=== PATIENT | female | born 1940 | race Caucasian/White ===

== ENCOUNTER 2017-02-06 15:00 | Inpatient (IN) | payer MEDICARE ==
[2017-02-06] VITALS (7 sets, daily range): BP systolic 104–133; BP diastolic 53–71; PULSE 57–76; RESP 16–18; TEMP 97.6–98.4; O2SAT 91–98
[~2017-02-06] VITALS: Ht 167.6 cm; Wt 109.0 kg
[~2017-02-06 15:00] MED LIST: BUME1TAB PO; CARV6.25 PO; CHOL1TAB29 PO; COUM4TAB7 PO; CYMB30CA PO; DUONI NEB; FIORIC PO; MAGN400 PO; OCUVCAP PO; OSTETAB3 PO; PERC5TAB12 PO; POTA20PA PO; SILD20TA PO; SIMV20 PO; SYMB160A INH; [UNRECOGNIZED DRUG - CODE] IM
[2017-02-06 15:51] LABS: AUTOMATED NEUTROPHIL # 7.2 TH/MM3 (1.8-7.7); BASOPHIL # 0.1 TH/MM3 (0-0.2); EOSINOPHIL # 0.1 TH/MM3 (0-0.4); EOSINOPHIL % 1.5 % (0.0-4.0); HEMATOCRIT 33.4 % (35.0-46.0); HEMO FLAGS DIFF FINAL; LYMPH % 9.7 % (9.0-44.0); LYMPHOCYTE # 0.9 TH/MM3 (1.0-4.8); MEAN CELL VOLUME 90.4 FL (80.0-100.0); MEAN CORPUSCULAR HEMOGLOBIN 29.5 PG (27.0-34.0); MEAN CORPUSCULAR HGB CONC 32.6 % (32.0-36.0); MONO % 5.8 % (0.0-8.0); PLATELET COUNT 311 TH/MM3 (150-450); RED BLOOD COUNT 3.69 MIL/MM3 (4.00-5.30); RED CELL DISTRIBUTION WIDTH 15.4 % (11.6-17.2); WHITE BLOOD COUNT 8.8 TH/MM3 (4.0-11.0)
--- NOTE | 2017-02-06 15:52 | PD ---
HPI Chief Complaint: Respiratory Symptoms Time Seen by Provider: 15:13 Travel History International Travel<30 days: No Contact w/Intl Traveler<30days: No Traveled to known affect area: No History of Present Illness HPI This is a 76-year-old female with history of CHF, COPD, who presents today with complaints of worsening shortness of breath over the last 3 days. Patient also reports 10 pound weight gain over the last 3 days. She states that despite taking her 160 mg of Lasix daily, she is decreased respiratory effort. She denies any chest pressure but does report a little tightness in her upper chest. She denies any productive phlegm. She denies a fevers, chills patient does report swelling of her legs as well. He does have a history of atrial fibrillation and is taking Coumadin. He states her last INR was greater than 3 and almost 4. She was due for another INR on Thursday. PFSH Past Medical History Hx Anticoagulant Therapy: Yes Arthritis: Yes (OA) Asthma: No Anxiety: No Depression: Yes Heart Rhythm Problems: No Cancer: No Cardiovascular Problems: Yes High Cholesterol: Yes Chest Pain: Yes Congestive Heart Failure: No COPD: Yes Cerebrovascular Accident: No Diabetes: No Diminished Hearing: No Deep Vein Thrombosis: Yes Endocrine: No GERD: No Genitourinary: No Hepatitis: No Hiatal Hernia: No Hypertension: Yes Immune Disorder: No Kidney Stones: No Musculoskeletal: Yes (Degenerative disk disease) Psychiatric: Yes Respiratory: Yes Immunizations Current: Yes Migraines: No Renal Failure: No Seizures: No Sleep Apnea: No Thyroid Disease: No Ulcer: No ?: Not Menopausal: Yes Past Surgical History Abdominal Surgery: Yes AICD: No Appendectomy: Yes Body Medical Devices: INTERSTEM LEFT BUTTUCK AND RIGHT HEEL BOLT Cardiac Surgery: No Ear Surgery: No Endocrine Surgery: No Eye Surgery: Yes (cataracts) Genitourinary Surgery: Yes (Inner stem therapy[left buttocks) Gynecologic Surgery: Yes (Hysterectomy ) Hysterectomy: Yes Joint Replacement: Yes (HIP REPLACEMENT ) Neurologic Surgery: No Oral Surgery: No Pacemaker: No Thoracic Surgery: No Tonsillectomy: Yes Other Surgery: Yes ( mediastymectomy, lung biopsy) Social History Alcohol Use: No Tobacco Use: No (quit) Substance Use: No Allergies-Medications (Allergen,Severity, Reaction): Coded Allergies: No Known Allergies (Unverified , 03/06/16) Reported Meds & Prescriptions Reported Meds & Active Scripts Active Fioricet Tab (Acetaminophen/Butalbital/Caffeine) 1 Tab 1 Tab PO Q4H PRN Bumetanide 1 Mg Tab 1 Mg PO BID@09,18 Percocet 5-325 mg (Oxycodone/Acetaminophen) 5 Mg/325 Mg Tab 1 Tab PO Q6H PRN Reported Resp: Albuterol/Ipratropium 2.5 Mg/0.5 Mg (Albuterol/Ipratropium) 1 Amp Nebu 1 Ampule NEB BID NEB PRN Furosemide 80 Mg Tab 80 Mg PO BID Coumadin 4 mg (Warfarin Sodium) Warfarin Sodium 4 mg Tab 8 Mg PO MOWEFR@16 Coumadin 4 mg (Warfarin Sodium) Warfarin Sodium 4 mg Tab 4 Mg PO SUTUTHSA@16 Sildenafil Citrate 20 Mg Tab 20 Mg PO TID Ocuvite Lutein (Multiple Vitamins W/ Minerals) Cap 1 Cap PO DAILY D3 2000 (Cholecalciferol) 2,000 Unit Tab 2,000 Units PO DAILY Klor-Con (Potassium Chloride) 20 Meq Pow 40 Meq PO BID *DISSOLVE POWDER IN 4 OUNCES OF WATER* Delestrogen (Estradiol Valerate) 10 Mg/Ml Inj 20 Mg IM MONTHLY Cymbalta (Duloxetine HCl) 30 Mg Cap 30 Mg PO DAILY Symbicort (Budesonide/Formoterol Fumarate) 160 Mcg/4.5 Mcg Aer 2 Puff INH BID * SHAKE WELL BEFORE USE * Osteo Bi-Flex Regular Str (Glucosamine-Chondroitin) 1 Tab Tab 1 Tab PO BID Coreg 6.25 mg (Carvedilol) 6.25 Mg Tab 6.25 Mg PO BID Zocor (Simvastatin) 20 Mg Tab 20 Mg PO HS Mag-Ox 400 Mg Tab (Magnesium Oxide) 400 Mg Tab 400 Mg PO BID Review of Systems Except as stated in HPI: all other systems reviewed are Neg General / Constitutional: No: Fever, Chills HENT: No: Headaches, Neck Pain Cardiovascular: Positive: Chest Pain or Discomfort (tightness), Irregular Rhythm (history of A. fib), No: Palpitations Respiratory: Positive: Shortness of Breath, No: Cough Gastrointestinal: No: Nausea, Vomiting, Abdominal Pain Genitourinary: Positive: Decreased Urinary Output, No: Frequency (decreased frequency) Musculoskeletal: Positive: Weakness, No: Pain Neurologic: Positive: Weakness, No: Headache Psychiatric: Positive: Anxiety Physical Exam Narrative GENERAL: Well-developed well-nourished female in moderate respiratory discomfort. SKIN: Focused skin assessment warm/dry. HEAD: Atraumatic. Normocephalic. EYES: No scleral icterus. No injection or drainage. ENT: No nasal bleeding or discharge. Mucous membranes pink and moist. NECK: Trachea midline. Supple. CARDIOVASCULAR: Irregularly irregular with a rate in the 90s. No obvious murmur appreciated. RESPIRATORY: No accessory muscle use. Fine Rales appreciated at the bilateral bases. No wheezing appreciated. GASTROINTESTINAL: Abdomen soft, non-tender, nondistended. MUSCULOSKELETAL: No obvious deformities. No clubbing. No cyanosis. Bilateral pretibial edema. NEUROLOGICAL: Awake and alert. No obvious cranial nerve deficits. Motor grossly within normal limits. Normal speech. PSYCHIATRIC: Appropriate mood and affect; insight and judgment normal. Data Data Last Documented VS Vital Signs Date Time Temp Pulse Resp B/P (MAP) Pulse Ox O2 Delivery O2 Flow Rate FiO2 02/06/17 15:40 16 97 Nasal Cannula 3.00 02/06/17 15:02 97.6 76 107/53 (71) Orders Orders Complete Blood Count With Diff (02/06/17 15:30) Comprehensive Metabolic Panel (02/06/17 15:30) B-Type Natriuretic Peptide (02/06/17 15:30) Act Partial Throm Time (Ptt) (02/06/17 15:30) Prothrombin Time / Inr (Pt) (02/06/17 15:30) Ckmb (Isoenzyme) Profile (02/06/17 15:30) Troponin I (02/06/17 15:30) Urinalysis - C+S If Indicated (02/06/17 15:30) Iv Access Insert/Monitor (02/06/17 15:30) Electrocardiogram (02/06/17 15:30) Ecg Monitoring (02/06/17 15:30) Oximetry (02/06/17 15:30) Oxygen Administration (02/06/17 15:30) Chest, Single Ap (02/06/17 15:30) Sodium Chloride 0.9% Flush (Ns Flush) (02/06/17 15:30) Sodium Chloride 0.9% Flush (Ns Flush) (02/06/17 17:15) Methylprednisolone So Succ Inj (Solumedr (02/06/17 17:15) Albuterol-Ipratropium Neb (Duoneb Neb) (02/06/17 17:15) Albuterol Neb (Albuterol Neb) (02/06/17 17:15) Arterial Blood Gas (Abg) (02/06/17 ) Sodium Chlorid 0.9% 500 Ml Inj (Ns 500 M (02/06/17 17:15) Admit Order (Ed Use Only) (02/06/17 17:20) Labs Laboratory Tests Test 02/06/17 15:35 White Blood Count 8.8 TH/MM3 Red Blood Count 3.69 MIL/MM3 Hemoglobin 10.9 GM/DL Hematocrit 33.4 % Mean Corpuscular Volume 90.4 FL Mean Corpuscular Hemoglobin 29.5 PG Mean Corpuscular Hemoglobin Concent 32.6 % Red Cell Distribution Width 15.4 % Platelet Count 311 TH/MM3 Mean Platelet Volume 7.5 FL Neutrophils (%) (Auto) 82.0 % Lymphocytes (%) (Auto) 9.7 % Monocytes (%) (Auto) 5.8 % Eosinophils (%) (Auto) 1.5 % Basophils (%) (Auto) 1.0 % Neutrophils # (Auto) 7.2 TH/MM3 Lymphocytes # (Auto) 0.9 TH/MM3 Monocytes # (Auto) 0.5 TH/MM3 Eosinophils # (Auto) 0.1 TH/MM3 Basophils # (Auto) 0.1 TH/MM3 CBC Comment DIFF FINAL Differential Comment Prothrombin Time 27.4 SEC Prothromb Time International Ratio 2.4 RATIO Activated Partial Thromboplast Time 40.6 SEC Urine Color LIGHT-YELLOW Urine Turbidity CLEAR Urine pH 7.5 Urine Specific [place] 1.008 Urine Protein NEG mg/dL Urine Glucose (UA) NEG mg/dL Urine Ketones NEG mg/dL Urine Occult Blood MOD Urine Nitrite NEG Urine Bilirubin NEG Urine Urobilinogen LESS THAN 2.0 MG/DL Urine Leukocyte Esterase NEG Urine RBC LESS THAN 1 /hpf Urine WBC LESS THAN 1 /hpf Urine Squamous Epithelial Cells 1 /hpf Microscopic Urinalysis Comment CULT NOT INDICATED Blood Urea Nitrogen 27 MG/DL Creatinine 1.29 MG/DL Random Glucose 90 MG/DL Total Protein 7.2 GM/DL Albumin 3.1 GM/DL Calcium Level 9.3 MG/DL Alkaline Phosphatase 103 U/L Aspartate Amino Transf (AST/SGOT) 13 U/L Alanine Aminotransferase (ALT/SGPT) 13 U/L Total Bilirubin 0.3 MG/DL Sodium Level 136 MEQ/L Potassium Level 5.4 MEQ/L Chloride Level 101 MEQ/L Carbon Dioxide Level 30.2 MEQ/L Anion Gap 5 MEQ/L Estimat Glomerular Filtration Rate 40 ML/MIN Total Creatine Kinase 25 U/L Troponin I LESS THAN 0.02 NG/ML B-Type Natriuretic Peptide 269 PG/ML MDM Medical Decision Making Medical Screen Exam Complete: Yes Emergency Medical Condition: Yes Differential Diagnosis CHF exacerbation versus COPD exacerbation versus pneumonia versus acute kidney injury Narrative Course 76-year-old female presents today with complaints of shortness of breath. Patient denies any chest pain, chest pressure. Patient's cardiac enzymes are within normal limits. Patient's creatinine is come from 0.63-1.3. Given this, the patient is likely over diuresed. She'll be gently hydrated because she does have a history of CHF patient should be admitted as an observation. His been discussed with Dr. Dread Franklin, [facility] a Behavioral Hospitalist, who is agreeable to the admission. Diagnosis Primary Impression: COPD exacerbation Additional Impressions: Acute kidney injury History of CHF (congestive heart failure) Atrial fibrillation Admitting Information Admitting Physician Requests: Observation German Goldberg MD Feb 06, 2017 15:52
[2017-02-06 15:59] LABS: APTT (PATIENT) 40.6 SEC (24.3-30.1); INTERNATIONAL NORMALIZED RATIO 2.4 RATIO; PROTHROMBIN TIME - PATIENT 27.4 SEC (9.8-11.6)
[2017-02-06 16:19] LABS: BLOOD, URINE MOD (NEG); COMMENT (UR) CULT NOT INDICATED; CULTURE IF INDICATED CULT NOT INDICATED; GLUCOSE,URINE NEG (NEG); KETONE, URINE NEG (NEG); NITRITE,URINE NEG (NEG); PH, URINE 7.5 (5.0-8.5); SQUAMOUS EPITHELIAL CELL URINE 1 /hpf (0-5); URINE COLOR LIGHT-YELLOW (YELLW/STRAW)
[2017-02-06 16:21] LABS: ALT (GPT) 13 U/L (10-53); ANION GAP 5 MEQ/L (5-15); AST (GOT) 13 U/L (15-37); BICARBONATE 30.2 MEQ/L (21.0-32.0); BLOOD UREA NITROGEN 27 MG/DL (7-18); CHLORIDE 101 MEQ/L (98-107); GLOMERULAR FILTRATION RATE 40 ML/MIN (>89); POTASSIUM 5.4 MEQ/L (3.5-5.1); SODIUM (NA) 136 MEQ/L (136-145)
[2017-02-06 16:25] LABS: ALKALINE PHOSPHATASE 103 U/L (45-117); TOTAL BILIRUBIN ADULT 0.3 MG/DL (0.2-1.0)
[2017-02-06 16:54] LABS: CREATINE KINASE 25 U/L (26-192)
--- NOTE | 2017-02-06 16:56 | RADRPT ---
EXAM DATE/TIME: 02/06/2017 16:06 [facility] COMPARISON: CHEST SINGLE AP, March 28, 2015, 11:19. CHEST SINGLE AP, March 06, 2016, 17:53. CHEST PA & LAT, August 26, 2013, 12:54. CT PULMONARY ANGIOGRAM, March 28, 2015, 20:50. INDICATIONS : Shortness of breath. MEDICAL HISTORY : Chronic obstructive pulmonary disease. Emphysema. Congestive heart SURGICAL HISTORY : Mediastinotomy ENCOUNTER: Initial ACUITY: 1 day PAIN SCORE: 0/10 LOCATION: Bilateral chest FINDINGS: Slightly irregular parenchymal scar is present in right upper lobe not significantly changed since 2013. Left hilar shadow is also slightly prominent not significantly changed. There is no viri reciable pleural effusion for technique. Heart and mediastinum are unremarkable. CONCLUSION: No acute cardiopulmonary disease. Virginia Lizarraga MD on February 06, 2017 at 16:52 Board Certified Radiologist. This report was verified electronically.
[2017-02-06] MEDS ORDERED: SODIUM CHLORIDE 0.9% FLUSH 10 ML FLUSH IVF PRN (17:15)
[2017-02-06] MEDS ORDERED: RESP: ALBUTEROL 2.5 MG/IPRATROPIUM 0.5 MG NEB (SCH) INH ONE (17:15)
[2017-02-06] MEDS ORDERED: methylPREDNISolone SOD SUCC 125 MG/2 ML VIAL IVP ONE (17:15)
[2017-02-06 17:41] LABS: BLOOD GAS BASE EXCESS 4.5 mmol/L (-2-2); BLOOD GAS CARBOXYHEMOGLOBIN 1.2 % (0-4); BLOOD GAS HCO3 29 mmol/L (22-26); BLOOD GAS METHEMOGLOBIN 0.6 % (0-2); BLOOD GAS O2 HGB SATURATION 96 % (90-100); BLOOD GAS OXYGEN CONTENT 14.7 Vol % (12.0-20.0); BLOOD GAS PCO2 45 mmHg (38-42); BLOOD GAS PO2 103 mmHG (61-120); BLOOD GAS TOTAL HGB 10.7 G/DL (12.0-16.0); TEMP CORR TO 98.6
[2017-02-06 17:42] LABS: CRITICAL VALUE NO; DRAW SITE LT RADIAL; LITER FLOW 3 L/M; NUMBER OF ARTERIAL PUNCTURES 1; OXYGEN DEVICE NASAL CANNULA; STAT YES; ULNAR PULSE PRESENT
[2017-02-06] MEDS ORDERED: MAGNESIUM HYDROXIDE SUSP 30 ML CUP PO PRN (17:45)
[2017-02-06] MEDS ORDERED: ONDANSETRON HCL 4 MG/2 ML VIAL IVP PRN (17:45)
[2017-02-06] MEDS ORDERED: BISACODYL 10 MG SUPP RECTAL PRN (17:45)
[2017-02-06] MEDS ORDERED: NALOXONE HCL 0.4 MG/ML AMP IV PRN (17:45)
[2017-02-06] MEDS ORDERED: SENNOSIDES 8.6 MG TAB PO PRN (17:45)
[2017-02-06] MEDS ORDERED: LACTULOSE SYRUP 20 GM/30 ML CUP PO PRN (17:45)
[2017-02-06] MEDS: SODIUM CHLORID 0.9% 500 ML INJ 500 ML IV SCH (17:51)
[2017-02-06] MEDS: RESP: ALBUTEROL 2.5 MG/3 ML NEB (SCH) INH ×2 (18:11→18:12)
[2017-02-06] MEDS ORDERED: PERC5TAB12 PO (18:43)
[2017-02-06] MEDS ORDERED: METO5TAB3 PO (18:43)
[2017-02-06] MEDS ORDERED: COUM4TAB PO (18:43)
[2017-02-06] MEDS ORDERED: FURO1TAB61 PO (18:43)
[2017-02-06] MEDS ORDERED: DULO1CAP2 PO (18:43)
[2017-02-06] MEDS ORDERED: SIMV20TA PO (18:43)
[2017-02-06] MEDS ORDERED: ASPI-110 PO (18:43)
[2017-02-06] MEDS ORDERED: SILD20TA11 PO ×2 (18:43→19:48)
[2017-02-06] MEDS ORDERED: OCUVTAB PO (18:43)
[2017-02-06] MEDS ORDERED: GLUC100017 PO (18:43)
[2017-02-06] MEDS ORDERED: POTA10TA2 PO (18:43)
[2017-02-06] MEDS ORDERED: CARV6.252 PO (18:43)
[2017-02-06] MEDS ORDERED: COUM2TAB PO (18:43)
[2017-02-06] MEDS: HEPARIN SODIUM - SQ 10,000 UNITS/ML VIAL SQ SCH (18:50)
--- NOTE | 2017-02-06 18:50 | HHI.HP ---
[facility] Yonny Awad MD Admission Diagnosis acute kidney injury, copd exaceration, atrial fibrillation. Diagnoses: (1) Shortness of breath (2) History of CHF (congestive heart failure) (3) Acute kidney injury (4) COPD (chronic obstructive pulmonary disease) (5) Atrial fibrillation Chief Complaint: Shortness of breath Travel History International Travel<30 Days: No Contact w/Intl Traveler <30 Da: No Traveled to Known Affected Are: No History of Present Illness Written by Nieves Castro, acting as scribe for Dr. Franklin on 02/06/17 at 18: 49. Ms. Delvalle is a 76-year-old female patient with a known medical history of CHF, COPD on home O2, and atrial fibrillation who presented to the ED with complaints of worsening shortness of breath x 3 days. Patient states that she is normally on 3L [place] home oxygen and able to perform ADLs and ambulation but for three days noticed worsening shortness of breath with activity and bending over. Patient states she has been unable to walk across a small room without becoming severely short of breath. She sees Dr. Kelley, pulmonology, in the outpatient setting. Does admit to taking 160mg of Lasix daily as prescribed. Has noticed a 10-pound weight gain in the past three days. Denies any recent fever, chills, cough, headache, dizziness, lightheadedness, abdominal pain, vomiting, diarrhea, or dysuria. Review of Systems Constitutional: COMPLAINS OF: Fatigue, DENIES: Fever, Chills Respiratory: COMPLAINS OF: Shortness of breath, DENIES: Cough, Wheezing Cardiovascular: COMPLAINS OF: Dyspnea on Exertion, Orthopnea, DENIES: Chest pain Gastrointestinal: COMPLAINS OF: Nausea, DENIES: Abdominal pain, Constipation, Vomiting Except as stated in HPI: all other systems reviewed are Neg Past Family Social History Past Medical History CHF COPD Atrial fibrillation on Coumadin Degenerative disc disease Hypertension Depression Arthritis Past Surgical History Hysterectomy Appendectomy Tonsillectomy Hip replacement Mediastymectomy, lung biopsy Cataracts Inner stem therapy left buttocks Reported Medications Last Impressions Chest X-Ray 02/06/17 1530 Signed Impressions: Service Date/Time: Monday, February 06, 2017 16:06 - CONCLUSION: No acute cardiopulmonary disease. Virginia Lizarraga MD Allergies: Coded Allergies: No Known Allergies (Unverified , 03/06/16) Active Ordered Medications Current Medications Medications (Trade) Dose Ordered Sig/Bethanie Route Start Time Stop Time Status Last Admin (NS Flush) 2 ml UNSCH PRN IVF 02/06/17 15:30 (NS Flush) 2 ml UNSCH PRN IVF 02/06/17 17:15 Sodium Chloride 500 ml @ 50 mls/hr Q10H IV 02/06/17 17:15 02/07/17 03:14 02/06/17 17:51 (Tylenol) 650 mg Q4H PRN PO 02/06/17 17:45 (Zofran Inj) 4 mg Q6H PRN IVP 02/06/17 17:45 (Heparin Inj) 5,000 units Q12H SQ 02/06/17 18:00 (Narcan Inj) 0.4 mg UNSCH PRN IV 02/06/17 17:45 (Milk Of Magnesia Liq) 30 ml Q12H PRN PO 02/06/17 17:45 (Senokot) 17.2 mg Q12H PRN PO 02/06/17 17:45 (Dulcolax Supp) 10 mg DAILY PRN RECTAL 02/06/17 17:45 (Lactulose Liq) 30 ml DAILY PRN PO 02/06/17 17:45 Family History Denies any significant medical history. Social History Denies any current tobacco abuse, admits to a [id number] smoking history. Denies any alcohol use. Denies any illicit drug use. Physical Exam Vital Signs Vital Signs Date Time Temp Pulse Resp B/P (MAP) Pulse Ox O2 Delivery O2 Flow Rate FiO2 02/06/17 18:00 60 16 113/71 (85) 98 02/06/17 17:00 62 16 133/60 (84) 98 02/06/17 16:00 64 16 115/54 (74) 98 02/06/17 15:40 16 97 Nasal Cannula 3.00 02/06/17 15:40 97 Nasal Cannula 3.00 02/06/17 15:02 97.6 76 18 107/53 (60) 91 Physical Exam GENERAL: This is a well-nourished, well-developed female patient, lying in bed on 3 L NC. SKIN: No rash. Ecchymoses on upper extremities. Warm and dry. HEAD: Atraumatic. Normocephalic. Pupils equal round and reactive. Extraocular motions intact. No scleral icterus. No injection or drainage. Nose without bleeding. Airway patent. NECK: Trachea midline. No JVD or lymphadenopathy. Supple, nontender, no meningeal signs. CARDIOVASCULAR: Regular rate and rhythm without murmurs, gallops, or rubs. Reproducible right upper chest discomfort to palpation. RESPIRATORY: Clear to auscultation. Breath sounds equal bilaterally. No wheezes , rales, or rhonchi. GASTROINTESTINAL: Abdomen soft, non-tender, nondistended. No guarding. MUSCULOSKELETAL: Extremities without clubbing, cyanosis, or edema. No joint tenderness, effusion, or edema noted. NEUROLOGICAL: Awake and alert. Cranial nerves II through XII intact. Motor and sensory grossly within normal limits. Five out of 5 muscle strength in all muscle groups. Normal speech. Laboratory Laboratory Tests Test 02/06/17 15:35 02/06/17 17:35 White Blood Count 8.8 Red Blood Count 3.69 Hemoglobin 10.9 Hematocrit 33.4 Mean Corpuscular Volume 90.4 Mean Corpuscular Hemoglobin 29.5 Mean Corpuscular Hemoglobin Concent 32.6 Red Cell Distribution Width 15.4 Platelet Count 311 Mean Platelet Volume 7.5 Neutrophils (%) (Auto) 82.0 Lymphocytes (%) (Auto) 9.7 Monocytes (%) (Auto) 5.8 Eosinophils (%) (Auto) 1.5 Basophils (%) (Auto) 1.0 Neutrophils # (Auto) 7.2 Lymphocytes # (Auto) 0.9 Monocytes # (Auto) 0.5 Eosinophils # (Auto) 0.1 Basophils # (Auto) 0.1 CBC Comment DIFF FINAL Differential Comment Prothrombin Time 27.4 Prothromb Time International Ratio 2.4 Activated Partial Thromboplast Time 40.6 Urine Color LIGHT-YELLOW Urine Turbidity CLEAR Urine pH 7.5 Urine Specific [place] 1.008 Urine Protein NEG Urine Glucose (UA) NEG Urine Ketones NEG Urine Occult Blood MOD Urine Nitrite NEG Urine Bilirubin NEG Urine Urobilinogen LESS THAN 2.0 Urine Leukocyte Esterase NEG Urine RBC LESS THAN 1 Urine WBC LESS THAN 1 Urine Squamous Epithelial Cells 1 Microscopic Urinalysis Comment CULT NOT INDICATED Blood Urea Nitrogen 27 Creatinine 1.29 Random Glucose 90 Total Protein 7.2 Albumin 3.1 Calcium Level 9.3 Alkaline Phosphatase 103 Aspartate Amino Transf (AST/SGOT) 13 Alanine Aminotransferase (ALT/SGPT) 13 Total Bilirubin 0.3 Sodium Level 136 Potassium Level 5.4 Chloride Level 101 Carbon Dioxide Level 30.2 Anion Gap 5 Estimat Glomerular Filtration Rate 40 Total Creatine Kinase 25 Troponin I LESS THAN 0.02 B-Type Natriuretic Peptide 269 Blood Gas Puncture Site LT RADIAL Blood Gas Patient Temperature 98.6 Blood Gas HCO3 29 Blood Gas Base Excess 4.5 Blood Gas Oxygen Saturation 96 Arterial Blood pH 7.43 Arterial Blood Partial Pressure CO2 45 Arterial Blood Partial Pressure O2 103 Arterial Blood Oxygen Content 14.7 Arterial Blood Carboxyhemoglobin 1.2 Arterial Blood Methemoglobin 0.6 Blood Gas Hemoglobin 10.7 Oxygen Delivery Device NASAL CANNULA Blood Gas Liter Flow 3 Result Diagram: 02/06/17 1535 02/06/17 1535 Imaging Last Impressions Chest X-Ray 02/06/17 1530 Signed Impressions: Service Date/Time: Monday, February 06, 2017 16:06 - CONCLUSION: No acute cardiopulmonary disease. Virginia Lizarraga MD Caprinaubree VTE Risk Assessment Caprini VTE Risk Assessment: Mod/High Risk (score >= 2) Caprini Risk Assessment Model Point Value = 1 Point Value = 2 Point Value = 3 Point Value = 5 Age 41-60 Minor surgery BMI > 25 kg/m2 Swollen legs Varicose veins or History of unexplained or recurrent spontaneous Oral contraceptives or hormone replacement Sepsis (< 1 month) Serious lung disease, including pneumonia (< 1 month) Abnormal pulmonary function Acute myocardial infarction Congestive heart failure (< 1 month) History of inflammatory bowel disease Medical patient at bed rest Age 61-74 Arthroscopic surgery Major open surgery (> 45 min) Laparoscopic surgery (> 45 min) Malignancy Confined to bed (> 72 hours) Immobilizing plaster cast Central venous access Age >= 75 History of VTE Family history of VTE Factor V Leiden Prothrombin [id number] Lupus anticoagulant Anticardiolipin antibodies Elevated serum homocysteine Heparin-induced thrombocytopenia Other congenital or acquired thrombophilia Stroke (< 1 month) Elective arthroplasty Hip, pelvis, or leg fracture Acute spinal cord injury (< 1 month) Prophylaxis Regimen Total Risk Factor Score Risk Level Prophylaxis Regimen 0-1 Low Early ambulation 2 Moderate Order ONE of the following: *Sequential Compression Device (SCD) *Heparin 5000 units SQ BID 3-4 Higher Order ONE of the following medications: *Heparin 5000 units SQ TID *Enoxaparin/Lovenox 40 mg SQ daily (WT < 150 kg, CrCl > 30 mL/min) *Enoxaparin/Lovenox 30 mg SQ daily (WT < 150 kg, CrCl > 10-29 mL/min) *Enoxaparin/Lovenox 30 mg SQ BID (WT < 150 kg, CrCl > 30 mL/min) AND/OR *Sequential Compression Device (SCD) 5 or more Highest Order ONE of the following medications: *Heparin 5000 units SQ TID (Preferred with Epidurals) *Enoxaparin/Lovenox 40 mg SQ daily (WT < 150 kg, CrCl > 30 mL/min) *Enoxaparin/Lovenox 30 mg SQ daily (WT < 150 kg, CrCl > 10-29 mL/min) *Enoxaparin/Lovenox 30 mg SQ BID (WT < 150 kg, CrCl > 30 mL/min) AND *Sequential Compression Device (SCD) Assessment and Plan Assessment and Plan Ms. Delvalle is a 76-year-old female patient with a known medical history of CHF, COPD on home O2, and atrial fibrillation who presented to the ED with complaints of worsening shortness of breath x 3 days. Patient states that she is normally on 3L [place] home oxygen and able to perform ADLs and ambulation but for three days noticed worsening shortness of breath with activity and bending over. Patient states she has been unable to walk across a small room without becoming severely short of breath. Chronic obstructive pulmonary disease, acute on chronic - Chest x-ray reviewed showing no acute cardiopulmonary disease. - Methylprednisolone 125 mg IV given in ED. Duonebs given in ED. - Duonebs scheduled and PRN. - Will consult pulmonology, Dr. Kelley known to patient. Appreciate recommendations. - ABG performed in ED, reviewed and unremarkable. - Continue supplemental O2 to keep sats >88%. Acute kidney injury suspect secondary to dehydration vs overdiuresis - Creatinine 1.29 on presentation. No baseline. - Will start slow hydration, NS 50 ml/hr. - Will recheck BMP in am. Follow. Normocytic, normochromic anemia: Hematocrit 10.9/Hematocrit 33.4. No baseline H& H at this time. Possibly chronic. Will follow CBC in am. Atrial fibrillation, chronic: INR therapeutic 2.4. Follow daily INR. Congestive heart failure - BNP 269, possibly due to overdiuresis. No signs of overload. Will monitor at this time. Will hold diuretics at this time. Follow creatinine. Check 2-D echo. Follow. DVT Prophylaxis: SCDs/TEDs/Heparin sq This note was transcribed by johnnie Castro. I, Dr. Dread Franklin personally performed the history, physical exam, and medical decision making; and confirmed the accuracy of the information in the transcribed note. Authenticated by Dr. Dread Franklin on 02/06/17 at 19:04. Physician Certification 2 Midnight Certification Type: Admission for Inpatient Services Order for Inpatient Services The services are ordered in accordance with Medicare regulations or non- Medicare payer requirements, as applicable. In the case of services not specified as inpatient-only, they are appropriately provided as inpatient services in accordance with the 2-midnight benchmark. Estimated LOS (days): 2 2 days is the estimated time the patient will need to remain in the hospital, assuming treatment plan goals are met and no additional complications. Post-Hospital Plan: Home Nieves Castro Feb 06, 2017 18:49 Dread Franklin MD Feb 06, 2017 19:04
[2017-02-06] MEDS ORDERED: IPRASOL INH (19:02)
[2017-02-06] MEDS ORDERED: RESP: ALBUTEROL 2.5 MG/3 ML NEB (PRN) INH (19:15)
[2017-02-06] MEDS: TEMAZEPAM 15 MG CAP PO PRN (20:31)
[2017-02-06] MEDS: CARVEDILOL 6.25 MG TAB PO SCH (20:31)
[2017-02-06] MEDS: methylPREDNISolone SOD SUCC 125 MG/2 ML VIAL IVP SCH (20:31)
[2017-02-06] MEDS: RESP: ALBUTEROL 2.5 MG/IPRATROPIUM 0.5 MG NEB (SCH) INH (22:10)
[2017-02-07] VITALS (12 sets, daily range): BP systolic 98–149; BP diastolic 46–79; PULSE 65–85; RESP 18–19; TEMP 97.7–98.5; O2SAT 93–97
[2017-02-07] MEDS: methylPREDNISolone SOD SUCC 125 MG/2 ML VIAL IVP SCH ×4 (02:15→21:38)
[2017-02-07] MEDS: RESP: ALBUTEROL 2.5 MG/IPRATROPIUM 0.5 MG NEB (SCH) INH ×4 (04:00→21:10)
[2017-02-07 04:04] LABS: AUTOMATED NEUTROPHIL # 7.8 TH/MM3 (1.8-7.7); BASOPHIL % 0.1 % (0.0-2.0); HEMATOCRIT 33.1 % (35.0-46.0); HEMO FLAGS DIFF FINAL; LYMPH % 4.5 % (9.0-44.0); LYMPHOCYTE # 0.4 TH/MM3 (1.0-4.8); MEAN CELL VOLUME 89.2 FL (80.0-100.0); MEAN CORPUSCULAR HEMOGLOBIN 28.7 PG (27.0-34.0); MEAN CORPUSCULAR HGB CONC 32.2 % (32.0-36.0); MONO % 0.6 % (0.0-8.0); NEUT % 94.8 % (16.0-70.0); PLATELET COUNT 257 TH/MM3 (150-450); RED BLOOD COUNT 3.71 MIL/MM3 (4.00-5.30); RED CELL DISTRIBUTION WIDTH 15.2 % (11.6-17.2); WHITE BLOOD COUNT 8.2 TH/MM3 (4.0-11.0)
[2017-02-07 04:14] LABS: INTERNATIONAL NORMALIZED RATIO 2.7 RATIO; PROTHROMBIN TIME - PATIENT 31.1 SEC (9.8-11.6)
[2017-02-07 04:31] LABS: ANION GAP 8 MEQ/L (5-15); BICARBONATE 27.9 MEQ/L (21.0-32.0); BLOOD UREA NITROGEN 32 MG/DL (7-18); CHLORIDE 101 MEQ/L (98-107); GLOMERULAR FILTRATION RATE 42 ML/MIN (>89); POTASSIUM 4.9 MEQ/L (3.5-5.1); SODIUM (NA) 137 MEQ/L (136-145)
[2017-02-07 04:39] LABS: CREATINE KINASE 20 U/L (26-192)
[2017-02-07 05:00] LABS: CREATINE KINASE 25 U/L (26-192)
[2017-02-07] MEDS: oxyCODONE/ACETAMINOPHEN 5 MG/325 MG TAB PO PRN ×2 (05:47→15:28)
[2017-02-07] MEDS: SODIUM CHLORID 0.9% 500 ML INJ 500 ML IV SCH (05:48)
[2017-02-07] MEDS: HEPARIN SODIUM - SQ 10,000 UNITS/ML VIAL SQ SCH (06:00)
[2017-02-07] MEDS: PRAVASTATIN SOD 40 MG TAB PO SCH (08:22)
[2017-02-07] MEDS: ASPIRIN EC 81 MG TABEC PO SCH (08:22)
[2017-02-07] MEDS: CARVEDILOL 6.25 MG TAB PO SCH ×2 (08:23→21:38)
[2017-02-07] MEDS: MULTIVITAMIN-OPHTHALMIC 1 TAB PO SCH (08:23)
[2017-02-07] MEDS: SODIUM CHLORIDE 0.9% FLUSH 10 ML FLUSH IVF PRN ×2 (08:23→21:39)
[2017-02-07] MEDS: DULoxetine HCl DR 30 MG CAP PO SCH (08:23)
[2017-02-07] MEDS ORDERED: NON-FORMULARY DRUG (Glucosamine 1,000 MG) PO SCH (09:00)
[2017-02-07] MEDS: ACETAMINOPHEN 325 MG TAB PO PRN ×2 (09:47→22:37)
--- NOTE | 2017-02-07 10:55 | HHI.PR ---
Subjective Remarks Follow up dyspnea. Patient still feels short of breath. Denies chest pain. States that she does not feel good enough to go home yet. Objective Vitals Vital Signs Date Time Temp Pulse Resp B/P (MAP) Pulse Ox O2 Delivery O2 Flow Rate FiO2 02/07/17 08:22 97 Nasal Cannula 2.00 02/07/17 07:35 97.9 65 19 110/61 (77) 97 02/07/17 06:47 12 02/07/17 06:29 98.5 85 18 149/65 (93) 95 02/07/17 04:02 70 02/07/17 00:49 98.4 71 18 98/46 (63) 93 02/06/17 23:30 98 Nasal Cannula 2.00 02/06/17 21:16 98.4 70 18 104/57 (73) 97 02/06/17 20:49 57 02/06/17 18:00 60 16 113/71 (85) 98 02/06/17 17:00 62 16 133/60 (84) 98 02/06/17 16:00 64 16 115/54 (74) 98 02/06/17 15:40 16 97 Nasal Cannula 3.00 02/06/17 15:40 97 Nasal Cannula 3.00 02/06/17 15:02 97.6 76 18 107/53 (71) 91 Result Diagram: 02/07/17 0343 02/07/17 0343 Imaging Last Impressions Chest X-Ray 02/06/17 1530 Signed Impressions: Service Date/Time: Monday, February 06, 2017 16:06 - CONCLUSION: No acute cardiopulmonary disease. Virginia Lizarraga MD Objective Remarks General: Obese elderly female in no acute distress. Heart: Regular rate and rhythm. No murmur. Lungs: Clear to auscultation bilaterally. No wheezes, rales, or rhonchi. Breathing is nonlabored. Abdomen: Soft, nontender, nondistended. Tiny spot of oozing blood on the lower abdomen at site of heparin injection. Extremities: No lower extremity edema. Psych: Alert and oriented. Procedures None Urinary Catheter: No Vascular Central Line Catheter: No A/P Problem List: (1) Shortness of breath ICD Code: R06.02 - Shortness of breath Status: Acute (2) History of CHF (congestive heart failure) ICD Code: Z86.79 - Personal history of other diseases of the circulatory system Status: Acute (3) Acute kidney injury ICD Code: N17.9 - Acute kidney failure, unspecified Status: Acute (4) COPD (chronic obstructive pulmonary disease) ICD Code: J44.9 - Chronic obstructive pulmonary disease, unspecified Status: Chronic (5) Atrial fibrillation ICD Code: I48.91 - Unspecified atrial fibrillation Status: Acute Assessment and Plan 1. COPD with exacerbation: Continue steroids, bronchodilators, supplemental oxygen. Pulmonology consult is pending. 2. Acute kidney injury: Likely secondary to dehydration versus overdiuresis. Decrease IV fluids. 3. Normocytic normochromic anemia: Stable. Monitor labs. 4. Atrial fibrillation, chronic: Continue Coumadin. INR is therapeutic. Rate is controlled. 5. Chronic systolic congestive heart failure: BNP is slightly elevated. No signs of fluid overload at this time. Diuretics have been on hold. Will need to restart Lasix seen. 2-D echocardiogram ordered. 6. DVT prophylaxis: SCDs, ESTRELLA joynere, Coumadin. Dread Franklin MD Feb 07, 2017 10:55
[2017-02-07] MEDS: SILDENAFIL CITRATE 20 MG TAB PO SCH ×2 (12:45→21:00)
--- NOTE | 2017-02-07 13:41 | EKG ---
Date Performed: 02/06/2017 Time Performed: 16:07:39 PTAGE: 76 years EKG: ATRIAL FIBRILLATION POSSIBLE RIGHT VENTRICULAR CONDUCTION DELAY SEPTAL MYOCARDIAL INFARCTIO N Compared to prior tracing no significant change ABNORMAL ECG PREVIOUS TRACING : 03/06/2016 17.10 DOCTOR: Robert Eubanks Interpretating Date/Time 02/07/2017 13:41:09
--- NOTE | 2017-02-07 13:42 | EKG ---
Date Performed: 02/07/2017 Time Performed: 06:23:11 PTAGE: 76 years EKG: ATRIAL FIBRILLATION INCOMPLETE RIGHT BUNDLE BRANCH BLOCK SEPTAL MYOCARDIAL INFARCTION Brenden red to prior tracing no significant change ABNORMAL ECG PREVIOUS TRACING : 02/06/2017 21.49 DOCTOR: Robert Eubanks Interpretating Date/Time 02/07/2017 13:41:28
--- NOTE | 2017-02-07 13:42 | EKG ---
Date Performed: 02/06/2017 Time Performed: 21:49:34 PTAGE: 76 years EKG: ATRIAL FIBRILLATION POSSIBLE RIGHT VENTRICULAR CONDUCTION DELAY SEPTAL MYOCARDIAL INFARCTIO N Compared to prior tracing no significant change ABNORMAL ECG PREVIOUS TRACING : 02/06/2017 16.07 DOCTOR: Robert Eubanks Interpretating Date/Time 02/07/2017 13:41:18
[2017-02-07] MEDS ORDERED: BUMETANIDE INJ 1 MG/4 ML VIAL IV PUSH ONE (15:00)
[2017-02-07] MEDS: WARFARIN SOD 4 MG TAB PO SCH (15:27)
--- NOTE | 2017-02-07 15:46 | MB ---
cc: TERRENCE OCAMPO DATE OF CONSULTATION: 02/07/2017. REASON FOR CONSULTATION: COPD exacerbation. Respiratory failure. HISTORY OF PRESENT ILLNESS: Mrs. Delvalle is a very pleasant 76-year-old female who was admitted with increasing shortness of breath. She has a known history of COPD and chronic respiratory failure on oxygen. The patient as well has known congestive heart failure. She has been on diuretic therapy which is at present held for possible over-diuresis but the patient however tells me she had gained 10 pounds in the last three days or so and she has increasing edema. She denies history of fever or chills, cough or expectoration. No hemoptysis. No TB or industrial exposure. FAMILY HISTORY: Noncontributory. ALLERGIES: NONE KNOWN TO MEDICATIONS. PAST MEDICAL HISTORY: 1. COPD as mentioned above. 2. Chronic respiratory failure on home oxygen therapy. 3. Congestive heart failure. 4. Atrial fibrillation on long-term anticoagulant therapy. 5. Hypertension. 6. Mood disorder, namely depression. 7. Degenerative joint disease. 8. Degenerative disc disease. 9. Had a previous tonsillectomy and adenoidectomy. 10. Hysterectomy. 11. Appendectomy. 12. Hip replacement. 13. Previous lung biopsy via mediastinoscopy. 14. Cataract surgery. SOCIAL HISTORY: Smoked in the past however has not smoked for years; has a 20 pack/year history. Does not drink any alcohol. Does not use drugs. MEDICATIONS AT PRESENT: 1. Coumadin. 2. Levoxyl. 3. Ecotrin. 4. Cymbalta. 5. Ocuvite. 6. Pravachol. 7. DuoNeb. 8. Restoril. 9. IV Solu-Medrol. REVIEW OF SYSTEMS: A twelve-point review of systems is as per the history of present illness and past history, otherwise negative. PHYSICAL EXAMINATION: VITAL SIGNS: On exam, temperature 98, pulse 70, respirations 18, blood pressure 120/60, 02 saturation 96% on two liters oxygen. HEAD, EYES, EARS, NOSE, THROAT: Unremarkable. Eyes without icterus. NECK: Without adenopathy, thyroid enlargement. CHEST: Without dullness to percussion. Distant breath sounds. CARDIAC: Irregularity noted. ABDOMEN: Lax. Bowel sounds audible. EXTREMITIES: 3+ edema. IMAGING STUDIES: Chest x-ray shows no acute abnormality. LABORATORY STUDIES: White count 8.2, hemoglobin 10.6, platelet count 257,000. Sodium 137, potassium 4.2, BUN 32, creatinine 1.2. Arterial blood gas on 02/06/17 with pH 7.43, pC02 45, p02 103 on three liters oxygen via nasal cannula. IMPRESSION: 1. COPD exacerbation. 2. Chronic respiratory failure on oxygen therapy. 3. Congestive heart failure with evidence of fluid overload at present. 4. Atrial fibrillation. 5. Hypertension. 6. Mood disorder. PLAN: 1. The patient will be maintained on oxygen therapy. 2. Bronchodilator therapy will be continued as well as steroid therapy. 3. Diuresis would probably be of benefit given her increasing ankle edema, weight and shortness of breath. I gave her 1 milligrams of intravenous Bumex while seeing her today. 4. She has been seen by cardiology in the past and should follow up her care with her back tender cylinder as well. I do thank you for asking me to partake in Mrs. Delvalle's care. Terrence Ocampo MD WWW/PEDRO /2:37 PM /3:33 PM
[2017-02-07] MEDS: TEMAZEPAM 15 MG CAP PO PRN (21:37)
[2017-02-08] VITALS (10 sets, daily range): BP systolic 106–150; BP diastolic 52–82; PULSE 74–91; RESP 16–18; TEMP 97.7–98.2; O2SAT 93–98
[2017-02-08] MEDS: methylPREDNISolone SOD SUCC 125 MG/2 ML VIAL IVP SCH ×4 (03:04→20:34)
[2017-02-08] MEDS: RESP: ALBUTEROL 2.5 MG/IPRATROPIUM 0.5 MG NEB (SCH) INH ×4 (03:24→20:31)
[2017-02-08] MEDS: ACETAMINOPHEN 325 MG TAB PO PRN ×2 (06:56→20:35)
[2017-02-08 08:16] LABS: AUTOMATED NEUTROPHIL # 15.4 TH/MM3 (1.8-7.7); HEMATOCRIT 35.4 % (35.0-46.0); HEMO FLAGS DIFF FINAL; LYMPH % 3.1 % (9.0-44.0); LYMPHOCYTE # 0.5 TH/MM3 (1.0-4.8); MEAN CELL VOLUME 90.3 FL (80.0-100.0); MEAN CORPUSCULAR HEMOGLOBIN 29.5 PG (27.0-34.0); MEAN CORPUSCULAR HGB CONC 32.6 % (32.0-36.0); MONO % 2.6 % (0.0-8.0); NEUT % 94.3 % (16.0-70.0); PLATELET COUNT 289 TH/MM3 (150-450); RED BLOOD COUNT 3.92 MIL/MM3 (4.00-5.30); RED CELL DISTRIBUTION WIDTH 15.5 % (11.6-17.2); WHITE BLOOD COUNT 16.4 TH/MM3 (4.0-11.0)
[2017-02-08 08:23] LABS: INTERNATIONAL NORMALIZED RATIO 3.9 RATIO; PROTHROMBIN TIME - PATIENT 45.5 SEC (9.8-11.6)
--- NOTE | 2017-02-08 08:23 | ECHRPT ---
Indication: Heart Failure CONCLUSIONS Normal left ventricular size. Wall thickness is normal. The left ventricular systolic function is low normal with an estimated ejection fraction in the rang e of 50- 55%. The right ventricle is mildly dilated. The right atrial size is mildly dilated. Trace mitral valve regurgitation. There is severe tricuspid regurgitation. There is estimated severe pulmonary hypertension present ( > 70 mmHg). The inferior vena cava is dilated. BP: / HR: Rhythm: Sinus MEASUREMENTS (Male / Female) Normal Values Technical Quality:Good 2D ECHO LV Diastolic Diameter PLAX 4.2 cm 4.2 - 5.9 / 3.9 - 5.3 cm LV Systolic Diameter PLAX 2.9 cm IVS Diastolic Thickness 0.8 cm 0.6 - 1.0 / 0.6 - 0.9 cm LVPW Diastolic Thickness 0.8 cm 0.6 - 1.0 / 0.6 - 0.9 cm LV Relative Wall Thickness 0.4 RV Internal Dim ED PLAX 2.0 cm LA Systolic Diameter LX 3.3 cm 3.0 - 4.0 / 2.7 - 3.8 cm M-MODE Aortic Root Diameter MM 2.8 cm AV Cusp Separation MM 1.6 cm DOPPLER MR Peak Velocity 518.0 cm/s MR Peak Gradient 107.3 mmHg Mitral E Point Velocity 124.0 cm/s Mitral A Point Velocity 50.9 cm/s Mitral E to A Ratio 2.4 TR Peak Velocity 421.5 cm/s TR Peak Gradient 71.1 mmHg FINDINGS LEFT VENTRICLE Normal left ventricular size. Wall thickness is normal. The left ventricular systolic function is low normal with an estimated ejection fraction in the rang e of 50- 55%. RIGHT VENTRICLE The right ventricle is mildly dilated. LEFT ATRIUM The left atrial size is normal. RIGHT ATRIUM The right atrial size is mildly dilated. ATRIAL SEPTUM Normal atrial septal thickness without atrial level shunting by limited color doppler interrogation. AORTA The aortic root and proximal ascending aorta are normal in size on limited imaging. MITRAL VALVE Trace mitral valve regurgitation. AORTIC VALVE Trileaflet aortic valve. No aortic valve stenosis or regurgitation. TRICUSPID VALVE There is severe tricuspid regurgitation. There is estimated severe pulmonary hypertension present ( > 70 mmHg). PULMONARY VALVE The pulmonary valve is not well visualized. VESSELS The inferior vena cava is dilated. PERICARDIUM No pericardial effusion. Robert Eubanks MD (Electronically Signed) Final Date:08 February 2017 08:22
[2017-02-08] MEDS: ASPIRIN EC 81 MG TABEC PO SCH (08:40)
[2017-02-08] MEDS: CARVEDILOL 6.25 MG TAB PO SCH ×2 (08:40→20:35)
[2017-02-08] MEDS: PRAVASTATIN SOD 40 MG TAB PO SCH (08:40)
[2017-02-08] MEDS: DULoxetine HCl DR 30 MG CAP PO SCH (08:40)
[2017-02-08] MEDS: MULTIVITAMIN-OPHTHALMIC 1 TAB PO SCH (08:40)
[2017-02-08] MEDS: SILDENAFIL CITRATE 20 MG TAB PO SCH ×2 (08:41→20:35)
[2017-02-08 08:50] LABS: BICARBONATE 27.2 MEQ/L (21.0-32.0); MAGNESIUM 2.6 MG/DL (1.5-2.5)
[2017-02-08] MEDS ORDERED: BUMETANIDE INJ 1 MG/4 ML VIAL IV PUSH ONE (11:30)
--- NOTE | 2017-02-08 14:51 | HHI.PR ---
Subjective Remarks alert less sob Objective Vital Signs Date Time Temp Pulse Resp B/P (MAP) Pulse Ox O2 Delivery O2 Flow Rate FiO2 02/08/17 11:12 97.7 81 16 141/82 (101) 95 02/08/17 09:01 97 Nasal Cannula 3.00 02/08/17 07:20 98.2 85 18 150/75 (100) 94 02/08/17 04:08 74 02/08/17 03:06 97.9 85 18 123/58 (79) 93 02/08/17 00:15 74 02/07/17 23:48 18 02/07/17 23:07 98.2 80 18 120/59 (79) 94 02/07/17 21:13 96 Nasal Cannula 3.00 02/07/17 20:16 85 02/07/17 19:14 97.7 83 18 142/79 (100) 97 I/O 02/07/17 02/07/17 02/07/17 02/08/17 02/08/17 02/08/17 07:00 15:00 23:00 07:00 15:00 23:00 Intake Total 100 ml 500 ml 480 ml Output Total 300 ml Balance 100 ml 200 ml 480 ml Intake Oral 500 ml 480 ml IV Total 100 ml Output Urine Total 300 ml # Voids 4 3 Result Diagram: 02/08/17 0702/08/17 0700 Objective Remarks GENERAL: SKIN: Warm and dry. HEAD: Atraumatic. Normocephalic. EYES: Pupils equal and round. No scleral icterus. No injection or drainage. ENT: No nasal bleeding or discharge. Mucous membranes pink and moist. NECK: Trachea midline. No JVD. CARDIOVASCULAR: Regular rate and rhythm. RESPIRATORY: No accessory muscle use. Clear to auscultation. Breath sounds equal bilaterally. GASTROINTESTINAL: Abdomen soft, non-tender, nondistended. Hepatic and splenic margins not palpable. MUSCULOSKELETAL: Extremities without clubbing, cyanosis, or edema. No obvious deformities. NEUROLOGICAL: Awake and alert. No obvious cranial nerve deficits. Motor grossly within normal limits. Five out of 5 muscle strength in the arms and legs. Normal speech. PSYCHIATRIC: Appropriate mood and affect; insight and judgment normal. Medications and IVs Laboratory Tests Test 02/06/17 15:35 02/06/17 17:35 02/06/17 23:36 02/07/17 03:43 Red Blood Count 3.69 MIL/MM3 (4.00-5.30) 3.71 MIL/MM3 (4.00-5.30) Hemoglobin 10.9 GM/DL (11.6-15.3) 10.6 GM/DL (11.6-15.3) Hematocrit 33.4 % (35.0-46.0) 33.1 % (35.0-46.0) Neutrophils (%) (Auto) 82.0 % (16.0-70.0) 94.8 % (16.0-70.0) Lymphocytes # (Auto) 0.9 TH/MM3 (1.0-4.8) 0.4 TH/MM3 (1.0-4.8) Prothrombin Time 27.4 SEC (9.8-11.6) 31.1 SEC (9.8-11.6) Activated Partial Thromboplast Time 40.6 SEC (24.3-30.1) Urine Occult Blood MOD (NEG) Blood Urea Nitrogen 27 MG/DL (7-18) 32 MG/DL (7-18) Creatinine 1.29 MG/DL (0.50-1.00) 1.24 MG/DL (0.50-1.00) Albumin 3.1 GM/DL (3.4-5.0) Aspartate Amino Transf (AST/SGOT) 13 U/L (15-37) Potassium Level 5.4 MEQ/L (3.5-5.1) Estimat Glomerular Filtration Rate 40 ML/MIN (>89) 42 ML/MIN (>89) Total Creatine Kinase 25 U/L (26-192) 25 U/L (26-192) 20 U/L (26-192) Troponin I LESS THAN 0.02 NG/ML LESS THAN 0.02 NG/ML LESS THAN 0.02 NG/ML B-Type Natriuretic Peptide 269 PG/ML (0-100) Blood Gas HCO3 29 mmol/L (22-26) Blood Gas Base Excess 4.5 mmol/L (-2-2) Arterial Blood pH 7.43 (7.380-7.420) Arterial Blood Partial Pressure CO2 45 mmHg (38-42) Blood Gas Hemoglobin 10.7 G/DL (12.0-16.0) Lymphocytes (%) (Auto) 4.5 % (9.0-44.0) Neutrophils # (Auto) 7.8 TH/MM3 (1.8-7.7) Random Glucose 239 MG/DL (74-106) Test 02/08/17 07:00 White Blood Count 16.4 TH/MM3 (4.0-11.0) Red Blood Count 3.92 MIL/MM3 (4.00-5.30) Hemoglobin 11.5 GM/DL (11.6-15.3) Neutrophils (%) (Auto) 94.3 % (16.0-70.0) Lymphocytes (%) (Auto) 3.1 % (9.0-44.0) Neutrophils # (Auto) 15.4 TH/MM3 (1.8-7.7) Lymphocytes # (Auto) 0.5 TH/MM3 (1.0-4.8) Prothrombin Time 45.5 SEC (9.8-11.6) Blood Urea Nitrogen 27 MG/DL (7-18) Creatinine 1.05 MG/DL (0.50-1.00) Random Glucose 173 MG/DL (74-106) Magnesium Level 2.6 MG/DL (1.5-2.5) Estimat Glomerular Filtration Rate 51 ML/MIN (>89) Assessment and Plan Assessment and Plan respiratory failure copd chf plan o2 bronchodilators duiresis increase activity Terrence Ocampo MD Feb 08, 2017 14:51
--- NOTE | 2017-02-08 15:45 | HHI.PR ---
Subjective Remarks Follow-up for dyspnea. Patient seen and evaluated. Patient reported concerns of COPD exacerbation and swelling of her lower extremities. Patient stated that she is breathing better since observation admission. She did note experiencing shortness of breath when straining to have a bowel movement. Reported that she had increased urination with administration of Bumex yesterday. Reported having sore throat and requested throat lozenge. No other issues reported by patient. Per nursing ([place]) patient without acute issues overnight or since start of shift. Objective Vitals Vital Signs Date Time Temp Pulse Resp B/P (MAP) Pulse Ox O2 Delivery O2 Flow Rate FiO2 02/08/17 11:12 97.7 81 16 141/82 (101) 95 02/08/17 09:01 97 Nasal Cannula 3.00 02/08/17 07:20 98.2 85 18 150/75 (100) 94 02/08/17 04:08 74 02/08/17 03:06 97.9 85 18 123/58 (79) 93 02/08/17 00:15 74 02/07/17 23:48 18 02/07/17 23:07 98.2 80 18 120/59 (79) 94 02/07/17 21:13 96 Nasal Cannula 3.00 02/07/17 20:16 85 02/07/17 19:14 97.7 83 18 142/79 (100) 97 I/O 02/07/17 02/07/17 02/07/17 02/08/17 02/08/17 02/08/17 06:59 14:59 22:59 06:59 14:59 22:59 Intake Total 100 ml 500 ml 480 ml Output Total 300 ml Balance 100 ml 200 ml 480 ml Intake Oral 500 ml 480 ml IV Total 100 ml Output Urine Total 300 ml # Voids 4 3 Result Diagram: 02/08/17 0700 02/08/17 0700 Imaging Last Impressions Chest X-Ray 02/06/17 1530 Signed Impressions: Service Date/Time: Monday, February 06, 2017 16:06 - CONCLUSION: No acute cardiopulmonary disease. Virginia Lizarraga MD Objective Remarks GENERAL: Patient encountered sitting up in bed, with friend at bedside, NAD. SKIN: Warm and dry. Ecchymoses noted on both forearms. HEAD: Normocephalic. EYES: No scleral icterus. No injection or drainage. NECK: Supple, trachea midline. No lymphadenopathy. CARDIOVASCULAR: Regular rate and rhythm without murmurs, gallops, or rubs. RESPIRATORY: Breath sounds equal bilaterally, though diminished. No wheezes rhonchi or crackles. No accessory muscle use. Patient on nasal cannula 2 L oxygen. GASTROINTESTINAL: Abdomen soft, non-tender, nondistended. MUSCULOSKELETAL: No cyanosis. Bilateral +3 pedal edema noted/ PSYCHIATRIC: Appropriate mood and affect; insight and judgment normal. Alert and oriented 3. Patient was pleasant and cooperative. Procedures None Medications and IVs Current Medications Medications (Trade) Dose Ordered Sig/Bethanie Route Start Time Stop Time Status Last Admin (NS Flush) 2 ml UNSCH PRN IVF 02/06/17 15:30 02/07/17 21:39 (NS Flush) 2 ml UNSCH PRN IVF 02/06/17 17:15 (Tylenol) 650 mg Q4H PRN PO 02/06/17 17:45 02/08/17 06:56 (Zofran Inj) 4 mg Q6H PRN IVP 02/06/17 17:45 (Narcan Inj) 0.4 mg UNSCH PRN IV 02/06/17 17:45 (Milk Of Magnesia Liq) 30 ml Q12H PRN PO 02/06/17 17:45 (Senokot) 17.2 mg Q12H PRN PO 02/06/17 17:45 (Dulcolax Supp) 10 mg DAILY PRN RECTAL 02/06/17 17:45 (Lactulose Liq) 30 ml DAILY PRN PO 02/06/17 17:45 (Ecotrin Ec) 81 mg DAILY PO 02/07/17 09:00 02/08/17 08:40 (Coreg) 6.25 mg BID PO 02/06/17 21:00 02/08/17 08:40 (Cymbalta Dr) 30 mg DAILY PO 02/07/17 09:00 02/08/17 08:40 (Ocuvite) 1 tab DAILY PO 02/07/17 09:00 02/08/17 08:40 (Pravachol) 40 mg DAILY PO 02/07/17 09:00 02/08/17 08:40 (Duoneb Neb) 1 ampule Q6HR NEB INH 02/06/17 22:00 02/08/17 08:59 (Albuterol Neb) 2.5 mg Q2HR NEB PRN INH 02/06/17 19:15 (SoluMEDROL INJ) 60 mg Q6H IVP 02/06/17 20:00 02/08/17 06:57 (Restoril) 15 mg HS PRN PO 02/06/17 20:15 02/07/17 21:37 (Coumadin) 2 mg MoWeFr PO 02/09/17 16:00 (Coumadin) 4 mg SuTuThSa PO 02/07/17 16:00 Future hold 02/07/17 15:27 (Revatio) 60 mg BID PO 02/07/17 12:00 02/08/17 08:41 (Cepacol Extra Sara (Sugar Free)) 1 lozenge Q2HR PRN BUCCAL 02/08/17 11:15 Urinary Catheter: No A/P Problem List: (1) Shortness of breath ICD Code: R06.02 - Shortness of breath Status: Acute (2) History of CHF (congestive heart failure) ICD Code: Z86.79 - Personal history of other diseases of the circulatory system Status: Acute (3) Acute kidney injury ICD Code: N17.9 - Acute kidney failure, unspecified Status: Acute (4) COPD (chronic obstructive pulmonary disease) ICD Code: J44.9 - Chronic obstructive pulmonary disease, unspecified Status: Chronic (5) Atrial fibrillation ICD Code: I48.91 - Unspecified atrial fibrillation Status: Acute Assessment and Plan Ms. Delvalle is a 76-year-old female patient with a known medical history of CHF, COPD on home O2, and atrial fibrillation who presented to the ED with complaints of worsening shortness of breath x 3 days. Patient states that she is normally on 3L [place] home oxygen and able to perform ADLs and ambulation but for three days noticed worsening shortness of breath with activity and bending over. Patient states she has been unable to walk across a small room without becoming severely short of breath. COPD exacerbation: Pulmonology has seen patient and appreciate their input. Bumex 1 mg IV ordered. Acute kidney injury: Creatinine trending downward. Avoid nephrotoxins. Atrial fibrillation: INR 3.9 this morning will hold today' s Coumadin. Check labs in a.m. Chronic systolic congestive heart failure: 2-D echo indicated the presence of severe pulmonary hypertension (greater than 70 mmHg). Sildenafil 60 mg by mouth twice a day. Ejection fraction 50-55%. Resume Lasix when creatinine within normal limits. 1. COPD with exacerbation: Continue steroids, bronchodilators, supplemental oxygen. Pulmonology consult is pending. 2. Acute kidney injury: Likely secondary to dehydration versus overdiuresis. Decrease IV fluids. 3. Normocytic normochromic anemia: Stable. Monitor labs. 4. Atrial fibrillation, chronic: Continue Coumadin. INR is therapeutic. Rate is controlled. 5. Chronic systolic congestive heart failure: BNP is slightly elevated. No signs of fluid overload at this time. Diuretics have been on hold. Will need to restart Lasix seen. 2-D echocardiogram ordered. 6. DVT prophylaxis: SCDs, ESTRELLA hose, Coumadin. Case discussed with Pt, nursing staff, and Dr. Franklin. Problem Qualifiers (1) COPD (chronic obstructive pulmonary disease): Qualified Codes: J42 - Unspecified chronic bronchitis (2) Atrial fibrillation: Qualified Codes: I48.2 - Chronic atrial fibrillation Lamonte Herrmann Jr. Feb 08, 2017 15:45
[2017-02-08] MEDS: BENZOCAINE-MENTHOL (SUGAR FREE) 15 MG-3.6 MG LOZENGE BUCCAL PRN (16:09)
[2017-02-08] MEDS: TEMAZEPAM 15 MG CAP PO PRN (20:34)
[2017-02-09] VITALS (10 sets, daily range): BP systolic 102–142; BP diastolic 51–65; PULSE 64–91; RESP 16–18; TEMP 98–98.7; O2SAT 94–98
[2017-02-09] MEDS: methylPREDNISolone SOD SUCC 125 MG/2 ML VIAL IVP SCH ×4 (03:52→20:15)
[2017-02-09] MEDS: RESP: ALBUTEROL 2.5 MG/IPRATROPIUM 0.5 MG NEB (SCH) INH ×4 (03:54→21:02)
[2017-02-09] MEDS: MULTIVITAMIN-OPHTHALMIC 1 TAB PO SCH (09:00)
[2017-02-09] MEDS: ASPIRIN EC 81 MG TABEC PO SCH (09:00)
[2017-02-09] MEDS: PRAVASTATIN SOD 40 MG TAB PO SCH (09:00)
[2017-02-09] MEDS: DULoxetine HCl DR 30 MG CAP PO SCH (09:00)
[2017-02-09] MEDS: CARVEDILOL 6.25 MG TAB PO SCH ×2 (09:00→21:38)
[2017-02-09] MEDS ORDERED: BUMETANIDE INJ 1 MG/4 ML VIAL IV PUSH ONE (10:00)
[2017-02-09] MEDS ORDERED: PADIMATE (CHAPSTICK) 4.5 GM TUBE TOPICAL PRN (10:00)
[2017-02-09] MEDS ORDERED: LOPERAMIDE HCL 2 MG CAP PO PRN (10:00)
[2017-02-09] MEDS: SILDENAFIL CITRATE 20 MG TAB PO SCH ×2 (10:18→21:38)
[2017-02-09 10:42] LABS: INTERNATIONAL NORMALIZED RATIO 5.7 RATIO; PROTHROMBIN TIME - PATIENT 68.5 SEC (9.8-11.6)
[2017-02-09 10:47] LABS: AUTOMATED NEUTROPHIL # 11.3 TH/MM3 (1.8-7.7); HEMATOCRIT 34.4 % (35.0-46.0); HEMO FLAGS DIFF FINAL; LYMPH % 2.8 % (9.0-44.0); LYMPHOCYTE # 0.3 TH/MM3 (1.0-4.8); MEAN CELL VOLUME 89.4 FL (80.0-100.0); MEAN CORPUSCULAR HEMOGLOBIN 28.7 PG (27.0-34.0); MEAN CORPUSCULAR HGB CONC 32.2 % (32.0-36.0); MONO % 1.9 % (0.0-8.0); NEUT % 95.3 % (16.0-70.0); PLATELET COUNT 277 TH/MM3 (150-450); RED BLOOD COUNT 3.85 MIL/MM3 (4.00-5.30); RED CELL DISTRIBUTION WIDTH 15.6 % (11.6-17.2); WHITE BLOOD COUNT 11.9 TH/MM3 (4.0-11.0)
[2017-02-09 11:04] LABS: POTASSIUM 5.1 MEQ/L (3.5-5.1)
[2017-02-09] MEDS: oxyCODONE/ACETAMINOPHEN 5 MG/325 MG TAB PO PRN ×2 (14:59→20:16)
--- NOTE | 2017-02-09 15:44 | HHI.PR ---
Subjective Remarks Follow-up for dyspnea. Patient seen and evaluated. Patient reported concerns of "not getting a water pill" as well as wanting to be seen by PT for debility. Pt reported she continues to have difficulty with decreased oxygenation when she has a bowel movement; she recorded on her pulse oximeter 88% after recent event. Pt reported she has chronic back pain and is requesting her home dose of Percocet be reinitiated. pt noted having diarrhea Pt reported she continues to feel better. No other issues reported by patient. Pt denied fever, cough, nausea, vomiting, chest/abdominal pain. Per nursing (Raquel) patient without acute issues overnight or since start of shift. Objective Vitals Vital Signs Date Time Temp Pulse Resp B/P (MAP) Pulse Ox O2 Delivery O2 Flow Rate FiO2 02/09/17 14:55 98.1 84 17 123/60 (81) 94 02/09/17 11:11 98.3 64 17 104/52 (69) 95 02/09/17 07:50 98.0 78 16 142/65 (90) 96 02/09/17 07:33 97 Nasal Cannula 3.00 02/09/17 05:19 98.7 89 18 135/63 (87) 97 02/09/17 00:55 98.4 67 18 121/59 (79) 98 02/08/17 21:19 18 02/08/17 20:31 96 Nasal Cannula 3.00 02/08/17 19:18 98.0 91 18 116/58 (77) 98 02/08/17 16:33 96 Nasal Cannula 3.00 02/08/17 15:35 98.0 79 16 106/52 (70) 95 I/O 02/08/17 02/08/17 02/08/17 02/09/17 02/09/17 02/09/17 07:00 15:00 23:00 07:00 15:00 23:00 Intake Total 480 ml Output Total 100 ml Balance 480 ml -100 ml Intake Oral 480 ml Stool Total 100 ml # Voids 3 Result Diagram: 02/09/17 1015 02/09/17 1015 Objective Remarks GENERAL: Patient encountered laying down in bed, NAD. SKIN: Warm and dry. Ecchymoses noted on both forearms. HEAD: Normocephalic. EYES: No scleral icterus. No drainage. Left eye (lateral aspect) evidenced subconjunctival hemorrhage NECK: Supple, trachea midline. No lymphadenopathy. CARDIOVASCULAR: Regular rate and rhythm without murmurs, gallops, or rubs. RESPIRATORY: Breath sounds equal bilaterally, though diminished. No wheezes rhonchi or crackles. No accessory muscle use. Patient on nasal cannula 2 L oxygen. GASTROINTESTINAL: Abdomen soft, non-tender, nondistended. MUSCULOSKELETAL: No cyanosis. Bilateral +3 pedal edema noted. PSYCHIATRIC: Appropriate mood and affect; insight and judgment normal. Alert and oriented 3. Patient was pleasant and cooperative. Procedures None Medications and IVs Current Medications Medications (Trade) Dose Ordered Sig/Btehanie Route Start Time Stop Time Status Last Admin (NS Flush) 2 ml UNSCH PRN IVF 02/06/17 15:30 02/07/17 21:39 (NS Flush) 2 ml UNSCH PRN IVF 02/06/17 17:15 (Tylenol) 650 mg Q4H PRN PO 02/06/17 17:45 02/08/17 20:35 (Zofran Inj) 4 mg Q6H PRN IVP 02/06/17 17:45 (Narcan Inj) 0.4 mg UNSCH PRN IV 02/06/17 17:45 (Milk Of Magnesia Liq) 30 ml Q12H PRN PO 02/06/17 17:45 (Senokot) 17.2 mg Q12H PRN PO 02/06/17 17:45 02/08/17 20:35 (Dulcolax Supp) 10 mg DAILY PRN RECTAL 02/06/17 17:45 (Lactulose Liq) 30 ml DAILY PRN PO 02/06/17 17:45 (Ecotrin Ec) 81 mg DAILY PO 02/07/17 09:00 02/09/17 09:00 (Coreg) 6.25 mg BID PO 02/06/17 21:00 02/09/17 09:00 (Cymbalta Dr) 30 mg DAILY PO 02/07/17 09:00 02/09/17 09:00 (Ocuvite) 1 tab DAILY PO 02/07/17 09:00 02/09/17 09:00 (Pravachol) 40 mg DAILY PO 02/07/17 09:00 02/09/17 09:00 (Duoneb Neb) 1 ampule Q6HR NEB INH 02/06/17 22:00 02/09/17 15:18 (Albuterol Neb) 2.5 mg Q2HR NEB PRN INH 02/06/17 19:15 (SoluMEDROL INJ) 60 mg Q6H IVP 02/06/17 20:00 02/09/17 15:02 (Restoril) 15 mg HS PRN PO 02/06/17 20:15 02/08/17 20:34 (Coumadin) 2 mg MoWeFr PO 02/09/17 16:00 (Coumadin) 4 mg SuTuThSa PO 02/07/17 16:00 Future hold 02/07/17 15:27 (Revatio) 60 mg BID PO 02/07/17 12:00 02/09/17 10:18 (Cepacol Extra Sara (Sugar Free)) 1 lozenge Q2HR PRN BUCCAL 02/08/17 11:15 02/08/17 16:09 (Chapstick) 1 applic UNSCH PRN TOPICAL 02/09/17 10:00 (Imodium) 2 mg Q6H PRN PO 02/09/17 10:00 02/09/17 14:58 (Percocet 5-325 Mg) 1 tab Q4H PRN PO 02/09/17 10:00 02/09/17 14:59 Urinary Catheter: No A/P Problem List: (1) Shortness of breath ICD Code: R06.02 - Shortness of breath Status: Acute (2) History of CHF (congestive heart failure) ICD Code: Z86.79 - Personal history of other diseases of the circulatory system Status: Acute (3) Acute kidney injury ICD Code: N17.9 - Acute kidney failure, unspecified Status: Acute (4) COPD (chronic obstructive pulmonary disease) ICD Code: J44.9 - Chronic obstructive pulmonary disease, unspecified Status: Chronic (5) Atrial fibrillation ICD Code: I48.91 - Unspecified atrial fibrillation Status: Acute Assessment and Plan Ms. Delvalle is a 76-year-old female patient with a known medical history of CHF, COPD on home O2, and atrial fibrillation who presented to the ED with complaints of worsening shortness of breath x 3 days. Patient states that she is normally on 3L [place] home oxygen and able to perform ADLs and ambulation but for three days noticed worsening shortness of breath with activity and bending over. Patient states she has been unable to walk across a small room without becoming severely short of breath. COPD exacerbation: Physical therapy consulted Acute kidney injury: 0.89. Continue to avoid nephrotoxins. Atrial fibrillation: INR 5.7 this morning will hold today's Coumadin. Check labs in a.m. Diarrhea: Imodium ordered. 1. COPD with exacerbation: Continue steroids, bronchodilators, supplemental oxygen. Pulmonology consult is pending. 2. Acute kidney injury: Likely secondary to dehydration versus overdiuresis. Decrease IV fluids. 3. Normocytic normochromic anemia: Stable. Monitor labs. 4. Atrial fibrillation, chronic: Continue Coumadin. INR is therapeutic. Rate is controlled. 5. Chronic systolic congestive heart failure: BNP is slightly elevated. No signs of fluid overload at this time. Diuretics have been on hold. Will need to restart Lasix seen. 2-D echocardiogram ordered. 6. DVT prophylaxis: SCDs, ESTRELLA hose, Coumadin. Case discussed with Pt, nursing staff, and Dr. Franklin. Attending Statement Patient seen and examined. Agree with above. INR elevated. Breathing is improving, but patient becomes short of breath when she goes from the bed to the commode. Diminished breath sounds bilaterally, no wheeze noted. Continue diuresis. Hold coumadin. No apparent bleeding. Will give one dose of Vitamin K. PT eval. Problem Qualifiers (1) COPD (chronic obstructive pulmonary disease): Qualified Codes: J42 - Unspecified chronic bronchitis (2) Atrial fibrillation: Qualified Codes: I48.2 - Chronic atrial fibrillation Lamonte Herrmann Jr. Feb 09, 2017 15:44 Dread Franklin MD Feb 09, 2017 15:52
[2017-02-09] MEDS ORDERED: WARFARIN SOD 2 MG TAB PO SCH (16:00)
--- NOTE | 2017-02-09 19:00 | HHI.PR ---
Subjective Remarks alert less sob Objective Vital Signs Date Time Temp Pulse Resp B/P (MAP) Pulse Ox O2 Delivery O2 Flow Rate FiO2 02/09/17 14:55 98.1 84 17 123/60 (81) 94 02/09/17 11:11 98.3 64 17 104/52 (69) 95 02/09/17 07:50 98.0 78 16 142/65 (90) 96 02/09/17 07:33 97 Nasal Cannula 3.00 02/09/17 05:19 98.7 89 18 135/63 (87) 97 02/09/17 00:55 98.4 67 18 121/59 (79) 98 02/08/17 21:19 18 02/08/17 20:31 96 Nasal Cannula 3.00 02/08/17 19:18 98.0 91 18 116/58 (77) 98 I/O 02/08/17 02/08/17 02/08/17 02/09/17 02/09/17 02/09/17 07:00 15:00 23:00 07:00 15:00 23:00 Intake Total 480 ml Output Total 100 ml Balance 480 ml -100 ml Intake Oral 480 ml Stool Total 100 ml # Voids 3 Result Diagram: 02/09/17 1015 02/09/17 1015 Objective Remarks GENERAL: SKIN: Warm and dry. HEAD: Atraumatic. Normocephalic. EYES: Pupils equal and round. No scleral icterus. No injection or drainage. ENT: No nasal bleeding or discharge. Mucous membranes pink and moist. NECK: Trachea midline. No JVD. CARDIOVASCULAR: Regular rate and rhythm. RESPIRATORY: No accessory muscle use. Clear to auscultation. Breath sounds equal bilaterally. GASTROINTESTINAL: Abdomen soft, non-tender, nondistended. Hepatic and splenic margins not palpable. MUSCULOSKELETAL: Extremities without clubbing, cyanosis, or edema. No obvious deformities. NEUROLOGICAL: Awake and alert. No obvious cranial nerve deficits. Motor grossly within normal limits. Five out of 5 muscle strength in the arms and legs. Normal speech. PSYCHIATRIC: Appropriate mood and affect; insight and judgment normal. Assessment and Plan Assessment and Plan respiratory failure copd chf plan o2 bronchodilators duiresis increase activity Terrence Ocampo MD Feb 09, 2017 19:00
[2017-02-09] MEDS: BENZOCAINE-MENTHOL (SUGAR FREE) 15 MG-3.6 MG LOZENGE BUCCAL PRN (20:15)
[2017-02-10] VITALS (10 sets, daily range): BP systolic 117–140; BP diastolic 56–65; PULSE 60–91; RESP 16–20; TEMP 97.9–98.6; O2SAT 94–98
[2017-02-10] MEDS: methylPREDNISolone SOD SUCC 125 MG/2 ML VIAL IVP SCH ×2 (02:53→08:21)
[2017-02-10] MEDS: BENZOCAINE-MENTHOL (SUGAR FREE) 15 MG-3.6 MG LOZENGE BUCCAL PRN ×4 (02:54→21:30)
[2017-02-10] MEDS: RESP: ALBUTEROL 2.5 MG/IPRATROPIUM 0.5 MG NEB (SCH) INH ×3 (02:56→16:11)
[2017-02-10] MEDS: oxyCODONE/ACETAMINOPHEN 5 MG/325 MG TAB PO PRN ×3 (07:26→20:54)
[2017-02-10] MEDS: DULoxetine HCl DR 30 MG CAP PO SCH (08:22)
[2017-02-10] MEDS: SILDENAFIL CITRATE 20 MG TAB PO SCH ×2 (08:22→21:30)
[2017-02-10] MEDS: CARVEDILOL 6.25 MG TAB PO SCH ×2 (08:22→20:54)
[2017-02-10] MEDS: PRAVASTATIN SOD 40 MG TAB PO SCH (08:22)
[2017-02-10] MEDS: MULTIVITAMIN-OPHTHALMIC 1 TAB PO SCH (08:22)
[2017-02-10] MEDS: ASPIRIN EC 81 MG TABEC PO SCH (08:22)
[2017-02-10] MEDS ORDERED: DEXTROSE 50% IN WATER 50 ML VIAL(D50) IV PRN (08:30)
[2017-02-10] MEDS ORDERED: GLUCAGON 1 MG/ML VIAL OTHER PRN (08:30)
[2017-02-10] MEDS ORDERED: FUROSEMIDE 20 MG TAB PO ONE (09:30)
[2017-02-10 10:46] LABS: BASOPHIL % 0.1 % (0.0-2.0); HEMATOCRIT 34.9 % (35.0-46.0); HEMO FLAGS DIFF FINAL; LYMPH % 4.5 % (9.0-44.0); LYMPHOCYTE # 0.4 TH/MM3 (1.0-4.8); MEAN CELL VOLUME 89.6 FL (80.0-100.0); MEAN CORPUSCULAR HEMOGLOBIN 29.1 PG (27.0-34.0); MEAN CORPUSCULAR HGB CONC 32.5 % (32.0-36.0); MONO % 2.6 % (0.0-8.0); NEUT % 92.8 % (16.0-70.0); PLATELET COUNT 272 TH/MM3 (150-450); RED BLOOD COUNT 3.89 MIL/MM3 (4.00-5.30); RED CELL DISTRIBUTION WIDTH 15.2 % (11.6-17.2); WHITE BLOOD COUNT 8.6 TH/MM3 (4.0-11.0)
[2017-02-10 11:03] LABS: HEMOGLOBIN A1a 1.4 %; HEMOGLOBIN Ao 83.2 %; HEMOGLOBIN LA1C 2.5 %
[2017-02-10 11:09] LABS: ANION GAP 6 MEQ/L (5-15); BICARBONATE 31.1 MEQ/L (21.0-32.0); BLOOD UREA NITROGEN 35 MG/DL (7-18); CHLORIDE 100 MEQ/L (98-107); GLOMERULAR FILTRATION RATE 52 ML/MIN (>89); MAGNESIUM 2.3 MG/DL (1.5-2.5); POTASSIUM 3.6 MEQ/L (3.5-5.1); SODIUM (NA) 137 MEQ/L (136-145)
[2017-02-10] MEDS: INSULIN ASPART SUPPLEMENTAL SCALE SQ SCH ×3 (12:09→21:00)
--- NOTE | 2017-02-10 12:22 | HHI.PR ---
Subjective Remarks Follow up on patient with COPD exacerbation. Patient seen and examined today. Patient reports feeling some better today. States her breathing has improved. She uses oxygen at home 3L 22/12. Patient denies any complaints of fever or chills. She denies any chest pain. She denies any N/V or abdominal pain. She is very concerned about resuming her water pill. Diarrhea has resolved. Discussed with nursing staff - no acute issues overnight. Objective Vitals Vital Signs Date Time Temp Pulse Resp B/P (MAP) Pulse Ox O2 Delivery O2 Flow Rate FiO2 02/10/17 11:56 97.9 66 18 117/60 (79) 96 02/10/17 09:54 94 Nasal Cannula 3.00 02/10/17 08:40 98.2 72 18 125/59 (81) 96 02/10/17 08:20 67 02/10/17 04:30 98.6 60 16 125/56 (79) 96 02/10/17 04:00 63 02/10/17 00:44 98.3 78 16 130/60 (83) 95 02/10/17 00:00 77 02/09/17 22:09 98.1 91 17 102/51 (68) 96 02/09/17 21:39 12 02/09/17 21:00 96 3.00 02/09/17 20:00 88 02/09/17 14:55 98.1 84 17 123/60 (81) 94 Result Diagram: 02/10/17 0925 02/10/17 0925 Imaging Last Impressions Chest X-Ray 02/06/17 1530 Signed Impressions: Service Date/Time: Monday, February 06, 2017 16:06 - CONCLUSION: No acute cardiopulmonary disease. Virginia Lizarraga MD Objective Remarks GENERAL: Well-nourished, well-developed patient in NAD. Awake and alert. Sitting up in hospital bed. SKIN: Warm and dry. No rash. HEAD: Normocephalic. Atraumatic. EYES: Pupils equal and round. (+)outer left conjunctiva erythematous. EOMI. ENT: No nasal bleeding or discharge. Mucous membranes pink and moist. NECK: Supple. Trachea midline. CARDIOVASCULAR: Regular rate and rhythm. S1, S2 noted. No murmur appreciated. RESPIRATORY: No accessory muscle use. Diminished but clear breath sounds noted. No wheezing. On 3L NC. GASTROINTESTINAL: Abdomen soft, non-tender, nondistended. Normoactive bowel sounds x4. MUSCULOSKELETAL: No obvious deformities. Extremities without clubbing or cyanosis. Trace edema bilaterally. NEUROLOGICAL: Awake and alert. Able to move all extremities spontaneously. Normal speech. PSYCHIATRIC: Appropriate mood and affect; insight and judgment normal. Procedures None Medications and IVs Current Medications Medications (Trade) Dose Ordered Sig/Bethanie Route Start Time Stop Time Status Last Admin (NS Flush) 2 ml UNSCH PRN IVF 02/06/17 15:30 02/07/17 21:39 (NS Flush) 2 ml UNSCH PRN IVF 02/06/17 17:15 (Tylenol) 650 mg Q4H PRN PO 02/06/17 17:45 02/08/17 20:35 (Zofran Inj) 4 mg Q6H PRN IVP 02/06/17 17:45 (Narcan Inj) 0.4 mg UNSCH PRN IV 02/06/17 17:45 (Milk Of Magnesia Liq) 30 ml Q12H PRN PO 02/06/17 17:45 (Senokot) 17.2 mg Q12H PRN PO 02/06/17 17:45 02/08/17 20:35 (Dulcolax Supp) 10 mg DAILY PRN RECTAL 02/06/17 17:45 (Lactulose Liq) 30 ml DAILY PRN PO 02/06/17 17:45 (Ecotrin Ec) 81 mg DAILY PO 02/07/17 09:00 02/10/17 08:22 (Coreg) 6.25 mg BID PO 02/06/17 21:00 02/10/17 08:22 (Cymbalta Dr) 30 mg DAILY PO 02/07/17 09:00 02/10/17 08:22 (Ocuvite) 1 tab DAILY PO 02/07/17 09:00 02/10/17 08:22 (Pravachol) 40 mg DAILY PO 02/07/17 09:00 02/10/17 08:22 (Duoneb Neb) 1 ampule Q6HR NEB INH 02/06/17 22:00 02/10/17 09:54 (Albuterol Neb) 2.5 mg Q2HR NEB PRN INH 02/06/17 19:15 (Restoril) 15 mg HS PRN PO 02/06/17 20:15 02/08/17 20:34 (Coumadin) 2 mg MoWeFr PO 02/09/17 16:00 Future Hold (Coumadin) 4 mg SuTuThSa PO 02/07/17 16:00 Future hold 02/07/17 15:27 (Revatio) 60 mg BID PO 02/07/17 12:00 02/10/17 08:22 (Cepacol Extra Sara (Sugar Free)) 1 lozenge Q2HR PRN BUCCAL 02/08/17 11:15 02/10/17 09:58 (Chapstick) 1 applic UNSCH PRN TOPICAL 02/09/17 10:00 02/09/17 16:12 (Imodium) 2 mg Q6H PRN PO 02/09/17 10:00 02/09/17 14:58 (Percocet 5-325 Mg) 1 tab Q4H PRN PO 02/09/17 10:00 02/10/17 07:26 (D50w (Vial) Inj) 50 ml UNSCH PRN IV 02/10/17 08:30 (Glucagon Inj) 1 mg UNSCH PRN OTHER 02/10/17 08:30 (NovoLOG SUPPLEMENTAL SCALE) 1 ACHS SLIDING SCALE SQ 02/10/17 11:00 (SoluMEDROL INJ) 40 mg Q8HR IV 02/10/17 14:00 (Lasix) 20 mg BID@09,18 PO 02/10/17 18:00 A/P Problem List: (1) Shortness of breath ICD Code: R06.02 - Shortness of breath Status: Acute (2) History of CHF (congestive heart failure) ICD Code: Z86.79 - Personal history of other diseases of the circulatory system Status: Acute (3) Acute kidney injury ICD Code: N17.9 - Acute kidney failure, unspecified Status: Acute (4) COPD (chronic obstructive pulmonary disease) ICD Code: J44.9 - Chronic obstructive pulmonary disease, unspecified Status: Chronic (5) Atrial fibrillation ICD Code: I48.91 - Unspecified atrial fibrillation Status: Acute Assessment and Plan Ms. Delvalle is a 76-year-old female patient with a known medical history of CHF, COPD on home O2, and atrial fibrillation who presented to the ED with complaints of worsening shortness of breath x 3 days. Patient states that she is normally on 3L [place] home oxygen and able to perform ADLs and ambulation but for three days noticed worsening shortness of breath with activity and bending over. Patient states she has been unable to walk across a small room without becoming severely short of breath. Acute kidney injury: 0.89. Continue to avoid nephrotoxins. Atrial fibrillation: INR 5.7 this morning will hold today's Coumadin. Check labs in a.m. Diarrhea: Imodium ordered. 1. COPD with exacerbation: Improving. continue steroids - begin taper, bronchodilators, supplemental oxygen. Pulmonology following, appreciate assistance. Continue with PT. 2. Acute kidney injury: Likely secondary to dehydration versus overdiuresis. Creatinine improved overall. Resume Lasix and monitor creatinine. AM labs ordered. 3. Normocytic normochromic anemia: Stable. Monitor labs. 4. Atrial fibrillation, chronic: Rate controlled. Continue on Coreg. INR is supratherapeutic. Coumadin on hold. Vitamin K given. Repeat PT/INR for today pending. 5. Chronic systolic congestive heart failure: BNP is slightly elevated. No signs of fluid overload at this time. Resume Lasix but at lower than home dose 20mg BID. Monitor BMP. 2-D echocardiogram obtained revealing EF of 50-55%, mildly dilated right ventricle, mildly dilated right atrium, severe tricuspid regurgitation and estimated severe pulmonary hypertension greater than 70 mmHg. Continue on Sildenafil. 6. Low TSH: Obtain free T3 and T4 levels. 7. Prediabetes: HgbA1c 6.1. Elevated blood sugar levels while on steroids. Accucheks and ISS. Patient will need to follow up with PCP as outpatient for repeat HgbA1c in 3 mos. 8. DVT prophylaxis: SCDs, ESTRELLA du[place], Coumadin on hold. Case discussed with patient, nursing staff, and Dr. Franklin. Problem Qualifiers (1) COPD (chronic obstructive pulmonary disease): Qualified Codes: J42 - Unspecified chronic bronchitis (2) Atrial fibrillation: Qualified Codes: I48.2 - Chronic atrial fibrillation Kala Agarwal Feb 10, 2017 12:22
[2017-02-10 12:58] LABS: FREE T3 1.29 PG/ML (2.18-3.98); FREE T4 0.88 NG/DL (0.76-1.46)
[2017-02-10] MEDS: POTASSIUM CHLORIDE 10 MEQ CAP PO SCH ×2 (13:56→21:30)
[2017-02-10] MEDS ORDERED: methylPREDNISolone SOD SUCC 40 MG/1 ML VIAL IV SCH (14:00)
[2017-02-10] MEDS: WARFARIN SOD 4 MG TAB PO SCH (17:09)
[2017-02-10] MEDS ORDERED: FUROSEMIDE 20 MG TAB PO SCH (18:00)
[2017-02-10] MEDS ORDERED: FUROSEMIDE 40 MG TAB PO SCH (18:00)
[2017-02-10] MEDS ORDERED: diphenhydrAMINE HCL 25 MG CAP PO ONE (22:30)
[2017-02-10 22:47] LABS: INTERNATIONAL NORMALIZED RATIO 3.7 RATIO; PROTHROMBIN TIME - PATIENT 42.7 SEC (9.8-11.6)
[2017-02-11] VITALS (9 sets, daily range): BP systolic 103–131; BP diastolic 54–68; PULSE 60–86; RESP 18–20; TEMP 96–97.9; O2SAT 92–97
[2017-02-11] MEDS: RESP: ALBUTEROL 2.5 MG/IPRATROPIUM 0.5 MG NEB (SCH) INH ×4 (04:05→22:01)
[2017-02-11] MEDS: oxyCODONE/ACETAMINOPHEN 5 MG/325 MG TAB PO PRN ×3 (06:12→18:43)
[2017-02-11] MEDS: BENZOCAINE-MENTHOL (SUGAR FREE) 15 MG-3.6 MG LOZENGE BUCCAL PRN ×4 (06:12→21:36)
[2017-02-11] MEDS: INSULIN ASPART SUPPLEMENTAL SCALE SQ SCH ×4 (06:15→16:30)
[2017-02-11 07:10] LABS: INTERNATIONAL NORMALIZED RATIO 3.9 RATIO; PROTHROMBIN TIME - PATIENT 46.1 SEC (9.8-11.6)
[2017-02-11 07:21] LABS: BICARBONATE 32.2 MEQ/L (21.0-32.0); POTASSIUM 3.7 MEQ/L (3.5-5.1)
[2017-02-11] MEDS ORDERED: diphenhydrAMINE HCL 25 MG CAP PO PRN (08:30)
[2017-02-11] MEDS: predniSONE 20 MG TAB PO SCH (08:46)
[2017-02-11] MEDS: DOCUSATE SODIUM 50 MG/SENNA 8.6 MG TAB PO SCH ×2 (08:46→21:00)
[2017-02-11] MEDS: SILDENAFIL CITRATE 20 MG TAB PO SCH ×2 (08:47→21:27)
[2017-02-11] MEDS: DULoxetine HCl DR 30 MG CAP PO SCH (08:47)
[2017-02-11] MEDS: FUROSEMIDE 40 MG TAB PO SCH ×2 (08:47→12:25)
[2017-02-11] MEDS: CARVEDILOL 6.25 MG TAB PO SCH ×2 (08:47→21:28)
[2017-02-11] MEDS: PRAVASTATIN SOD 40 MG TAB PO SCH (08:47)
[2017-02-11] MEDS: MULTIVITAMIN-OPHTHALMIC 1 TAB PO SCH (08:48)
[2017-02-11] MEDS: POTASSIUM CHLORIDE 10 MEQ CAP PO SCH ×2 (08:48→21:27)
[2017-02-11] MEDS: ASPIRIN EC 81 MG TABEC PO SCH (08:48)
[2017-02-11] MEDS: BUDESONIDE-FORMOTEROL 160/4.5 MCG INHALER INH SCH ×2 (08:55→21:29)
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
--- NOTE | 2017-02-11 10:47 | HHI.PR ---
Subjective Remarks Follow up on patient with COPD exacerbation. Patient seen and examined. She states she feels well. Breathing has improved. Does endorse she did not sleep well last night despite taking Restoril. She denies any fever or chills. She denies any chest pain or SOB. Denies any N/V or abdominal pain. No further episodes of diarrhea x 2 days. Patient complaining of nocturia and requesting second dose of Lasix be given earlier in the day Objective Vitals Vital Signs Date Time Temp Pulse Resp B/P (MAP) Pulse Ox O2 Delivery O2 Flow Rate FiO2 02/11/17 08:00 97.3 60 18 127/59 (81) 96 02/11/17 04:00 96.0 80 20 104/57 (73) 94 02/11/17 00:00 97.2 66 20 103/54 (70) 93 02/10/17 20:00 98.5 91 20 140/65 (90) 95 02/10/17 15:46 98.1 80 18 125/60 (81) 98 02/10/17 11:56 97.9 66 18 117/60 (79) 96 I/O 02/10/17 02/10/17 02/10/17 02/11/17 02/11/17 02/11/17 07:00 15:00 23:00 07:00 15:00 23:00 Output Total 1300 ml Balance -1300 ml Output Urine Total 1300 ml # Voids 2 Result Diagram: 02/10/17 0925 02/11/17 0612 Imaging Last Impressions Chest X-Ray 02/06/17 1530 Signed Impressions: Service Date/Time: Monday, February 06, 2017 16:06 - CONCLUSION: No acute cardiopulmonary disease. Virginia Lizarraga MD Objective Remarks GENERAL: Well-nourished, well-developed patient in NAD. Awake and alert. Sitting up in hospital bed. Appears comfortable. SKIN: Warm and dry. No rash. HEAD: Normocephalic. Atraumatic. EYES: (+)outer left conjunctiva erythematous, improving. EOMI. ENT: No nasal bleeding or discharge. Mucous membranes pink and moist. NECK: Supple. Trachea midline. CARDIOVASCULAR: Regular rate and rhythm. S1, S2 noted. No murmur appreciated. RESPIRATORY: No accessory muscle use. Diminished but clear breath sounds noted. No wheezing. On 3L NC. GASTROINTESTINAL: Abdomen soft, non-tender, nondistended. Normoactive bowel sounds x4. MUSCULOSKELETAL: No obvious deformities. Extremities without clubbing or cyanosis. Trace edema bilaterally. NEUROLOGICAL: Awake and alert. Able to move all extremities spontaneously. Normal speech. PSYCHIATRIC: Appropriate mood and affect; insight and judgment normal. Procedures None Medications and IVs Current Medications Medications (Trade) Dose Ordered Sig/Bethanie Route Start Time Stop Time Status Last Admin (NS Flush) 2 ml UNSCH PRN IVF 02/06/17 15:30 02/07/17 21:39 (NS Flush) 2 ml UNSCH PRN IVF 02/06/17 17:15 (Tylenol) 650 mg Q4H PRN PO 02/06/17 17:45 02/08/17 20:35 (Zofran Inj) 4 mg Q6H PRN IVP 02/06/17 17:45 (Narcan Inj) 0.4 mg UNSCH PRN IV 02/06/17 17:45 (Milk Of Magnesia Liq) 30 ml Q12H PRN PO 02/06/17 17:45 (Senokot) 17.2 mg Q12H PRN PO 02/06/17 17:45 02/08/17 20:35 (Dulcolax Supp) 10 mg DAILY PRN RECTAL 02/06/17 17:45 (Lactulose Liq) 30 ml DAILY PRN PO 02/06/17 17:45 (Ecotrin Ec) 81 mg DAILY PO 02/07/17 09:00 02/11/17 08:48 (Coreg) 6.25 mg BID PO 02/06/17 21:00 02/11/17 08:47 (Cymbalta Dr) 30 mg DAILY PO 02/07/17 09:00 02/11/17 08:47 (Ocuvite) 1 tab DAILY PO 02/07/17 09:00 02/11/17 08:48 (Pravachol) 40 mg DAILY PO 02/07/17 09:00 02/11/17 08:47 (Albuterol Neb) 2.5 mg Q2HR NEB PRN INH 02/06/17 19:15 (Restoril) 15 mg HS PRN PO 02/06/17 20:15 02/08/17 20:34 (Coumadin) 2 mg MoWeFr PO 02/09/17 16:00 Future Hold (Coumadin) 4 mg SuTuThSa PO 02/07/17 16:00 Future Hold 02/10/17 17:09 (Revatio) 60 mg BID PO 02/07/17 12:00 02/11/17 08:47 (Cepacol Extra Sara (Sugar Free)) 1 lozenge Q2HR PRN BUCCAL 02/08/17 11:15 02/11/17 08:46 (Chapstick) 1 applic UNSCH PRN TOPICAL 02/09/17 10:00 02/09/17 16:12 (Percocet 5-325 Mg) 1 tab Q4H PRN PO 02/09/17 10:00 02/11/17 06:12 (D50w (Vial) Inj) 50 ml UNSCH PRN IV 02/10/17 08:30 (Glucagon Inj) 1 mg UNSCH PRN OTHER 02/10/17 08:30 (NovoLOG SUPPLEMENTAL SCALE) 1 ACHS SLIDING SCALE SQ 02/10/17 11:00 02/10/17 17:54 Pharmacy Profile Note 0 ml @ 0 mls/hr UNSCH OTHER 02/10/17 12:15 (Duoneb Neb) 1 ampule Q6HR NEB INH 02/10/17 16:00 02/11/17 09:39 (KCl) 20 meq BID PO 02/10/17 13:00 02/11/17 08:48 (Deltasone) 20 mg DAILY PO 02/11/17 09:00 02/11/17 08:46 (Lasix) 40 mg BID@0900,1300 PO 02/11/17 09:00 02/11/17 08:47 (Benadryl) 25 mg HS PRN PO 02/11/17 08:30 (Alka-Colace) 2 tab BID PO 02/11/17 09:00 02/11/17 08:46 (Symbicort 160-4.5 Inh) 2 puff Q12HR INH 02/11/17 09:00 02/11/17 08:55 A/P Problem List: (1) Shortness of breath ICD Code: R06.02 - Shortness of breath Status: Acute (2) History of CHF (congestive heart failure) ICD Code: Z86.79 - Personal history of other diseases of the circulatory system Status: Acute (3) Acute kidney injury ICD Code: N17.9 - Acute kidney failure, unspecified Status: Acute (4) COPD (chronic obstructive pulmonary disease) ICD Code: J44.9 - Chronic obstructive pulmonary disease, unspecified Status: Chronic (5) Atrial fibrillation ICD Code: I48.91 - Unspecified atrial fibrillation Status: Acute Assessment and Plan Ms. Delvalle is a 76-year-old female patient with a known medical history of CHF, COPD on home O2, and atrial fibrillation who presented to the ED with complaints of worsening shortness of breath x 3 days. Patient states that she is normally on 3L [place] home oxygen and able to perform ADLs and ambulation but for three days noticed worsening shortness of breath with activity and bending over. Patient states she has been unable to walk across a small room without becoming severely short of breath. Acute kidney injury: 0.89. Continue to avoid nephrotoxins. Atrial fibrillation: INR 5.7 this morning will hold today's Coumadin. Check labs in a.m. Diarrhea: Imodium ordered. 1. COPD with exacerbation: Improving. continue steroid taper per Pulmonary medicine - appreciate their assistance, bronchodilators, supplemental oxygen. Continue with PT who has recommended home with [facility] PT which patient had in place previous to admission. Consult Case Mgmt. 2. Acute kidney injury: Likely secondary to dehydration versus overdiuresis. Creatinine improved overall. Lasix resumed at 40mg BID by Dr. Kelley. Monitor BMP. AM labs ordered. 3. Normocytic normochromic anemia: Stable. Monitor as indicated. 4. Atrial fibrillation, chronic: Rate controlled. Continue on Coreg. INR is supratherapeutic. Coumadin on hold. Repeat PT/INR 3.9. Repeat lab in am. 5. Chronic systolic congestive heart failure: BNP is slightly elevated. No signs of fluid overload at this time. Lasix resumed at 40mg BID, patient complaining of nocturia and requesting second dose of Lasix be given earlier in the day. Monitor BMP. 2-D echocardiogram obtained revealing EF of 50-55%, mildly dilated right ventricle, mildly dilated right atrium, severe tricuspid regurgitation and estimated severe pulmonary hypertension greater than 70 mmHg. Continue on Sildenafil. 6. Low TSH, low T3 and normal T4, albumin mildly low. Discussed with patient - recommend follow up with PCP in 6-8 weeks to have rechecked. 7. Prediabetes: HgbA1c 6.1. Elevated blood sugar levels while on IV steroids. BS much improved off of IV steroids. D/C accucheck and ISS. Patient will need to follow up with PCP as outpatient for repeat HgbA1c in 3 mos. 8. Insomnia: Benadryl prn 9. DVT prophylaxis: SCDs, ESTRELLA hose, Coumadin on hold. Case discussed with patient, nursing staff, and Dr. Franklin. Discharge Planning Once cleared by Pulmonary medicine and INR therapeutic. Problem Qualifiers (1) COPD (chronic obstructive pulmonary disease): Qualified Codes: J42 - Unspecified chronic bronchitis (2) Atrial fibrillation: Qualified Codes: I48.2 - Chronic atrial fibrillation Kala Agarwal Feb 11, 2017 10:47
[2017-02-12] VITALS: BP 113/58; PULSE 78; RESP 20; TEMP 96.4; O2SAT 74; O2SAT 97
[2017-02-12 04:00] VITALS: BP 128/58; PULSE 68; RESP 18; TEMP 96.6; O2SAT 96
[2017-02-12] MEDS: RESP: ALBUTEROL 2.5 MG/IPRATROPIUM 0.5 MG NEB (SCH) INH ×3 (04:00→15:29)
[2017-02-12] MEDS: oxyCODONE/ACETAMINOPHEN 5 MG/325 MG TAB PO PRN ×2 (04:47→13:29)
[2017-02-12] MEDS: BENZOCAINE-MENTHOL (SUGAR FREE) 15 MG-3.6 MG LOZENGE BUCCAL PRN ×2 (04:47→08:41)
[2017-02-12 08:00] VITALS: BP 117/66; PULSE 71; RESP 18; TEMP 96.8; O2SAT 97
[2017-02-12 08:11] VITALS: O2SAT 98
[2017-02-12 08:34] LABS: INTERNATIONAL NORMALIZED RATIO 3.6 RATIO
[2017-02-12 08:38] LABS: BICARBONATE 37.5 MEQ/L (21.0-32.0); POTASSIUM 3.7 MEQ/L (3.5-5.1)
[2017-02-12] MEDS: CARVEDILOL 6.25 MG TAB PO SCH (08:41)
[2017-02-12] MEDS: DULoxetine HCl DR 30 MG CAP PO SCH (08:41)
[2017-02-12] MEDS: PRAVASTATIN SOD 40 MG TAB PO SCH (08:41)
[2017-02-12] MEDS: ASPIRIN EC 81 MG TABEC PO SCH (08:41)
[2017-02-12] MEDS: MULTIVITAMIN-OPHTHALMIC 1 TAB PO SCH (08:41)
[2017-02-12] MEDS: predniSONE 20 MG TAB PO SCH (08:41)
[2017-02-12] MEDS: SILDENAFIL CITRATE 20 MG TAB PO SCH (08:41)
[2017-02-12] MEDS: POTASSIUM CHLORIDE 10 MEQ CAP PO SCH (08:41)
[2017-02-12] MEDS: BUDESONIDE-FORMOTEROL 160/4.5 MCG INHALER INH SCH (08:42)
[2017-02-12] MEDS: FUROSEMIDE 40 MG TAB PO SCH ×2 (08:44→12:19)
[2017-02-12] MEDS: DOCUSATE SODIUM 50 MG/SENNA 8.6 MG TAB PO SCH (08:46)
[2017-02-12 12:00] VITALS: BP 115/62; PULSE 62; RESP 18; TEMP 97.2; O2SAT 95
[2017-02-12] MEDS ORDERED: BENA25CA4 PO (13:45)
[2017-02-12] MEDS ORDERED: FURO40TA PO (13:45)
[2017-02-12] MEDS ORDERED: PRED10PA PO (13:45)
[2017-02-12] MEDS ORDERED: SYMB160A INH (13:45)
--- NOTE | 2017-02-12 13:46 | HHI.DCPOC ---
Discharge Care Plan Diagnosis: (1) Shortness of breath (2) COPD (chronic obstructive pulmonary disease) (3) Acute kidney injury (4) History of CHF (congestive heart failure) (5) COPD exacerbation (6) Atrial fibrillation Goals to Promote Your Health * To prevent worsening of your condition and complications * To maintain your health at the optimal level Directions to Meet Your Goals Take your medications as prescribed Follow your dietary instruction Follow activity as directed Keep your appointments as scheduled Take your immunizations and boosters as scheduled If your symptoms worsen call your PCP, if no PCP go to Urgent Care Center or Emergency Room Smoking is Dangerous to Your Health. Avoid second hand smoke Call the 24-hour hour crisis hotline for domestic abuse at Dread Franklin MD Feb 12, 2017 13:46
--- NOTE | 2017-02-12 13:50 | HHI.FF ---
Face to Face Verification Diagnosis: (1) Low TSH level (2) Anemia (3) Prediabetes (4) Shortness of breath (5) COPD exacerbation (6) Chronic right-sided heart failure (7) Pulmonary hypertension (8) Acute and chronic respiratory failure with hypoxia (9) Acute kidney injury (10) Afib (11) Hypertension Physical Therapy Order: Evaluate and Treat, Improve ambulation, Strength and gait training Occupational Therapy Order: Evaluate and Treat, Improve ADL, Gross motor coordination, Fine motor coordination Home Health Nursing Order: Medical education Signs/symptoms of disease process Diabetic education CHF education Oxygen administration education Nursing assessment with vital signs I have seen patient Virgie Delvalle on 02/12/17. My clinical findings support the need for the requested home health care services because: chronic respiratory failure Ltd mobility - disease progression Patient has SOB Deconditioned w/ increased weakness High risk of falls I certify that my clinical findings support that this patient is homebound because: patient has chronic respiratory insufficiency Hx COPD- exertion dyspnea/weakness Unsteady gait/balance Unsafe to leave home unassisted Unable to use public transportation Kala Agarwal Feb 12, 2017 13:50
[2017-02-12 16:00] VITALS: BP 126/75; PULSE 98; RESP 20; TEMP 97.9; O2SAT 94
--- NOTE | 2017-02-12 16:44 | HHI.DS ---
Discharge Summary Admission Date Feb 08, 2017 at 11:55 Discharge Date: Feb 12, 2017 Admitting Diagnosis acute kidney injury, copd exaceration, atrial fibrillation. (1) Acute and chronic respiratory failure with hypoxia ICD Code: J96.21 - Acute and chronic respiratory failure with hypoxia Status: Acute (2) Shortness of breath ICD Code: R06.02 - Shortness of breath Status: Acute (3) Acute kidney injury ICD Code: N17.9 - Acute kidney failure, unspecified Status: Acute (4) COPD (chronic obstructive pulmonary disease) ICD Code: J44.9 - Chronic obstructive pulmonary disease, unspecified Status: Chronic (5) Atrial fibrillation ICD Code: I48.91 - Unspecified atrial fibrillation Status: Acute (6) Low TSH level ICD Code: R94.6 - Abnormal results of thyroid function studies (7) COPD exacerbation ICD Code: J44.1 - Chronic obstructive pulmonary disease with (acute) exacerbation Status: Acute (8) Prediabetes ICD Code: R73.03 - Prediabetes (9) Anemia ICD Code: D64.9 - Anemia, unspecified Status: Chronic (10) Pulmonary hypertension ICD Code: I27.2 - Other secondary pulmonary hypertension Status: Chronic (11) Supratherapeutic INR ICD Code: R79.1 - Abnormal coagulation profile (12) Chronic right-sided heart failure ICD Code: I50.9 - Heart failure, unspecified Status: Chronic (13) History of CHF (congestive heart failure) ICD Code: Z86.79 - Personal history of other diseases of the circulatory system Status: Acute Procedures None Brief History - From Admission Ms. Delvalle is a 76-year-old female patient with a known medical history of CHF, COPD on home O2, and atrial fibrillation who presented to the ED with complaints of worsening shortness of breath x 3 days. Patient states that she is normally on 3L [place] home oxygen and able to perform ADLs and ambulation but for three days noticed worsening shortness of breath with activity and bending over. Patient states she has been unable to walk across a small room without becoming severely short of breath. She sees Dr. Kelley, pulmonology, in the outpatient setting. Does admit to taking 160mg of Lasix daily as prescribed. Has noticed a 10-pound weight gain in the past three days. Denies any recent fever, chills, cough, headache, dizziness, lightheadedness, abdominal pain, vomiting, diarrhea, or dysuria. CBC/BMP: 02/10/17 0925 02/12/17 0659 Significant Findings Laboratory Tests Test 02/10/17 09:25 02/10/17 21:44 02/11/17 06:12 02/12/17 06:59 Red Blood Count 3.89 MIL/MM3 (4.00-5.30) Hemoglobin 11.3 GM/DL (11.6-15.3) Hematocrit 34.9 % (35.0-46.0) Neutrophils (%) (Auto) 92.8 % (16.0-70.0) Lymphocytes (%) (Auto) 4.5 % (9.0-44.0) Neutrophils # (Auto) 8.0 TH/MM3 (1.8-7.7) Lymphocytes # (Auto) 0.4 TH/MM3 (1.0-4.8) Blood Urea Nitrogen 35 MG/DL (7-18) 36 MG/DL (7-18) 31 MG/DL (7-18) Creatinine 1.03 MG/DL (0.50-1.00) Random Glucose 177 MG/DL (74-106) 118 MG/DL (74-106) Estimat Glomerular Filtration Rate 52 ML/MIN (>89) 59 ML/MIN (>89) 71 ML/MIN (>89) Hemoglobin A1c 6.1 % (4.3-6.0) Free Triiodothyronine (T3) pg/dL 1.29 PG/ML (2.18-3.98) Thyroid Stimulating Hormone 3rd Gen 0.125 uIU/ML (0.358-3.740) Prothrombin Time 42.7 SEC (9.8-11.6) 46.1 SEC (9.8-11.6) 42.0 SEC (9.8-11.6) Calcium Level 8.4 MG/DL (8.5-10.1) 8.1 MG/DL (8.5-10.1) Carbon Dioxide Level 32.2 MEQ/L (21.0-32.0) 37.5 MEQ/L (21.0-32.0) Anion Gap 4 MEQ/L (5-15) Imaging Last Impressions Chest X-Ray 02/06/17 1530 Signed Impressions: Service Date/Time: Monday, February 06, 2017 16:06 - CONCLUSION: No acute cardiopulmonary disease. Virginia Lizarraga MD PE at Discharge GENERAL: Well-nourished, well-developed patient in NAD. Awake and alert. Sitting up in hospital bed. Appears comfortable. SKIN: Warm and dry. No rash. HEAD: Normocephalic. Atraumatic. EYES: (+)outer left conjunctiva erythematous, improving. EOMI. ENT: No nasal bleeding or discharge. Mucous membranes pink and moist. NECK: Supple. Trachea midline. CARDIOVASCULAR: Regular rate and rhythm. S1, S2 noted. No murmur appreciated. RESPIRATORY: No accessory muscle use. Diminished but clear breath sounds noted. No wheezing. On 3L NC. GASTROINTESTINAL: Abdomen soft, non-tender, nondistended. Normoactive bowel sounds x4. MUSCULOSKELETAL: No obvious deformities. Extremities without clubbing or cyanosis. Trace edema bilaterally. NEUROLOGICAL: Awake and alert. Able to move all extremities spontaneously. Normal speech. PSYCHIATRIC: Appropriate mood and affect; insight and judgment normal. Pt update on day of discharge Patient seen and examined. Patient reports she is feeling well. She is looking forward to going home. States her strength is improving. Denies any shortness of breath. Denies any fever or chills. Denies any chest pain. Denies any nausea, vomiting or abdominal pain. Discussed with Dr. Kelley who has cleared patient for discharge with instructions to follow-up in one week in his office. Attending statement: I examined the patient today. She feels much better and wants to go home. No wheezing on exam. She was cleared for discharge by pulmonology. Discharge home in stable condition. Hospital Course Ms. Delvalle is a 76-year-old female patient with a known medical history of CHF, COPD on home O2, and atrial fibrillation who presented to the ED with complaints of worsening shortness of breath x 3 days. Patient states that she is normally on 3L [place] home oxygen and able to perform ADLs and ambulation but for three days noticed worsening shortness of breath with activity and bending over. Patient states she has been unable to walk across a small room without becoming severely short of breath. Acute kidney injury: 0.89. Continue to avoid nephrotoxins. Atrial fibrillation: INR 5.7 this morning will hold today's Coumadin. Check labs in a.m. Diarrhea: Imodium ordered. 1. COPD with exacerbation: Improving. Continue steroid taper per Pulmonary medicine - appreciate their assistance, bronchodilators, supplemental oxygen. Continue with PT who has recommended home with [facility] PT which patient had in place previous to admission. Elevated bicarbonate. Discussed with Dr. Kelley who has cleared patient for discharge to home with instructions to follow-up in his office in one week. Tapering dose of steroid following discharge per pulmonology. 2. Acute kidney injury: Likely secondary to dehydration versus overdiuresis. Lasix resumed at 40mg BID by Dr. Kelley. Creatinine within normal limits. 3. Normocytic normochromic anemia: Stable. Monitor as indicated. 4. Atrial fibrillation, chronic: Rate controlled. Continue on Coreg. INR is supratherapeutic. Coumadin on hold. INR trending down, today INR 3.6. Patient to continue to hold Coumadin at the time of discharge. She will follow- up in Dr. Awad's office tomorrow to have INR rechecked and instructions on when and at what dose to resume Coumadin. 5. Chronic systolic congestive heart failure: BNP is slightly elevated. No signs of fluid overload at this time. Lasix resumed at 40mg BID, patient complaining of nocturia and requesting second dose of Lasix be given earlier in the day. Monitor BMP. 2-D echocardiogram obtained revealing EF of 50-55%, mildly dilated right ventricle, mildly dilated right atrium, severe tricuspid regurgitation and estimated severe pulmonary hypertension greater than 70 mmHg. Continue on Sildenafil. 6. Low TSH, low T3 and normal T4, albumin mildly low. Discussed with patient - recommend follow up with PCP in 6-8 weeks to have rechecked. 7. Prediabetes: HgbA1c 6.1. Elevated blood sugar levels while on IV steroids. BS much improved off of IV steroids. D/C accucheck and ISS. Patient will need to follow up with PCP as outpatient for repeat HgbA1c in 3 mos. 8. Insomnia: Benadryl prn 9. DVT prophylaxis: SCDs, ESTRELLA hose, Coumadin on hold. Pt Condition on Discharge: Stable Discharge Disposition: Disch w/ Home Health Serv Discharge Time: > 30 minutes Discharge Instructions DIET: Follow Instructions for: Heart Healthy Diet Activities you can perform: Regular-No Restrictions Follow up Referrals: PCP Follow-up - 1 Week with Yonny Awad MD Pulmonology - 1 Week with Irena Kelley MD New Medications: Prednisone (21) 10 mg tab Dose Pack (Prednisone (21) 10 mg tab Dose Pack) 10 Mg Pack 10 MG PO DIRECTED for Inflammation, #1 DSPK 0 Refills Budesonide-Formoterol Inh (Symbicort Inh) 160-4.5 Mcg/Act Aero 2 PUFF INH Q12HR for COPD, #1 INHALER 0 Refills Diphenhydramine HCl (Benadryl Allergy) 25 Mg Cap 25 MG PO HS PRN for INSOMNIA, #30 CAP 0 Refills Furosemide (Furosemide) 40 Mg Tab 40 MG PO BID@0900,1300 for Edema, #60 TAB 0 Refills Continued Medications: Aspirin DR (Aspirin 81) 81 Mg Tabdr 81 MG PO DAILY, TAB 0 Refills Carvedilol (Carvedilol) 6.25 Mg Tab 6.25 MG PO BID, #60 TAB [address] (Duloxetine DR) 30 Mg Capdr 30 MG PO DAILY, #30 CAP 0 Refills Glucosamine (Glucosamine) 1,000 Mg Cap 1000 MG PO DAILY for Herbal Supplements, CAP 0 Refills Ipratropium-Albuterol Neb (Duoneb) 0.5-2.5 Mg/3 Ml Neb 1 NEBULE INH Q4HR NEB for SHORTNESS OF BREATH, #120 NEBULE 0 Refills Multiple Vitamins W/ Minerals (Ocuvite) 1 Tab 1 TAB PO DAILY for Nutritional Supplement, TAB 0 Refills Oxycodone-Acetaminophen (Percocet) 5-325 mg Tab 1 TAB PO Q4H PRN for PAIN, TAB 0 Refills Potassium Chloride ER (Potassium Chloride ER) 10 Meq Tab 10 MEQ PO BID for Electrolyte Replacement, #60 TAB 0 Refills Sildenafil (Sildenafil) 20 Mg Tab 60 MG PO BID for Pulm. arterial hypertension, #90 TAB 0 Refills Simvastatin (Simvastatin) 20 Mg Tab 20 MG PO DAILY for Cholesterol Management, #30 TAB 0 Refills Discontinued Medications: Furosemide (Lasix) 80 Mg Tab 80 MG PO BID, #60 TAB 0 Refills Metolazone (Metolazone) 5 Mg Tab 5 MG PO DAILY, #30 TAB 0 Refills Warfarin (Coumadin) 2 Mg Tab 2 MG PO MoWeFr for Prevent Blood Clot, #30 TAB 0 Refills Warfarin (Coumadin) 4 Mg Tab 4 MG PO SuTuThSa for Prevent Blood Clot, #30 TAB 0 Refills Kala Agarwal Feb 12, 2017 16:44 Dread Franklin MD Feb 12, 2017 17:36
== END 2017-02-12 18:14 | disposition home or self-care (01) | DRG 189 ==
LOC: NEPC 15:00 → NEDA 17:23 → NEPFCDU 19:30 → NEPGCP 02-07 16:41 → OBSVTOIN 02-08 11:55 → N07B 02-10 18:32
PROVIDERS: ADMIT Family Medicine; ATTEND Family Medicine
DX: J96.21 Acute and chronic respiratory failure with hypoxia (principal); N17.9 Acute kidney failure, unspecified; I27.2 Other secondary pulmonary hypertension; I11.0 Hypertensive heart disease with heart failure; I50.22 Chronic systolic (congestive) heart failure; J44.1 Chronic obstructive pulmonary disease with (acute) exacerbation; I48.2 Chronic atrial fibrillation; D64.9 Anemia, unspecified; R73.03 Prediabetes; R79.1 Abnormal coagulation profile; Z79.01 Long term (current) use of anticoagulants; Z99.81 Dependence on supplemental oxygen; F39 Unspecified mood [affective] disorder; F32.9 Major depressive disorder, single episode, unspecified; Z96.649 Presence of unspecified artificial hip joint; Z90.710 Acquired absence of both cervix and uterus; M19.90 Unspecified osteoarthritis, unspecified site; Z87.891 Personal history of nicotine dependence; E78.00 Pure hypercholesterolemia, unspecified; G47.00 Insomnia, unspecified; G47.33 Obstructive sleep apnea (adult) (pediatric); G89.29 Other chronic pain; M54.9 Dorsalgia, unspecified; I07.1 Rheumatic tricuspid insufficiency; Z86.79 Personal history of other diseases of the circulatory system; Z86.718 Personal history of other venous thrombosis and embolism
CPT/HCPCS: 36600; 71010; 80048; 80053; 81001; 82550; 82805; 82948; 83036; 83735; 83880; 84439; 84443; 84481; 84484; 85025; 85610; 85730; 93005; 93306; 94640; 94664; 96361; 96372; 96374; 96375; 96376; G0378; J1644; J1815; J2930; J7040; J7512; J7613

== ENCOUNTER 2017-03-08 15:26 | Inpatient (IN) | payer MEDICARE ==
[~2017-03-08] VITALS: Ht 167.6 cm; Wt 109.8 kg
[~2017-03-08 15:26] MED LIST changes: +ASPI-110 PO; +BENA25CA4 PO; -BUME1TAB PO; -CARV6.25 PO; +CARV6.252 PO; -CHOL1TAB29 PO; -COUM4TAB7 PO; -CYMB30CA PO; +DULO1CAP2 PO; -DUONI NEB; -FIORIC PO; +FURO40TA PO; +GLUC100017 PO; +IPRASOL INH; -MAGN400 PO; -OCUVCAP PO; +OCUVTAB PO; -OSTETAB3 PO; +POTA10TA2 PO; -POTA20PA PO; +PRED10PA PO; -SILD20TA PO; +SILD20TA11 PO; -SIMV20 PO; +SIMV20TA PO; -[UNRECOGNIZED DRUG - CODE] IM
[2017-03-08 15:31] VITALS: BP 138/88; PULSE 90; RESP 22; TEMP 98; O2SAT 86
[2017-03-08] MEDS ORDERED: FURO1TAB61 PO (15:56)
[2017-03-08] MEDS ORDERED: POTA-163 PO (15:56)
[2017-03-08] MEDS ORDERED: [UNRECOGNIZED DRUG - CODE] IM (15:56)
[2017-03-08] MEDS ORDERED: FUROSEMIDE 40 MG/4 ML VIAL IV PUSH ONE (16:00)
[2017-03-08] MEDS ORDERED: methylPREDNISolone SOD SUCC 125 MG/2 ML VIAL IV PUSH ONE (16:00)
--- NOTE | 2017-03-08 16:15 | PD ---
HPI Chief Complaint: Respiratory Symptoms Time Seen by Provider: 15:41 Travel History International Travel<30 days: No Contact w/Intl Traveler<30days: No Traveled to known affect area: No History of Present Illness HPI 76-year-old female that presents to the ED for evaluation of shortness of breath , lower leg edema and increasing weight. Patient states that for the past today she's been feeling more short of breath with exertion. 2 days ago she was back to baseline. Patient has a history of CHF, COPD, pulmonary hypertension and follows with Dr. Nj. Patient uses 3 L of oxygen at home. Patient denies any chest pain. Per patient and shortness of breath with exertion. No fevers chills or sweats. She does take Coumadin secondary to blood clots. No history of ACS. She does take her Lasix and has been taking Lasix as prescribed. She has no allergies to medication. Per patient she has leg pain especially on the left. Denies any headache. No blurred vision and double vision. She has not seen her doctor for this. Her friend made her come here because of the significant weight gain. Per patient she has gained about 15 pounds in less than a week. PFSH Past Medical History Hx Anticoagulant Therapy: Yes (COUMADIN) Arthritis: Yes (osteoarthritis) Asthma: No Anxiety: No Depression: Yes Heart Rhythm Problems: Yes (afib) Cancer: No Cardiovascular Problems: Yes High Cholesterol: Yes Chemotherapy: No Chest Pain: Yes Congestive Heart Failure: Yes COPD: Yes Cerebrovascular Accident: No Diabetes: No Diminished Hearing: No Deep Vein Thrombosis: Yes Endocrine: No Gastrointestinal Disorders: Yes (nausea) GERD: No Genitourinary: Yes Hepatitis: No Hiatal Hernia: No Hypertension: Yes Immune Disorder: No Implanted Vascular Access Dvce: Yes Kidney Stones: No Musculoskeletal: Yes Neurologic: No Psychiatric: Yes Reproductive: No Respiratory: Yes Immunizations Current: Yes Migraines: No Radiation Therapy: No Renal Failure: No Seizures: No Sleep Apnea: No Thyroid Disease: No Ulcer: No Menopausal: Yes Past Surgical History Abdominal Surgery: Yes (appendectomy) AICD: No Appendectomy: Yes Body Medical Devices: INTERSTEM LEFT BUTTUCK AND RIGHT HEEL BOLT Cardiac Surgery: No Ear Surgery: No Endocrine Surgery: Yes Eye Surgery: Yes (cataracts) Genitourinary Surgery: Yes (inner stem therapy lt buttock) Gynecologic Surgery: Yes (hysterectomy) Hysterectomy: Yes Joint Replacement: Yes (hip replacement) Neurologic Surgery: No Oral Surgery: Yes (tonsilectomy) Pacemaker: No Thoracic Surgery: Yes (lung biospy, mediastymectomy) Tonsillectomy: Yes Other Surgery: Yes (tonsilectomy, historectomy, apendectomy, mediastymectomy, lung biopsy) Social History Alcohol Use: No Tobacco Use: No (quit) Substance Use: No Allergies-Medications (Allergen,Severity, Reaction): Coded Allergies: No Known Allergies (Unverified , 03/08/17) Reported Meds & Prescriptions Reported Meds & Active Scripts Active Prednisone (21) 10 mg tab Dose Pack (Prednisone) 10 Mg Pack 10 Mg PO DIRECTED Symbicort Inh (Budesonide/Formoterol Fumarate) 160-4.5 Mcg/Act Aero 2 Puff INH Q12HR Benadryl Allergy (Diphenhydramine HCl) 25 Mg Cap 25 Mg PO HS PRN Duoneb (Ipratropium-Albuterol Neb) 0.5-2.5 Mg/3 Ml Neb 1 Nebule INH Q4HR NEB Reported Delestrogen Valerate Inj (Estradiol Valerate) 10 Mg/Ml Inj 1 Mg IM MONTHLY Potassium Chloride ER (Potassium Chloride) 20 Meq Tab 40 Meq PO BID Lasix (Furosemide) 80 Mg Tab 80 Mg PO BID Ocuvite (Multiple Vitamins W/ Minerals) 1 Tab 1 Tab PO DAILY Percocet (Oxycodone-Acetaminophen) 5-325 mg Tab 1 Tab PO Q4H PRN Duloxetine DR (Duloxetine HCl) 30 Mg Capdr 30 Mg PO DAILY Potassium Chloride ER (Potassium Chloride) 10 Meq Tab 10 Meq PO BID Sildenafil 20 Mg Tab 60 Mg PO BID Carvedilol 6.25 Mg Tab 6.25 Mg PO BID Aspirin 81 (Aspirin) 81 Mg Tabdr 81 Mg PO DAILY Simvastatin 20 Mg Tab 20 Mg PO DAILY Glucosamine (Glucosamine Sulfate) 1,000 Mg Cap 1,000 Mg PO DAILY Review of Systems Except as stated in HPI: all other systems reviewed are Neg Physical Exam Narrative GENERAL: SKIN: Warm and dry. HEAD: Atraumatic. Normocephalic. EYES: Pupils equal and round. No scleral icterus. No injection or drainage. ENT: No nasal bleeding or discharge. Mucous membranes pink and moist. Tongue is midline. No uvula deviation. NECK: Trachea midline. No JVD. CARDIOVASCULAR: Regular rate and rhythm. No murmurs, S3, S4. RESPIRATORY: No accessory muscle use. Clear to auscultation. Breath sounds equal bilaterally. GASTROINTESTINAL: Abdomen soft, non-tender, nondistended. Hepatic and splenic margins not palpable. MUSCULOSKELETAL: Extremities without clubbing, cyanosis, or edema. No obvious deformities. 2+ pitting edema on the lower extremities. Pupils pulses bilaterally. Patient does have some bruising noted on the lateral aspect of the left foot and ankle. Per patient this is chronic secondary to having had injections of steroids to her knees bilaterally. NEUROLOGICAL: Awake and alert. No obvious cranial nerve deficits. Motor grossly within normal limits. Five out of 5 muscle strength in the arms and legs. Normal speech. PSYCHIATRIC: Appropriate mood and affect; insight and judgment normal. Data Data Last Documented VS Vital Signs Date Time Temp Pulse Resp B/P (MAP) Pulse Ox O2 Delivery O2 Flow Rate FiO2 03/08/17 18:37 94 22 133/70 (91) 96 03/08/17 15:49 Nasal Cannula 4.00 03/08/17 15:31 98.0 Orders Orders Complete Blood Count With Diff (03/08/17 15:51) Basic Metabolic Panel (Bmp) (03/08/17 15:51) B-Type Natriuretic Peptide (03/08/17 15:51) Prothrombin Time / Inr (Pt) (03/08/17 15:51) Act Partial Throm Time (Ptt) (03/08/17 15:51) Magnesium (Mg) (03/08/17 15:51) Thyroid Stimulating Hormone (03/08/17 15:51) Chest, Single Ap (03/08/17 15:51) Iv Access Insert/Monitor (03/08/17 15:51) Ecg Monitoring (03/08/17 15:51) Oximetry (03/08/17 15:51) Furosemide Inj (Lasix Inj) (03/08/17 16:00) Troponin I (03/08/17 15:53) Ckmb (Isoenzyme) Profile (03/08/17 15:53) Methylprednisolone So Succ Inj (Solumedr (03/08/17 16:00) Us Leg Venous Doppler Bilat (03/08/17 ) Admit Order (Ed Use Only) (03/08/17 19:15) Labs Laboratory Tests Test 03/08/17 15:58 White Blood Count 11.3 TH/MM3 Red Blood Count 4.24 MIL/MM3 Hemoglobin 12.4 GM/DL Hematocrit 38.5 % Mean Corpuscular Volume 90.8 FL Mean Corpuscular Hemoglobin 29.1 PG Mean Corpuscular Hemoglobin Concent 32.1 % Red Cell Distribution Width 17.4 % Platelet Count 341 TH/MM3 Mean Platelet Volume 7.3 FL Neutrophils (%) (Auto) 82.8 % Lymphocytes (%) (Auto) 7.3 % Monocytes (%) (Auto) 9.9 % Eosinophils (%) (Auto) 0.0 % Basophils (%) (Auto) 0.0 % Neutrophils # (Auto) 9.3 TH/MM3 Lymphocytes # (Auto) 0.8 TH/MM3 Monocytes # (Auto) 1.1 TH/MM3 Eosinophils # (Auto) 0.0 TH/MM3 Basophils # (Auto) 0.0 TH/MM3 CBC Comment DIFF FINAL Differential Comment Prothrombin Time 23.3 SEC Prothromb Time International Ratio 2.0 RATIO Activated Partial Thromboplast Time 30.4 SEC Blood Urea Nitrogen 50 MG/DL Creatinine 1.51 MG/DL Random Glucose 191 MG/DL Calcium Level 9.1 MG/DL Magnesium Level 2.4 MG/DL Sodium Level 136 MEQ/L Potassium Level 3.2 MEQ/L Chloride Level 94 MEQ/L Carbon Dioxide Level 32.4 MEQ/L Anion Gap 10 MEQ/L Estimat Glomerular Filtration Rate 34 ML/MIN Total Creatine Kinase 33 U/L Troponin I LESS THAN 0.02 NG/ML B-Type Natriuretic Peptide 193 PG/ML Thyroid Stimulating Hormone 3rd Gen 0.332 uIU/ML MDM Medical Decision Making Medical Screen Exam Complete: Yes Emergency Medical Condition: Yes Medical Record Reviewed: Yes Interpretation(s) CBC & BMP Diagram 03/08/17 15:58 Calcium Level 9.1, Magnesium Level 2.4 BNP in the 200s Last Impressions Chest X-Ray 03/08/17 1551 Signed Impressions: Service Date/Time: Wednesday, March 08, 2017 16:48 - CONCLUSION: Stable chest no acute disease Chilo Hurtado MD troponin negative Differential Diagnosis CHF exacerbation versus CHF versus A. fib versus COPD versus pleural edema versus pulmonary hypertension versus hypoxia versus ACS Narrative Course 76-year-old female that presents to the ED for evaluation of possible CHF. Patient was properly examined and was found to have signs and symptoms which appeared to be very consistent with CHF exacerbation. Patient compliant with her medications. Labs and imaging ordered. Labs and imaging were essentially unremarkable other than for what appears to be CHF exacerbation. Patient was slightly hypoxic initially but with oxygen her oxygenation got better. Case discussed in my attending who recommends admission. Patient was discussed with Dr. Manning who agrees to admission. Patient was admitted for CHF exacerbation and hypoxia. Patient agrees with this plan. Diagnosis Primary Impression: CHF (congestive heart failure) Qualified Codes: I50.9 - Heart failure, unspecified Additional Impression: Hypoxia Admitting Information Admitting Physician Requests: Admit Jac Roth Mar 08, 2017 16:15
[2017-03-08 16:43] LABS: AUTOMATED NEUTROPHIL # 9.3 TH/MM3 (1.8-7.7); HEMATOCRIT 38.5 % (35.0-46.0); HEMO FLAGS DIFF FINAL; LYMPH % 7.3 % (9.0-44.0); LYMPHOCYTE # 0.8 TH/MM3 (1.0-4.8); MEAN CELL VOLUME 90.8 FL (80.0-100.0); MEAN CORPUSCULAR HEMOGLOBIN 29.1 PG (27.0-34.0); MEAN CORPUSCULAR HGB CONC 32.1 % (32.0-36.0); MONO % 9.9 % (0.0-8.0); NEUT % 82.8 % (16.0-70.0); PLATELET COUNT 341 TH/MM3 (150-450); RED BLOOD COUNT 4.24 MIL/MM3 (4.00-5.30); RED CELL DISTRIBUTION WIDTH 17.4 % (11.6-17.2); WHITE BLOOD COUNT 11.3 TH/MM3 (4.0-11.0)
[2017-03-08 16:51] LABS: APTT (PATIENT) 30.4 SEC (24.3-30.1); PROTHROMBIN TIME - PATIENT 23.3 SEC (9.8-11.6)
[2017-03-08 17:02] LABS: BICARBONATE 32.4 MEQ/L (21.0-32.0); MAGNESIUM 2.4 MG/DL (1.5-2.5); POTASSIUM 3.2 MEQ/L (3.5-5.1)
--- NOTE | 2017-03-08 17:10 | RADRPT ---
EXAM DATE/TIME: 03/08/2017 16:48 [facility] COMPARISON: CHEST SINGLE AP, February 06, 2017, 16:06. INDICATIONS : Short of Breath MEDICAL HISTORY : Chronic obstructive pulmonary disease. Emphysema. Congestive heart SURGICAL HISTORY : Mediastinotomy ENCOUNTER: Initial ACUITY: 1 day PAIN SCORE: 0/10 LOCATION: Bilateral chest FINDINGS: Minimal reticular scarring in the right upper lobe is unchanged. There is no evidence of alveolar con solidation or pleural effusion. Cardiac contours are stable and satisfactory. CONCLUSION: Stable chest no acute disease Chilo Hurtado MD on March 08, 2017 at 17:08 Board Certified Radiologist. This report was verified electronically.
[2017-03-08 17:18] LABS: CREATINE KINASE 33 U/L (26-192)
[2017-03-08 18:37] VITALS: BP 133/70; PULSE 94; RESP 22; O2SAT 96
[2017-03-08] MEDS ORDERED: MAGNESIUM HYDROXIDE SUSP 30 ML CUP PO PRN (19:30)
[2017-03-08] MEDS ORDERED: BISACODYL 10 MG SUPP RECTAL PRN (19:30)
[2017-03-08] MEDS ORDERED: SODIUM CHLORIDE 0.9% FLUSH 10 ML FLUSH IV FLUSH PRN (19:30)
[2017-03-08] MEDS ORDERED: SENNOSIDES 8.6 MG TAB PO PRN (19:30)
[2017-03-08] MEDS ORDERED: RESP: ALBUTEROL 2.5 MG/IPRATROPIUM 0.5 MG NEB (PRN) NEB (19:30)
[2017-03-08] MEDS ORDERED: MORPHINE SULFATE 4 MG/ML INJ IV PUSH PRN (19:30)
[2017-03-08] MEDS ORDERED: ACETAMINOPHEN 325 MG TAB PO PRN (19:30)
[2017-03-08] MEDS ORDERED: ONDANSETRON HCL 4 MG/2 ML VIAL IVP PRN (19:30)
[2017-03-08] MEDS ORDERED: LACTULOSE SYRUP 20 GM/30 ML CUP PO PRN (19:30)
--- NOTE | 2017-03-08 19:30 | HHI.HP ---
HPI Service [facility] Primary Care Physician Yonny Awad MD Admission Diagnosis acute CHF exacerbation, hypoxia Diagnoses: (1) CHF (congestive heart failure) Diagnosis: Principal (2) COPD (chronic obstructive pulmonary disease) Diagnosis: Principal (3) Hypoxia Diagnosis: Principal (4) Pulmonary HTN Diagnosis: Principal (5) Hyperglycemia Diagnosis: Principal (6) RADHA (acute kidney injury) Diagnosis: Principal (7) Afib Diagnosis: Principal Travel History International Travel<30 Days: No Contact w/Intl Traveler <30 Da: No Traveled to Known Affected Are: No History of Present Illness This is a 76-year-old female with a PMH of A. fib on Coumadin, HTN, Hyperlipidemia, CHF (Echo 02/07/17 w/ EF 50-55%, Severe Pulm HTN >70mmHg) and COPD , O2 Dependent who presented to the ER w/ complaints of severe SOB and progressive lower extremity edema x2 days. Recent admit -02/12/17 for similar complaints, found to have COPD w/ hypoxia, CHF and Supratherapeutic INR , Coumadin on hold at time of d/c. States doing well since then until 2 days ago, now w/ progressive SOB and LE edema, on Lasix 80mg po bid at home, compliant w/ medications. Denies chest pain, cough or sick contacts. On arrival, BP 138/88, HR 90, O2 sat 86% on RA, Afebrile. O2 sat currently 96% on 3L NC. WBC 11.3. K+ 3.2. Creatinine 1.51, previously 0.79 on 02/12/17. Trop negative. BNP 193. BS 191. INR 2.0. CXR stable, no acute findings. LE Doppler negative for PE. S/p Lasix 40mg IV, Solu-Medrol in ER, remains SOB. Follows w/ Dr. Kelley as outpatient. Following w/ Dr. Landeros, states she was referred to Dr. Mosqueda in [place] for Cardiology. Review of Systems Except as stated in HPI: all other systems reviewed are Neg ROS: 14 point review of systems otherwise negative. Past Family Social History Past Medical History PMH: A. fib on Coumadin, HTN, Hyperlipidemia, CHF (Echo 02/07/17 w/ EF 50-55%, Severe Pulm HTN >70mmHg) and COPD, O2 Dependent Past Surgical History PAST SURGICAL HISTORY: Appendectomy, Cataract Surgery, Hysterectomy, Hip Replacement, Tonsillectomy, Lung Biopsy Allergies: Coded Allergies: No Known Allergies (Unverified , 03/08/17) Family History PAST FAMILY HISTORY: Reviewed. No h/o DM or CAD Social History PAST SOCIAL HISTORY: Negative for alcohol, tobacco or drugs. Physical Exam Vital Signs Vital Signs Date Time Temp Pulse Resp B/P (MAP) Pulse Ox O2 Delivery O2 Flow Rate FiO2 03/08/17 18:37 94 22 133/70 (91) 96 03/08/17 15:49 22 97 Nasal Cannula 4.00 03/08/17 15:31 98.0 90 22 138/88 (105) 86 Physical Exam PE: GENERAL: Very pleasant elderly white female in no acute distress. Mild dyspnea with speech. NC in place. HEENT: PERRLA, EOMI. No scleral icterus or conjunctival pallor. No lid lag or facial droop. CARDIOVASCULAR: Regular rate and rhythm. No obvious murmurs to auscultation. No chest tenderness to palpation. RESPIRATORY: No obvious rhonchi, occasional wheezing. Clear to auscultation. Breath sounds equal bilaterally. GASTROINTESTINAL: Abdomen soft, non-tender, nondistended. BS normal. MUSCULOSKELETAL: Extremities without clubbing, cyanosis. LE edema w/ bruising. No obvious deformities. NEUROLOGICAL: Awake, alert and oriented x4. No focal neurologic deficits. Moving both upper and lower extremities spontaneously. Laboratory Laboratory Tests Test 03/08/17 15:58 White Blood Count 11.3 Red Blood Count 4.24 Hemoglobin 12.4 Hematocrit 38.5 Mean Corpuscular Volume 90.8 Mean Corpuscular Hemoglobin 29.1 Mean Corpuscular Hemoglobin Concent 32.1 Red Cell Distribution Width 17.4 Platelet Count 341 Mean Platelet Volume 7.3 Neutrophils (%) (Auto) 82.8 Lymphocytes (%) (Auto) 7.3 Monocytes (%) (Auto) 9.9 Eosinophils (%) (Auto) 0.0 Basophils (%) (Auto) 0.0 Neutrophils # (Auto) 9.3 Lymphocytes # (Auto) 0.8 Monocytes # (Auto) 1.1 Eosinophils # (Auto) 0.0 Basophils # (Auto) 0.0 CBC Comment DIFF FINAL Differential Comment Prothrombin Time 23.3 Prothromb Time International Ratio 2.0 Activated Partial Thromboplast Time 30.4 Blood Urea Nitrogen 50 Creatinine 1.51 Random Glucose 191 Calcium Level 9.1 Magnesium Level 2.4 Sodium Level 136 Potassium Level 3.2 Chloride Level 94 Carbon Dioxide Level 32.4 Anion Gap 10 Estimat Glomerular Filtration Rate 34 Total Creatine Kinase 33 Troponin I LESS THAN 0.02 B-Type Natriuretic Peptide 193 Thyroid Stimulating Hormone 3rd Gen 0.332 Result Diagram: 03/08/17 1558 03/08/17 155 Caprini VTE Risk Assessment Caprini VTE Risk Assessment: Mod/High Risk (score >= 2) Caprini Risk Assessment Model Point Value = 1 Point Value = 2 Point Value = 3 Point Value = 5 Age 41-60 Minor surgery BMI > 25 kg/m2 Swollen legs Varicose veins or History of unexplained or recurrent spontaneous Oral contraceptives or hormone replacement Sepsis (< 1 month) Serious lung disease, including pneumonia (< 1 month) Abnormal pulmonary function Acute myocardial infarction Congestive heart failure (< 1 month) History of inflammatory bowel disease Medical patient at bed rest Age 61-74 Arthroscopic surgery Major open surgery (> 45 min) Laparoscopic surgery (> 45 min) Malignancy Confined to bed (> 72 hours) Immobilizing plaster cast Central venous access Age >= 75 History of VTE Family history of VTE Factor V Leiden Prothrombin [id number] Lupus anticoagulant Anticardiolipin antibodies Elevated serum homocysteine Heparin-induced thrombocytopenia Other congenital or acquired thrombophilia Stroke (< 1 month) Elective arthroplasty Hip, pelvis, or leg fracture Acute spinal cord injury (< 1 month) Prophylaxis Regimen Total Risk Factor Score Risk Level Prophylaxis Regimen 0-1 Low Early ambulation 2 Moderate Order ONE of the following: *Sequential Compression Device (SCD) *Heparin 5000 units SQ BID 3-4 Higher Order ONE of the following medications: *Heparin 5000 units SQ TID *Enoxaparin/Lovenox 40 mg SQ daily (WT < 150 kg, CrCl > 30 mL/min) *Enoxaparin/Lovenox 30 mg SQ daily (WT < 150 kg, CrCl > 10-29 mL/min) *Enoxaparin/Lovenox 30 mg SQ BID (WT < 150 kg, CrCl > 30 mL/min) AND/OR *Sequential Compression Device (SCD) 5 or more Highest Order ONE of the following medications: *Heparin 5000 units SQ TID (Preferred with Epidurals) *Enoxaparin/Lovenox 40 mg SQ daily (WT < 150 kg, CrCl > 30 mL/min) *Enoxaparin/Lovenox 30 mg SQ daily (WT < 150 kg, CrCl > 10-29 mL/min) *Enoxaparin/Lovenox 30 mg SQ BID (WT < 150 kg, CrCl > 30 mL/min) AND *Sequential Compression Device (SCD) Assessment and Plan Problem List: (1) CHF (congestive heart failure) ICD Code: I50.9 - Heart failure, unspecified Status: Acute (2) Hypoxia ICD Code: R09.02 - Hypoxemia Status: Acute (3) COPD (chronic obstructive pulmonary disease) ICD Code: J44.9 - Chronic obstructive pulmonary disease, unspecified Status: Chronic (4) Pulmonary HTN ICD Code: I27.20 - Pulmonary hypertension, unspecified (5) RADHA (acute kidney injury) ICD Code: N17.9 - Acute kidney failure, unspecified (6) Hyperglycemia ICD Code: R73.9 - Hyperglycemia, unspecified (7) Afib ICD Code: I48.91 - Unspecified atrial fibrillation Status: Chronic Assessment and Plan A/P: 1. COPD: Chronic Respiratory Failure w/ Acute Exacerbation. Severe. O2 Dependent on 3L NC. Significant respiratory distress on arrival, s/p Solu- Medrol w/ some improvement, however remains dyspneic. CXR w/ no significant change, images reviewed by me. Solu-Medrol, Symbicort, DuoNeb, Mucinex. Follows w/ Dr. Kelley as outpatient, will consult for further recommendations. 2. CHF: Acute on Chronic. Diastolic. Echo 02/07/17 w/ EF 50-55%, Severe Pulm HTN >70mmHg. BNP 193. CXR w/ no significant effusion, however +lower extremity edema on exam. Doppler LE negative for DVT, images reviewed by me. S /p Lasix 40mg IV in ER, on Lasix 80mg po bid at home, compliant w/ medications. Continue w/ diuretics, caution w/ renal insufficiency. Monitor I/O. Following w/ Dr. Landeros as outpatient, will consult for further recommendations. 3. Hypoxia: Likely Multifactorial-COPD w/ Acute Exacerbation, CHF w/ Acute Exacerbation and Pulm HTN. O2 sat 86% on RA upon arrival, currently 96% on 3L NC. O2 Dependent at home. Continue O2, monitor oximetry. 4. Pulm HTN: Chronic. Echo 02/07/17 w/ Severe Pulm HTN >70mmHg, on Sildenafil 60mg po bid, will resume home medications. 5. RADHA: Creatinine 1.51, previously 0.79 on 02/12/17, likely secondary to dehydration from respiratory losses in combination w/ high-dose diuresis. Monitor closely. Repeat labs in am. 6. Hyperglycemia: BS 191. Hgb A1c 6.1 on 02/10/17. Will start on Sliding Scale w/ Accu-Cheks in light of steroid therapy for COPD. 7. A-fib: Chronic. On Coumadin. INR therapeutic at 2.0. Resume home Coumadin 2mg //, Coumadin 4mg ///Thu. Check INR in am. 8. DVT Prophylaxis: On Coumadin as above. 9. Social work for d/c planning as needed. 10. Case discussed w/ ER physician at length. Physician Certification 2 Midnight Certification Type: Admission for Inpatient Services Order for Inpatient Services The services are ordered in accordance with Medicare regulations or non- Medicare payer requirements, as applicable. In the case of services not specified as inpatient-only, they are appropriately provided as inpatient services in accordance with the 2-midnight benchmark. Estimated LOS (days): 2 days is the estimated time the patient will need to remain in the hospital, assuming treatment plan goals are met and no additional complications. Post-Hospital Plan: Not yet determined Problem Qualifiers (1) CHF (congestive heart failure): Qualified Codes: I50.9 - Heart failure, unspecified Era Manning MD Mar 08, 2017 19:30
--- NOTE | 2017-03-08 19:35 | RADRPT ---
EXAM DATE/TIME: 03/08/2017 18:25 [facility] COMPARISON: No previous studies available for comparison. INDICATIONS : Bilateral swelling. MEDICAL HISTORY : Hypertension. Hypercholesterolemia. Deep venous thrombosis. Atrial fibrillation. COPD. Emphysema. Ost eoarthritis. SURGICAL HISTORY : Tonsillectomy.Hysterectomy. Appendectomy.Cataracts. Mediastymectomy. Lung biopsy. ENCOUNTER: Initial ACUITY: 1 day PAIN SCORE: 5/10 LOCATION: Bilateral legs. TECHNIQUE: Venous ultrasound of the left and right leg was performed from the inguinal ligament to the proximal calf. Real-time, color Doppler and spectral tracing, compression and augmentation techniques were us ed. FINDINGS: RIGHT LEG: There is normal compressibility of the deep venous system from the inguinal region to the proximal ca lf. No echogenic clot is seen in the lumen of the common femoral, femoral, popliteal, and posterior tibial veins. There is a normal response of the venous system to proximal and distal augmentation an d respiration. LEFT LEG: There is normal compressibility of the deep venous system from the inguinal region to the proximal ca lf. No echogenic clot is seen in the lumen of the common femoral, femoral, popliteal, and posterior tibial veins. There is a normal response of the venous system to proximal and distal augmentation an d respiration. CONCLUSION: Normal examination. Vincenzo Fiore MD on March 08, 2017 at 19:33 Board Certified Radiologist. This report was verified electronically.
[2017-03-08] MEDS ORDERED: GLUCAGON 1 MG/ML VIAL OTHER PRN (20:00)
[2017-03-08] MEDS ORDERED: DEXTROSE 50% IN WATER 50 ML VIAL(D50) IV PUSH PRN (20:00)
[2017-03-08] MEDS ORDERED: POTASSIUM CHLORIDE 20 MEQ CONTROLLED RELEASE TAB PO ONE (20:00)
[2017-03-08] MEDS ORDERED: diphenhydrAMINE HCL 50 MG/ML VIAL IV PUSH ONE (20:00)
[2017-03-08 20:04] VITALS: BP 126/60; PULSE 86; RESP 20; O2SAT 96; O2SAT 97
[2017-03-08] MEDS: RESP: ALBUTEROL 2.5 MG/IPRATROPIUM 0.5 MG NEB (SCH) NEB (20:26)
[2017-03-08 20:35] VITALS: O2SAT 96
[2017-03-08 20:55] VITALS: BP 138/75; PULSE 94; RESP 18; TEMP 97.2; O2SAT 97
[2017-03-08] MEDS: BUDESONIDE-FORMOTEROL 160/4.5 MCG INHALER INH SCH (21:13)
[2017-03-08] MEDS: guaiFENesin E.R. 600 MG TAB PO SCH (21:21)
[2017-03-08] MEDS: CARVEDILOL 6.25 MG TAB PO SCH (21:21)
[2017-03-08] MEDS: DOCUSATE SODIUM 50 MG/SENNA 8.6 MG TAB PO SCH (21:21)
[2017-03-08] MEDS: SODIUM CHLORIDE 0.9% FLUSH 10 ML FLUSH IV FLUSH SCH (21:21)
[2017-03-08] MEDS: oxyCODONE/ACETAMINOPHEN 5 MG/325 MG TAB PO PRN (21:22)
[2017-03-08 21:30] VITALS: PULSE 83
[2017-03-08] MEDS: INSULIN ASPART SUPPLEMENTAL SCALE SQ SCH (21:39)
[2017-03-08] MEDS: SILDENAFIL CITRATE 20 MG TAB PO SCH (23:43)
[2017-03-08] MEDS: methylPREDNISolone SOD SUCC 40 MG/1 ML VIAL IV PUSH SCH (23:44)
[2017-03-09] VITALS (8 sets, daily range): BP systolic 116–150; BP diastolic 57–76; PULSE 75–99; RESP 18–21; TEMP 96.1–98.6; O2SAT 93–98
[2017-03-09] MEDS: oxyCODONE/ACETAMINOPHEN 5 MG/325 MG TAB PO PRN ×3 (03:54→22:02)
[2017-03-09] MEDS: methylPREDNISolone SOD SUCC 40 MG/1 ML VIAL IV PUSH SCH ×4 (06:54→23:06)
[2017-03-09] MEDS: INSULIN ASPART SUPPLEMENTAL SCALE SQ SCH ×4 (08:00→21:00)
[2017-03-09] MEDS: SODIUM CHLORIDE 0.9% FLUSH 10 ML FLUSH IV FLUSH SCH ×2 (09:00→22:30)
[2017-03-09] MEDS: RESP: ALBUTEROL 2.5 MG/IPRATROPIUM 0.5 MG NEB (SCH) NEB ×4 (09:50→20:00)
[2017-03-09] MEDS: DOCUSATE SODIUM 50 MG/SENNA 8.6 MG TAB PO SCH ×2 (10:30→22:01)
[2017-03-09] MEDS: guaiFENesin E.R. 600 MG TAB PO SCH ×2 (10:31→22:01)
[2017-03-09] MEDS: ASPIRIN EC 81 MG TABEC PO SCH (10:31)
[2017-03-09] MEDS: SILDENAFIL CITRATE 20 MG TAB PO SCH ×2 (10:32→22:29)
[2017-03-09] MEDS: PRAVASTATIN SOD 40 MG TAB PO SCH (10:32)
[2017-03-09] MEDS: CARVEDILOL 6.25 MG TAB PO SCH ×2 (10:33→22:01)
[2017-03-09] MEDS: DULoxetine HCl DR 30 MG CAP PO SCH (10:33)
[2017-03-09] MEDS: MULTIVITAMIN-OPHTHALMIC 1 TAB PO SCH (10:33)
[2017-03-09] MEDS: FUROSEMIDE 40 MG/4 ML VIAL IV PUSH SCH ×2 (10:34→17:38)
[2017-03-09] MEDS: BUDESONIDE-FORMOTEROL 160/4.5 MCG INHALER INH SCH ×2 (10:35→21:00)
[2017-03-09 11:31] LABS: AUTOMATED NEUTROPHIL # 8.9 TH/MM3 (1.8-7.7); HEMATOCRIT 36.5 % (35.0-46.0); HEMO FLAGS DIFF FINAL; LYMPH % 6.4 % (9.0-44.0); LYMPHOCYTE # 0.6 TH/MM3 (1.0-4.8); MEAN CELL VOLUME 90.9 FL (80.0-100.0); MEAN CORPUSCULAR HEMOGLOBIN 29.9 PG (27.0-34.0); MEAN CORPUSCULAR HGB CONC 32.9 % (32.0-36.0); MONO % 4.8 % (0.0-8.0); NEUT % 88.8 % (16.0-70.0); PLATELET COUNT 327 TH/MM3 (150-450); RED BLOOD COUNT 4.02 MIL/MM3 (4.00-5.30); RED CELL DISTRIBUTION WIDTH 17.3 % (11.6-17.2)
[2017-03-09 11:58] LABS: ALKALINE PHOSPHATASE 70 U/L (45-117); ALT (GPT) 25 U/L (10-53); ANION GAP 7 MEQ/L (5-15); AST (GOT) 12 U/L (15-37); BICARBONATE 37.1 MEQ/L (21.0-32.0); BLOOD UREA NITROGEN 37 MG/DL (7-18); CHLORIDE 92 MEQ/L (98-107); GLOMERULAR FILTRATION RATE 53 ML/MIN (>89); POTASSIUM 3.5 MEQ/L (3.5-5.1); SODIUM (NA) 136 MEQ/L (136-145); TOTAL BILIRUBIN ADULT 0.5 MG/DL (0.2-1.0)
--- NOTE | 2017-03-09 15:09 | PD.CONS ---
HPI Service Cardiology Physicians Consult Requested By Dr Manning Reason for Consult CHF Primary Care Physician Yonny Awad MD History of Present Illness The patient is a 76 year old female known to our practice last evaluated 2015 with a cardiac history of pulmonary hypertension, CHF likely due to right heart failure, EF 50-55%, atrial fibrillation, HTN and HLD. other notable history COPD. She has not followed at our office since 01/2016 because she elected to follow primarily with Dr Mosqueda, the pulmonary hypertension specialist at [facility] and Dr Kelley. The patient was recently hospitalized and treated for CHF and COPD exacerbations. She states that after she left the hospital, she felt "the best she has felt in two years." She was eating out frequently and on her feet more than usual. She returned to the hospital for a one week history of progressively worsening SOB and BLE edema despite Lasix 80 mg BID and metolazone 5 mg PRN. Since admission, he feels less SOB and her feel are less swollen. She denies CP or palpitations. BNP is 193, INR 2.0. Most recent echo 01/2017 EF 50-55%, RVSP > 70 with IVC dilation. (Radha Becerra) Review of Systems Consitutional: COMPLAINS OF: Weight gain, DENIES: Fatigue, Fever, Chills, Weight loss Eyes: DENIES: Amaurosis Fugax, Change in vision HEENT: DENIES: Lightheadedness, Change in hearing Respiratory: COMPLAINS OF: Shortness of breath, DENIES: See HPI, Cough, Snoring , Wheezing, Sputum production Cardiovascular: DENIES: See HPI, Chest pain, Palpitations, Syncope, Tachycardia Gastrointestinal: DENIES: Nausea, Vomiting, Change in bowel habits, Reflux, Bloody stools, Melena Genitourinary: DENIES: Urinary incontinence, Difficulty voiding Integumentary: DENIES: Rash Neurologic: DENIES: Tingling or numbness, Memory problems, Poor Balance, Stroke symptoms Musculoskeletal: DENIES: Joint pain, Muscle pain, Limited range of motion, Back pain Psychiatric: DENIES: Anxiety, Depression, Sleep disturbances Hematologic: DENIES: Bruising tendencies, Bleeding tendencies Endocrine: COMPLAINS OF: Weight gain, DENIES: Weight loss, Thyroid disease ( Radha Becerra) Past Family Social History Allergies: Coded Allergies: No Known Allergies (Unverified , 03/08/17) Past Medical History See HPI Past Surgical History Isidro Augustine 11/2015 Left hip replacement 2013 Reported Medications Reported Meds & Active Scripts Active Prednisone (21) 10 mg tab Dose Pack (Prednisone) 10 Mg Pack 10 Mg PO DIRECTED Symbicort Inh (Budesonide/Formoterol Fumarate) 160-4.5 Mcg/Act Aero 2 Puff INH Q12HR Benadryl Allergy (Diphenhydramine HCl) 25 Mg Cap 25 Mg PO HS PRN Duoneb (Ipratropium-Albuterol Neb) 0.5-2.5 Mg/3 Ml Neb 1 Nebule INH Q4HR NEB Reported Delestrogen Valerate Inj (Estradiol Valerate) 10 Mg/Ml Inj 1 Mg IM MONTHLY Potassium Chloride ER (Potassium Chloride) 20 Meq Tab 40 Meq PO BID Lasix (Furosemide) 80 Mg Tab 80 Mg PO BID Ocuvite (Multiple Vitamins W/ Minerals) 1 Tab 1 Tab PO DAILY Percocet (Oxycodone-Acetaminophen) 5-325 mg Tab 1 Tab PO Q4H PRN Duloxetine DR (Duloxetine HCl) 30 Mg Capdr 30 Mg PO DAILY Potassium Chloride ER (Potassium Chloride) 10 Meq Tab 10 Meq PO BID Sildenafil 20 Mg Tab 60 Mg PO BID Carvedilol 6.25 Mg Tab 6.25 Mg PO BID Aspirin 81 (Aspirin) 81 Mg Tabdr 81 Mg PO DAILY Simvastatin 20 Mg Tab 20 Mg PO DAILY Glucosamine (Glucosamine Sulfate) 1,000 Mg Cap 1,000 Mg PO DAILY Active Ordered Medications Current Medications Medications (Trade) Dose Ordered Sig/Bethanie Route Start Time Stop Time Status Last Admin (Lasix Inj) 40 mg BID@,18 IV PUSH 03/09/17 09:00 03/09/17 10:34 (SoluMEDROL INJ) 40 mg Q6HR IV PUSH 03/09/17 00:00 03/09/17 13:38 (Duoneb Neb) 1 ampule Q2HR NEB PRN NEB 03/08/17 19:30 (Duoneb Neb) 1 ampule Q4HR WHILE AWAKE NEB NEB 03/08/17 20:00 03/09/17 09:50 (Mucinex Er) 600 mg BID PO 03/08/17 21:00 03/09/17 10:31 (NS Flush) 2 ml UNSCH PRN IV FLUSH 03/08/17 19:30 (NS Flush) 2 ml BID IV FLUSH 03/08/17 21:00 03/09/17 09:00 (Zofran Inj) 4 mg Q6H PRN IVP 03/08/17 19:30 (Tylenol) 650 mg Q6H PRN PO 03/08/17 19:30 03/09/17 13:38 (Percocet 5-325 Mg) 1 tab Q6H PRN PO 03/08/17 19:30 03/09/17 10:33 (Morphine Inj) 2 mg Q3H PRN IV PUSH 03/08/17 19:30 (Alka-Colace) 1 tab BID PO 03/08/17 21:00 03/09/17 10:30 (Milk Of Magnesia Liq) 30 ml Q12H PRN PO 03/08/17 19:30 (Senokot) 17.2 mg Q12H PRN PO 03/08/17 19:30 (Dulcolax Supp) 10 mg DAILY PRN RECTAL 03/08/17 19:30 (Lactulose Liq) 30 ml DAILY PRN PO 03/08/17 19:30 (Ecotrin Ec) 81 mg DAILY PO 03/09/17 09:00 03/09/17 10:31 (Symbicort 160-4.5 Inh) 2 puff Q12HR INH 03/08/17 21:00 03/09/17 10:35 (Coreg) 6.25 mg BID PO 03/08/17 21:00 03/09/17 10:33 (Cymbalta Dr) 30 mg DAILY PO 03/09/17 09:00 03/09/17 10:33 (Ocuvite) 1 tab DAILY PO 03/09/17 09:00 03/09/17 10:33 (Revatio) 60 mg BID PO 03/08/17 21:00 03/09/17 10:32 (Pravachol) 40 mg DAILY PO 03/09/17 09:00 03/09/17 10:32 (D50w (Vial) Inj) 50 ml UNSCH PRN IV PUSH 03/08/17 20:00 (Glucagon Inj) 1 mg UNSCH PRN OTHER 03/08/17 20:00 (NovoLOG SUPPLEMENTAL SCALE) 1 ACHS SLIDING SCALE SQ 03/08/17 21:00 03/09/17 12:00 (Coumadin) 2.5 mg MoWeFr@16 PO 03/09/17 16:00 (Coumadin) 4 mg SuTuThSa@1600 PO 03/10/17 16:00 (Coumadin Booklet) 1 ONCE ONCE .XX 03/09/17 16:00 03/09/17 16:01 Family History non contributory Social History Lives at [facility], history of Phen-Phen diet pills, former smoker (Radha Becerra) Physical Exam Vital Signs Vital Signs Date Time Temp Pulse Resp B/P (MAP) Pulse Ox O2 Delivery O2 Flow Rate FiO2 03/09/17 11:39 96.1 99 21 150/76 (100) 96 03/09/17 07:54 96.1 87 21 144/76 (98) 95 03/09/17 04:06 97.5 90 18 125/63 (83) 98 03/09/17 00:50 97.0 92 18 116/57 (76) 96 03/08/17 21:30 83 03/08/17 20:55 97.2 94 18 138/75 (96) 97 03/08/17 20:35 96 Nasal Cannula 3.00 03/08/17 20:09 03/08/17 20:04 86 20 126/60 (82) 96 Nasal Cannula 4.00 03/08/17 20:04 97 Nasal Cannula 4.00 03/08/17 18:37 94 22 133/70 (91) 96 03/08/17 15:49 22 97 Nasal Cannula 4.00 03/08/17 15:31 98.0 90 22 138/88 (105) 86 Physical Exam GENERAL: Elderly, overweight female SKIN: Warm and dry. HEAD: Atraumatic. Normocephalic. EYES: Pupils equal and round. No scleral icterus. No injection or drainage. ENT: No nasal bleeding or discharge. Mucous membranes pink and moist. NECK: Trachea midline.4 cm JVD CARDIOVASCULAR: Irreg irreg, reg rate, systolic murmur, promenate S2 RESPIRATORY: No accessory muscle use. Clear to auscultation. Breath sounds equal bilaterally. GASTROINTESTINAL: Abdomen soft, non-tender, nondistended. MUSCULOSKELETAL: BLE edema,ecchymosis NEUROLOGICAL: Awake and alert. No obvious cranial nerve deficits. Normal speech. PSYCHIATRIC: Appropriate mood and affect; insight and judgment normal. Laboratory Laboratory Tests Test 03/08/17 15:58 03/08/17 20:00 03/09/17 00:50 03/09/17 10:29 White Blood Count 11.3 10.0 Red Blood Count 4.24 4.02 Hemoglobin 12.4 12.0 Hematocrit 38.5 36.5 Mean Corpuscular Volume 90.8 90.9 Mean Corpuscular Hemoglobin 29.1 29.9 Mean Corpuscular Hemoglobin Concent 32.1 32.9 Red Cell Distribution Width 17.4 17.3 Platelet Count 341 327 Mean Platelet Volume 7.3 7.3 Neutrophils (%) (Auto) 82.8 88.8 Lymphocytes (%) (Auto) 7.3 6.4 Monocytes (%) (Auto) 9.9 4.8 Eosinophils (%) (Auto) 0.0 0.0 Basophils (%) (Auto) 0.0 0.0 Neutrophils # (Auto) 9.3 8.9 Lymphocytes # (Auto) 0.8 0.6 Monocytes # (Auto) 1.1 0.5 Eosinophils # (Auto) 0.0 0.0 Basophils # (Auto) 0.0 0.0 CBC Comment DIFF FINAL DIFF FINAL Differential Comment Prothrombin Time 23.3 Prothromb Time International Ratio 2.0 Activated Partial Thromboplast Time 30.4 Blood Urea Nitrogen 50 37 Creatinine 1.51 1.02 Random Glucose 191 197 Calcium Level 9.1 9.4 Magnesium Level 2.4 Sodium Level 136 136 Potassium Level 3.2 3.5 Chloride Level 94 92 Carbon Dioxide Level 32.4 37.1 Anion Gap 10 7 Estimat Glomerular Filtration Rate 34 53 Total Creatine Kinase 33 Troponin I LESS THAN 0.02 0.02 0.02 B-Type Natriuretic Peptide 193 Thyroid Stimulating Hormone 3rd Gen 0.332 Total Protein 6.6 Albumin 3.0 Alkaline Phosphatase 70 Aspartate Amino Transf (AST/SGOT) 12 Alanine Aminotransferase (ALT/SGPT) 25 Total Bilirubin 0.5 (Radha Becerra) Result Diagram: 03/09/17 1029 03/09/17 1029 Imaging Last 72 hours Impressions Chest X-Ray 03/08/17 1551 Signed Impressions: Service Date/Time: Wednesday, March 08, 2017 16:48 - CONCLUSION: Stable chest no acute disease Chilo Hurtado MD Lower Extremity Ultrasound 03/08/17 0000 Signed Impressions: Service Date/Time: Wednesday, March 08, 2017 18:25 - CONCLUSION: Normal examination. Vincenzo Fiore MD (Radha Becerra) Assessment and Plan Assessment and Plan Acute on chronic COPD exacerbation Acute on chronic right heart failure from pulmonary hypertension BLE edema Chronic atrial fibrillation on coumadin INR 2.0 Hypertension Moderate to Severe COPD PLAN: Continue IV diuresis Treat COPD exacerbation Continue Sildenfil She will need to follow up with Dr Mosqueda at [facility]. She may need advancement of therapy for pulmonary hypertension The patient was seen and evaluated by Dr Landeros who completed face to face encounter and physical exam and participated in evaluation and management. (Radha Becerra) Assessment and Plan The exam, history, and the medical decision-making described in the above note were completed with the assistance of the mid-level provider. I reviewed and agree with the findings presented. I attest that I had a [id number] encounter with the patient on the same day, and personally performed and documented my assessment and findings in the medical record. Right heart failure secondary to pulmonary hypertension (Siobhan Landeros MD) Radha Becerra Mar 09, 2017 15:09 Siobhan Landeros MD Mar 09, 2017 19:31
[2017-03-09] MEDS ORDERED: WARFARIN SOD 2.5 MG TAB PO SCH (16:00)
[2017-03-09] MEDS ORDERED: oxyCODONE/ACETAMINOPHEN 5 MG/325 MG TAB PO PRN (16:00)
--- NOTE | 2017-03-09 16:12 | HHI.PR ---
Subjective Remarks This is a 76-year-old female with a PMH of A. fib on Coumadin, HTN, Hyperlipidemia, CHF (Echo 02/07/17 w/ EF 50-55%, Severe Pulm HTN >70mmHg) and COPD , O2 Dependent who presented to the ER w/ complaints of severe SOB and progressive lower extremity edema x2 days. Recent admit 02/08/-02/12/17 for similar complaints, found to have COPD w/ hypoxia, CHF and Supratherapeutic INR , Coumadin on hold at time of d/c. States doing well since then until 2 days ago, now w/ progressive SOB and LE edema, on Lasix 80mg po bid at home, compliant w/ medications. Denies chest pain, cough or sick contacts. On arrival, BP 138/88, HR 90, O2 sat 86% on RA, Afebrile. O2 sat currently 96% on 3L NC. WBC 11.3. K+ 3.2. Creatinine 1.51, previously 0.79 on 02/12/17. Trop negative. BNP 193. BS 191. INR 2.0. CXR stable, no acute findings. LE Doppler negative for PE. S/p Lasix 40mg IV, Solu-Medrol in ER, remains SOB. Follows w/ Dr. Kelley as outpatient. Following w/ Dr. Landeros, states she was referred to Dr. Mosqueda in [place] for Cardiology. 10-9 multiple complaints discussed with patient Wanted headache medications. Set. Wanted a right ankle x-ray. Discussed a sore throat. Wanted her pain medications increased to every 4 hours. Wanted her potassium at 40 mEq twice a day wanted her magnesium oxide 400 mg twice a day All orders have been placed Discussed with patient and RN Feels she is breathing a little better Complains of pain all over Complains of pain in her right ankle Will ask physical therapy and occupational therapy to eval and treat We'll get a.m. labs Objective Vitals Vital Signs Date Time Temp Pulse Resp B/P (MAP) Pulse Ox O2 Delivery O2 Flow Rate FiO2 03/09/17 11:39 96.1 99 21 150/76 (100) 96 03/09/17 09:50 95 Nasal Cannula 3.00 03/09/17 07:54 96.1 87 21 144/76 (98) 95 03/09/17 04:06 97.5 90 18 125/63 (83) 98 03/09/17 00:50 97.0 92 18 116/57 (76) 96 03/08/17 21:30 83 03/08/17 20:55 97.2 94 18 138/75 (96) 97 03/08/17 20:35 96 Nasal Cannula 3.00 03/08/17 20:09 03/08/17 20:04 86 20 126/60 (82) 96 Nasal Cannula 4.00 03/08/17 20:04 97 Nasal Cannula 4.00 03/08/17 18:37 94 22 133/70 (91) 96 I/O 03/08/17 03/08/17 03/08/17 03/09/17 03/09/17 03/09/17 07:00 15:00 23:00 07:00 15:00 23:00 Intake Total 240 ml 480 ml 700 ml Balance 240 ml 480 ml 700 ml Intake Oral 240 ml 480 ml 700 ml # Voids 2 5 4 # Bowel Movements 0 1 Result Diagram: 03/09/17 1029 03/09/17 1029 Other Results Laboratory Tests Test 03/08/17 15:58 03/08/17 20:00 03/09/17 00:50 03/09/17 10:29 White Blood Count 11.3 TH/MM3 10.0 TH/MM3 Red Blood Count 4.24 MIL/MM3 4.02 MIL/MM3 Hemoglobin 12.4 GM/DL 12.0 GM/DL Hematocrit 38.5 % 36.5 % Mean Corpuscular Volume 90.8 FL 90.9 FL Mean Corpuscular Hemoglobin 29.1 PG 29.9 PG Mean Corpuscular Hemoglobin Concent 32.1 % 32.9 % Red Cell Distribution Width 17.4 % 17.3 % Platelet Count 341 TH/MM3 327 TH/MM3 Mean Platelet Volume 7.3 FL 7.3 FL Neutrophils (%) (Auto) 82.8 % 88.8 % Lymphocytes (%) (Auto) 7.3 % 6.4 % Monocytes (%) (Auto) 9.9 % 4.8 % Eosinophils (%) (Auto) 0.0 % 0.0 % Basophils (%) (Auto) 0.0 % 0.0 % Neutrophils # (Auto) 9.3 TH/MM3 8.9 TH/MM3 Lymphocytes # (Auto) 0.8 TH/MM3 0.6 TH/MM3 Monocytes # (Auto) 1.1 TH/MM3 0.5 TH/MM3 Eosinophils # (Auto) 0.0 TH/MM3 0.0 TH/MM3 Basophils # (Auto) 0.0 TH/MM3 0.0 TH/MM3 CBC Comment DIFF FINAL DIFF FINAL Differential Comment Prothrombin Time 23.3 SEC Prothromb Time International Ratio 2.0 RATIO Activated Partial Thromboplast Time 30.4 SEC Blood Urea Nitrogen 50 MG/DL 37 MG/DL Creatinine 1.51 MG/DL 1.02 MG/DL Random Glucose 191 MG/DL 197 MG/DL Calcium Level 9.1 MG/DL 9.4 MG/DL Magnesium Level 2.4 MG/DL Sodium Level 136 MEQ/L 136 MEQ/L Potassium Level 3.2 MEQ/L 3.5 MEQ/L Chloride Level 94 MEQ/L 92 MEQ/L Carbon Dioxide Level 32.4 MEQ/L 37.1 MEQ/L Anion Gap 10 MEQ/L 7 MEQ/L Estimat Glomerular Filtration Rate 34 ML/MIN 53 ML/MIN Total Creatine Kinase 33 U/L Troponin I LESS THAN 0.02 NG/ML 0.02 NG/ML 0.02 NG/ML B-Type Natriuretic Peptide 193 PG/ML Thyroid Stimulating Hormone 3rd Gen 0.332 uIU/ML Total Protein 6.6 GM/DL Albumin 3.0 GM/DL Alkaline Phosphatase 70 U/L Aspartate Amino Transf (AST/SGOT) 12 U/L Alanine Aminotransferase (ALT/SGPT) 25 U/L Total Bilirubin 0.5 MG/DL Imaging Last Impressions Chest X-Ray 03/08/17 1551 Signed Impressions: Service Date/Time: Wednesday, March 08, 2017 16:48 - CONCLUSION: Stable chest no acute disease Chilo Hurtado MD Lower Extremity Ultrasound 03/08/17 0000 Signed Impressions: Service Date/Time: Wednesday, March 08, 2017 18:25 - CONCLUSION: Normal examination. Vincenzo Fiore MD Objective Remarks GENERAL: Awake alert and oriented talkative and cooperative SKIN: Warm and dry. Has bruising on right ankle and tenderness HEAD: Atraumatic. Normocephalic. EYES: Pupils equal and round. No scleral icterus. No injection or drainage. ENT: No nasal bleeding or discharge. Mucous membranes pink and moist. Tongue is midline NECK: Trachea midline. No JVD. Neck is supple CARDIOVASCULAR: IRRegular rate and rhythm. S1 and S2 no S3 or S4 no heave or thrill or rub or gallop RESPIRATORY: No accessory muscle use. Clear to auscultation. Breath sounds equal bilaterally. Decreased breath sounds bilaterally GASTROINTESTINAL: Abdomen soft, non-tender, nondistended. Hepatic and splenic margins not palpable. Obese MUSCULOSKELETAL: Extremities without clubbing, cyanosis +2-3 lower extremity edema pitting no obvious deformities. Bruising on right ankle area and ecchymosis NEUROLOGICAL: Awake and alert. No obvious cranial nerve deficits. Motor grossly within normal limits. 4 out of 5 muscle strength in the arms and legs. Normal speech. PSYCHIATRIC: Appropriate mood and affect; insight and judgment normal. Anxious Medications and IVs Current Medications Furosemide (Lasix Inj) 40 mg ONCE ONCE IV PUSH Last administered on 03/08/17 16:00; Start 03/08/17 at 16:00; Stop 03/08/17 at 16:01; Status DC Methylprednisolone Sodium Succinate (SoluMEDROL INJ) 125 mg ONCE ONCE IV PUSH Last administered on 03/08/17 16:00; Start 03/08/17 at 16:00; Stop 03/08/17 at 16:01; Status DC Furosemide (Lasix Inj) 40 mg BID@,18 IV PUSH Last administered on 03/09/17 10:34; Start 03/09/17 at 09:00 Methylprednisolone Sodium Succinate (SoluMEDROL INJ) 40 mg Q6HR IV PUSH Last administered on 03/09/17 13:38; Start 03/09/17 at 00:00 Albuterol/ Ipratropium (Duoneb Neb) 1 ampule Q2HR NEB PRN NEB SOB/WHEEZING; Start 03/08/17 at 19:30 Albuterol/ Ipratropium (Duoneb Neb) 1 ampule Q4HR WHILE AWAKE NEB NEB Last administered on 03/09/17 09:50; Start 03/08/17 at 20:00 Guaifenesin (Mucinex Er) 600 mg BID PO Last administered on 03/09/17 10:31; Start 03/08/17 at 21:00 Sodium Chloride (NS Flush) 2 ml UNSCH PRN IV FLUSH FLUSH AFTER USING IV ACCESS ; Start 03/08/17 at 19:30 Sodium Chloride (NS Flush) 2 ml BID IV FLUSH Last administered on 03/09/17 09: 00; Start 03/08/17 at 21:00 Ondansetron HCl (Zofran Inj) 4 mg Q6H PRN IVP NAUSEA OR VOMITING; Start at 19:30 Acetaminophen (Tylenol) 650 mg Q6H PRN PO FEVER/PAIN SCALE 1 TO 2 Last administered on 03/09/17 13:38; Start 03/08/17 at 19:30 Oxycodone/ Acetaminophen (Percocet 5-325 Mg) 1 tab Q6H PRN PO PAIN SCALE 3 TO 5 Last administered on 03/09/17 10:33; Start 03/08/17 at 19:30 Morphine Sulfate (Morphine Inj) 2 mg Q3H PRN IV PUSH Pain 6-10; Start 03/08/17 at 19:30 Senna/Docusate Sodium (Alka-Colace) 1 tab BID PO Last administered on 10:30; Start 03/08/17 at 21:00 Magnesium Hydroxide (Milk Of Magnesia Liq) 30 ml Q12H PRN PO MILD - MODERATE CONSTIPATION; Start 03/08/17 at 19:30 Sennosides (Senokot) 17.2 mg Q12H PRN PO MODERATE - SEVERE CONSTIPATION; Start 03/08/17 at 19:30 Bisacodyl (Dulcolax Supp) 10 mg DAILY PRN RECTAL SEVERE CONSITIPATION; Start 03/08/17 at 19:30 Lactulose (Lactulose Liq) 30 ml DAILY PRN PO SEVERE CONSITIPATION; Start at 19:30 Aspirin (Ecotrin Ec) 81 mg DAILY PO Last administered on 03/09/17 10:31; Start 03/09/17 at 09:00 Budesonide/ Formoterol Fumarate (Symbicort 160-4.5 Inh) 2 puff Q12HR INH Last administered on 03/09/17 10:35; Start 03/08/17 at 21:00 Carvedilol (Coreg) 6.25 mg BID PO Last administered on 03/09/17 10:33; Start 03/08/17 at 21:00 Duloxetine HCl (Cymbalta Dr) 30 mg DAILY PO Last administered on 03/09/17 10: 33; Start 03/09/17 at 09:00 Vit C/Vit E/Zinc/ Copper/Lutein (Ocuvite) 1 tab DAILY PO Last administered on 03/09/17 10:33; Start 03/09/17 at 09:00 Sildenafil Citrate (Revatio) 60 mg BID PO Last administered on 03/09/17 10:32 ; Start 03/08/17 at 21:00 Pravastatin Sodium (Pravachol) 40 mg DAILY PO Last administered on 03/09/17 10 :32; Start 03/09/17 at 09:00 Potassium Chloride (KCl) 40 meq ONCE ONCE PO Last administered on 03/08/17 21 :21; Start 03/08/17 at 20:00; Stop 03/08/17 at 20:01; Status DC Diphenhydramine HCl (Benadryl Inj) 25 mg ONCE ONCE IV PUSH Last administered on 03/08/17 21:20; Start 03/08/17 at 20:00; Stop 03/08/17 at 20:01; Status DC Dextrose (D50w (Vial) Inj) 50 ml UNSCH PRN IV PUSH HYPOGLYCEMIA-SEE COMMENTS; Start 03/08/17 at 20:00 Glucagon (Glucagon Inj) 1 mg UNSCH PRN OTHER HYPOGLYCEMIA-SEE COMMENTS; Start 03/08/17 at 20:00 Insulin Aspart (NovoLOG SUPPLEMENTAL SCALE) 1 ACHS SLIDING SCALE SQ Last administered on 03/09/17 12:00; Start 03/08/17 at 21:00 Warfarin Sodium (Coumadin) 2.5 mg MoWeFr@16 PO ; Start 03/09/17 at 16:00 Warfarin Sodium (Coumadin) 4 mg SuTuThSa@1600 PO ; Start 03/10/17 at 16:00 Patient Medication Teaching (Coumadin Booklet) 1 ONCE ONCE .XX ; Start at 16:00; Stop 03/09/17 at 16:01 Diphenhydramine HCl (Benadryl) 25 mg HS PRN PO INSOMNIA; Start 03/09/17 at 16: 00; Status UNV Oxycodone/ Acetaminophen (Percocet 5-325 Mg) 1 tab Q4H PRN PO PAIN; Start 03/09/17 at 16:00; Status UNV Potassium Chloride (KCl) 40 meq BID PO ; Start 03/09/17 at 21:00; Status UNV Non-Formulary Medication 1,000 mg DAILY PO ; Start 03/10/17 at 09:00; Status UNV Urinary Catheter: No Vascular Central Line Catheter: No A/P Problem List: (1) CHF (congestive heart failure) ICD Code: I50.9 - Heart failure, unspecified Status: Acute (2) Hypoxia ICD Code: R09.02 - Hypoxemia Status: Acute (3) COPD (chronic obstructive pulmonary disease) ICD Code: J44.9 - Chronic obstructive pulmonary disease, unspecified Status: Chronic (4) Pulmonary HTN ICD Code: I27.20 - Pulmonary hypertension, unspecified (5) RADHA (acute kidney injury) ICD Code: N17.9 - Acute kidney failure, unspecified (6) Hyperglycemia ICD Code: R73.9 - Hyperglycemia, unspecified (7) Afib ICD Code: I48.91 - Unspecified atrial fibrillation Status: Chronic Assessment and Plan 1. COPD: Chronic Respiratory Failure w/ Acute Exacerbation. Severe. O2 Dependent on 3L NC. Significant respiratory distress on arrival, s/p Solu- Medrol w/ some improvement, however remains dyspneic. CXR w/ no significant change, images reviewed by me. Solu-Medrol, Symbicort, DuoNeb, Mucinex. Follows w/ Dr. Kelley as outpatient, will consult for further recommendations. 2. CHF: Acute on Chronic. Diastolic. Echo 02/07/17 w/ EF 50-55%, Severe Pulm HTN >70mmHg. BNP 193. CXR w/ no significant effusion, however +lower extremity edema on exam. Doppler LE negative for DVT, images reviewed by me. S /p Lasix 40mg IV in ER, on Lasix 80mg po bid at home, compliant w/ medications. Continue w/ diuretics, caution w/ renal insufficiency. Monitor I/O. Following w/ Dr. Landeros as outpatient, will consult for further recommendations. 3. Hypoxia: Likely Multifactorial-COPD w/ Acute Exacerbation, CHF w/ Acute Exacerbation and Pulm HTN. O2 sat 86% on RA upon arrival, currently 96% on 3L NC. O2 Dependent at home. Continue O2, monitor oximetry. 4. Pulm HTN: Chronic. Echo 02/07/17 w/ Severe Pulm HTN >70mmHg, on Sildenafil 60mg po bid, will resume home medications. 5. RADHA: Creatinine 1.51, previously 0.79 on 02/12/17, likely secondary to dehydration from respiratory losses in combination w/ high-dose diuresis. Monitor closely. Repeat labs in am. 6. Hyperglycemia: BS 191. Hgb A1c 6.1 on 02/10/17. Will start on Sliding Scale w/ Accu-Cheks in light of steroid therapy for COPD. 7. A-fib: Chronic. On Coumadin. INR therapeutic at 2.0. Resume home Coumadin 2mg //, Coumadin 4mg ///Thu. Check INR in am. 8. DVT Prophylaxis: On Coumadin as above. 9. Social work for d/c planning as needed. Physical therapy and occupational therapy to eval and treat multiple complaints discussed with patient Wanted headache medications. Wanted a right ankle x-ray. Discussed a sore throat. Wanted her pain medications increased to every 4 hours. Wanted her potassium at 40 mEq twice a day wanted her magnesium oxide 400 mg twice a day Will ask physical therapy and occupational therapy to eval and treat We'll get a.m. labs Discharge Planning Physical therapy and occupational therapy to eval and treat May need SNF versus home health care Continue to diurese. Appreciate pulmonary and cardiology input A.m. labs Problem Qualifiers (1) CHF (congestive heart failure): Qualified Codes: I50.9 - Heart failure, unspecified Bj Carter DO Mar 09, 2017 16:12
[2017-03-09] MEDS ORDERED: ACETAMIN 325 MG/BUTALBITAL 50 MG/CAFFEINE 40 MG TAB PO PRN (16:15)
--- NOTE | 2017-03-09 16:56 | RADRPT ---
EXAM DATE/TIME: 03/09/2017 16:04 [facility] COMPARISON: No previous studies available for comparison. INDICATIONS : Right heel pain from standing/walking. Previous injury and repair. MEDICAL HISTORY : Hypertension. Chronic obstructive pulmonary disease. Emphysema. SURGICAL HISTORY : Calcaneous fracture repair, right. Lung biopsy; Mediastymectomy. ENCOUNTER: Initial ACUITY: 1 week PAIN SCORE: 8/10 LOCATION: Right calcaneous FINDINGS: Previous calcaneal fracture and screw is noted. Degenerative changes are seen about the talus with m inimal talar collapse. Minimal soft tissue swelling is evident. CONCLUSION: Venous calcaneal fracture, well-healed Degenerative changes tibiotalar joint. Bj Fuentes MD FACR on March 09, 2017 at 16:54 Board Certified Radiologist. This report was verified electronically.
[2017-03-09] MEDS: POTASSIUM CHLORIDE 20 MEQ CONTROLLED RELEASE TAB PO SCH (17:38)
--- NOTE | 2017-03-09 20:33 | MB ---
cc: Irena KHALIL M.D. DATE OF CONSULTATION 03/09/2017 HISTORY Ms. Delvalle is a 76-year-old white female with history of chronic atrial fibrillation fully anticoagulated on Coumadin, as well as chronic congestive heart failure with severe pulmonary hypertension and underlying oxygen-dependent COPD. She presented with increasing edema. She was recently hospitalized February 08 at which time I saw her and the problems were very similar. She has had a problem with chronic edema, has required high doses of diuretics to control this. She has also had intermittent rapid atrial fibrillation with heart failure both left and right. She had an echocardiogram on February 07 which revealed severe pulmonary hypertension. She has been on 120 mg of sildenafil since being seen at the [facility] last year and this has helped. She really is quite disabled however. After diuresis and potassium supplementation and treatment of underlying COPD she went home stable after the last admission and I saw her back in the office at which time she was still stable but did have chronic edema. On this presentation the primary complaint was that she was having increasing edema despite the 80 mg of Lasix and she became concerned. She was not particularly short of breath. She is also having some discomfort in the right ankle that is bruised which she attributed to the edema, but as I suggested to her she must have done something else to cause the bruising. She has had no hemoptysis. No chest pain. No fever. MEDICATIONS Her medications at home include: 1. Aspirin. 2. Budesonide. 3. Fomoterol. 4. Carvedilol. 5. Duloxetine. 6. Lasix 80 b.i.d. 7. Atrovent and Albuterol by nebulization several times a day. 8. Oxycodone p.r.n. for pain. 9. She had been on 10 mg of prednisone. 10. And sildenafil 60 milligrams twice a day. On presentation here she had a chest x-ray which was clear. A white count which was normal at 11,300. INR was 2.0. BUN and creatinine were stable at about 35 and 1. Potassium was 3.5. BNP was not particularly elevated at 193. For review of prior history, social history, etc. please refer to my prior notes, none of that has changed. ALLERGIES None. CURRENT MEDICATIONS Are reviewed in the EMR. PHYSICAL EXAMINATION VITAL SIGNS: 97 degrees, 120/70, pulse 70, respirations 18 nonlabored. Sat on 3 liters 95%. HEENT: Sclerae anicteric. NECK: Veins are flat. CHEST: Actually clear although diminished. No wheezes or rales. CARDIOVASCULAR: Irregular heart rhythm. No audible S3. No harsh murmur. Edema is significantly improved when compared to previous and no cyanosis. DISCUSSION Ms. Delvalle presents back with what she referred to as increasing edema in her legs, although they look pretty much at baseline here today. She is severely disabled from her underlying pulmonary disease, chronic oxygen-dependent COPD and pulmonary hypertension as well as intermittent left ventricular dysfunction related to atrial fibrillation and probably diastolic dysfunction. She looks quite stable at the present time. I would continue her diuretics, her routine medicines, oxygen which she is always on, and if she is able to ambulate without pain in that right ankle after it is evaluated I think her pulmonary status is stable for discharge. I will see her again tomorrow. I have discussed the bruising and the problem with the right ankle with her nurse. She, as I said, may need some x-rays for that and I will defer that to the hospitalist. R. MD NIYAH Raphael/MELANI /6:25 PM /8:18 PM
[2017-03-09] MEDS: MAGNESIUM OXIDE 400 MG TAB PO SCH (22:01)
[2017-03-09] MEDS: diphenhydrAMINE HCL 25 MG CAP PO PRN (22:38)
[2017-03-10] VITALS (9 sets, daily range): BP systolic 126–149; BP diastolic 64–76; PULSE 75–94; RESP 16–18; TEMP 96.1–99; O2SAT 94–97
[2017-03-10] MEDS: oxyCODONE/ACETAMINOPHEN 5 MG/325 MG TAB PO PRN ×4 (03:26→19:51)
[2017-03-10] MEDS: methylPREDNISolone SOD SUCC 40 MG/1 ML VIAL IV PUSH SCH ×2 (06:00→11:06)
[2017-03-10 06:56] LABS: INTERNATIONAL NORMALIZED RATIO 1.9 RATIO; PROTHROMBIN TIME - PATIENT 21.8 SEC (9.8-11.6)
[2017-03-10 07:15] LABS: ANION GAP 4 MEQ/L (5-15); AST (GOT) 17 U/L (15-37); BICARBONATE 37.8 MEQ/L (21.0-32.0); BLOOD UREA NITROGEN 44 MG/DL (7-18); CHLORIDE 93 MEQ/L (98-107); GLOMERULAR FILTRATION RATE 46 ML/MIN (>89); MAGNESIUM 2.4 MG/DL (1.5-2.5); POTASSIUM 3.2 MEQ/L (3.5-5.1); SODIUM (NA) 135 MEQ/L (136-145)
[2017-03-10 07:22] LABS: AUTOMATED NEUTROPHIL # 10.2 TH/MM3 (1.8-7.7); HEMATOCRIT 35.7 % (35.0-46.0); HEMO FLAGS DIFF FINAL; LYMPH % 6.2 % (9.0-44.0); LYMPHOCYTE # 0.7 TH/MM3 (1.0-4.8); MEAN CELL VOLUME 90.5 FL (80.0-100.0); MEAN CORPUSCULAR HEMOGLOBIN 29.7 PG (27.0-34.0); MEAN CORPUSCULAR HGB CONC 32.8 % (32.0-36.0); MONO % 5.9 % (0.0-8.0); NEUT % 87.9 % (16.0-70.0); PLATELET COUNT 311 TH/MM3 (150-450); RED BLOOD COUNT 3.94 MIL/MM3 (4.00-5.30); RED CELL DISTRIBUTION WIDTH 17.4 % (11.6-17.2); WHITE BLOOD COUNT 11.6 TH/MM3 (4.0-11.0)
[2017-03-10 07:23] LABS: ALKALINE PHOSPHATASE 67 U/L (45-117); ALT (GPT) 26 U/L (10-53); TOTAL BILIRUBIN ADULT 0.4 MG/DL (0.2-1.0)
[2017-03-10] MEDS: RESP: ALBUTEROL 2.5 MG/IPRATROPIUM 0.5 MG NEB (SCH) NEB ×3 (07:55→19:59)
[2017-03-10] MEDS: INSULIN ASPART SUPPLEMENTAL SCALE SQ SCH ×3 (08:00→19:54)
[2017-03-10] MEDS: PRAVASTATIN SOD 40 MG TAB PO SCH (08:26)
[2017-03-10] MEDS: DOCUSATE SODIUM 50 MG/SENNA 8.6 MG TAB PO SCH ×2 (08:26→19:52)
[2017-03-10] MEDS: CARVEDILOL 6.25 MG TAB PO SCH ×2 (08:26→19:52)
[2017-03-10] MEDS: DULoxetine HCl DR 30 MG CAP PO SCH (08:26)
[2017-03-10] MEDS: POTASSIUM CHLORIDE 20 MEQ CONTROLLED RELEASE TAB PO SCH ×2 (08:27→16:51)
[2017-03-10] MEDS: SILDENAFIL CITRATE 20 MG TAB PO SCH ×2 (08:27→19:51)
[2017-03-10] MEDS: ASPIRIN EC 81 MG TABEC PO SCH (08:27)
[2017-03-10] MEDS: MULTIVITAMIN-OPHTHALMIC 1 TAB PO SCH (08:27)
[2017-03-10] MEDS: MAGNESIUM OXIDE 400 MG TAB PO SCH ×2 (08:28→19:52)
[2017-03-10] MEDS: guaiFENesin E.R. 600 MG TAB PO SCH ×2 (08:28→19:53)
[2017-03-10] MEDS: FUROSEMIDE 40 MG/4 ML VIAL IV PUSH SCH ×2 (08:29→16:46)
[2017-03-10] MEDS: SODIUM CHLORIDE 0.9% FLUSH 10 ML FLUSH IV FLUSH SCH ×2 (09:00→19:54)
[2017-03-10] MEDS: BUDESONIDE-FORMOTEROL 160/4.5 MCG INHALER INH SCH ×2 (09:00→19:55)
[2017-03-10] MEDS ORDERED: NON-FORMULARY DRUG (Glucosamine 1,000 MG) PO SCH (09:00)
[2017-03-10] MEDS ORDERED: PNEUMOCOCCAL POLYVALENT INJ 25 MCG/0.5 ML SYR IM ONE (10:00)
[2017-03-10] MEDS ORDERED: PHENOL 1.4% SOLN 180 ML BTL OROPHARYNG PRN (13:00)
--- NOTE | 2017-03-10 15:08 | PD.CARD.PN ---
Subjective Subjective Remarks The patient's primary complaint is bilateral foot pain. Edema is improved. SOB at baseline. HR controlled. (Radha Becerra) Objective Medications Current Medications Medications (Trade) Dose Ordered Sig/Bethanie Route Start Time Stop Time Status Last Admin (Lasix Inj) 40 mg BID@09,18 IV PUSH 03/09/17 09:00 03/10/17 08:29 (SoluMEDROL INJ) 40 mg Q6HR IV PUSH 03/09/17 00:00 03/10/17 11:06 (Duoneb Neb) 1 ampule Q2HR NEB PRN NEB 03/08/17 19:30 (Duoneb Neb) 1 ampule Q4HR WHILE AWAKE NEB NEB 03/08/17 20:00 03/09/17 16:44 (Mucinex Er) 600 mg BID PO 03/08/17 21:00 03/10/17 08:28 (NS Flush) 2 ml UNSCH PRN IV FLUSH 03/08/17 19:30 03/09/17 23:06 (NS Flush) 2 ml BID IV FLUSH 03/08/17 21:00 03/10/17 09:00 (Zofran Inj) 4 mg Q6H PRN IVP 03/08/17 19:30 (Tylenol) 650 mg Q6H PRN PO 03/08/17 19:30 03/09/17 13:38 (Morphine Inj) 2 mg Q3H PRN IV PUSH 03/08/17 19:30 (Alka-Colace) 1 tab BID PO 03/08/17 21:00 03/10/17 08:26 (Milk Of Magnesia Liq) 30 ml Q12H PRN PO 03/08/17 19:30 (Senokot) 17.2 mg Q12H PRN PO 03/08/17 19:30 (Dulcolax Supp) 10 mg DAILY PRN RECTAL 03/08/17 19:30 (Lactulose Liq) 30 ml DAILY PRN PO 03/08/17 19:30 (Ecotrin Ec) 81 mg DAILY PO 03/09/17 09:00 03/10/17 08:27 (Symbicort 160-4.5 Inh) 2 puff Q12HR INH 03/08/17 21:00 03/10/17 09:00 (Coreg) 6.25 mg BID PO 03/08/17 21:00 03/10/17 08:26 (Cymbalta [address]) 30 mg DAILY PO 03/09/17 09:00 03/10/17 08:26 (Ocuvite) 1 tab DAILY PO 03/09/17 09:00 03/10/17 08:27 (Revatio) 60 mg BID PO 03/08/17 21:00 03/10/17 08:27 (Pravachol) 40 mg DAILY PO 03/09/17 09:00 03/10/17 08:26 (D50w (Vial) Inj) 50 ml UNSCH PRN IV PUSH 03/08/17 20:00 (Glucagon Inj) 1 mg UNSCH PRN OTHER 03/08/17 20:00 (NovoLOG SUPPLEMENTAL SCALE) 1 ACHS SLIDING SCALE SQ 03/08/17 21:00 03/10/17 12:24 (Coumadin) 2.5 mg MoWeFr@16 PO 03/09/17 16:00 03/09/17 17:38 (Coumadin) 4 mg SuTuThSa@1600 PO 03/10/17 16:00 (Benadryl) 25 mg HS PRN PO 03/09/17 16:00 03/09/17 22:38 (KCl) 40 meq BIDPC PO 03/09/17 18:00 03/10/17 08:27 (Percocet 5-325 Mg) 1 tab Q4H PRN PO 03/09/17 16:15 03/10/17 12:29 (Fioricet 325-50-40) 1 tab Q6H PRN PO 03/09/17 16:15 (Mag-Ox) 400 mg Q12HR PO 03/09/17 21:00 03/10/17 08:28 (Chloraseptic [place]) 2 spray Q2H PRN OROPHARYNG 03/10/17 13:00 Vital Signs / I&O Vital Signs Date Time Temp Pulse Resp B/P (MAP) Pulse Ox O2 Delivery O2 Flow Rate FiO2 03/10/17 11:39 96.3 81 18 142/70 (94) 96 03/10/17 08:00 96.1 75 18 133/76 (95) 96 03/10/17 07:55 94 Nasal Cannula 3.00 03/10/17 04:37 97.4 93 18 137/72 (93) 95 03/10/17 00:34 96.3 90 18 149/74 (99) 95 03/09/17 20:57 93 Nasal Cannula 3.00 03/09/17 20:36 98.6 91 18 118/59 (78) 95 03/09/17 16:00 97.1 75 20 120/68 (85) 95 I/O 03/09/17 03/09/17 03/09/17 03/10/17 03/10/17 03/10/17 07:00 15:00 23:00 07:00 15:00 23:00 Intake Total 480 ml 700 ml 240 ml 480 ml Balance 480 ml 700 ml 240 ml 480 ml Intake Oral 480 ml 700 ml 240 ml 480 ml # Voids 5 4 3 5 # Bowel Movements 1 0 0 Physical Exam GENERAL: Elderly female, NAD SKIN: Warm and dry. HEAD: Normocephalic. EYES: No scleral icterus. No injection or drainage. NECK: Supple, trachea midline. CARDIOVASCULAR: Irreg irreg RESPIRATORY: Breath sounds equal bilaterally. No accessory muscle use. Diminished bases GASTROINTESTINAL: Abdomen soft, non-tender, nondistended. MUSCULOSKELETAL: No cyanosis, or edema. pedal pulses BACK: Nontender without obvious deformity. Laboratory Laboratory Tests Test 03/10/17 05:10 White Blood Count 11.6 TH/MM3 Red Blood Count 3.94 MIL/MM3 Hemoglobin 11.7 GM/DL Hematocrit 35.7 % Mean Corpuscular Volume 90.5 FL Mean Corpuscular Hemoglobin 29.7 PG Mean Corpuscular Hemoglobin Concent 32.8 % Red Cell Distribution Width 17.4 % Platelet Count 311 TH/MM3 Mean Platelet Volume 7.3 FL Neutrophils (%) (Auto) 87.9 % Lymphocytes (%) (Auto) 6.2 % Monocytes (%) (Auto) 5.9 % Eosinophils (%) (Auto) 0.0 % Basophils (%) (Auto) 0.0 % Neutrophils # (Auto) 10.2 TH/MM3 Lymphocytes # (Auto) 0.7 TH/MM3 Monocytes # (Auto) 0.7 TH/MM3 Eosinophils # (Auto) 0.0 TH/MM3 Basophils # (Auto) 0.0 TH/MM3 CBC Comment DIFF FINAL Differential Comment Prothrombin Time 21.8 SEC Prothromb Time International Ratio 1.9 RATIO Blood Urea Nitrogen 44 MG/DL Creatinine 1.14 MG/DL Random Glucose 144 MG/DL Total Protein 6.1 GM/DL Albumin 2.8 GM/DL Calcium Level 9.0 MG/DL Phosphorus Level 2.4 MG/DL Magnesium Level 2.4 MG/DL Alkaline Phosphatase 67 U/L Aspartate Amino Transf (AST/SGOT) 17 U/L Alanine Aminotransferase (ALT/SGPT) 26 U/L Total Bilirubin 0.4 MG/DL Sodium Level 135 MEQ/L Potassium Level 3.2 MEQ/L Chloride Level 93 MEQ/L Carbon Dioxide Level 37.8 MEQ/L Anion Gap 4 MEQ/L Estimat Glomerular Filtration Rate 46 ML/MIN Free Thyroxine 0.90 NG/DL Thyroid Stimulating Hormone 3rd Gen 0.160 uIU/ML Imaging Last 72 hours Impressions Ankle X-Ray 03/09/17 0000 Signed Impressions: Service Date/Time: Thursday, March 09, 2017 16:04 - CONCLUSION: Venous calcaneal fracture, well-healed Degenerative changes tibiotalar joint. Bj Fuentes MD FACR Chest X-Ray 03/08/17 1551 Signed Impressions: Service Date/Time: Wednesday, March 08, 2017 16:48 - CONCLUSION: Stable chest no acute disease Chilo Hurtado MD Lower Extremity Ultrasound 03/08/17 0000 Signed Impressions: Service Date/Time: Wednesday, March 08, 2017 18:25 - CONCLUSION: Normal examination. Vincenzo Fiore MD (Radha Becerra) Assessment and Plan Assessment and Plan Resolving COPD exacerbation Resolving acute on chronic right heart failure from pulmonary hypertension Chronic atrial fibrillation on coumadin INR 2.0 Hypertension Moderate to Severe COPD Bilateral foot pain PLAN: Continue IV diuresis. Transition to PO soon Treat COPD exacerbation Continue Sildenfil Check lower extremity arterial doppler. The patient is clear for discharge from a cardiac standpoint once arterial doppler completed. She will need to follow up with Dr Mosqueda at [facility]. She may need advancement of therapy for pulmonary hypertension The patient was seen and evaluated by Dr Landeros who completed face to face encounter and physical exam and participated in evaluation and management. (Radha Becerra) Assessment and Plan The exam, history, and the medical decision-making described in the above note were completed with the assistance of the mid-level provider. I reviewed and agree with the findings presented. I attest that I had a [id number] encounter with the patient on the same day, and personally performed and documented my assessment and findings in the medical record. Overall cor pulmonale secondary to pul htn (Siobhan Landeros MD) Radha Becerra Mar 10, 2017 15:08 Siobhan Landeros MD Mar 11, 2017 13:20
--- NOTE | 2017-03-10 15:45 | HHI.PR ---
Subjective Remarks This is a 76-year-old female with a PMH of A. fib on Coumadin, HTN, Hyperlipidemia, CHF (Echo 02/07/17 w/ EF 50-55%, Severe Pulm HTN >70mmHg) and COPD , O2 Dependent who presented to the ER w/ complaints of severe SOB and progressive lower extremity edema x2 days. Recent admit 02/08/-02/12/17 for similar complaints, found to have COPD w/ hypoxia, CHF and Supratherapeutic INR , Coumadin on hold at time of d/c. States doing well since then until 2 days ago, now w/ progressive SOB and LE edema, on Lasix 80mg po bid at home, compliant w/ medications. Denies chest pain, cough or sick contacts. On arrival, BP 138/88, HR 90, O2 sat 86% on RA, Afebrile. O2 sat currently 96% on 3L NC. WBC 11.3. K+ 3.2. Creatinine 1.51, previously 0.79 on 02/12/17. Trop negative. BNP 193. BS 191. INR 2.0. CXR stable, no acute findings. LE Doppler negative for PE. S/p Lasix 40mg IV, Solu-Medrol in ER, remains SOB. Follows w/ Dr. Kelley as outpatient. Following w/ Dr. Landeros, states she was referred to Dr. Mosqueda in [place] for Cardiology. 10-9 multiple complaints discussed with patient Wanted headache medications. Set. Wanted a right ankle x-ray. Discussed a sore throat. Wanted her pain medications increased to every 4 hours. Wanted her potassium at 40 mEq twice a day wanted her magnesium oxide 400 mg twice a day All orders have been placed Discussed with patient and RN Feels she is breathing a little better Complains of pain all over Complains of pain in her right ankle Will ask physical therapy and occupational therapy to eval and treat We'll get a.m. labs 10-10 breathing a little better wants to go home tomorrow am labs to have RIGHT LE DOPPLER DW RN AND PT Objective Vitals Vital Signs Date Time Temp Pulse Resp B/P (MAP) Pulse Ox O2 Delivery O2 Flow Rate FiO2 03/10/17 11:39 96.3 81 18 142/70 (94) 96 03/10/17 08:00 96.1 75 18 133/76 (95) 96 03/10/17 07:55 94 Nasal Cannula 3.00 03/10/17 04:37 97.4 93 18 137/72 (93) 95 03/10/17 00:34 96.3 90 18 149/74 (99) 95 03/09/17 20:57 93 Nasal Cannula 3.00 03/09/17 20:36 98.6 91 18 118/59 (78) 95 03/09/17 16:00 97.1 75 20 120/68 (85) 95 I/O 03/09/17 03/09/17 03/09/17 03/10/17 03/10/17 03/10/17 07:00 15:00 23:00 07:00 15:00 23:00 Intake Total 480 ml 700 ml 240 ml 480 ml Balance 480 ml 700 ml 240 ml 480 ml Intake Oral 480 ml 700 ml 240 ml 480 ml # Voids 5 4 3 5 # Bowel Movements 1 0 0 Result Diagram: 03/10/17 0510 03/10/17 0510 Other Results Laboratory Tests Test 03/08/17 15:58 03/08/17 20:00 03/09/17 00:50 03/09/17 10:29 White Blood Count 11.3 TH/MM3 10.0 TH/MM3 Red Blood Count 4.24 MIL/MM3 4.02 MIL/MM3 Hemoglobin 12.4 GM/DL 12.0 GM/DL Hematocrit 38.5 % 36.5 % Mean Corpuscular Volume 90.8 FL 90.9 FL Mean Corpuscular Hemoglobin 29.1 PG 29.9 PG Mean Corpuscular Hemoglobin Concent 32.1 % 32.9 % Red Cell Distribution Width 17.4 % 17.3 % Platelet Count 341 TH/MM3 327 TH/MM3 Mean Platelet Volume 7.3 FL 7.3 FL Neutrophils (%) (Auto) 82.8 % 88.8 % Lymphocytes (%) (Auto) 7.3 % 6.4 % Monocytes (%) (Auto) 9.9 % 4.8 % Eosinophils (%) (Auto) 0.0 % 0.0 % Basophils (%) (Auto) 0.0 % 0.0 % Neutrophils # (Auto) 9.3 TH/MM3 8.9 TH/MM3 Lymphocytes # (Auto) 0.8 TH/MM3 0.6 TH/MM3 Monocytes # (Auto) 1.1 TH/MM3 0.5 TH/MM3 Eosinophils # (Auto) 0.0 TH/MM3 0.0 TH/MM3 Basophils # (Auto) 0.0 TH/MM3 0.0 TH/MM3 CBC Comment DIFF FINAL DIFF FINAL Differential Comment Prothrombin Time 23.3 SEC Prothromb Time International Ratio 2.0 RATIO Activated Partial Thromboplast Time 30.4 SEC Blood Urea Nitrogen 50 MG/DL 37 MG/DL Creatinine 1.51 MG/DL 1.02 MG/DL Random Glucose 191 MG/DL 197 MG/DL Calcium Level 9.1 MG/DL 9.4 MG/DL Magnesium Level 2.4 MG/DL Sodium Level 136 MEQ/L 136 MEQ/L Potassium Level 3.2 MEQ/L 3.5 MEQ/L Chloride Level 94 MEQ/L 92 MEQ/L Carbon Dioxide Level 32.4 MEQ/L 37.1 MEQ/L Anion Gap 10 MEQ/L 7 MEQ/L Estimat Glomerular Filtration Rate 34 ML/MIN 53 ML/MIN Total Creatine Kinase 33 U/L Troponin I LESS THAN 0.02 NG/ML 0.02 NG/ML 0.02 NG/ML B-Type Natriuretic Peptide 193 PG/ML Thyroid Stimulating Hormone 3rd Gen 0.332 uIU/ML Total Protein 6.6 GM/DL Albumin 3.0 GM/DL Alkaline Phosphatase 70 U/L Aspartate Amino Transf (AST/SGOT) 12 U/L Alanine Aminotransferase (ALT/SGPT) 25 U/L Total Bilirubin 0.5 MG/DL Test 03/10/17 05:10 White Blood Count 11.6 TH/MM3 Red Blood Count 3.94 MIL/MM3 Hemoglobin 11.7 GM/DL Hematocrit 35.7 % Mean Corpuscular Volume 90.5 FL Mean Corpuscular Hemoglobin 29.7 PG Mean Corpuscular Hemoglobin Concent 32.8 % Red Cell Distribution Width 17.4 % Platelet Count 311 TH/MM3 Mean Platelet Volume 7.3 FL Neutrophils (%) (Auto) 87.9 % Lymphocytes (%) (Auto) 6.2 % Monocytes (%) (Auto) 5.9 % Eosinophils (%) (Auto) 0.0 % Basophils (%) (Auto) 0.0 % Neutrophils # (Auto) 10.2 TH/MM3 Lymphocytes # (Auto) 0.7 TH/MM3 Monocytes # (Auto) 0.7 TH/MM3 Eosinophils # (Auto) 0.0 TH/MM3 Basophils # (Auto) 0.0 TH/MM3 CBC Comment DIFF FINAL Differential Comment Prothrombin Time 21.8 SEC Prothromb Time International Ratio 1.9 RATIO Blood Urea Nitrogen 44 MG/DL Creatinine 1.14 MG/DL Random Glucose 144 MG/DL Total Protein 6.1 GM/DL Albumin 2.8 GM/DL Calcium Level 9.0 MG/DL Phosphorus Level 2.4 MG/DL Magnesium Level 2.4 MG/DL Alkaline Phosphatase 67 U/L Aspartate Amino Transf (AST/SGOT) 17 U/L Alanine Aminotransferase (ALT/SGPT) 26 U/L Total Bilirubin 0.4 MG/DL Sodium Level 135 MEQ/L Potassium Level 3.2 MEQ/L Chloride Level 93 MEQ/L Carbon Dioxide Level 37.8 MEQ/L Anion Gap 4 MEQ/L Estimat Glomerular Filtration Rate 46 ML/MIN Free Thyroxine 0.90 NG/DL Thyroid Stimulating Hormone 3rd Gen 0.160 uIU/ML Imaging Last Impressions Ankle X-Ray 03/09/17 0000 Signed Impressions: Service Date/Time: Thursday, March 09, 2017 16:04 - CONCLUSION: Venous calcaneal fracture, well-healed Degenerative changes tibiotalar joint. Bj Fuentes MD FACR Chest X-Ray 03/08/17 1551 Signed Impressions: Service Date/Time: Wednesday, March 08, 2017 16:48 - CONCLUSION: Stable chest no acute disease Chilo Hurtado MD Lower Extremity Ultrasound 03/08/17 0000 Signed Impressions: Service Date/Time: Wednesday, March 08, 2017 18:25 - CONCLUSION: Normal examination. Vincenzo Fiore MD Objective Remarks GENERAL: Awake alert and oriented talkative and cooperative SKIN: Warm and dry. Has bruising on right ankle and tenderness HEAD: Atraumatic. Normocephalic. EYES: Pupils equal and round. No scleral icterus. No injection or drainage. ENT: No nasal bleeding or discharge. Mucous membranes pink and moist. Tongue is midline NECK: Trachea midline. No JVD. Neck is supple CARDIOVASCULAR: IRRegular rate and rhythm. S1 and S2 no S3 or S4 no heave or thrill or rub or gallop RESPIRATORY: No accessory muscle use. Clear to auscultation. Breath sounds equal bilaterally. Decreased breath sounds bilaterally GASTROINTESTINAL: Abdomen soft, non-tender, nondistended. Hepatic and splenic margins not palpable. Obese MUSCULOSKELETAL: Extremities without clubbing, cyanosis +2-3 lower extremity edema pitting no obvious deformities. Bruising on right ankle area and ecchymosis NEUROLOGICAL: Awake and alert. No obvious cranial nerve deficits. Motor grossly within normal limits. 4 out of 5 muscle strength in the arms and legs. Normal speech. PSYCHIATRIC: Appropriate mood and affect; insight and judgment normal. Anxious Medications and IVs Current Medications Furosemide (Lasix Inj) 40 mg ONCE ONCE IV PUSH Last administered on 03/08/17 16:00; Start 03/08/17 at 16:00; Stop 03/08/17 at 16:01; Status DC Methylprednisolone Sodium Succinate (SoluMEDROL INJ) 125 mg ONCE ONCE IV PUSH Last administered on 03/08/17 16:00; Start 03/08/17 at 16:00; Stop 03/08/17 at 16:01; Status DC Furosemide (Lasix Inj) 40 mg BID@,18 IV PUSH Last administered on 03/10/17 08:29; Start 03/09/17 at 09:00 Methylprednisolone Sodium Succinate (SoluMEDROL INJ) 40 mg Q6HR IV PUSH Last administered on 03/10/17 11:06; Start 03/09/17 at 00:00; Stop 03/10/17 at 15: 01; Status DC Albuterol/ Ipratropium (Duoneb Neb) 1 ampule Q2HR NEB PRN NEB SOB/WHEEZING; Start 03/08/17 at 19:30 Albuterol/ Ipratropium (Duoneb Neb) 1 ampule Q4HR WHILE AWAKE NEB NEB Last administered on 03/09/17 16:44; Start 03/08/17 at 20:00; Stop 03/10/17 at 15: 01; Status DC Guaifenesin (Mucinex Er) 600 mg BID PO Last administered on 03/10/17 08:28; Start 03/08/17 at 21:00 Sodium Chloride (NS Flush) 2 ml UNSCH PRN IV FLUSH FLUSH AFTER USING IV ACCESS Last administered on 03/09/17 23:06; Start 03/08/17 at 19:30 Sodium Chloride (NS Flush) 2 ml BID IV FLUSH Last administered on 03/10/17 09 :00; Start 03/08/17 at 21:00 Ondansetron HCl (Zofran Inj) 4 mg Q6H PRN IVP NAUSEA OR VOMITING; Start at 19:30 Acetaminophen (Tylenol) 650 mg Q6H PRN PO FEVER/PAIN SCALE 1 TO 2 Last administered on 03/09/17 13:38; Start 03/08/17 at 19:30 Oxycodone/ Acetaminophen (Percocet 5-325 Mg) 1 tab Q6H PRN PO PAIN SCALE 3 TO 5 Last administered on 03/09/17 10:33; Start 03/08/17 at 19:30; Stop 03/09/17 at 16:03; Status DC Morphine Sulfate (Morphine Inj) 2 mg Q3H PRN IV PUSH Pain 6-10; Start 03/08/17 at 19:30 Senna/Docusate Sodium (Alka-Colace) 1 tab BID PO Last administered on 08:26; Start 03/08/17 at 21:00 Magnesium Hydroxide (Milk Of Magnesia Liq) 30 ml Q12H PRN PO MILD - MODERATE CONSTIPATION; Start 03/08/17 at 19:30 Sennosides (Senokot) 17.2 mg Q12H PRN PO MODERATE - SEVERE CONSTIPATION; Start 03/08/17 at 19:30 Bisacodyl (Dulcolax Supp) 10 mg DAILY PRN RECTAL SEVERE CONSITIPATION; Start 03/08/17 at 19:30 Lactulose (Lactulose Liq) 30 ml DAILY PRN PO SEVERE CONSITIPATION; Start at 19:30 Aspirin (Ecotrin Ec) 81 mg DAILY PO Last administered on 03/10/17 08:27; Start 03/09/17 at 09:00 Budesonide/ Formoterol Fumarate (Symbicort 160-4.5 Inh) 2 puff Q12HR INH Last administered on 03/10/17 09:00; Start 03/08/17 at 21:00 Carvedilol (Coreg) 6.25 mg BID PO Last administered on 03/10/17 08:26; Start 03/08/17 at 21:00 Duloxetine HCl (Cymbalta Dr) 30 mg DAILY PO Last administered on 03/10/17 08: 26; Start 03/09/17 at 09:00 Vit C/Vit E/Zinc/ Copper/Lutein (Ocuvite) 1 tab DAILY PO Last administered on 03/10/17 08:27; Start 03/09/17 at 09:00 Sildenafil Citrate (Revatio) 60 mg BID PO Last administered on 03/10/17 08:27 ; Start 03/08/17 at 21:00 Pravastatin Sodium (Pravachol) 40 mg DAILY PO Last administered on 03/10/17 08:26; Start 03/09/17 at 09:00 Potassium Chloride (KCl) 40 meq ONCE ONCE PO Last administered on 03/08/17 21 :21; Start 03/08/17 at 20:00; Stop 03/08/17 at 20:01; Status DC Diphenhydramine HCl (Benadryl Inj) 25 mg ONCE ONCE IV PUSH Last administered on 03/08/17 21:20; Start 03/08/17 at 20:00; Stop 03/08/17 at 20:01; Status DC Dextrose (D50w (Vial) Inj) 50 ml UNSCH PRN IV PUSH HYPOGLYCEMIA-SEE COMMENTS; Start 03/08/17 at 20:00 Glucagon (Glucagon Inj) 1 mg UNSCH PRN OTHER HYPOGLYCEMIA-SEE COMMENTS; Start 03/08/17 at 20:00 Insulin Aspart (NovoLOG SUPPLEMENTAL SCALE) 1 ACHS SLIDING SCALE SQ Last administered on 03/10/17 12:24; Start 03/08/17 at 21:00 Warfarin Sodium (Coumadin) 2.5 mg MoWeFr@16 PO Last administered on 03/09/17 17:38; Start 03/09/17 at 16:00 Warfarin Sodium (Coumadin) 4 mg SuTuThSa@1600 PO ; Start 03/10/17 at 16:00 Patient Medication Teaching (Coumadin Booklet) 1 ONCE ONCE .XX Last administered on 03/09/17 17:39; Start 03/09/17 at 16:00; Stop 03/09/17 at 16:01 ; Status DC Diphenhydramine HCl (Benadryl) 25 mg HS PRN PO INSOMNIA Last administered on 22:38; Start 03/09/17 at 16:00 Oxycodone/ Acetaminophen (Percocet 5-325 Mg) 1 tab Q4H PRN PO PAIN; Start 03/09/17 at 16:00; Stop 03/09/17 at 16:03; Status DC Potassium Chloride (KCl) 40 meq BIDPC PO Last administered on 03/10/17 08:27 ; Start 03/09/17 at 18:00 Non-Formulary Medication 1,000 mg DAILY PO ; Start 03/10/17 at 09:00; Status UNV Oxycodone/ Acetaminophen (Percocet 5-325 Mg) 1 tab Q4H PRN PO PAIN SCALE 3 TO 5 Last administered on 03/10/17 12:29; Start 03/09/17 at 16:15 Acetaminophen/ Butalbital/ Caffeine (Fioricet 325-50-40) 1 tab Q6H PRN PO HEADACHE; Start 03/09/17 at 16:15 Magnesium Oxide (Mag-Ox) 400 mg Q12HR PO Last administered on 03/10/17 08:28 ; Start 03/09/17 at 21:00 Pneumococcal Polyvalent Vaccine (Pneumovax-23 Inj) 25 mcg ONCE ONCE IM Last administered on 03/10/17 11:08; Start 03/10/17 at 10:00; Stop 03/10/17 at 10 :01; Status DC Phenol (Chloraseptic Kimball) 2 spray Q2H PRN OROPHARYNG SORE THROAT; Start 03/17 at 13:00 Albuterol/ Ipratropium (Duoneb Neb) 1 ampule TID NEB NEB ; Start 03/10/17 at 20:00 Prednisone (Deltasone) 10 mg DAILY PO ; Start 03/11/17 at 09:00 Urinary Catheter: No Vascular Central Line Catheter: No A/P Problem List: (1) CHF (congestive heart failure) ICD Code: I50.9 - Heart failure, unspecified Status: Acute (2) Hypoxia ICD Code: R09.02 - Hypoxemia Status: Acute (3) COPD (chronic obstructive pulmonary disease) ICD Code: J44.9 - Chronic obstructive pulmonary disease, unspecified Status: Chronic (4) Pulmonary HTN ICD Code: I27.20 - Pulmonary hypertension, unspecified (5) RADHA (acute kidney injury) ICD Code: N17.9 - Acute kidney failure, unspecified (6) Hyperglycemia ICD Code: R73.9 - Hyperglycemia, unspecified (7) Afib ICD Code: I48.91 - Unspecified atrial fibrillation Status: Chronic Assessment and Plan 1. COPD: Chronic Respiratory Failure w/ Acute Exacerbation. Severe. O2 Dependent on 3L NC. Significant respiratory distress on arrival, s/p Solu- Medrol w/ some improvement, however remains dyspneic. CXR w/ no significant change, images reviewed by me. Solu-Medrol, Symbicort, DuoNeb, Mucinex. Follows w/ Dr. Kelley as outpatient, will consult for further recommendations. 2. CHF: Acute on Chronic. Diastolic. Echo 02/07/17 w/ EF 50-55%, Severe Pulm HTN >70mmHg. BNP 193. CXR w/ no significant effusion, however +lower extremity edema on exam. Doppler LE negative for DVT, images reviewed by me. S /p Lasix 40mg IV in ER, on Lasix 80mg po bid at home, compliant w/ medications. Continue w/ diuretics, caution w/ renal insufficiency. Monitor I/O. Following w/ Dr. Landeros as outpatient, will consult for further recommendations. 3. Hypoxia: Likely Multifactorial-COPD w/ Acute Exacerbation, CHF w/ Acute Exacerbation and Pulm HTN. O2 sat 86% on RA upon arrival, currently 96% on 3L NC. O2 Dependent at home. Continue O2, monitor oximetry. 4. Pulm HTN: Chronic. Echo 02/07/17 w/ Severe Pulm HTN >70mmHg, on Sildenafil 60mg po bid, will resume home medications. 5. RADHA: Creatinine 1.51, previously 0.79 on 02/12/17, likely secondary to dehydration from respiratory losses in combination w/ high-dose diuresis. Monitor closely. Repeat labs in am. 6. Hyperglycemia: BS 191. Hgb A1c 6.1 on 02/10/17. Will start on Sliding Scale w/ Accu-Cheks in light of steroid therapy for COPD. 7. A-fib: Chronic. On Coumadin. INR therapeutic at 2.0. Resume home Coumadin 2mg //, Coumadin 4mg ///Thu. Check INR in am. 8. DVT Prophylaxis: On Coumadin as above. 9. Social work for d/c planning as needed. Physical therapy and occupational therapy to eval and treat multiple complaints discussed with patient Wanted headache medications. Wanted a right ankle x-ray. Discussed a sore throat WANTED CHLORASEPTIC SPRAY. Wanted her pain medications increased to every 4 hours. Wanted her potassium at 40 mEq twice a day wanted her magnesium oxide 400 mg twice a day HYPOKALEMIA WILL REPLACE- AM LABS Will ask physical therapy and occupational therapy to eval and treat We'll get a.m. labs AWAIT RIGHT LE US Discharge Planning Physical therapy and occupational therapy to eval and treat home health care Continue to diurese. Appreciate pulmonary and cardiology input A.m. labs Problem Qualifiers (1) CHF (congestive heart failure): Qualified Codes: I50.9 - Heart failure, unspecified Bj Carter DO Mar 10, 2017 15:45
[2017-03-10] MEDS ORDERED: POTASSIUM CHLORIDE 10 MEQ CONTROLLED RELEASE TAB PO ONE (16:00)
[2017-03-10] MEDS ORDERED: WARFARIN SOD 4 MG TAB PO SCH (16:00)
[2017-03-10 17:15] LABS: HEMOGLOBIN A1a 1.2 %; HEMOGLOBIN LA1C 2.4 %; HEMOGLOBIN P3 6.2 %
[2017-03-10] MEDS: diphenhydrAMINE HCL 25 MG CAP PO PRN (20:02)
[2017-03-11 00:35] VITALS: BP 128/70; PULSE 82; RESP 18; TEMP 96.7; O2SAT 92
[2017-03-11 03:17] VITALS: BP 112/68; PULSE 77; RESP 18; TEMP 96.7; O2SAT 92
[2017-03-11] MEDS: oxyCODONE/ACETAMINOPHEN 5 MG/325 MG TAB PO PRN ×3 (03:22→12:16)
[2017-03-11 04:23] VITALS: O2SAT 96
[2017-03-11 07:13] LABS: AUTOMATED NEUTROPHIL # 11.2 TH/MM3 (1.8-7.7); BASOPHIL % 0.3 % (0.0-2.0); HEMATOCRIT 40.4 % (35.0-46.0); LYMPH % 11.8 % (9.0-44.0); LYMPHOCYTE # 1.7 TH/MM3 (1.0-4.8); MEAN CELL VOLUME 91.4 FL (80.0-100.0); MEAN CORPUSCULAR HEMOGLOBIN 29.3 PG (27.0-34.0); MONO % 9.2 % (0.0-8.0); NEUT % 78.7 % (16.0-70.0); PLATELET COUNT 306 TH/MM3 (150-450); RED BLOOD COUNT 4.42 MIL/MM3 (4.00-5.30); RED CELL DISTRIBUTION WIDTH 17.4 % (11.6-17.2); WHITE BLOOD COUNT 14.2 TH/MM3 (4.0-11.0)
[2017-03-11 07:20] LABS: INTERNATIONAL NORMALIZED RATIO 2.2 RATIO; PROTHROMBIN TIME - PATIENT 24.9 SEC (9.8-11.6)
[2017-03-11 07:23] LABS: HEMO FLAGS AUTO DIFF
[2017-03-11 07:31] LABS: ALT (GPT) 26 U/L (10-53); ANION GAP 7 MEQ/L (5-15); AST (GOT) 19 U/L (15-37); BICARBONATE 33.8 MEQ/L (21.0-32.0); BLOOD UREA NITROGEN 45 MG/DL (7-18); CHLORIDE 93 MEQ/L (98-107); GLOMERULAR FILTRATION RATE 57 ML/MIN (>89); MAGNESIUM 2.2 MG/DL (1.5-2.5); POTASSIUM 3.7 MEQ/L (3.5-5.1); SODIUM (NA) 134 MEQ/L (136-145)
[2017-03-11 07:34] LABS: ALKALINE PHOSPHATASE 64 U/L (45-117); TOTAL BILIRUBIN ADULT 0.4 MG/DL (0.2-1.0)
[2017-03-11 08:00] VITALS: BP 90/73; PULSE 78; RESP 18; TEMP 98.1; O2SAT 93
[2017-03-11 08:24] LABS: MYELOCYTES 1 % (0-0); NEUTROPHIL # MANUAL DIFF 11.8 TH/MM3 (1.8-7.7); POLYS (SEG NEUTROPHILS) 82 % (16-70); WBC DIFF SAMPLE 100
[2017-03-11 08:25] LABS: PLATELET ESTIMATE SMEAR NORMAL (NORMAL); PLATELET MORPHOLOGY NORMAL (NORMAL); SCAN/DIFF FINAL DIFF MANUAL
[2017-03-11] MEDS: FUROSEMIDE 40 MG/4 ML VIAL IV PUSH SCH (08:25)
[2017-03-11] MEDS: DULoxetine HCl DR 30 MG CAP PO SCH (08:26)
[2017-03-11] MEDS: SILDENAFIL CITRATE 20 MG TAB PO SCH (08:26)
[2017-03-11] MEDS: PRAVASTATIN SOD 40 MG TAB PO SCH (08:26)
[2017-03-11] MEDS: CARVEDILOL 6.25 MG TAB PO SCH (08:26)
[2017-03-11] MEDS: MULTIVITAMIN-OPHTHALMIC 1 TAB PO SCH (08:27)
[2017-03-11] MEDS: POTASSIUM CHLORIDE 20 MEQ CONTROLLED RELEASE TAB PO SCH (08:27)
[2017-03-11] MEDS: DOCUSATE SODIUM 50 MG/SENNA 8.6 MG TAB PO SCH (08:28)
[2017-03-11] MEDS: ASPIRIN EC 81 MG TABEC PO SCH (08:28)
[2017-03-11] MEDS: SODIUM CHLORIDE 0.9% FLUSH 10 ML FLUSH IV FLUSH SCH (08:28)
[2017-03-11] MEDS: MAGNESIUM OXIDE 400 MG TAB PO SCH (08:28)
[2017-03-11] MEDS: guaiFENesin E.R. 600 MG TAB PO SCH (08:28)
[2017-03-11] MEDS ORDERED: predniSONE 10 MG TAB PO SCH (09:00)
[2017-03-11] MEDS: RESP: ALBUTEROL 2.5 MG/IPRATROPIUM 0.5 MG NEB (SCH) NEB (09:37)
--- NOTE | 2017-03-11 10:48 | HHI.PR ---
Subjective Remarks This is a 76-year-old female with a PMH of A. fib on Coumadin, HTN, Hyperlipidemia, CHF (Echo 02/07/17 w/ EF 50-55%, Severe Pulm HTN >70mmHg) and COPD , O2 Dependent who presented to the ER w/ complaints of severe SOB and progressive lower extremity edema x2 days. Recent admit 02/08/-02/12/17 for similar complaints, found to have COPD w/ hypoxia, CHF and Supratherapeutic INR , Coumadin on hold at time of d/c. States doing well since then until 2 days ago, now w/ progressive SOB and LE edema, on Lasix 80mg po bid at home, compliant w/ medications. Denies chest pain, cough or sick contacts. On arrival, BP 138/88, HR 90, O2 sat 86% on RA, Afebrile. O2 sat currently 96% on 3L NC. WBC 11.3. K+ 3.2. Creatinine 1.51, previously 0.79 on 02/12/17. Trop negative. BNP 193. BS 191. INR 2.0. CXR stable, no acute findings. LE Doppler negative for PE. S/p Lasix 40mg IV, Solu-Medrol in ER, remains SOB. Follows w/ Dr. Kelley as outpatient. Following w/ Dr. Landeros, states she was referred to Dr. Dumont in [place] for Cardiology. 10-9 multiple complaints discussed with patient Wanted headache medications. Set. Wanted a right ankle x-ray. Discussed a sore throat. Wanted her pain medications increased to every 4 hours. Wanted her potassium at 40 mEq twice a day wanted her magnesium oxide 400 mg twice a day All orders have been placed Discussed with patient and RN Feels she is breathing a little better Complains of pain all over Complains of pain in her right ankle Will ask physical therapy and occupational therapy to eval and treat We'll get a.m. labs 10-10 breathing a little better wants to go home tomorrow am labs to have RIGHT LE DOPPLER DW RN AND PT 10-11 WANTS TO GO HOME TODAY HAS BEEN CLEARED BY CARDIOLOGY FOLLOW UP WITH DR DUMONT IN [place] FOR CARDIOLOGY Objective Vitals Vital Signs Date Time Temp Pulse Resp B/P (MAP) Pulse Ox O2 Delivery O2 Flow Rate FiO2 03/11/17 08:00 98.1 78 18 90/73 (79) 93 03/11/17 04:23 96 Nasal Cannula 3.00 03/11/17 03:17 96.7 77 18 112/68 (83) 92 03/11/17 00:35 96.7 82 18 128/70 (89) 92 03/10/17 19:59 97 Nasal Cannula 3.00 03/10/17 19:37 97.3 94 16 140/64 (89) 97 03/10/17 16:13 99.0 87 18 126/66 (86) 96 03/10/17 11:39 96.3 81 18 142/70 (94) 96 I/O 03/10/17 03/10/17 03/10/17 03/11/17 03/11/17 03/11/17 07:00 15:00 23:00 07:00 15:00 23:00 Intake Total 480 ml 720 ml 480 ml 720 ml Balance 480 ml 720 ml 480 ml 720 ml Intake Oral 480 ml 720 ml 480 ml 720 ml # Voids 5 3 3 2 # Bowel Movements 0 1 0 0 Result Diagram: 03/11/1730 03/11/17 0630 Other Results Laboratory Tests Test 03/08/17 15:58 03/08/17 20:00 03/09/17 00:50 03/09/17 10:29 White Blood Count 11.3 TH/MM3 10.0 TH/MM3 Red Blood Count 4.24 MIL/MM3 4.02 MIL/MM3 Hemoglobin 12.4 GM/DL 12.0 GM/DL Hematocrit 38.5 % 36.5 % Mean Corpuscular Volume 90.8 FL 90.9 FL Mean Corpuscular Hemoglobin 29.1 PG 29.9 PG Mean Corpuscular Hemoglobin Concent 32.1 % 32.9 % Red Cell Distribution Width 17.4 % 17.3 % Platelet Count 341 TH/MM3 327 TH/MM3 Mean Platelet Volume 7.3 FL 7.3 FL Neutrophils (%) (Auto) 82.8 % 88.8 % Lymphocytes (%) (Auto) 7.3 % 6.4 % Monocytes (%) (Auto) 9.9 % 4.8 % Eosinophils (%) (Auto) 0.0 % 0.0 % Basophils (%) (Auto) 0.0 % 0.0 % Neutrophils # (Auto) 9.3 TH/MM3 8.9 TH/MM3 Lymphocytes # (Auto) 0.8 TH/MM3 0.6 TH/MM3 Monocytes # (Auto) 1.1 TH/MM3 0.5 TH/MM3 Eosinophils # (Auto) 0.0 TH/MM3 0.0 TH/MM3 Basophils # (Auto) 0.0 TH/MM3 0.0 TH/MM3 CBC Comment DIFF FINAL DIFF FINAL Differential Comment Prothrombin Time 23.3 SEC Prothromb Time International Ratio 2.0 RATIO Activated Partial Thromboplast Time 30.4 SEC Blood Urea Nitrogen 50 MG/DL 37 MG/DL Creatinine 1.51 MG/DL 1.02 MG/DL Random Glucose 191 MG/DL 197 MG/DL Calcium Level 9.1 MG/DL 9.4 MG/DL Magnesium Level 2.4 MG/DL Sodium Level 136 MEQ/L 136 MEQ/L Potassium Level 3.2 MEQ/L 3.5 MEQ/L Chloride Level 94 MEQ/L 92 MEQ/L Carbon Dioxide Level 32.4 MEQ/L 37.1 MEQ/L Anion Gap 10 MEQ/L 7 MEQ/L Estimat Glomerular Filtration Rate 34 ML/MIN 53 ML/MIN Total Creatine Kinase 33 U/L Troponin I LESS THAN 0.02 NG/ML 0.02 NG/ML 0.02 NG/ML B-Type Natriuretic Peptide 193 PG/ML Thyroid Stimulating Hormone 3rd Gen 0.332 uIU/ML Total Protein 6.6 GM/DL Albumin 3.0 GM/DL Alkaline Phosphatase 70 U/L Aspartate Amino Transf (AST/SGOT) 12 U/L Alanine Aminotransferase (ALT/SGPT) 25 U/L Total Bilirubin 0.5 MG/DL Test 03/10/17 05:10 03/11/17 06:30 White Blood Count 11.6 TH/MM3 14.2 TH/MM3 Red Blood Count 3.94 MIL/MM3 4.42 MIL/MM3 Hemoglobin 11.7 GM/DL 12.9 GM/DL Hematocrit 35.7 % 40.4 % Mean Corpuscular Volume 90.5 FL 91.4 FL Mean Corpuscular Hemoglobin 29.7 PG 29.3 PG Mean Corpuscular Hemoglobin Concent 32.8 % 32.0 % Red Cell Distribution Width 17.4 % 17.4 % Platelet Count 311 TH/MM3 306 TH/MM3 Mean Platelet Volume 7.3 FL 7.2 FL Neutrophils (%) (Auto) 87.9 % 78.7 % Lymphocytes (%) (Auto) 6.2 % 11.8 % Monocytes (%) (Auto) 5.9 % 9.2 % Eosinophils (%) (Auto) 0.0 % 0.0 % Basophils (%) (Auto) 0.0 % 0.3 % Neutrophils # (Auto) 10.2 TH/MM3 11.2 TH/MM3 Lymphocytes # (Auto) 0.7 TH/MM3 1.7 TH/MM3 Monocytes # (Auto) 0.7 TH/MM3 1.3 TH/MM3 Eosinophils # (Auto) 0.0 TH/MM3 0.0 TH/MM3 Basophils # (Auto) 0.0 TH/MM3 0.0 TH/MM3 CBC Comment DIFF FINAL AUTO DIFF Differential Comment FINAL DIFF MANUAL Prothrombin Time 21.8 SEC 24.9 SEC Prothromb Time International Ratio 1.9 RATIO 2.2 RATIO Blood Urea Nitrogen 44 MG/DL 45 MG/DL Creatinine 1.14 MG/DL 0.95 MG/DL Random Glucose 144 MG/DL 108 MG/DL Total Protein 6.1 GM/DL 6.2 GM/DL Albumin 2.8 GM/DL 2.8 GM/DL Calcium Level 9.0 MG/DL 9.3 MG/DL Phosphorus Level 2.4 MG/DL 1.7 MG/DL Magnesium Level 2.4 MG/DL 2.2 MG/DL Alkaline Phosphatase 67 U/L 64 U/L Aspartate Amino Transf (AST/SGOT) 17 U/L 19 U/L Alanine Aminotransferase (ALT/SGPT) 26 U/L 26 U/L Total Bilirubin 0.4 MG/DL 0.4 MG/DL Sodium Level 135 MEQ/L 134 MEQ/L Potassium Level 3.2 MEQ/L 3.7 MEQ/L Chloride Level 93 MEQ/L 93 MEQ/L Carbon Dioxide Level 37.8 MEQ/L 33.8 MEQ/L Anion Gap 4 MEQ/L 7 MEQ/L Estimat Glomerular Filtration Rate 46 ML/MIN 57 ML/MIN Hemoglobin A1c 6.2 % Free Thyroxine 0.90 NG/DL Thyroid Stimulating Hormone 3rd Gen 0.160 uIU/ML Differential Total Cells Counted 100 Neutrophils % (Manual) 82 % Lymphocytes % 10 % Monocytes % 7 % Neutrophils # (Manual) 11.8 TH/MM3 Myelocytes 1 % Platelet Estimate NORMAL Platelet Morphology Comment NORMAL Red Cell Morphology Comment NORMAL Imaging Last Impressions Ankle X-Ray 03/09/17 0000 Signed Impressions: Service Date/Time: Thursday, March 09, 2017 16:04 - CONCLUSION: Venous calcaneal fracture, well-healed Degenerative changes tibiotalar joint. Bj Fuentes MD FACR Chest X-Ray 03/08/17 1551 Signed Impressions: Service Date/Time: Wednesday, March 08, 2017 16:48 - CONCLUSION: Stable chest no acute disease Chilo Hurtado MD Lower Extremity Ultrasound 03/08/17 0000 Signed Impressions: Service Date/Time: Wednesday, March 08, 2017 18:25 - CONCLUSION: Normal examination. Vincenzo Fiore MD Objective Remarks GENERAL: Awake alert and oriented talkative and cooperative SKIN: Warm and dry. Has bruising on right ankle and tenderness HEAD: Atraumatic. Normocephalic. EYES: Pupils equal and round. No scleral icterus. No injection or drainage. ENT: No nasal bleeding or discharge. Mucous membranes pink and moist. Tongue is midline NECK: Trachea midline. No JVD. Neck is supple CARDIOVASCULAR: IRRegular rate and rhythm. S1 and S2 no S3 or S4 no heave or thrill or rub or gallop RESPIRATORY: No accessory muscle use. Clear to auscultation. Breath sounds equal bilaterally. Decreased breath sounds bilaterally GASTROINTESTINAL: Abdomen soft, non-tender, nondistended. Hepatic and splenic margins not palpable. Obese MUSCULOSKELETAL: Extremities without clubbing, cyanosis +2-3 lower extremity edema pitting no obvious deformities. Bruising on right ankle area and ecchymosis NEUROLOGICAL: Awake and alert. No obvious cranial nerve deficits. Motor grossly within normal limits. 4 out of 5 muscle strength in the arms and legs. Normal speech. PSYCHIATRIC: Appropriate mood and affect; insight and judgment normal. Anxious Medications and IVs Current Medications Furosemide (Lasix Inj) 40 mg ONCE ONCE IV PUSH Last administered on 03/08/17 16:00; Start 03/08/17 at 16:00; Stop 03/08/17 at 16:01; Status DC Methylprednisolone Sodium Succinate (SoluMEDROL INJ) 125 mg ONCE ONCE IV PUSH Last administered on 03/08/17 16:00; Start 03/08/17 at 16:00; Stop 03/08/17 at 16:01; Status DC Furosemide (Lasix Inj) 40 mg BID@18 IV PUSH Last administered on 03/11/17 08:25; Start 03/09/17 at 09:00 Methylprednisolone Sodium Succinate (SoluMEDROL INJ) 40 mg Q6HR IV PUSH Last administered on 03/10/17 11:06; Start 03/09/17 at 00:00; Stop 03/10/17 at 15: 01; Status DC Albuterol/ Ipratropium (Duoneb Neb) 1 ampule Q2HR NEB PRN NEB SOB/WHEEZING Last administered on 03/11/17 04:23; Start 03/08/17 at 19:30 Albuterol/ Ipratropium (Duoneb Neb) 1 ampule Q4HR WHILE AWAKE NEB NEB Last administered on 03/09/17 16:44; Start 03/08/17 at 20:00; Stop 03/10/17 at 15: 01; Status DC Guaifenesin (Mucinex Er) 600 mg BID PO Last administered on 03/11/17 08:28; Start 03/08/17 at 21:00 Sodium Chloride (NS Flush) 2 ml UNSCH PRN IV FLUSH FLUSH AFTER USING IV ACCESS Last administered on 03/09/17 23:06; Start 03/08/17 at 19:30 Sodium Chloride (NS Flush) 2 ml BID IV FLUSH Last administered on 03/11/17 08 :28; Start 03/08/17 at 21:00 Ondansetron HCl (Zofran Inj) 4 mg Q6H PRN IVP NAUSEA OR VOMITING; Start at 19:30 Acetaminophen (Tylenol) 650 mg Q6H PRN PO FEVER/PAIN SCALE 1 TO 2 Last administered on 03/09/17 13:38; Start 03/08/17 at 19:30 Oxycodone/ Acetaminophen (Percocet 5-325 Mg) 1 tab Q6H PRN PO PAIN SCALE 3 TO 5 Last administered on 03/09/17 10:33; Start 03/08/17 at 19:30; Stop 03/09/17 at 16:03; Status DC Morphine Sulfate (Morphine Inj) 2 mg Q3H PRN IV PUSH Pain 6-10; Start 03/08/17 at 19:30 Senna/Docusate Sodium (Alka-Colace) 1 tab BID PO Last administered on 08:28; Start 03/08/17 at 21:00 Magnesium Hydroxide (Milk Of Magnesia Liq) 30 ml Q12H PRN PO MILD - MODERATE CONSTIPATION; Start 03/08/17 at 19:30 Sennosides (Senokot) 17.2 mg Q12H PRN PO MODERATE - SEVERE CONSTIPATION; Start 03/08/17 at 19:30 Bisacodyl (Dulcolax Supp) 10 mg DAILY PRN RECTAL SEVERE CONSITIPATION; Start 03/08/17 at 19:30 Lactulose (Lactulose Liq) 30 ml DAILY PRN PO SEVERE CONSITIPATION; Start at 19:30 Aspirin (Ecotrin Ec) 81 mg DAILY PO Last administered on 03/11/17 08:28; Start 03/09/17 at 09:00 Budesonide/ Formoterol Fumarate (Symbicort 160-4.5 Inh) 2 puff Q12HR INH Last administered on 03/10/17 19:55; Start 03/08/17 at 21:00 Carvedilol (Coreg) 6.25 mg BID PO Last administered on 03/11/17 08:26; Start 03/08/17 at 21:00 Duloxetine HCl (Cymbalta Dr) 30 mg DAILY PO Last administered on 03/11/17 08: 26; Start 03/09/17 at 09:00 Vit C/Vit E/Zinc/ Copper/Lutein (Ocuvite) 1 tab DAILY PO Last administered on 03/11/17 08:27; Start 03/09/17 at 09:00 Sildenafil Citrate (Revatio) 60 mg BID PO Last administered on 03/11/17 08:26 ; Start 03/08/17 at 21:00 Pravastatin Sodium (Pravachol) 40 mg DAILY PO Last administered on 03/11/17 08:26; Start 03/09/17 at 09:00 Potassium Chloride (KCl) 40 meq ONCE ONCE PO Last administered on 03/08/17 21 :21; Start 03/08/17 at 20:00; Stop 03/08/17 at 20:01; Status DC Diphenhydramine HCl (Benadryl Inj) 25 mg ONCE ONCE IV PUSH Last administered on 03/08/17 21:20; Start 03/08/17 at 20:00; Stop 03/08/17 at 20:01; Status DC Dextrose (D50w (Vial) Inj) 50 ml UNSCH PRN IV PUSH HYPOGLYCEMIA-SEE COMMENTS; Start 03/08/17 at 20:00 Glucagon (Glucagon Inj) 1 mg UNSCH PRN OTHER HYPOGLYCEMIA-SEE COMMENTS; Start 03/08/17 at 20:00 Insulin Aspart (NovoLOG SUPPLEMENTAL SCALE) 1 ACHS SLIDING SCALE SQ Last administered on 03/10/17 19:54; Start 03/08/17 at 21:00 Warfarin Sodium (Coumadin) 2.5 mg MoWeFr@16 PO Last administered on 03/09/17 17:38; Start 03/09/17 at 16:00 Warfarin Sodium (Coumadin) 4 mg SuTuThSa@1600 PO Last administered on 16:46; Start 03/10/17 at 16:00 Patient Medication Teaching (Coumadin Booklet) 1 ONCE ONCE .XX Last administered on 03/09/17 17:39; Start 03/09/17 at 16:00; Stop 03/09/17 at 16:01 ; Status DC Diphenhydramine HCl (Benadryl) 25 mg HS PRN PO INSOMNIA Last administered on 20:02; Start 03/09/17 at 16:00 Oxycodone/ Acetaminophen (Percocet 5-325 Mg) 1 tab Q4H PRN PO PAIN; Start 03/09/17 at 16:00; Stop 03/09/17 at 16:03; Status DC Potassium Chloride (KCl) 40 meq BIDPC PO Last administered on 03/11/17 08:27 ; Start 03/09/17 at 18:00 Non-Formulary Medication 1,000 mg DAILY PO ; Start 03/10/17 at 09:00; Status UNV Oxycodone/ Acetaminophen (Percocet 5-325 Mg) 1 tab Q4H PRN PO PAIN SCALE 3 TO 5 Last administered on 03/11/17 08:24; Start 03/09/17 at 16:15 Acetaminophen/ Butalbital/ Caffeine (Fioricet 325-50-40) 1 tab Q6H PRN PO HEADACHE; Start 03/09/17 at 16:15 Magnesium Oxide (Mag-Ox) 400 mg Q12HR PO Last administered on 03/11/17 08:28 ; Start 03/09/17 at 21:00 Pneumococcal Polyvalent Vaccine (Pneumovax-23 Inj) 25 mcg ONCE ONCE IM Last administered on 03/10/17 11:08; Start 03/10/17 at 10:00; Stop 03/10/17 at 10 :01; Status DC Phenol (Chloraseptic [place]) 2 spray Q2H PRN OROPHARYNG SORE THROAT; Start 03/17 at 13:00 Albuterol/ Ipratropium (Duoneb Neb) 1 ampule TID NEB NEB ; Start 03/10/17 at 20:00 Prednisone (Deltasone) 10 mg DAILY PO Last administered on 03/11/17 08:26; Start 03/11/17 at 09:00 Potassium Chloride (KCl) 40 meq ONCE ONCE PO Last administered on 03/10/17 20:00; Start 03/10/17 at 16:00; Stop 03/10/17 at 16:01; Status DC Urinary Catheter: No Vascular Central Line Catheter: No A/P Problem List: (1) CHF (congestive heart failure) ICD Code: I50.9 - Heart failure, unspecified Status: Acute (2) Hypoxia ICD Code: R09.02 - Hypoxemia Status: Acute (3) COPD (chronic obstructive pulmonary disease) ICD Code: J44.9 - Chronic obstructive pulmonary disease, unspecified Status: Chronic (4) Pulmonary HTN ICD Code: I27.20 - Pulmonary hypertension, unspecified (5) RADHA (acute kidney injury) ICD Code: N17.9 - Acute kidney failure, unspecified (6) Hyperglycemia ICD Code: R73.9 - Hyperglycemia, unspecified (7) Afib ICD Code: I48.91 - Unspecified atrial fibrillation Status: Chronic Assessment and Plan 1. COPD: Chronic Respiratory Failure w/ Acute Exacerbation. Severe. O2 Dependent on 3L NC. Significant respiratory distress on arrival, s/p Solu- Medrol w/ some improvement, however remains dyspneic. CXR w/ no significant change, images reviewed by me. Solu-Medrol, Symbicort, DuoNeb, Mucinex. Follows w/ Dr. Kelley as outpatient, will consult for further recommendations. 2. CHF: Acute on Chronic. Diastolic. Echo 02/07/17 w/ EF 50-55%, Severe Pulm HTN >70mmHg. BNP 193. CXR w/ no significant effusion, however +lower extremity edema on exam. Doppler LE negative for DVT, images reviewed by me. S /p Lasix 40mg IV in ER, SWITCH TO PO LASIX on Lasix 80mg po bid at home, compliant w/ medications. Continue w/ diuretics, caution w/ renal insufficiency. Monitor I/O. Following w/ Dr. Landeros as outpatient, will consult for further recommendations. 3. Hypoxia: Likely Multifactorial-COPD w/ Acute Exacerbation, CHF w/ Acute Exacerbation and Pulm HTN. O2 sat 86% on RA upon arrival, currently 96% on 3L NC. O2 Dependent at home. Continue O2, monitor oximetry. 4. Pulm HTN: Chronic. Echo 02/07/17 w/ Severe Pulm HTN >70mmHg, on Sildenafil 60mg po bid, will resume home medications. 5. RADHA: Creatinine 1.51, previously 0.79 on 02/12/17, likely secondary to dehydration from respiratory losses in combination w/ high-dose diuresis. Monitor closely. Repeat labs in am. 6. Hyperglycemia: BS 191. Hgb A1c 6.1 on 02/10/17. Will start on Sliding Scale w/ Accu-Cheks in light of steroid therapy for COPD. 7. A-fib: Chronic. On Coumadin. INR therapeutic at 2.0. Resume home Coumadin 2mg //, Coumadin 4mg ///Thu. Check INR in am. 8. DVT Prophylaxis: On Coumadin as above. 9. Social work for d/c planning as needed. Physical therapy and occupational therapy to eval and treat multiple complaints discussed with patient Wanted headache medications. Wanted a right ankle x-ray. Discussed a sore throat WANTED CHLORASEPTIC SPRAY. Wanted her pain medications increased to every 4 hours. Wanted her potassium at 40 mEq twice a day wanted her magnesium oxide 400 mg twice a day HYPOKALEMIA WILL REPLACE- AM LABS Will ask physical therapy and occupational therapy to eval and treat We'll get a.m. labs AWAIT RIGHT LE US Discharge Planning Physical therapy and occupational therapy to eval and treat home health care Continue to diurese. Appreciate pulmonary and cardiology input DC TO HOME WITH [facility] Problem Qualifiers (1) CHF (congestive heart failure): Qualified Codes: I50.9 - Heart failure, unspecified Bj Carter DO Mar 11, 2017 10:48
[2017-03-11] MEDS ORDERED: OCUVTAB PO (10:59)
[2017-03-11] MEDS ORDERED: GLUC100017 PO (10:59)
[2017-03-11] MEDS ORDERED: BUTATAB6 PO (10:59)
[2017-03-11] MEDS ORDERED: PERC5TAB12 PO (10:59)
[2017-03-11] MEDS ORDERED: IPRASOL INH (10:59)
[2017-03-11] MEDS ORDERED: FURO1TAB61 PO (10:59)
[2017-03-11] MEDS ORDERED: DULO1CAP2 PO (10:59)
[2017-03-11] MEDS ORDERED: ASPI-110 PO (10:59)
[2017-03-11] MEDS ORDERED: POTA10TA2 PO (10:59)
[2017-03-11] MEDS ORDERED: MAGN400T3 PO (10:59)
[2017-03-11] MEDS ORDERED: guaiFENesin ER PO (10:59)
[2017-03-11] MEDS ORDERED: POTA-163 PO (10:59)
[2017-03-11] MEDS ORDERED: SILD20TA11 PO (10:59)
[2017-03-11] MEDS ORDERED: COUM2.5T PO (10:59)
[2017-03-11] MEDS ORDERED: CARV6.252 PO (10:59)
[2017-03-11] MEDS ORDERED: BENA25CA4 PO (10:59)
[2017-03-11] MEDS ORDERED: SIMV20TA PO (10:59)
[2017-03-11] MEDS ORDERED: PRED10 PO (10:59)
[2017-03-11] MEDS ORDERED: COUM4TAB PO (10:59)
[2017-03-11] MEDS ORDERED: SYMB160A INH (10:59)
--- NOTE | 2017-03-11 11:00 | HHI.FF ---
Face to Face Verification Diagnosis: (1) RADHA (acute kidney injury) (2) Afib (3) Pulmonary HTN (4) Hyperglycemia (5) COPD (chronic obstructive pulmonary disease) (6) Hypoxia (7) CHF (congestive heart failure) (8) Acute and chronic respiratory failure with hypoxia (9) Low TSH level (10) Supratherapeutic INR (11) Anemia (12) Prediabetes (13) Shortness of breath (14) Pulmonary hypertension (15) Chronic right-sided heart failure (16) Hypertension (17) Acute on chronic diastolic (congestive) heart failure Physical Therapy Order: Evaluate and Treat, Improve ambulation, Strength and gait training Occupational Therapy Order: Evaluate and Treat, Gross motor coordination, Fine motor coordination Home Health Nursing Order: Nursing assessment with vital signs Home Health Aide Order: To Assist In: Bathing and personal care, 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 My clinical findings support the need for the requested home health care services because: Patient has SOB Deconditioned w/ increased weakness I certify that my clinical findings support that this patient is homebound because: Hx COPD- exertion dyspnea/weakness Bj Carter DO Mar 11, 2017 11:00
--- NOTE | 2017-03-11 11:06 | HHI.DS ---
Discharge Summary Admission Date Mar 08, 2017 at 19:17 Discharge Date: Mar 11, 2017 Admitting Diagnosis acute CHF exacerbation, hypoxia (1) CHF (congestive heart failure) ICD Code: I50.9 - Heart failure, unspecified Diagnosis: Principal Status: Acute (2) Hypoxia ICD Code: R09.02 - Hypoxemia Diagnosis: Principal Status: Acute (3) COPD (chronic obstructive pulmonary disease) ICD Code: J44.9 - Chronic obstructive pulmonary disease, unspecified Diagnosis: Principal Status: Chronic (4) Pulmonary HTN ICD Code: I27.20 - Pulmonary hypertension, unspecified Diagnosis: Principal (5) RADHA (acute kidney injury) ICD Code: N17.9 - Acute kidney failure, unspecified Diagnosis: Secondary (6) Hyperglycemia ICD Code: R73.9 - Hyperglycemia, unspecified Diagnosis: Principal (7) Afib ICD Code: I48.91 - Unspecified atrial fibrillation Diagnosis: Principal Status: Chronic Procedures NONE Brief History - From Admission This is a 76-year-old female with a PMH of A. fib on Coumadin, HTN, Hyperlipidemia, CHF (Echo 02/07/17 w/ EF 50-55%, Severe Pulm HTN >70mmHg) and COPD , O2 Dependent who presented to the ER w/ complaints of severe SOB and progressive lower extremity edema x2 days. Recent admit -02/12/17 for similar complaints, found to have COPD w/ hypoxia, CHF and Supratherapeutic INR , Coumadin on hold at time of d/c. States doing well since then until 2 days ago, now w/ progressive SOB and LE edema, on Lasix 80mg po bid at home, compliant w/ medications. Denies chest pain, cough or sick contacts. On arrival, BP 138/88, HR 90, O2 sat 86% on RA, Afebrile. O2 sat currently 96% on 3L NC. WBC 11.3. K+ 3.2. Creatinine 1.51, previously 0.79 on 02/12/17. Trop negative. BNP 193. BS 191. INR 2.0. CXR stable, no acute findings. LE Doppler negative for PE. S/p Lasix 40mg IV, Solu-Medrol in ER, remains SOB. Follows ankit/ Dr. Kelley as outpatient. Following w/ Dr. Landeros, states she was referred to Dr. Dumont in [place] for Cardiology. CBC/BMP: 03/11/17 0630 03/11/17 0630 Significant Findings Laboratory Tests Test 03/08/17 15:58 03/08/17 20:00 03/09/17 00:50 03/09/17 10:29 White Blood Count 11.3 TH/MM3 (4.0-11.0) Red Cell Distribution Width 17.4 % (11.6-17.2) 17.3 % (11.6-17.2) Neutrophils (%) (Auto) 82.8 % (16.0-70.0) 88.8 % (16.0-70.0) Lymphocytes (%) (Auto) 7.3 % (9.0-44.0) 6.4 % (9.0-44.0) Monocytes (%) (Auto) 9.9 % (0.0-8.0) Neutrophils # (Auto) 9.3 TH/MM3 (1.8-7.7) 8.9 TH/MM3 (1.8-7.7) Lymphocytes # (Auto) 0.8 TH/MM3 (1.0-4.8) 0.6 TH/MM3 (1.0-4.8) Monocytes # (Auto) 1.1 TH/MM3 (0-0.9) Prothrombin Time 23.3 SEC (9.8-11.6) Activated Partial Thromboplast Time 30.4 SEC (24.3-30.1) Blood Urea Nitrogen 50 MG/DL (7-18) 37 MG/DL (7-18) Creatinine 1.51 MG/DL (0.50-1.00) 1.02 MG/DL (0.50-1.00) Random Glucose 191 MG/DL (74-106) 197 MG/DL (74-106) Potassium Level 3.2 MEQ/L (3.5-5.1) Chloride Level 94 MEQ/L (98-107) 92 MEQ/L (98-107) Carbon Dioxide Level 32.4 MEQ/L (21.0-32.0) 37.1 MEQ/L (21.0-32.0) Estimat Glomerular Filtration Rate 34 ML/MIN (>89) 53 ML/MIN (>89) Troponin I LESS THAN 0.02 NG/ML B-Type Natriuretic Peptide 193 PG/ML (0-100) Thyroid Stimulating Hormone 3rd Gen 0.332 uIU/ML (0.358-3.740) Albumin 3.0 GM/DL (3.4-5.0) Aspartate Amino Transf (AST/SGOT) 12 U/L (15-37) Test 03/10/17 05:10 03/11/17 06:30 White Blood Count 11.6 TH/MM3 (4.0-11.0) 14.2 TH/MM3 (4.0-11.0) Red Blood Count 3.94 MIL/MM3 (4.00-5.30) Red Cell Distribution Width 17.4 % (11.6-17.2) 17.4 % (11.6-17.2) Neutrophils (%) (Auto) 87.9 % (16.0-70.0) 78.7 % (16.0-70.0) Lymphocytes (%) (Auto) 6.2 % (9.0-44.0) Neutrophils # (Auto) 10.2 TH/MM3 (1.8-7.7) 11.2 TH/MM3 (1.8-7.7) Lymphocytes # (Auto) 0.7 TH/MM3 (1.0-4.8) Prothrombin Time 21.8 SEC (9.8-11.6) 24.9 SEC (9.8-11.6) Blood Urea Nitrogen 44 MG/DL (7-18) 45 MG/DL (7-18) Creatinine 1.14 MG/DL (0.50-1.00) Random Glucose 144 MG/DL (74-106) 108 MG/DL (74-106) Total Protein 6.1 GM/DL (6.4-8.2) 6.2 GM/DL (6.4-8.2) Albumin 2.8 GM/DL (3.4-5.0) 2.8 GM/DL (3.4-5.0) Phosphorus Level 2.4 MG/DL (2.5-4.9) 1.7 MG/DL (2.5-4.9) Sodium Level 135 MEQ/L (136-145) 134 MEQ/L (136-145) Potassium Level 3.2 MEQ/L (3.5-5.1) Chloride Level 93 MEQ/L (98-107) 93 MEQ/L (98-107) Carbon Dioxide Level 37.8 MEQ/L (21.0-32.0) 33.8 MEQ/L (21.0-32.0) Anion Gap 4 MEQ/L (5-15) Estimat Glomerular Filtration Rate 46 ML/MIN (>89) 57 ML/MIN (>89) Hemoglobin A1c 6.2 % (4.3-6.0) Thyroid Stimulating Hormone 3rd Gen 0.160 uIU/ML (0.358-3.740) Monocytes (%) (Auto) 9.2 % (0.0-8.0) Monocytes # (Auto) 1.3 TH/MM3 (0-0.9) Neutrophils % (Manual) 82 % (16-70) Neutrophils # (Manual) 11.8 TH/MM3 (1.8-7.7) Myelocytes 1 % (0-0) Imaging Last Impressions Ankle X-Ray 03/09/17 0000 Signed Impressions: Service Date/Time: Thursday, March 09, 2017 16:04 - CONCLUSION: Venous calcaneal fracture, well-healed Degenerative changes tibiotalar joint. Bj Fuentes MD FACR Chest X-Ray 03/08/17 1551 Signed Impressions: Service Date/Time: Wednesday, March 08, 2017 16:48 - CONCLUSION: Stable chest no acute disease Chilo Hurtado MD Lower Extremity Ultrasound 03/08/17 0000 Signed Impressions: Service Date/Time: Wednesday, March 08, 2017 18:25 - CONCLUSION: Normal examination. Vincenzo Fiore MD PE at Discharge GENERAL: Awake alert and oriented talkative and cooperative SKIN: Warm and dry. Has bruising on right ankle and tenderness HEAD: Atraumatic. Normocephalic. EYES: Pupils equal and round. No scleral icterus. No injection or drainage. ENT: No nasal bleeding or discharge. Mucous membranes pink and moist. Tongue is midline NECK: Trachea midline. No JVD. Neck is supple CARDIOVASCULAR: IRRegular rate and rhythm. S1 and S2 no S3 or S4 no heave or thrill or rub or gallop RESPIRATORY: No accessory muscle use. Clear to auscultation. Breath sounds equal bilaterally. Decreased breath sounds bilaterally GASTROINTESTINAL: Abdomen soft, non-tender, nondistended. Hepatic and splenic margins not palpable. Obese MUSCULOSKELETAL: Extremities without clubbing, cyanosis +2-3 lower extremity edema pitting no obvious deformities. Bruising on right ankle area and ecchymosis NEUROLOGICAL: Awake and alert. No obvious cranial nerve deficits. Motor grossly within normal limits. 4 out of 5 muscle strength in the arms and legs. Normal speech. PSYCHIATRIC: Appropriate mood and affect; insight and judgment normal. Anxious Hospital Course This is a 76-year-old female with a PMH of A. fib on Coumadin, HTN, Hyperlipidemia, CHF (Echo 02/07/17 w/ EF 50-55%, Severe Pulm HTN >70mmHg) and COPD , O2 Dependent who presented to the ER w/ complaints of severe SOB and progressive lower extremity edema x2 days. Recent admit -02/12/17 for similar complaints, found to have COPD w/ hypoxia, CHF and Supratherapeutic INR , Coumadin on hold at time of d/c. States doing well since then until 2 days ago, now w/ progressive SOB and LE edema, on Lasix 80mg po bid at home, compliant w/ medications. Denies chest pain, cough or sick contacts. On arrival, BP 138/88, HR 90, O2 sat 86% on RA, Afebrile. O2 sat currently 96% on 3L NC. WBC 11.3. K+ 3.2. Creatinine 1.51, previously 0.79 on 02/12/17. Trop negative. BNP 193. BS 191. INR 2.0. CXR stable, no acute findings. LE Doppler negative for PE. S/p Lasix 40mg IV, Solu-Medrol in ER, remains SOB. Follows w/ Dr. Kelley as outpatient. Following w/ Dr. Landeros, states she was referred to Dr. Dumont in [place] for Cardiology. 10-9 multiple complaints discussed with patient Wanted headache medications. Set. Wanted a right ankle x-ray. Discussed a sore throat. Wanted her pain medications increased to every 4 hours. Wanted her potassium at 40 mEq twice a day wanted her magnesium oxide 400 mg twice a day All orders have been placed Discussed with patient and RN Feels she is breathing a little better Complains of pain all over Complains of pain in her right ankle Will ask physical therapy and occupational therapy to eval and treat We'll get a.m. labs 10-10 breathing a little better wants to go home tomorrow am labs to have RIGHT LE DOPPLER DW RN AND PT 10-11 WANTS TO GO HOME TODAY HAS BEEN CLEARED BY CARDIOLOGY FOLLOW UP WITH DR DUMONT IN [place] FOR CARDIOLOGY RIGHT US WAS NEGATIVE FOR DVT FOLLOW UP WITH PCP, CARDIO, PULMONARY [facility] AT [place] Pt Condition on Discharge: Good Discharge Disposition: Disch w/ Home Health Serv Discharge Time: > 30 minutes Discharge Instructions DIET: Follow Instructions for: Heart Healthy Diet, Diabetic Diet Speech Therapy-Diet Recommends: Regular Fluid Restrictions: 1.5 LITER DAILY Activities you can perform: Weight Bearing as Jacklyn Follow up Referrals: Cardiology - 1 Week with TIM Internal Medicine - 1 Week with Yonny Awad MD Pulmonology - 1 Week with Irena Kelley MD New Medications: Qyhmrhsiwg-Qdddsxptouxwc-Dtafoiio (Xmcwqbvgts-Rusbrxuyuzprd-Ckudjfwz) 50-325-40 Mg Tab 1 TAB PO Q6H PRN for HEADACHE, #60 TAB Do not exceed 6 tablets/day. Magnesium Oxide (Magnesium Oxide) 400 Mg Tab 400 MG PO Q12HR for Electrolyte Replacement, #60 TAB Prednisone (Prednisone) 10 Mg Tab 10 MG PO DAILY for Inflammation, #30 TAB Warfarin (Coumadin) 4 Mg Tab 4 MG PO SuTuThSa@1600 for Blood Clot Prevention, #60 TAB Warfarin (Coumadin) 2.5 Mg Tab 2.5 MG PO MoWeFr@16 for Blood Clot Prevention, #60 TAB [guaiFENesin ER] () 600 MG TABCR 600 MG PO BID, #60 TAB Continued Medications: Aspirin DR (Aspirin 81) 81 Mg Tabdr 81 MG PO DAILY for Blood Clot Prevention, #30 TAB 0 Refills (This prescription has been renewed) Budesonide-Formoterol Inh (Symbicort Inh) 160-4.5 Mcg/Act Aero 2 PUFF INH Q12HR for COPD, #1 INHALER 0 Refills (This prescription has been renewed) Carvedilol (Carvedilol) 6.25 Mg Tab 6.25 MG PO BID, #60 TAB 0 Refills (This prescription has been renewed) Diphenhydramine HCl (Benadryl Allergy) 25 Mg Cap 25 MG PO HS PRN for INSOMNIA, #30 CAP 0 Refills (This prescription has been renewed) Duloxetine DR (Duloxetine DR) 30 Mg Capdr 30 MG PO DAILY for Depression Control, #30 CAP 0 Refills (This prescription has been renewed) Estradiol Valerate Inj (Delestrogen Valerate Inj) 10 Mg/Ml Inj 1 MG IM MONTHLY Furosemide (Lasix) 80 Mg Tab 80 MG PO BID for Shortness of Breath, #60 TAB 0 Refills (This prescription has been renewed) Glucosamine (Glucosamine) 1,000 Mg Cap 1000 MG PO DAILY for Herbal Supplements, #30 CAP 0 Refills (This prescription has been renewed) Ipratropium-Albuterol Neb (Duoneb) 0.5-2.5 Mg/3 Ml Neb 1 NEBULE INH Q4HR NEB for SHORTNESS OF BREATH, #180 NEBULE 0 Refills (This prescription has been renewed) Multiple Vitamins W/ Minerals (Ocuvite) 1 Tab 1 TAB PO DAILY for Nutritional Supplement, #30 TAB 0 Refills (This prescription has been renewed) Oxycodone-Acetaminophen (Percocet) 5-325 mg Tab 1 TAB PO Q4H PRN for PAIN, #60 TAB 0 Refills (This prescription has been renewed ) Potassium Chloride ER (Potassium Chloride ER) 10 Meq Tab 10 MEQ PO BID for Electrolyte Replacement, #60 TAB 0 Refills (This prescription has been renewed) Potassium Chloride ER (Potassium Chloride ER) 20 Meq Tab 40 MEQ PO BID for Electrolyte Replacement, #120 TAB 0 Refills (This prescription has been renewed) Sildenafil (Sildenafil) 20 Mg Tab 60 MG PO BID for Pulm. arterial hypertension, #180 TAB 0 Refills (This prescription has been renewed) Simvastatin (Simvastatin) 20 Mg Tab 20 MG PO DAILY for Cholesterol Management, #30 TAB 0 Refills (This prescription has been renewed) Discontinued Medications: Prednisone (21) 10 mg tab Dose Pack (Prednisone (21) 10 mg tab Dose Pack) 10 Mg Pack 10 MG PO DIRECTED for Inflammation, #1 DSPK 0 Refills Additional Information [facility] OXY[employer] Bj Carter DO Mar 11, 2017 11:06
--- NOTE | 2017-03-11 11:07 | RADRPT ---
EXAM DATE/TIME: 03/10/2017 00:00 [facility] COMPARISON: No previous studies available for comparison. INDICATIONS : Bilateral foot pain, congestive heart failure, hypoxia TECHNIQUE: Four-cuff ankle and brachial pressures were obtained. Pulse cuff waveform tracings of the ankles were recorded, and ankle-brachial indices were calculated. PRESSURES (mmHg): Brachial (arm): Right IV site Left 123 Ankle: Right 102 Left 129 LAYLA: Right 0.83 Left 1.05 TBI: Right 0.54 Left 0.96 PULSED CUFF WAVEFORMS: Depressed LAYLA and TBI on the right suggesting trifurcation disease. 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 CT angiography would be of benefit. Bj Fuentes MD FACR on March 11, 2017 at 11:05 Board Certified Radiologist. This report was verified electronically.
--- NOTE | 2017-03-12 08:41 | MD ---
cc: Irena KHALIL M.D. ADMISSION DATE: 03/08/2017 DISCHARGE DATE: 03/11/2017 HISTORY: Ms. Delvalle is a 76-year-old white female with a history of chronic atrial fibrillation, chronic congestive heart failure and severe pulmonary hypertension with underlying oxygen-dependent COPD. Last year she was seen at the [facility] and they suggested sildenafil and pushing diuretics which has been done over the course of the last 12 months with a fair success. She has lost a lot of weight, her edema is controlled and although or pulmonary hypertension is obviously still present and severe she is much more functional. She herself says she has not felt this good in several years. However, recently she has been concerned because she has had increasing edema. She came back to the hospital simply for that reason. Her chest x-ray was unremarkable. There was no evidence of DVT, although she did have edema, a BUN and creatinine were stable in the 30-40 range with a creatinine of 1.14. There was no evidence of infection. She was treated in a standard fashion for exacerbation of COPD and CHF and is being diuresed. Today she is feeling much better really think she is probably ready for discharge, she is stable on 3 liters nasal cannula with a sat of 96% she is afebrile. Her blood pressure is 140/70 and the edema in her legs is nearly resolved. She does need some potassium adjustments as she is drifting down currently at 3.2. Reviewing her medication list today. I am going to discontinue the Solu-Medrol put her on 10 mg of prednisone. She will need her nebulized treatments, oxygen and diuretics at home. I will see her back in the office in 2 weeks. She knows to call if the weight goes up by 5 pounds or down by 5 pounds or if her breathing gets worse. MD NIYAH Mclaughlin/diann /2:57 PM /8:34 AM
--- NOTE | 2017-03-13 08:57 | PQ ---
Physician Query Response Document PATIENT: ANIVAL VENTURA : 1940 ADMIT DATE: 03/08/2017 7:17 PM DISCH DATE: 03/11/2017 12:58 PM RESPONDING PROVIDER #: SUNDAY QUERY TEXT: Conflicting Documentation Clarification A single mention or documentation of multiple diagnoses for the same clinical presentation appears in the record. Please clarify the diagnosis/diagnoses. CHF vs right heart failure. Please also document if the condition is: -- Confirmed and current -- Confirmed, treated and resolved -- Ruled out -- Other, please specify If you have any additional questions/comments and/or concerns, please do not hesitate to reach out to the CDI/Coding Hotline, Ext. [phone]. The patient's Clinical Indicators include: H Dr. Landeros's consult dated 03/09/17 under Assessment: Acute on chronic right heart failure from pulm onary hypertension. Cardiology Progress Note (Dr. Landeros) 03/10/17 - Assessment: Resolving acute on chronic right heart failure from pulmonary hypertension. Discharge Summary documents: CHF (Echo 02/07/17 w/ EF 50-55%, Severe Pulm HTN >70mmHg) Query created by: Michelle Tariq on 03/12/2017 2:53 PM RESPONSE TEXT: Patient has both fluid over.oad andchf and Electronically signed by: Bj Carter 03/13/2017 8:53 AM
== END 2017-03-11 12:58 | disposition home health service (06) | DRG 291 ==
LOC: NEPE 15:26 → NEDA 19:17 → N06B 20:27 → N06A 03-09 21:37
PROVIDERS: ADMIT Hospitalist; ATTEND Hospitalist
DX: I11.0 Hypertensive heart disease with heart failure (principal); J96.21 Acute and chronic respiratory failure with hypoxia; N17.9 Acute kidney failure, unspecified; J44.1 Chronic obstructive pulmonary disease with (acute) exacerbation; I50.33 Acute on chronic diastolic (congestive) heart failure; I27.29 Other secondary pulmonary hypertension; Z99.81 Dependence on supplemental oxygen; I48.2 Chronic atrial fibrillation; Z79.01 Long term (current) use of anticoagulants; I27.81 Cor pulmonale (chronic); R73.9 Hyperglycemia, unspecified; E78.5 Hyperlipidemia, unspecified; E87.6 Hypokalemia; M25.571 Pain in right ankle and joints of right foot; Z96.642 Presence of left artificial hip joint; Z87.891 Personal history of nicotine dependence; Z79.82 Long term (current) use of aspirin; Z79.52 Long term (current) use of systemic steroids; Z23 Encounter for immunization
CPT/HCPCS: 71010; 73610; 80048; 80053; 82550; 82948; 83036; 83735; 83880; 84100; 84439; 84443; 84484; 85007; 85025; 85027; 85610; 85730; 90471; 90732; 93922; 93970; 94640; 94664; 96374; 96375; G0009; J1200; J1815; J1940; J2920; J2930; J7512

== ENCOUNTER 2017-06-10 18:18 | Inpatient (IN) | payer MEDICARE ==
[~2017-06-10] VITALS: Ht 170.2 cm; Wt 110.7 kg
[~2017-06-10 18:18] MED LIST changes: -ASPI-110 PO; +ASPI1TAB57 PO; +BUTATAB6 PO; +COUM2.5T PO; +COUM4TAB PO; +FURO1TAB61 PO; -FURO40TA PO; +GLUC100013 PO; -GLUC100017 PO; +MAGN400T3 PO; +POTA-163 PO; +PRED10 PO; -PRED10PA PO; +[UNRECOGNIZED DRUG - CODE] IM; +guaiFENesin ER PO
[2017-06-10 18:19] VITALS: BP 110/55; PULSE 94; RESP 22; TEMP 100.3; O2SAT 97
--- NOTE | 2017-06-10 19:14 | RADRPT ---
EXAM DATE/TIME: 06/10/2017 18:43 [facility] COMPARISON: CHEST PA & LAT, July 30, 2014, 10:11. INDICATIONS : Shortness of breath. MEDICAL HISTORY : Chronic obstructive pulmonary disease. Emphysema. Congestive heart failure. SURGICAL HISTORY : None. ENCOUNTER: Initial ACUITY: 1 day PAIN SCORE: 0/10 LOCATION: chest FINDINGS: PA and lateral views of the chest demonstrate diffuse interstitial prominence. There may be some christianne y airspace disease in the right upper lobe. The cardiomediastinal contours are unremarkable. Osseous structures are intact. CONCLUSION: Airspace disease right upper lobe. Diffuse interstitial prominence is stable. Doe Cruz MD on June 10, 2017 at 19:11 Board Certified Radiologist. This report was verified electronically.
[2017-06-10] MEDS ORDERED: methylPREDNISolone SOD SUCC 125 MG/2 ML VIAL IV PUSH ONE (19:45)
[2017-06-10] MEDS ORDERED: RESP: ALBUTEROL 2.5 MG/IPRATROPIUM 0.5 MG NEB (SCH) INH ONE (19:45)
--- NOTE | 2017-06-10 19:53 | PD ---
HPI Chief Complaint: Respiratory Symptoms Time Seen by Provider: 19:36 Travel History International Travel<30 days: No Contact w/Intl Traveler<30days: No Traveled to known affect area: No History of Present Illness HPI 76-year-old female complains of coughing and shortness of breath and chest pain. Patient states that the symptoms started yesterday. Patient states that chest pain is substernal pressure without radiation. Patient denies palpitation nausea diaphoresis. Patient has a chronic cough. Patient states the cough is intermittent and dry cough. Patient has increased shortness of breath since yesterday. Patient has history of COPD and CHF and pulmonary hypertension. Patient's on home O2 3 L nasal cannula. Patient states that O2 saturations in the 80s at home. Patient denies any headache. Patient denies earache or sore throat. Patient denies abdominal pain. Patient denies any nausea vomiting diarrhea. Patient has been seen by end lathe operator Dr. Doe Kelley and [facility] for lung problem. PFSH Past Medical History Hx Anticoagulant Therapy: Yes (COUMADIN) Arthritis: Yes (osteoarthritis) Asthma: No Anxiety: No Depression: Yes Heart Rhythm Problems: Yes (A-FIB) Cancer: No Cardiovascular Problems: Yes High Cholesterol: Yes Chemotherapy: No Chest Pain: Yes Congestive Heart Failure: Yes COPD: Yes Cerebrovascular Accident: No Diabetes: No Diminished Hearing: No Deep Vein Thrombosis: Yes Endocrine: No Gastrointestinal Disorders: Yes (nausea) GERD: No Genitourinary: Yes Hepatitis: No Hiatal Hernia: No Hypertension: Yes Immune Disorder: No Implanted Vascular Access Dvce: Yes Kidney Stones: No Musculoskeletal: Yes Neurologic: No Psychiatric: Yes Reproductive: No Respiratory: Yes Immunizations Current: Yes Migraines: No Radiation Therapy: No Renal Failure: No Seizures: No Sleep Apnea: No Thyroid Disease: No Ulcer: No Menopausal: Yes Past Surgical History Abdominal Surgery: Yes (appendectomy) AICD: No Appendectomy: Yes Body Medical Devices: INTERSTEM LEFT BUTTUCK AND RIGHT HEEL BOLT Cardiac Surgery: No Ear Surgery: No Endocrine Surgery: Yes Eye Surgery: Yes (cataracts) Genitourinary Surgery: Yes (inner stem therapy lt buttock) Gynecologic Surgery: Yes (hysterectomy) Hysterectomy: Yes Joint Replacement: Yes (hip replacement) Neurologic Surgery: No Oral Surgery: Yes (tonsilectomy) Pacemaker: No Thoracic Surgery: Yes (lung biospy, mediastymectomy) Tonsillectomy: Yes Other Surgery: Yes (tonsilectomy, historectomy, apendectomy, mediastymectomy, lung biopsy) Social History Alcohol Use: No Tobacco Use: No (quit) Substance Use: No Allergies-Medications (Allergen,Severity, Reaction): Coded Allergies: No Known Allergies (Unverified , 03/08/17) Reported Meds & Prescriptions Reported Meds & Active Scripts Active Prednisone 10 Mg Tab 10 Mg PO DAILY Magnesium Oxide 400 Mg Tab 400 Mg PO Q12HR [guaiFENesin ER] 600 MG Tabcr 600 Mg PO BID Twvylzapwl-Puzsqpymchoxd-Afhnqxdx 50-325-40 Mg Tab 1 Tab PO Q6H PRN Do not exceed 6 tablets/day. Coumadin (Warfarin) 2.5 Mg Tab 2.5 Mg PO MOWEFR@16 Coumadin (Warfarin) 4 Mg Tab 4 Mg PO SUTUTHSA@1600 Potassium Chloride ER (Potassium Chloride) 20 Meq Tab 40 Meq PO BID Lasix (Furosemide) 80 Mg Tab 80 Mg PO BID Symbicort Inh (Budesonide/Formoterol Fumarate) 160-4.5 Mcg/Act Aero 2 Puff INH Q12HR Benadryl Allergy (Diphenhydramine HCl) 25 Mg Cap 25 Mg PO HS PRN Duoneb (Ipratropium-Albuterol Neb) 0.5-2.5 Mg/3 Ml Neb 1 Nebule INH Q4HR NEB Ocuvite (Multiple Vitamins W/ Minerals) 1 Tab 1 Tab PO DAILY Percocet (Oxycodone-Acetaminophen) 5-325 mg Tab 1 Tab PO Q4H PRN Duloxetine DR (Duloxetine HCl) 30 Mg Capdr 30 Mg PO DAILY Potassium Chloride ER (Potassium Chloride) 10 Meq Tab 10 Meq PO BID Sildenafil 20 Mg Tab 60 Mg PO BID Carvedilol 6.25 Mg Tab 6.25 Mg PO BID Aspirin 81 (Aspirin) 81 Mg Tabdr 81 Mg PO DAILY Simvastatin 20 Mg Tab 20 Mg PO DAILY Glucosamine (Glucosamine Sulfate) 1,000 Mg Cap 1,000 Mg PO DAILY Reported Delestrogen Valerate Inj (Estradiol Valerate) 10 Mg/Ml Inj 1 Mg IM MONTHLY Review of Systems General / Constitutional: No: Fever Eyes: No: Visual changes HENT: No: Headaches Cardiovascular: Positive: Chest Pain or Discomfort Respiratory: Positive: Cough, Shortness of Breath Gastrointestinal: No: Abdominal Pain Genitourinary: No: Dysuria Musculoskeletal: No: Pain Skin: No Rash Neurologic: No: Weakness Psychiatric: No: Depression Endocrine: No: Polydipsia Hematologic/Lymphatic: No: Easy Bruising Physical Exam Narrative GENERAL: Well-nourished, well-developed patient. SKIN: Focused skin assessment warm/dry. HEAD: Normocephalic. EYES: No scleral icterus. No injection or drainage. NECK: Supple, trachea midline. No JVD or lymphadenopathy. CARDIOVASCULAR: Regular rate and rhythm without murmurs, gallops, or rubs. RESPIRATORY: Breath sounds equal bilaterally. No accessory muscle use. Patient has moderate rhonchi bibasilar. No wheezes. GASTROINTESTINAL: Abdomen soft, non-tender, nondistended. MUSCULOSKELETAL: No cyanosis, or edema. BACK: Nontender without obvious deformity. No CVA tenderness. Neurologic exam normal. Data Data Last Documented VS Vital Signs Date Time Temp Pulse Resp B/P (MAP) Pulse Ox O2 Delivery O2 Flow Rate FiO2 06/10/17 18:19 100.3 94 22 110/55 (73) 97 Nasal Cannula 3.00 Orders Orders Complete Blood Count With Diff (06/10/17 18:27) Comprehensive Metabolic Panel (06/10/17 18:27) B-Type Natriuretic Peptide (06/10/17 18:27) Act Partial Throm Time (Ptt) (06/10/17 18:27) Prothrombin Time / Inr (Pt) (06/10/17 18:27) Magnesium (Mg) (06/10/17 18:27) Ckmb (Isoenzyme) Profile (06/10/17 18:27) Troponin I (06/10/17 18:27) Electrocardiogram (06/10/17 18:27) Chest, Pa & Lat (06/10/17 18:27) Lactic Acid (06/10/17 18:29) Methylprednisolone So Succ Inj (Solumedr (06/10/17 19:45) Albuterol-Ipratropium Neb (Duoneb Neb) (06/10/17 19:45) Influenzae A/B Antigen (06/10/17 20:30) Ceftriaxone Inj (Rocephin Inj) (06/10/17 20:45) Azithromycin Inj (Zithromax Inj) (06/10/17 20:45) Labs Laboratory Tests Test 06/10/17 20:30 White Blood Count 16.5 TH/MM3 Red Blood Count 4.11 MIL/MM3 Hemoglobin 11.8 GM/DL Hematocrit 36.3 % Mean Corpuscular Volume 88.5 FL Mean Corpuscular Hemoglobin 28.8 PG Mean Corpuscular Hemoglobin Concent 32.6 % Red Cell Distribution Width 16.5 % Platelet Count 286 TH/MM3 Mean Platelet Volume 7.7 FL Neutrophils (%) (Auto) 93.0 % Lymphocytes (%) (Auto) 2.3 % Monocytes (%) (Auto) 4.3 % Eosinophils (%) (Auto) 0.2 % Basophils (%) (Auto) 0.2 % Neutrophils # (Auto) 15.3 TH/MM3 Lymphocytes # (Auto) 0.4 TH/MM3 Monocytes # (Auto) 0.7 TH/MM3 Eosinophils # (Auto) 0.0 TH/MM3 Basophils # (Auto) 0.0 TH/MM3 CBC Comment DIFF FINAL Differential Comment Prothrombin Time 43.5 SEC Prothromb Time International Ratio 4.3 RATIO Activated Partial Thromboplast Time 51.1 SEC Blood Urea Nitrogen 15 MG/DL Creatinine 0.92 MG/DL Random Glucose 116 MG/DL Total Protein 7.6 GM/DL Albumin 3.2 GM/DL Calcium Level 9.4 MG/DL Magnesium Level 1.9 MG/DL Alkaline Phosphatase 103 U/L Aspartate Amino Transf (AST/SGOT) 13 U/L Alanine Aminotransferase (ALT/SGPT) 12 U/L Total Bilirubin 0.6 MG/DL Sodium Level 133 MEQ/L Potassium Level 3.7 MEQ/L Chloride Level 93 MEQ/L Carbon Dioxide Level 31.7 MEQ/L Anion Gap 8 MEQ/L Estimat Glomerular Filtration Rate 60 ML/MIN Lactic Acid Level 1.2 mmol/L Total Creatine Kinase 21 U/L Troponin I LESS THAN 0.02 NG/ML B-Type Natriuretic Peptide 349 PG/ML MDM Medical Decision Making Medical Screen Exam Complete: Yes Emergency Medical Condition: Yes Interpretation(s) Last Impressions Chest X-Ray 06/10/17 1471 Signed Impressions: Service Date/Time: Saturday, June 10, 2017 18:43 - CONCLUSION: Airspace disease right upper lobe. Diffuse interstitial prominence is stable. Doe Cruz MD 21:53 PM. CBC WBC 16.5. 92 neutrophil. Sodium 133. GFR 60. Triassic 1.2. AST 13. Cardiac enzymes are normal. BNP 349. INR 4.3. Differential Diagnosis Differential diagnosis including acute exacerbation of COPD, CHF, pulmonary hypertension, bronchitis, pneumonia, PE, pneumothorax. Narrative Course 76-year-old female chest pain and shortness of breath. History of COPD, CHF and pulmonary hypertension. Patient's on home O2. O2 saturation in the 80s. Albuterol with Atrovent unit dose treatment 1. Solu-Medrol 125 mg IV. Rocephin 1 g IV. Zithromax 500 mg IV. Diagnosis Primary Impression: Pneumonia Qualified Codes: J18.1 - Lobar pneumonia, unspecified organism Admitting Information Admitting Physician Requests: Admit Jace Lopez MD Jun 10, 2017 19:53
[2017-06-10] MEDS ORDERED: cefTRIAXone INJ 1,000 MG in SODIUM CHLORIDE 0.9% INJ 100 ML IV ONE (20:45)
[2017-06-10] MEDS ORDERED: AZITHROMYCIN INJ 500 MG in SODIUM CHLOR 0.9% 250 ML INJ 250 ML IV ONE (20:45)
[2017-06-10 20:52] LABS: AUTOMATED NEUTROPHIL # 15.3 TH/MM3 (1.8-7.7); BASOPHIL % 0.2 % (0.0-2.0); EOSINOPHIL % 0.2 % (0.0-4.0); HEMATOCRIT 36.3 % (35.0-46.0); HEMOGLOBIN 11.8 GM/DL (11.6-15.3); LYMPH % 2.3 % (9.0-44.0); LYMPHOCYTE # 0.4 TH/MM3 (1.0-4.8); MEAN CELL VOLUME 88.5 FL (80.0-100.0); MEAN CORPUSCULAR HEMOGLOBIN 28.8 PG (27.0-34.0); MEAN CORPUSCULAR HGB CONC 32.6 % (32.0-36.0); MEAN PLATELET VOLUME 7.7 FL (7.0-11.0); MONO % 4.3 % (0.0-8.0); MONOCYTE # 0.7 TH/MM3 (0-0.9); PLATELET COUNT 286 TH/MM3 (150-450); RED BLOOD COUNT 4.11 MIL/MM3 (4.00-5.30); RED CELL DISTRIBUTION WIDTH 16.5 % (11.6-17.2); WHITE BLOOD COUNT 16.5 TH/MM3 (4.0-11.0)
[2017-06-10 21:08] LABS: ALBUMIN 3.2 GM/DL (3.4-5.0); ALT (GPT) 12 U/L (10-53); AST (GOT) 13 U/L (15-37); BICARBONATE 31.7 MEQ/L (21.0-32.0); BLOOD UREA NITROGEN 15 MG/DL (7-18); CALCIUM 9.4 MG/DL (8.5-10.1); CHLORIDE 93 MEQ/L (98-107); CREATININE 0.92 MG/DL (0.50-1.00); GLOMERULAR FILTRATION RATE 60 ML/MIN (>89); GLUCOSE,RANDOM 116 MG/DL (74-106); MAGNESIUM 1.9 MG/DL (1.5-2.5); SODIUM (NA) 133 MEQ/L (136-145)
[2017-06-10 21:11] LABS: INTERNATIONAL NORMALIZED RATIO 4.3 RATIO; PROTHROMBIN TIME - PATIENT 43.5 SEC (9.8-11.6)
[2017-06-10 21:15] LABS: ALKALINE PHOSPHATASE 103 U/L (45-117); TOTAL BILIRUBIN ADULT 0.6 MG/DL (0.2-1.0); TOTAL PROTEIN 7.6 GM/DL (6.4-8.2); TROPONIN I LESS THAN 0.02 NG/ML (0.02-0.05)
[2017-06-10] MEDS ORDERED: NALOXONE HCL 0.4 MG/ML AMP IV PUSH PRN (22:45)
[2017-06-10 22:57] VITALS: BP 137/78; PULSE 77; RESP 18; TEMP 98.7; O2SAT 95
[2017-06-10] MEDS: LEVOFLOXACIN 750 MG PREMIX INJ 150 ML IV SCH (23:08)
[2017-06-11] VITALS (12 sets, daily range): BP systolic 100–151; BP diastolic 54–90; PULSE 68–79; RESP 17–28; TEMP 97.2–97.9; O2SAT 92–98
[2017-06-11] MEDS: methylPREDNISolone SOD SUCC 40 MG/1 ML VIAL IV PUSH SCH ×5 (00:44→23:24)
[2017-06-11] MEDS ORDERED: diphenhydrAMINE HCL 25 MG CAP PO ONE (02:00)
[2017-06-11] MEDS: RESP: ALBUTEROL 2.5 MG/IPRATROPIUM 0.5 MG NEB (SCH) NEB ×4 (04:42→22:01)
--- NOTE | 2017-06-11 05:43 | HHI.HP ---
HPI Service [facility] Primary Care Physician Yonny Awad MD Admission Diagnosis pneumonia. History COPD. History of CHF. Diagnoses: Travel History International Travel<30 Days: No Contact w/Intl Traveler <30 Da: No Traveled to Known Affected Are: No History of Present Illness History from patient, ER physician communication, and review of medical records. Patient reported that she came to the hospital because she has been short of breath for the past 1 week. Denies cough. Denies fever. However reports that she did have episodes of cold and hot symptoms. She denies any sputum production. Patient reports of associated chest tightness. No radiation. States the chest pain only sits in the middle of his chest. No radiation. Denies any association with this. Patient has prior history of COPD, CHF, pulmonary hypertension. Review of Systems Except as stated in HPI: all other systems reviewed are Neg Past Family Social History Past Medical History copd chf 3L NC home oxygen afib hx of DVT about 30yrs ago chronic anticoagulation on coumadin Past Surgical History Tonsillectomy Appendectomy Hysterectomy mediastinum polyps removal left hip replacement Allergies: Coded Allergies: No Known Allergies (Unverified , 03/08/17) Family History none that she knows of mom- massive hemorrhagic CVA from uncontrolled htn Social History used to smoke quit 30yrs no etoh abuse or drug abuse lives with son, still drives though minimal amount Physical Exam Vital Signs Vital Signs Date Time Temp Pulse Resp B/P (MAP) Pulse Ox O2 Delivery O2 Flow Rate FiO2 06/11/17 00:19 97.8 71 19 131/90 (104) 96 06/10/17 23:38 06/10/17 22:57 98.7 77 18 137/78 (97) 95 Nasal Cannula 3.00 06/10/17 18:19 100.3 94 22 110/55 (73) 97 Nasal Cannula 3.00 Physical Exam GENERAL: This is a well-nourished, well-developed patient, in no apparent distress. SKIN: No rashes, ecchymoses or lesions. Cool and dry. HEAD: Atraumatic. Normocephalic. No temporal or scalp tenderness. EYES: No scleral icterus. No injection or drainage. ENT: Nose without bleeding, purulent drainage or septal hematoma. Airway patent. NECK: Trachea midline. No JVD CARDIOVASCULAR: Heart rate is regular, no murmur appreciated. RESPIRATORY: Bilaterally decreased air entry. Expiratory wheezing bilaterally. GASTROINTESTINAL: Abdomen soft, non-tender, nondistended. No hepato-splenomegaly , or palpable masses. No guarding. MUSCULOSKELETAL: Extremities without clubbing, cyanosis, or edema. No joint tenderness, effusion, or edema noted. No calf tenderness. NEUROLOGICAL: Awake and alert. Motor and sensory grossly within normal limits.Normal speech. Laboratory Laboratory Tests Test 06/10/17 20:30 White Blood Count 16.5 Red Blood Count 4.11 Hemoglobin 11.8 Hematocrit 36.3 Mean Corpuscular Volume 88.5 Mean Corpuscular Hemoglobin 28.8 Mean Corpuscular Hemoglobin Concent 32.6 Red Cell Distribution Width 16.5 Platelet Count 286 Mean Platelet Volume 7.7 Neutrophils (%) (Auto) 93.0 Lymphocytes (%) (Auto) 2.3 Monocytes (%) (Auto) 4.3 Eosinophils (%) (Auto) 0.2 Basophils (%) (Auto) 0.2 Neutrophils # (Auto) 15.3 Lymphocytes # (Auto) 0.4 Monocytes # (Auto) 0.7 Eosinophils # (Auto) 0.0 Basophils # (Auto) 0.0 CBC Comment DIFF FINAL Differential Comment Prothrombin Time 43.5 Prothromb Time International Ratio 4.3 Activated Partial Thromboplast Time 51.1 Blood Urea Nitrogen 15 Creatinine 0.92 Random Glucose 116 Total Protein 7.6 Albumin 3.2 Calcium Level 9.4 Magnesium Level 1.9 Alkaline Phosphatase 103 Aspartate Amino Transf (AST/SGOT) 13 Alanine Aminotransferase (ALT/SGPT) 12 Total Bilirubin 0.6 Sodium Level 133 Potassium Level 3.7 Chloride Level 93 Carbon Dioxide Level 31.7 Anion Gap 8 Estimat Glomerular Filtration Rate 60 Lactic Acid Level 1.2 Total Creatine Kinase 21 Troponin I LESS THAN 0.02 B-Type Natriuretic Peptide 349 Date/Time Source Procedure Growth Status 06/10/17 22:15 Nasal Washing Influenza Types A,B Antigen (PURVI) - Final NEGATIVE FOR FLU A AND B ANTIGEN.... Complete Result Diagram: 06/10/17202906/10/172029 Imaging Last 48 hours Impressions Chest X-Ray 06/10/17 [id number] Signed Impressions: Service Date/Time: Saturday, June 10, 2017 18:43 - CONCLUSION: Airspace disease right upper lobe. Diffuse interstitial prominence is stable. MD Anjelica Alston VTE Risk Assessment Captiarra VTE Risk Assessment: Mod/High Risk (score >= 2) Caprini Risk Assessment Model Point Value = 1 Point Value = 2 Point Value = 3 Point Value = 5 Age 41-60 Minor surgery BMI > 25 kg/m2 Swollen legs Varicose veins or History of unexplained or recurrent spontaneous Oral contraceptives or hormone replacement Sepsis (< 1 month) Serious lung disease, including pneumonia (< 1 month) Abnormal pulmonary function Acute myocardial infarction Congestive heart failure (< 1 month) History of inflammatory bowel disease Medical patient at bed rest Age 61-74 Arthroscopic surgery Major open surgery (> 45 min) Laparoscopic surgery (> 45 min) Malignancy Confined to bed (> 72 hours) Immobilizing plaster cast Central venous access Age >= 75 History of VTE Family history of VTE Factor V Leiden Prothrombin [id number] Lupus anticoagulant Anticardiolipin antibodies Elevated serum homocysteine Heparin-induced thrombocytopenia Other congenital or acquired thrombophilia Stroke (< 1 month) Elective arthroplasty Hip, pelvis, or leg fracture Acute spinal cord injury (< 1 month) Prophylaxis Regimen Total Risk Factor Score Risk Level Prophylaxis Regimen 0-1 Low Early ambulation 2 Moderate Order ONE of the following: *Sequential Compression Device (SCD) *Heparin 5000 units SQ BID 3-4 Higher Order ONE of the following medications: *Heparin 5000 units SQ TID *Enoxaparin/Lovenox 40 mg SQ daily (WT < 150 kg, CrCl > 30 mL/min) *Enoxaparin/Lovenox 30 mg SQ daily (WT < 150 kg, CrCl > 10-29 mL/min) *Enoxaparin/Lovenox 30 mg SQ BID (WT < 150 kg, CrCl > 30 mL/min) AND/OR *Sequential Compression Device (SCD) 5 or more Highest Order ONE of the following medications: *Heparin 5000 units SQ TID (Preferred with Epidurals) *Enoxaparin/Lovenox 40 mg SQ daily (WT < 150 kg, CrCl > 30 mL/min) *Enoxaparin/Lovenox 30 mg SQ daily (WT < 150 kg, CrCl > 10-29 mL/min) *Enoxaparin/Lovenox 30 mg SQ BID (WT < 150 kg, CrCl > 30 mL/min) AND *Sequential Compression Device (SCD) Assessment and Plan Assessment and Plan Impression: Right upper lobe pneumonia. No evidence of aspiration per history. Hypoxic respiratory failure COPD exacerbation Mild CHF exacerbation. Elevated BNP Leukocytosis with left shift read patient is on steroids at home. Supratherapeutic INR afib hx of DVT about 30yrs ago chronic anticoagulation on coumadin Plan: Patient received Rocephin and azithromycin in ER. We'll switch to levofloxacin 750 g IV every 24 hours. Nebulizers. Steroids tapering dose. For now, 40 mg IV Solu-Medrol every 6 hours. Lasix 80 mg by mouth twice a day to resume. Occasionally, if she is severely short of breath, may need IV Lasix. However at present, patient is quite comfortable. She is saturating 96% on 3 L nasal cannula which is her home oxygen setting. DVT prophylaxis. Resume Coumadin once INR is less than 3. Discussed Condition With Patient, ER physician, nursing staff Physician Certification 2 Midnight Certification Type: Admission for Inpatient Services Order for Inpatient Services The services are ordered in accordance with Medicare regulations or non- Medicare payer requirements, as applicable. In the case of services not specified as inpatient-only, they are appropriately provided as inpatient services in accordance with the 2-midnight benchmark. Estimated LOS (days): 2 days is the estimated time the patient will need to remain in the hospital, assuming treatment plan goals are met and no additional complications. Post-Hospital Plan: Home Meaghan Seaman MD Jun 11, 2017 05:43
[2017-06-11] MEDS: oxyCODONE/ACETAMINOPHEN 5 MG/325 MG TAB PO PRN ×3 (06:04→17:37)
[2017-06-11] MEDS: CARVEDILOL 6.25 MG TAB PO SCH ×2 (08:40→21:00)
[2017-06-11] MEDS: MAGNESIUM OXIDE 400 MG TAB PO SCH ×2 (08:40→21:17)
[2017-06-11] MEDS: FAMOTIDINE 20 MG TAB PO SCH ×2 (08:40→21:20)
[2017-06-11] MEDS: ASPIRIN EC 81 MG TABEC PO SCH (08:40)
[2017-06-11] MEDS: PRAVASTATIN SOD 40 MG TAB PO SCH (08:40)
[2017-06-11] MEDS: DULoxetine HCl DR 30 MG CAP PO SCH (08:40)
--- NOTE | 2017-06-11 08:41 | HHI.PR ---
Subjective Remarks Follow up pneumonia. Patient states that her breathing is starting to improve. Still with dyspnea, cough. No other complaints at this time. Objective Vitals Vital Signs Date Time Temp Pulse Resp B/P (MAP) Pulse Ox O2 Delivery O2 Flow Rate FiO2 06/11/17 04:00 97.9 69 17 127/59 (81) 97 06/11/17 00:19 97.8 71 19 131/90 (104) 96 06/10/17 23:38 06/10/17 22:57 98.7 77 18 137/78 (97) 95 Nasal Cannula 3.00 06/10/17 18:19 100.3 94 22 110/55 (73) 97 Nasal Cannula 3.00 I/O 06/10/17 06/10/17 06/10/17 06/11/17 06/11/17 06/11/17 07:00 15:00 23:00 07:00 15:00 23:00 Intake Total 220 ml 750 ml Balance 220 ml 750 ml Intake Oral 120 ml 350 ml IV Total 100 ml 400 ml # Voids 3 Result Diagram: 06/10/17202906/10/172029 Imaging Last Impressions Chest X-Ray 06/10/171826 Signed Impressions: Service Date/Time: Saturday, June 10, 2017 18:43 - CONCLUSION: Airspace disease right upper lobe. Diffuse interstitial prominence is stable. Doe Cruz MD Objective Remarks General: No acute distress. Heart: Regular rate and rhythm. No murmur. Lungs: Diffuse wheeze, decreased air entry bilaterally. Breathing is nonlabored. Abdomen: Soft, nontender, nondistended. Extremities: No lower extremity edema. Psych: Alert and oriented. Procedures None Urinary Catheter: No Vascular Central Line Catheter: No A/P Assessment and Plan 1. Right upper lobe pneumonia: Continue Levaquin. Continue supplemental oxygen. 2. COPD exacerbation: Continue steroids, nebulizers, antibiotics. On 3 L per nasal cannula, which is the patient's baseline oxygen requirement at home. Symptoms are starting to improve. 3. Mild acute exacerbation of chronic systolic congestive heart failure: Continue Lasix. 4. Atrial fibrillation rate controlled. Coumadin on hold secondary to elevated INR. 5. Over anticoagulation with Coumadin: INR is elevated. Hold Coumadin. 6. History of DVT: Coumadin on hold as INR is supratherapeutic. Discharge Planning Pending further clinical improvement. Dread Franklin MD Jun 11, 2017 08:41
[2017-06-11] MEDS: SODIUM CHLORIDE 0.9% FLUSH 10 ML FLUSH IV FLUSH SCH ×2 (08:44→21:40)
[2017-06-11] MEDS ORDERED: RANITIDINE HCL SYRUP 150 MG/10 ML UDC PO SCH (09:00)
[2017-06-11] MEDS ORDERED: FUROSEMIDE 80 MG TAB PO SCH (09:00)
[2017-06-11] MEDS: BUDESONIDE-FORMOTEROL 160/4.5 MCG INHALER INH SCH ×2 (10:09→21:35)
[2017-06-11] MEDS: SILDENAFIL CITRATE 20 MG TAB PO SCH ×2 (10:49→22:00)
[2017-06-11 17:20] LABS: AUTOMATED NEUTROPHIL # 11.4 TH/MM3 (1.8-7.7); BASOPHIL % 0.4 % (0.0-2.0); HEMATOCRIT 32.6 % (35.0-46.0); HEMOGLOBIN 10.9 GM/DL (11.6-15.3); LYMPH % 2.9 % (9.0-44.0); LYMPHOCYTE # 0.4 TH/MM3 (1.0-4.8); MEAN CELL VOLUME 88.4 FL (80.0-100.0); MEAN CORPUSCULAR HEMOGLOBIN 29.6 PG (27.0-34.0); MEAN CORPUSCULAR HGB CONC 33.4 % (32.0-36.0); MEAN PLATELET VOLUME 8.5 FL (7.0-11.0); MONO % 2.3 % (0.0-8.0); MONOCYTE # 0.3 TH/MM3 (0-0.9); NEUT % 94.4 % (16.0-70.0); PLATELET COUNT 266 TH/MM3 (150-450); RED BLOOD COUNT 3.69 MIL/MM3 (4.00-5.30); RED CELL DISTRIBUTION WIDTH 16.4 % (11.6-17.2); WHITE BLOOD COUNT 12.1 TH/MM3 (4.0-11.0)
[2017-06-11 17:25] LABS: PROTHROMBIN TIME - PATIENT 63.5 SEC (9.8-11.6)
[2017-06-11 17:39] LABS: BICARBONATE 29.7 MEQ/L (21.0-32.0); CALCIUM 9.3 MG/DL (8.5-10.1); CREATININE 1.17 MG/DL (0.50-1.00); INTERNATIONAL NORMALIZED RATIO 6.3 RATIO
[2017-06-11] MEDS ORDERED: PHYTONADIONE 10 MG/ML VIAL SQ ONE (20:00)
--- NOTE | 2017-06-11 20:53 | EKG ---
Date Performed: 06/10/2017 Time Performed: 20:26:48 PTAGE: 76 years EKG: ATRIAL FIBRILLATION INCOMPLETE RIGHT BUNDLE BRANCH BLOCK SEPTAL MYOCARDIAL INFARCTION ABNOR MAL ECG PREVIOUS TRACING 02/07/17 @ 06.23 SINCE PRIOR TRACING NO SIGNIFICANT CHANGE NOTED DOCTOR: Alexandra Hernandez Interpretating Date/Time 06/11/2017 20:51:52
[2017-06-11] MEDS: diphenhydrAMINE HCL 50 MG CAP PO PRN (21:17)
[2017-06-11] MEDS: LEVOFLOXACIN 750 MG PREMIX INJ 150 ML IV SCH (22:01)
[2017-06-11] MEDS: SODIUM CHLORIDE 0.9% FLUSH 10 ML FLUSH IV FLUSH PRN (23:24)
[2017-06-12] VITALS (14 sets, daily range): BP systolic 114–138; BP diastolic 58–78; PULSE 66–96; RESP 17–20; TEMP 97.3–98; O2SAT 92–96
[2017-06-12] MEDS: RESP: ALBUTEROL 2.5 MG/IPRATROPIUM 0.5 MG NEB (SCH) NEB ×4 (03:11→21:06)
[2017-06-12] MEDS: methylPREDNISolone SOD SUCC 40 MG/1 ML VIAL IV PUSH SCH ×4 (05:54→23:37)
[2017-06-12] MEDS: oxyCODONE/ACETAMINOPHEN 5 MG/325 MG TAB PO PRN ×4 (05:54→20:28)
[2017-06-12] MEDS: SODIUM CHLORIDE 0.9% FLUSH 10 ML FLUSH IV FLUSH PRN (05:54)
[2017-06-12] MEDS: FUROSEMIDE 80 MG TAB PO SCH ×2 (05:54→12:10)
[2017-06-12] MEDS: CARVEDILOL 6.25 MG TAB PO SCH ×2 (08:11→20:31)
[2017-06-12] MEDS: BUDESONIDE-FORMOTEROL 160/4.5 MCG INHALER INH SCH ×2 (08:11→20:42)
[2017-06-12] MEDS: MAGNESIUM OXIDE 400 MG TAB PO SCH ×2 (08:11→20:29)
[2017-06-12] MEDS: SODIUM CHLORIDE 0.9% FLUSH 10 ML FLUSH IV FLUSH SCH ×2 (08:11→23:37)
[2017-06-12] MEDS: PRAVASTATIN SOD 40 MG TAB PO SCH (08:12)
[2017-06-12] MEDS: DULoxetine HCl DR 30 MG CAP PO SCH (08:13)
[2017-06-12] MEDS: SILDENAFIL CITRATE 20 MG TAB PO SCH ×2 (08:14→20:40)
[2017-06-12] MEDS: ASPIRIN EC 81 MG TABEC PO SCH (08:15)
[2017-06-12] MEDS: FAMOTIDINE 20 MG TAB PO SCH ×2 (08:16→20:30)
[2017-06-12 09:17] LABS: INTERNATIONAL NORMALIZED RATIO 5.8 RATIO; PROTHROMBIN TIME - PATIENT 58.5 SEC (9.8-11.6)
[2017-06-12 12:28] LABS: AUTOMATED NEUTROPHIL # 13.7 TH/MM3 (1.8-7.7); BASOPHIL % 0.1 % (0.0-2.0); HEMATOCRIT 33.2 % (35.0-46.0); LYMPH % 2.3 % (9.0-44.0); LYMPHOCYTE # 0.3 TH/MM3 (1.0-4.8); MEAN CELL VOLUME 89.6 FL (80.0-100.0); MEAN CORPUSCULAR HEMOGLOBIN 29.6 PG (27.0-34.0); MEAN CORPUSCULAR HGB CONC 33.1 % (32.0-36.0); MONO % 5.1 % (0.0-8.0); MONOCYTE # 0.8 TH/MM3 (0-0.9); NEUT % 92.5 % (16.0-70.0); PLATELET COUNT 260 TH/MM3 (150-450); RED BLOOD COUNT 3.71 MIL/MM3 (4.00-5.30); RED CELL DISTRIBUTION WIDTH 16.8 % (11.6-17.2); WHITE BLOOD COUNT 14.8 TH/MM3 (4.0-11.0)
[2017-06-12 12:51] LABS: CALCIUM 9.2 MG/DL (8.5-10.1); CREATININE 1.05 MG/DL (0.50-1.00)
[2017-06-12] MEDS ORDERED: MAGNESIUM HYDROXIDE SUSP 30 ML CUP PO PRN (13:00)
[2017-06-12] MEDS ORDERED: LACTULOSE SYRUP 20 GM/30 ML CUP PO PRN (13:00)
[2017-06-12] MEDS ORDERED: SENNOSIDES 8.6 MG TAB PO PRN (13:00)
[2017-06-12] MEDS ORDERED: BISACODYL 10 MG SUPP RECTAL PRN (13:00)
[2017-06-12] MEDS ORDERED: PHYTONADIONE 10 MG/ML VIAL SQ ONE (13:30)
--- NOTE | 2017-06-12 13:57 | HHI.PR ---
Subjective Remarks Follow-up COPD, pneumonia. Patient states that her breathing is slightly better today. Still with cough, wheezing. Objective Vitals Vital Signs Date Time Temp Pulse Resp B/P (MAP) Pulse Ox O2 Delivery O2 Flow Rate FiO2 06/12/17 12:41 97.3 68 17 114/59 (77) 94 06/12/17 09:30 71 06/12/17 09:17 92 Nasal Cannula 3.00 06/12/17 07:53 97.8 74 20 138/63 (88) 93 06/12/17 06:22 97.7 66 18 124/78 (93) 96 06/12/17 04:00 73 06/12/17 00:23 97.4 72 18 116/59 (78) 95 06/12/17 00:00 68 06/11/17 20:49 97.2 75 18 108/55 (72) 96 06/11/17 16:00 68 06/11/17 15:56 95 Nasal Cannula 3.00 06/11/17 15:52 97.8 76 20 151/60 (90) 94 I/O 06/11/17 06/11/17 06/11/17 06/12/17 06/12/17 06/12/17 07:00 15:00 23:00 07:00 15:00 23:00 Intake Total 750 ml 240 ml Balance 750 ml 240 ml Intake Oral 350 ml 240 ml IV Total 400 ml # Voids 3 1 3 3 # Bowel Movements 1 Result Diagram: 06/12/17 1200 06/12/17 1200 Imaging Last Impressions Chest X-Ray 06/10/17 1827 Signed Impressions: Service Date/Time: Saturday, June 10, 2017 18:43 - CONCLUSION: Airspace disease right upper lobe. Diffuse interstitial prominence is stable. Doe Cruz MD Objective Remarks General: No acute distress. Heart: Regular rate and rhythm. No murmur. Lungs: Diffuse wheeze. Breathing is nonlabored. Abdomen: Soft, nontender, nondistended. Extremities: No lower extremity edema. Psych: Alert and oriented. Procedures None Urinary Catheter: No Vascular Central Line Catheter: No A/P Assessment and Plan 1. Right upper lobe pneumonia: Continue Levaquin. Continue supplemental oxygen. 2. COPD exacerbation: Continue steroids, nebulizers, antibiotics. On 3 L per nasal cannula, which is the patient's baseline oxygen requirement at home. Symptoms are improving. 3. Mild acute exacerbation of chronic systolic congestive heart failure: Continue Lasix. Supplement potassium. 4. Atrial fibrillation rate controlled. Coumadin on hold secondary to elevated INR. 5. Over anticoagulation with Coumadin: INR is elevated. Hold Coumadin. We'll give vitamin K again. 6. History of DVT: Coumadin on hold as INR is supratherapeutic. Discharge Planning Pending further clinical improvement. Dread Franklin MD Jun 12, 2017 13:57
[2017-06-12] MEDS ORDERED: POTASSIUM CHLORIDE 20 MEQ CONTROLLED RELEASE TAB PO SCH (14:00)
[2017-06-12] MEDS: DOCUSATE SODIUM 50 MG/SENNA 8.6 MG TAB PO SCH ×2 (14:03→20:29)
[2017-06-12] MEDS ORDERED: PILL SPLITTER OTHER PRN (15:45)
[2017-06-12] MEDS: diphenhydrAMINE HCL 50 MG CAP PO PRN (21:22)
[2017-06-12] MEDS: POTASSIUM CHLORIDE 20 MEQ CONTROLLED RELEASE TAB PO SCH (21:38)
[2017-06-12] MEDS: LEVOFLOXACIN 750 MG PREMIX INJ 150 ML IV SCH (22:42)
[2017-06-12] MEDS ORDERED: ALUMINUM/MAGNESIUM/SIMETH 30 ML CUP PO ONE (23:00)
[2017-06-12 23:58] LABS: TROPONIN I LESS THAN 0.02 NG/ML (0.02-0.05)
[2017-06-13] VITALS (8 sets, daily range): BP systolic 105–163; BP diastolic 59–79; PULSE 77–100; RESP 18–20; TEMP 97.3–98.3; O2SAT 92–98
[2017-06-13] MEDS: oxyCODONE/ACETAMINOPHEN 5 MG/325 MG TAB PO PRN ×5 (00:46→18:14)
[2017-06-13] MEDS: RESP: ALBUTEROL 2.5 MG/IPRATROPIUM 0.5 MG NEB (SCH) NEB ×4 (02:22→19:57)
[2017-06-13] MEDS: FUROSEMIDE 80 MG TAB PO SCH ×2 (06:05→12:07)
[2017-06-13] MEDS: SODIUM CHLORIDE 0.9% FLUSH 10 ML FLUSH IV FLUSH PRN (06:06)
[2017-06-13] MEDS: methylPREDNISolone SOD SUCC 40 MG/1 ML VIAL IV PUSH SCH ×4 (06:06→20:56)
[2017-06-13 07:09] LABS: AUTOMATED NEUTROPHIL # 12.1 TH/MM3 (1.8-7.7); HEMOGLOBIN 11.2 GM/DL (11.6-15.3); LYMPHOCYTE # 0.4 TH/MM3 (1.0-4.8); MEAN CELL VOLUME 88.1 FL (80.0-100.0); MEAN CORPUSCULAR HGB CONC 32.9 % (32.0-36.0); MEAN PLATELET VOLUME 7.5 FL (7.0-11.0); MONO % 4.2 % (0.0-8.0); MONOCYTE # 0.6 TH/MM3 (0-0.9); NEUT % 92.8 % (16.0-70.0); PLATELET COUNT 267 TH/MM3 (150-450); RED BLOOD COUNT 3.86 MIL/MM3 (4.00-5.30); RED CELL DISTRIBUTION WIDTH 16.6 % (11.6-17.2); WHITE BLOOD COUNT 13.1 TH/MM3 (4.0-11.0)
[2017-06-13 07:15] LABS: PROTHROMBIN TIME - PATIENT 20.1 SEC (9.8-11.6)
[2017-06-13 07:36] LABS: TROPONIN I LESS THAN 0.02 NG/ML (0.02-0.05)
[2017-06-13 07:43] LABS: BICARBONATE 31.8 MEQ/L (21.0-32.0); CALCIUM 9.5 MG/DL (8.5-10.1); CREATININE 1.08 MG/DL (0.50-1.00); MAGNESIUM 2.5 MG/DL (1.5-2.5)
[2017-06-13] MEDS: DOCUSATE SODIUM 50 MG/SENNA 8.6 MG TAB PO SCH ×2 (08:06→20:56)
[2017-06-13] MEDS: PRAVASTATIN SOD 40 MG TAB PO SCH (08:08)
[2017-06-13] MEDS: ASPIRIN EC 81 MG TABEC PO SCH (08:08)
[2017-06-13] MEDS: DULoxetine HCl DR 30 MG CAP PO SCH (08:09)
[2017-06-13] MEDS: SILDENAFIL CITRATE 20 MG TAB PO SCH ×2 (08:09→20:55)
[2017-06-13] MEDS: CARVEDILOL 6.25 MG TAB PO SCH ×2 (08:09→20:55)
[2017-06-13] MEDS: MAGNESIUM OXIDE 400 MG TAB PO SCH ×2 (08:10→20:56)
[2017-06-13] MEDS: POTASSIUM CHLORIDE 20 MEQ CONTROLLED RELEASE TAB PO SCH ×2 (08:10→20:56)
[2017-06-13] MEDS: SODIUM CHLORIDE 0.9% FLUSH 10 ML FLUSH IV FLUSH SCH ×2 (08:11→20:55)
[2017-06-13] MEDS: BUDESONIDE-FORMOTEROL 160/4.5 MCG INHALER INH SCH ×2 (08:11→20:55)
[2017-06-13] MEDS: FAMOTIDINE 20 MG TAB PO SCH ×2 (08:11→20:56)
--- NOTE | 2017-06-13 11:31 | HHI.PR ---
Subjective Remarks Patient seen and examined this morning. Her vitals are stable she's afebrile. Patient with a list of things to discuss. Wants to know what all her labs showed. She wants cough drops. States she needs her lasix at 80 mg BID because she is continuing to retain fluid. She reports significant pulmonary hypertension and sees a doctor at [place] for this. SHe does not want to be rushed out of [facility]. She wants to know when she will get her coumadin. She has a stuff nose. Was upset she was not able to get all her medications on time last night, led to some nausea, she complained of chest discomfort, but it was really epigastric pain. She wants a n ECHO. Objective Vital Signs Date Time Temp Pulse Resp B/P (MAP) Pulse Ox O2 Delivery O2 Flow Rate FiO2 06/13/17 08:18 97.5 77 20 122/62 (82) 97 06/13/17 07:43 98 Nasal Cannula 3.00 06/13/17 04:34 97.7 80 18 115/59 (77) 94 06/13/17 01:37 97.3 86 18 136/79 (98) 94 06/12/17 22:45 98.0 84 20 130/64 (86) 94 06/12/17 21:09 95 Nasal Cannula 3.00 06/12/17 20:42 97.7 79 18 116/58 (77) 95 06/12/17 17:24 96 06/12/17 16:38 97.7 85 18 120/59 (79) 95 06/12/17 12:41 97.3 68 17 114/59 (77) 94 06/12/17 12:30 75 I/O 06/12/17 06/12/17 06/12/17 06/13/17 06/13/17 06/13/17 07:00 15:00 23:00 07:00 15:00 23:00 Intake Total 240 ml Balance 240 ml Intake Oral 240 ml # Voids 3 4 2 # Bowel Movements 1 Result Diagram: 06/13/17 0630 06/13/17 0630 Imaging Last Impressions Chest X-Ray 06/10/17 7488 Signed Impressions: Service Date/Time: Saturday, June 10, 2017 18:43 - CONCLUSION: Airspace disease right upper lobe. Diffuse interstitial prominence is stable. Doe Cruz MD Objective Remarks GENERAL: sitting on toilet, nad SKIN: Warm and dry. HEAD: Normocephalic. EYES: No scleral icterus. No injection or drainage. NECK: Supple, trachea midline. No JVD or lymphadenopathy. CARDIOVASCULAR: irregular rhythm + murmur RESPIRATORY: Breath sounds equal bilaterally. No accessory muscle use. GASTROINTESTINAL: Abdomen soft, non-tender, nondistended. MUSCULOSKELETAL: Trace edema. BACK: Nontender without obvious deformity. A/P Problem List: (1) CHF (congestive heart failure) ICD Code: I50.9 - Heart failure, unspecified Status: Acute (2) COPD (chronic obstructive pulmonary disease) ICD Code: J44.9 - Chronic obstructive pulmonary disease, unspecified Status: Chronic (3) Pulmonary HTN ICD Code: I27.20 - Pulmonary hypertension, unspecified (4) Afib ICD Code: I48.91 - Unspecified atrial fibrillation Status: Chronic (5) Hypertension ICD Code: I10 - Essential (primary) hypertension Status: Chronic Assessment and Plan This is a 76-year-old female being followed for COPD and pneumonia. Pneumonia with COPD exacerbation - See chest x-ray above right upper lobe - Continue Levaquin IV, will transition to PO tomorrow - solumedrom 40 mg IV q6--> will transition to q8hrs - Breathing treatments Acute exacerbation of CHF - BNP mildly elevated on admission - Systolic heart failure, continue carvedilol - An echo performed in January showed EF 50-55%, severe pulmonary hypertension , severe tricuspid regurg - cont carvedilol, lasix 80 mg BID - I question if she needs this high of a dose of lasix given her last EF, but she reports she continues to reatin fluid, so I will order an updated ECHO Atrial fibrillation - Rate Controlled - INR therapeutic, resumed Coumadin today - Status post being supratherapeutic and requiring vitamin K RADHA - Creatinine 0.92 on admission, slightly elevated likely from Lasix Pulmonary HTN - continue home sildenafil DVT prophy - therapeutic on coumadin Alee Gunn MD Jun 13, 2017 11:31
--- NOTE | 2017-06-13 14:40 | EKG ---
Date Performed: 06/13/2017 Time Performed: 11:07:41 PTAGE: 76 years EKG: ATRIAL FIBRILLATION WITH ABERRANT CONDUCTION OR VENTRICULAR PREMATURE COMPLEXES POSSIBLE RI GHT VENTRICULAR CONDUCTION DELAY SEPTAL MYOCARDIAL INFARCTION , PROBABLY OLD ABNORMAL ECG PREVIOUS TRACING : 06/12/2017 23.12 Compared to the previous tracing, there is fluctuation in t he appearance of V2, which is probably due to lead placement. Clinical correlation is recommended. DOCTOR: Giovanny Hoskins Interpretating Date/Time 06/13/2017 14:40:16
--- NOTE | 2017-06-13 14:59 | EKG ---
Date Performed: 06/12/2017 Time Performed: 23:12:04 PTAGE: 76 years EKG: Atrial fibrillation Abnormal ECG PREVIOUS TRACING : 06/10/2017 20.26 Since previous tracing, no significant change noted DOCTOR: Giovanny Hoskins Interpretating Date/Time 06/13/2017 14:57:15
--- NOTE | 2017-06-13 16:06 | ECHRPT ---
Indication: sob CONCLUSIONS Normal left ventricular size. The left ventricular systolic function is low normal with an estimated ejection fraction in the rang e of 65- 70%. Rv enlarged at 5.5.the right ventricular systoilc function is severely decreased. RA 7.0 is severely enlarged. Mild mitral valve regurgitation. There is ltcrypdz-sl-oxtifp tricuspid valve regurgitation. The estimated pulmonary arterial pressure is 93.2 mmHg. There is estimated severe pulmonary hyperten jhony present ( > 70 mmHg). The inferior vena cava was not well visualized. BP: / HR: Rhythm: MEASUREMENTS (Male / Female) Normal Values Technical Quality:Fair 2D ECHO LV Diastolic Diameter PLAX 3.5 cm 4.2 - 5.9 / 3.9 - 5.3 cm LV Systolic Diameter PLAX 2.7 cm IVS Diastolic Thickness 1.3 cm 0.6 - 1.0 / 0.6 - 0.9 cm LVPW Diastolic Thickness 1.4 cm 0.6 - 1.0 / 0.6 - 0.9 cm LV Relative Wall Thickness 0.8 RV Internal Dim ED PLAX 3.3 cm M-MODE Aortic Root Diameter MM 2.9 cm LA Systolic Diameter MM 3.9 cm LA Ao Ratio MM 1.3 AV Cusp Separation MM 1.8 cm DOPPLER LV E' Lateral Velocity 12.5 cm/s LV E' Septal Velocity 9.1 cm/s TR Peak Velocity 456.0 cm/s TR Peak Gradient 83.2 mmHg Right Atrial Pressure 10.0 mmHg Pulmonary Artery Systolic Pressu 93.2 mmHg Right Ventricular Systolic Press 93.2 mmHg FINDINGS LEFT VENTRICLE Normal left ventricular size. The left ventricular systolic function is low normal with an estimated ejection fraction in the rang e of 65- 70%. RIGHT VENTRICLE Rv enlarged at 5.5.the right ventricular systoilc function is severely decreased. LEFT ATRIUM The left atrial size is normal. RIGHT ATRIUM RA 7.0 is severely enlarged. ATRIAL SEPTUM Normal atrial septal thickness without atrial level shunting by limited color doppler interrogation. AORTA The aortic root and proximal ascending aorta are normal in size on limited imaging. MITRAL VALVE Structurally normal mitral valve. Mild mitral valve regurgitation. AORTIC VALVE Trileaflet aortic valve. No aortic valve stenosis or regurgitation. TRICUSPID VALVE Structurally normal tricuspid valve. There is nlcwylgh-lt-dlkily tricuspid valve regurgitation. The estimated pulmonary arterial pressure is 93.2 mmHg. There is estimated severe pulmonary hyperten jhony present ( > 70 mmHg). PULMONARY VALVE No pulmonary valve regurgitation or stenosis. VESSELS The inferior vena cava was not well visualized. PERICARDIUM No pericardial effusion. Giovanny Hoskins MD (Electronically Signed) Final Date:13 June 2017 16:05
[2017-06-13] MEDS: WARFARIN SOD 4 MG TAB PO SCH (16:15)
[2017-06-13 16:58] LABS: TROPONIN I LESS THAN 0.02 NG/ML (0.02-0.05)
[2017-06-13] MEDS: MENTHOL LOZENGE BUCCAL PRN ×2 (18:47→21:00)
[2017-06-13] MEDS: LEVOFLOXACIN 750 MG PREMIX INJ 150 ML IV SCH (22:40)
[2017-06-13] MEDS: diphenhydrAMINE HCL 50 MG CAP PO PRN (22:40)
[2017-06-14] VITALS (9 sets, daily range): BP systolic 122–146; BP diastolic 63–93; PULSE 71–107; RESP 18–19; TEMP 97.7–98.7; O2SAT 93–98
[2017-06-14] MEDS: oxyCODONE/ACETAMINOPHEN 5 MG/325 MG TAB PO PRN ×5 (00:57→18:28)
[2017-06-14] MEDS: RESP: ALBUTEROL 2.5 MG/IPRATROPIUM 0.5 MG NEB (SCH) NEB ×4 (04:02→20:02)
[2017-06-14] MEDS: methylPREDNISolone SOD SUCC 40 MG/1 ML VIAL IV PUSH SCH (05:27)
[2017-06-14] MEDS: FUROSEMIDE 80 MG TAB PO SCH ×2 (05:28→12:21)
[2017-06-14] MEDS: DOCUSATE SODIUM 50 MG/SENNA 8.6 MG TAB PO SCH ×2 (08:14→20:52)
[2017-06-14] MEDS: BUDESONIDE-FORMOTEROL 160/4.5 MCG INHALER INH SCH ×2 (08:15→20:48)
[2017-06-14] MEDS: POTASSIUM CHLORIDE 20 MEQ CONTROLLED RELEASE TAB PO SCH ×2 (08:15→20:49)
[2017-06-14] MEDS: MAGNESIUM OXIDE 400 MG TAB PO SCH ×2 (08:15→20:49)
[2017-06-14] MEDS: PRAVASTATIN SOD 40 MG TAB PO SCH (08:16)
[2017-06-14] MEDS: FAMOTIDINE 20 MG TAB PO SCH ×2 (08:16→20:48)
[2017-06-14] MEDS: CARVEDILOL 6.25 MG TAB PO SCH ×2 (08:16→20:49)
[2017-06-14] MEDS: ASPIRIN EC 81 MG TABEC PO SCH (08:17)
[2017-06-14] MEDS: DULoxetine HCl DR 30 MG CAP PO SCH (08:17)
[2017-06-14] MEDS: SODIUM CHLORIDE 0.9% FLUSH 10 ML FLUSH IV FLUSH SCH ×2 (08:18→20:50)
[2017-06-14] MEDS: SILDENAFIL CITRATE 20 MG TAB PO SCH ×2 (08:18→20:49)
--- NOTE | 2017-06-14 09:55 | HHI.PR ---
Subjective Remarks Patient seen and examined this morning. Her vitals are stable she's afebrile. Doesn't want any stool softeners. Feels better. Doesn't want to go home until Thursday. Does not want to go to SNF. Wants to know when shes getting blood work done. Had ECHO. Wants to stay on IV steroids. Objective Vital Signs Date Time Temp Pulse Resp B/P (MAP) Pulse Ox O2 Delivery O2 Flow Rate FiO2 06/14/17 08:00 97.7 86 18 129/76 (93) 94 06/14/17 05:20 98.1 71 19 123/93 (103) 98 06/14/17 04:02 98 Nasal Cannula 3.00 06/14/17 00:00 98.7 76 18 143/63 (89) 97 06/13/17 20:51 97.9 100 20 126/60 (82) 95 06/13/17 20:00 100 06/13/17 16:00 98.3 94 18 163/74 (103) 92 06/13/17 11:46 97.6 90 20 105/59 (74) 94 I/O 06/13/17 06/13/17 06/13/17 06/14/17 06/14/17 06/14/17 07:00 15:00 23:00 07:00 15:00 23:00 Intake Total 825 ml 575 ml Balance 825 ml 575 ml Intake Oral 825 ml 575 ml # Voids 2 3 4 # Bowel Movements 1 3 4 Result Diagram: 06/13/17 0630 06/13/17 0630 Imaging Last Impressions Chest X-Ray 06/10/17 1827 Signed Impressions: Service Date/Time: Saturday, June 10, 2017 18:43 - CONCLUSION: Airspace disease right upper lobe. Diffuse interstitial prominence is stable. Doe Cruz MD Objective Remarks GENERAL: sitting in bed, nad SKIN: Warm and dry. HEAD: Normocephalic. EYES: No scleral icterus. No injection or drainage. NECK: Supple, trachea midline. No JVD or lymphadenopathy. CARDIOVASCULAR: irregular rhythm + murmur RESPIRATORY: Breath sounds equal bilaterally. No accessory muscle use. GASTROINTESTINAL: Abdomen soft, non-tender, nondistended. MUSCULOSKELETAL: Trace edema. BACK: Nontender without obvious deformity. A/P Problem List: (1) CHF (congestive heart failure) ICD Code: I50.9 - Heart failure, unspecified Status: Acute (2) COPD (chronic obstructive pulmonary disease) ICD Code: J44.9 - Chronic obstructive pulmonary disease, unspecified Status: Chronic (3) Pulmonary HTN ICD Code: I27.20 - Pulmonary hypertension, unspecified (4) Afib ICD Code: I48.91 - Unspecified atrial fibrillation Status: Chronic (5) Hypertension ICD Code: I10 - Essential (primary) hypertension Status: Chronic Assessment and Plan This is a 76-year-old female being followed for COPD and pneumonia. Pneumonia with COPD exacerbation - See chest x-ray above right upper lobe - lungs are clear - Continue Levaquin IV, will transition to PO tomorrow - solumedrol 40 mg IV q8--> solumedrol 60 mg IV daily - Breathing treatments Acute exacerbation of CHF - BNP mildly elevated on admission - Systolic heart failure, continue carvedilol - An echo performed in January showed EF 50-55%, severe pulmonary hypertension , severe tricuspid regurg - repeat ECHO 06/13: EF 65-70%, RA enlarged, moderate to sever tricuspid valve regurg - cont carvedilol, lasix 80 mg BID - I question if she needs this high of a dose of lasix given her last EF, but she reports she continues to retain fluid and refuses to have lasix dose reduced , so I will order an updated ECHO 06/13, it is pending Atrial fibrillation - Rate Controlled - INR therapeutic, resumed Coumadin today - Status post being supratherapeutic and requiring vitamin K RADHA - Creatinine 0.92 on admission, slightly elevated likely from Lasix Pulmonary HTN - continue home sildenafil DVT prophy - therapeutic on coumadin Discharge Planning D/C home tomorrow Home with home pj Bedside commAlee Hung MD Jun 14, 2017 09:55
[2017-06-14] MEDS ORDERED: LEVOFLOXACIN 750 MG TAB PO SCH (12:00)
[2017-06-14] MEDS: WARFARIN SOD 4 MG TAB PO SCH (16:26)
[2017-06-14 17:21] LABS: AUTOMATED NEUTROPHIL # 10.9 TH/MM3 (1.8-7.7); BASOPHIL % 0.2 % (0.0-2.0); HEMATOCRIT 40.1 % (35.0-46.0); HEMOGLOBIN 13.3 GM/DL (11.6-15.3); LYMPH % 5.6 % (9.0-44.0); LYMPHOCYTE # 0.7 TH/MM3 (1.0-4.8); MEAN CELL VOLUME 88.6 FL (80.0-100.0); MEAN CORPUSCULAR HEMOGLOBIN 29.4 PG (27.0-34.0); MEAN CORPUSCULAR HGB CONC 33.1 % (32.0-36.0); MEAN PLATELET VOLUME 7.7 FL (7.0-11.0); MONO % 10.6 % (0.0-8.0); MONOCYTE # 1.4 TH/MM3 (0-0.9); NEUT % 83.6 % (16.0-70.0); PLATELET COUNT 357 TH/MM3 (150-450); RED BLOOD COUNT 4.52 MIL/MM3 (4.00-5.30); RED CELL DISTRIBUTION WIDTH 16.5 % (11.6-17.2); WHITE BLOOD COUNT 13.1 TH/MM3 (4.0-11.0)
[2017-06-14 17:31] LABS: INTERNATIONAL NORMALIZED RATIO 1.3 RATIO; PROTHROMBIN TIME - PATIENT 13.3 SEC (9.8-11.6)
[2017-06-14 17:46] LABS: BICARBONATE 34.8 MEQ/L (21.0-32.0); CALCIUM 9.2 MG/DL (8.5-10.1); CREATININE 1.36 MG/DL (0.50-1.00)
[2017-06-15 00:40] VITALS: BP 132/82; PULSE 89; RESP 20; TEMP 98.1; O2SAT 94
[2017-06-15] MEDS: RESP: ALBUTEROL 2.5 MG/IPRATROPIUM 0.5 MG NEB (SCH) NEB (03:49)
[2017-06-15 05:00] VITALS: BP 128/85; PULSE 98; RESP 21; TEMP 97.4; O2SAT 94
[2017-06-15] MEDS: FUROSEMIDE 80 MG TAB PO SCH (05:59)
[2017-06-15 08:16] VITALS: BP 131/72; PULSE 77; RESP 18; TEMP 97.4; O2SAT 94
[2017-06-15] MEDS: DOCUSATE SODIUM 50 MG/SENNA 8.6 MG TAB PO SCH ×2 (09:00→21:00)
[2017-06-15] MEDS ORDERED: methylPREDNISolone SOD SUCC 125 MG/2 ML VIAL IV PUSH SCH (09:00)
[2017-06-15] MEDS: FAMOTIDINE 20 MG TAB PO SCH ×2 (09:00→21:13)
[2017-06-15] MEDS: CARVEDILOL 6.25 MG TAB PO SCH ×2 (09:22→21:12)
[2017-06-15] MEDS: MAGNESIUM OXIDE 400 MG TAB PO SCH ×2 (09:23→21:13)
[2017-06-15] MEDS: PRAVASTATIN SOD 40 MG TAB PO SCH (09:23)
[2017-06-15] MEDS: POTASSIUM CHLORIDE 20 MEQ CONTROLLED RELEASE TAB PO SCH ×2 (09:24→21:13)
[2017-06-15] MEDS: DULoxetine HCl DR 30 MG CAP PO SCH (09:24)
[2017-06-15] MEDS: SILDENAFIL CITRATE 20 MG TAB PO SCH ×2 (09:26→21:13)
[2017-06-15] MEDS: BUDESONIDE-FORMOTEROL 160/4.5 MCG INHALER INH SCH ×2 (09:31→21:16)
[2017-06-15] MEDS: SODIUM CHLORIDE 0.9% FLUSH 10 ML FLUSH IV FLUSH SCH ×2 (09:32→21:16)
[2017-06-15] MEDS: ASPIRIN EC 81 MG TABEC PO SCH (09:40)
[2017-06-15] MEDS: oxyCODONE/ACETAMINOPHEN 5 MG/325 MG TAB PO PRN ×3 (09:48→20:01)
--- NOTE | 2017-06-15 09:57 | HHI.PR ---
Subjective Remarks Patient seen and examined this morning. Her vitals are stable she's afebrile. Says she had a bad night, didnt sleep, had difficulty breathing. Says she is up urinating. Currently feels well this morning, happy with her nurse. Objective Vital Signs Date Time Temp Pulse Resp B/P (MAP) Pulse Ox O2 Delivery O2 Flow Rate FiO2 06/15/17 08:16 97.4 77 18 131/72 (91) 94 06/15/17 05:00 97.4 98 21 128/85 (99) 94 06/15/17 00:40 98.1 89 20 132/82 (99) 94 06/14/17 20:03 95 Nasal Cannula 3.00 06/14/17 20:00 107 06/14/17 20:00 97.9 100 19 136/82 (100) 93 06/14/17 16:00 104 18 146/70 (95) 94 06/14/17 12:00 98.4 106 18 122/76 (91) 95 06/14/17 10:06 96 Nasal Cannula 3.00 I/O 06/14/17 06/14/17 06/14/17 06/15/17 06/15/17 06/15/17 07:00 15:00 23:00 07:00 15:00 23:00 Intake Total 725 ml 900 ml 700 ml Output Total 1 ml Balance 725 ml -1 ml 900 ml 700 ml Intake Oral 575 ml 900 ml 700 ml IV Total 150 ml Output Stool Total 1 ml # Voids 4 5 1 4 # Bowel Movements 4 2 0 Result Diagram: 06/14/17 1639 06/14/17 1639 Imaging Last Impressions Chest X-Ray 06/10/17 1827 Signed Impressions: Service Date/Time: Saturday, June 10, 2017 18:43 - CONCLUSION: Airspace disease right upper lobe. Diffuse interstitial prominence is stable. Doe Cruz MD Objective Remarks GENERAL: sitting in bed, nad SKIN: Warm and dry. HEAD: Normocephalic. EYES: No scleral icterus. No injection or drainage. NECK: Supple, trachea midline. No JVD or lymphadenopathy. CARDIOVASCULAR: irregular rhythm + murmur RESPIRATORY: Breath sounds equal bilaterally. No accessory muscle use. GASTROINTESTINAL: Abdomen soft, non-tender, nondistended. MUSCULOSKELETAL: Trace edema. BACK: Nontender without obvious deformity. A/P Problem List: (1) CHF (congestive heart failure) ICD Code: I50.9 - Heart failure, unspecified Status: Acute (2) COPD (chronic obstructive pulmonary disease) ICD Code: J44.9 - Chronic obstructive pulmonary disease, unspecified Status: Chronic (3) Pulmonary HTN ICD Code: I27.20 - Pulmonary hypertension, unspecified (4) Afib ICD Code: I48.91 - Unspecified atrial fibrillation Status: Chronic (5) Hypertension ICD Code: I10 - Essential (primary) hypertension Status: Chronic Assessment and Plan This is a 76-year-old female being followed for COPD and pneumonia. Pneumonia with COPD exacerbation - See chest x-ray above right upper lobe - lungs are clear - Continue Levaquin IV, will transition to PO tomorrow - solumedrol 40 mg IV q8--> solumedrol 60 mg IV daily--> solumedrol 40 mg IV - Breathing treatments Acute exacerbation of CHF - BNP mildly elevated on admission - Systolic heart failure, continue carvedilol - An echo performed in January 2017 showed EF 50-55%, severe pulmonary hypertension, severe tricuspid regurg - repeat ECHO 06/13/2017: EF 65-70%, RA enlarged, moderate to sever tricuspid valve regurg - cont carvedilol, - I question if she needs this high of a dose of lasix given her last EF, but she reports she continues to retain fluid and refuses to have lasix dose reduced lasix 80 mg BID --> she allowed me to decrease it to once a day, with 40 meq KCl Atrial fibrillation - Rate Controlled - INR subtherapeutic, continue Coumadin today - Status post being supratherapeutic and requiring vitamin K RADHA - Creatinine 0.92 on admission, slightly elevated likely from Lasix Pulmonary HTN - continue home sildenafil DVT prophy - therapeutic on coumadin Hypokalemia - replete Discharge Planning D/C home tomorrow Home with home pj Bedside commAlee Hung MD Jun 15, 2017 09:57
[2017-06-15] MEDS ORDERED: POTASSIUM CHLORIDE 10 MEQ CONTROLLED RELEASE TAB PO ONE (10:00)
[2017-06-15] MEDS ORDERED: POTA20TA5 PO (11:32)
[2017-06-15] MEDS ORDERED: FURO80TA PO (11:32)
--- NOTE | 2017-06-15 11:34 | HHI.DCPOC ---
Discharge Care Plan Diagnosis: (1) Chronic right-sided heart failure (2) Pulmonary HTN (3) COPD (chronic obstructive pulmonary disease) (4) CHF (congestive heart failure) Goals to Promote Your Health * To prevent worsening of your condition and complications * To maintain your health at the optimal level Directions to Meet Your Goals Take your medications as prescribed Follow your dietary instruction Follow activity as directed Keep your appointments as scheduled Take your immunizations and boosters as scheduled If your symptoms worsen call your PCP, if no PCP go to Urgent Care Center or Emergency Room Smoking is Dangerous to Your Health. Avoid second hand smoke Call the 24-hour hour crisis hotline for domestic abuse at Alee Gunn MD Jun 15, 2017 11:34
[2017-06-15] MEDS ORDERED: LEVO500T8 PO (11:43)
[2017-06-15] MEDS ORDERED: PRED20 PO (11:43)
[2017-06-15 12:00] VITALS: BP 119/63; PULSE 70; RESP 18; TEMP 97.3; O2SAT 94; O2SAT 95
[2017-06-15] MEDS ORDERED: PANT20 PO (13:14)
--- NOTE | 2017-06-15 13:15 | HHI.DS ---
Discharge Summary Admission Date Jun 10, 2017 at 22:42 Discharge Date: Jun 15, 2017 Admitting Diagnosis pneumonia. History COPD. History of CHF. Brief History "history from patient, ER physician communication, and review of medical records. Patient reported that she came to the hospital because she has been short of breath for the past 1 week. Denies cough. Denies fever. However reports that she did have episodes of cold and hot symptoms. She denies any sputum production. Patient reports of associated chest tightness. No radiation. States the chest pain only sits in the middle of his chest. No radiation. Denies any association with this. Patient has prior history of COPD, CHF, pulmonary hypertension." CBC/BMP: 06/14/17 1639 06/14/17 1639 Significant Findings Laboratory Tests Test 06/12/17 23:20 06/13/17 06:30 06/13/17 15:18 06/14/17 16:39 Total Creatine Kinase 25 U/L (26-192) 23 U/L (26-192) Troponin I LESS THAN 0.02 NG/ML LESS THAN 0.02 NG/ML LESS THAN 0.02 NG/ML B-Type Natriuretic Peptide 373 PG/ML (0-100) White Blood Count 13.1 TH/MM3 (4.0-11.0) 13.1 TH/MM3 (4.0-11.0) Red Blood Count 3.86 MIL/MM3 (4.00-5.30) Hemoglobin 11.2 GM/DL (11.6-15.3) Hematocrit 34.0 % (35.0-46.0) Neutrophils (%) (Auto) 92.8 % (16.0-70.0) 83.6 % (16.0-70.0) Lymphocytes (%) (Auto) 3.0 % (9.0-44.0) 5.6 % (9.0-44.0) Neutrophils # (Auto) 12.1 TH/MM3 (1.8-7.7) 10.9 TH/MM3 (1.8-7.7) Lymphocytes # (Auto) 0.4 TH/MM3 (1.0-4.8) 0.7 TH/MM3 (1.0-4.8) Prothrombin Time 20.1 SEC (9.8-11.6) 13.3 SEC (9.8-11.6) Blood Urea Nitrogen 32 MG/DL (7-18) 36 MG/DL (7-18) Creatinine 1.08 MG/DL (0.50-1.00) 1.36 MG/DL (0.50-1.00) Random Glucose 143 MG/DL (74-106) 107 MG/DL (74-106) Chloride Level 97 MEQ/L (98-107) 96 MEQ/L (98-107) Estimat Glomerular Filtration Rate 49 ML/MIN (>89) 38 ML/MIN (>89) Monocytes (%) (Auto) 10.6 % (0.0-8.0) Monocytes # (Auto) 1.4 TH/MM3 (0-0.9) Potassium Level 3.2 MEQ/L (3.5-5.1) Carbon Dioxide Level 34.8 MEQ/L (21.0-32.0) Imaging Last Impressions Chest X-Ray 06/10/17 2746 Signed Impressions: Service Date/Time: Saturday, June 10, 2017 18:43 - CONCLUSION: Airspace disease right upper lobe. Diffuse interstitial prominence is stable. Doe Cruz MD PE at Discharge GENERAL: sitting in bed, nad SKIN: Warm and dry. HEAD: Normocephalic. EYES: No scleral icterus. No injection or drainage. NECK: Supple, trachea midline. No JVD or lymphadenopathy. CARDIOVASCULAR: irregular rhythm + murmur RESPIRATORY: Breath sounds equal bilaterally. No accessory muscle use. GASTROINTESTINAL: Abdomen soft, non-tender, nondistended. MUSCULOSKELETAL: Trace edema. BACK: Nontender without obvious deformity. Hospital Course Patient admitted to the hospital for pneumonia with COPD exacerbation. The patient was started on IV antibiotics and IV steroids. She symptomatically improved she was transitioned to by mouth antibiotics and her dose of steroids was tapered down. Concern initially was for CHF exacerbation due to a mild elevation in BNP, echo revealed that her heart was functioning better than previously with an ejection fraction of 65-70%. Significant pulmonary stenosis was again noted and tricuspid regurg was noted. Concern was if the patient needed to be on such a high dose of Lasix given intermittent hypokalemia and AK I, patient initially did not want medications adjusted she wanted them only adjusted by her own doctor. Patient then later agreed to allow me to reduce her Lasix dose to 80 mg daily with 40 mEq of KCl daily. Patient's A. fib was well controlled she was initially supratherapeutic, received vitamin K, then Coumadin was therapeutic. By June 15 patient had reached maximum benefit from inpatient hospitalization. She was deemed stable for discharge home with home health and with her home oxygen. Pt Condition on Discharge: Stable Discharge Disposition: Disch w/ Home Health Serv Discharge Instructions DIET: Follow Instructions for: Heart Healthy Diet Activities you can perform: Weight Bearing as Jacklyn Follow up Referrals: Cardiology PCP Follow-up Pulmonology New Medications: Levofloxacin (Levofloxacin) 500 Mg Tablet 500 MG PO DAILY for Infection for 5 Days, #5 TAB 0 Refills Pantoprazole (Protonix) 20 Mg Tab 20 MG PO DAILY for Reflux, #30 TAB 0 Refills Prednisone (Prednisone) 20 Mg Tab 20 MG PO DIRECTED for Inflammation, #11 TAB 0 Refills 40 MG twice a day x 3 days, then 20 MG daily x 3 days, then 10 MG daily x 3 days Furosemide (Furosemide) 80 Mg Tab 80 MG PO DAILY for chf, #30 TAB Potassium Chloride Microencaps (Potassium Chloride Microencaps) 20 Meq Tab 40 MEQ PO DAILY for hypokalemia , #30 TAB Continued Medications: Aspirin DR (Aspirin 81) 81 Mg Tabdr 81 MG PO DAILY for Blood Clot Prevention, #30 TAB 0 Refills Budesonide-Formoterol Inh (Symbicort Inh) 160-4.5 Mcg/Act Aero 2 PUFF INH Q12HR for COPD, #1 INHALER 0 Refills Jybpqhismv-Mdqjskduolaos-Hcrrrjji (Lhnjvfhcht-Wbtgyjyoqzmfp-Rhfruijw) 50-325-40 Mg Tab 1 TAB PO Q6H PRN for HEADACHE, #60 TAB Do not exceed 6 tablets/day. Carvedilol (Carvedilol) 6.25 Mg Tab 6.25 MG PO BID, #60 TAB 0 Refills Diphenhydramine HCl (Benadryl Allergy) 25 Mg Cap 25 MG PO HS PRN for INSOMNIA, #30 CAP [address] (Duloxetine DR) 30 Mg Capdr 30 MG PO DAILY for Depression Control, #30 CAP 0 Refills Estradiol Valerate Inj (Delestrogen Valerate Inj) 10 Mg/Ml Inj 1 MG IM MONTHLY Glucosamine (Glucosamine) 1,000 Mg Cap 1000 MG PO DAILY for Herbal Supplements, #30 CAP 0 Refills Ipratropium-Albuterol Neb (Duoneb) 0.5-2.5 Mg/3 Ml Neb 1 NEBULE INH Q4HR NEB for SHORTNESS OF BREATH, #180 NEBULE 0 Refills Magnesium Oxide (Magnesium Oxide) 400 Mg Tab 400 MG PO Q12HR for Electrolyte Replacement, #60 TAB Multiple Vitamins W/ Minerals (Ocuvite) 1 Tab 1 TAB PO DAILY for Nutritional Supplement, #30 TAB 0 Refills Oxycodone-Acetaminophen (Percocet) 5-325 mg Tab 1 TAB PO Q4H PRN for PAIN, #60 TAB 0 Refills Sildenafil (Sildenafil) 20 Mg Tab 60 MG PO BID for Pulm. arterial hypertension, #180 TAB 0 Refills Simvastatin (Simvastatin) 20 Mg Tab 20 MG PO DAILY for Cholesterol Management, #30 TAB 0 Refills Warfarin (Coumadin) 4 Mg Tab 4 MG PO [id number]@1600 for Blood Clot Prevention, #60 TAB Warfarin (Coumadin) 2.5 Mg Tab 2.5 MG PO MoWeFr@16 for Blood Clot Prevention, #60 TAB [guaiFENesin ER] () 600 MG TABCR 600 MG PO BID, #60 TAB Discontinued Medications: Furosemide (Lasix) 80 Mg Tab 80 MG PO BID for Shortness of Breath, #60 TAB 0 Refills Alee Gunn MD Jun 15, 2017 13:15
[2017-06-15] MEDS: RESP: ALBUTEROL 2.5 MG/IPRATROPIUM 0.5 MG NEB (PRN) NEB (14:17)
--- NOTE | 2017-06-15 14:23 | HHI.FF ---
Face to Face Verification Diagnosis: (1) RADHA (acute kidney injury) (2) Pulmonary hypertension (3) COPD (chronic obstructive pulmonary disease) (4) CHF (congestive heart failure) Physical Therapy Order: Evaluate and Treat, Improve ambulation Home Health Nursing Order: Medical education Signs/symptoms of disease process CHF education Oxygen administration education Nursing assessment with vital signs I have seen patient Virgie Delvalle on 06/15/17. My clinical findings support the need for the requested home health care services because: Ltd mobility - disease progression Patient has SOB Deconditioned w/ increased weakness I certify that my clinical findings support that this patient is homebound because: Unsteady gait/balance Need for psychosocial assistance Alee Gunn MD Jun 15, 2017 14:23
[2017-06-15 15:11] LABS: BICARBONATE 33.9 MEQ/L (21.0-32.0); CALCIUM 8.8 MG/DL (8.5-10.1); CREATININE 1.34 MG/DL (0.50-1.00)
[2017-06-15 16:00] VITALS: BP 135/69; PULSE 113; RESP 18; TEMP 98.4; O2SAT 93
[2017-06-15] MEDS ORDERED: WARFARIN SOD 2.5 MG TAB PO SCH (16:00)
[2017-06-15 20:30] VITALS: BP 122/66; PULSE 93; RESP 17; TEMP 97.5; O2SAT 96
[2017-06-15] MEDS: diphenhydrAMINE HCL 50 MG CAP PO PRN (21:13)
[2017-06-16] VITALS (7 sets, daily range): BP systolic 119–137; BP diastolic 58–66; PULSE 62–73; RESP 16–18; TEMP 97.4–98.6; O2SAT 96–98
[2017-06-16] MEDS: oxyCODONE/ACETAMINOPHEN 5 MG/325 MG TAB PO PRN ×3 (02:20→13:09)
[2017-06-16] MEDS: RESP: ALBUTEROL 2.5 MG/IPRATROPIUM 0.5 MG NEB (PRN) NEB ×2 (05:00→11:07)
[2017-06-16] MEDS ORDERED: POTASSIUM CHLORIDE 20 MEQ CONTROLLED RELEASE TAB PO SCH (09:00)
[2017-06-16] MEDS: BUDESONIDE-FORMOTEROL 160/4.5 MCG INHALER INH SCH (09:00)
[2017-06-16] MEDS ORDERED: FUROSEMIDE 80 MG TAB PO SCH (09:00)
[2017-06-16] MEDS: POTASSIUM CHLORIDE 20 MEQ CONTROLLED RELEASE TAB PO SCH (09:00)
[2017-06-16] MEDS: ASPIRIN EC 81 MG TABEC PO SCH (09:54)
[2017-06-16] MEDS: DULoxetine HCl DR 30 MG CAP PO SCH (09:55)
[2017-06-16] MEDS: FAMOTIDINE 20 MG TAB PO SCH (09:55)
[2017-06-16] MEDS: DOCUSATE SODIUM 50 MG/SENNA 8.6 MG TAB PO SCH (09:55)
[2017-06-16] MEDS: CARVEDILOL 6.25 MG TAB PO SCH (09:56)
[2017-06-16] MEDS: SODIUM CHLORIDE 0.9% FLUSH 10 ML FLUSH IV FLUSH SCH (09:57)
[2017-06-16] MEDS ORDERED: methylPREDNISolone SOD SUCC 40 MG/1 ML VIAL IV PUSH SCH (10:00)
[2017-06-16] MEDS: SILDENAFIL CITRATE 20 MG TAB PO SCH (10:04)
[2017-06-16] MEDS: PRAVASTATIN SOD 40 MG TAB PO SCH (10:04)
[2017-06-16] MEDS: MAGNESIUM OXIDE 400 MG TAB PO SCH (10:06)
[2017-06-16] MEDS ORDERED: LEVOFLOXACIN 750 MG TAB PO SCH (12:00)
--- NOTE | 2017-06-16 12:32 | HHI.PR ---
Subjective Remarks Patient reports she is feeling much better today. She states she slept well last night. Feels good to go home today but wants to make sure it is okay for her to leave since she started the appeal process yesterday when she was discharged.. Objective Vitals Vital Signs Date Time Temp Pulse Resp B/P (MAP) Pulse Ox O2 Delivery O2 Flow Rate FiO2 06/16/17 12:02 98.6 66 16 137/62 (87) 96 06/16/17 08:16 97.4 73 16 119/58 (78) 98 06/16/17 08:10 97 Nasal Cannula 3.00 06/16/17 05:04 97 Nasal Cannula 3.00 06/16/17 04:33 97.4 64 17 120/61 (80) 98 06/16/17 04:30 62 06/16/17 00:30 70 06/16/17 00:30 97.6 73 18 120/66 (84) 97 06/15/17 20:30 97.5 93 17 122/66 (84) 96 06/15/17 16:00 98.4 113 18 135/69 (91) 93 I/O 06/15/17 06/15/17 06/15/17 06/16/17 06/16/17 06/16/17 07:00 15:00 23:00 07:00 15:00 23:00 Intake Total 700 ml 480 ml 240 ml Output Total 1800 ml Balance 700 ml -1320 ml 240 ml Intake Oral 700 ml 480 ml 240 ml Output Urine Total 1800 ml # Voids 4 3 4 # Bowel Movements 0 1 1 Result Diagram: 06/14/17 1639 06/15/17 1426 Objective Remarks GENERAL: This is a well-nourished, well-developed patient, in no apparent distress. CARDIOVASCULAR: Normal rate and regular rhythm without murmurs, gallops, or rubs. RESPIRATORY: Good respiratory efforts. Breath sounds equal and clear to auscultation bilaterally. GASTROINTESTINAL: Abdomen soft, non-tender, non-distended. Normal active bowel sounds MUSCULOSKELETAL: Extremities without cyanosis, or edema. NEURO: Alert & Oriented x4 to person, place, time, situation. Moves all ext x4 PSYCH: Appropriate mood and affect. Procedures None A/P Assessment and Plan 76-year-old female admitted for COPD exacerbation and pneumonia. Pneumonia with COPD exacerbation - See chest x-ray above right upper lobe - lungs are clear -Levaquin transitioned to oral. - solumedrol 40 mg IV q8--> solumedrol 60 mg IV daily--> solumedrol 40 mg IV and the patient was transitioned to oral prednisone. - Breathing treatments - Respiratory status significantly improved and the patient was deemed stable for discharge on antibiotics and steroids to follow-up outpatient. Acute exacerbation of CHF - BNP mildly elevated on admission - Systolic heart failure, continue carvedilol - An echo performed in January 2017 showed EF 50-55%, severe pulmonary hypertension, severe tricuspid regurg - repeat ECHO 06/13/2017: EF 65-70%, RA enlarged, moderate to sever tricuspid valve regurg - cont carvedilol, -No indication the patient need as high of a dose of Lasix. This was reduced to 40 mg daily. Patient education provided regarding appropriate use of Lasix. 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 Atrial fibrillation - Rate Controlled - INR initially supratherapeutic, Status post being supratherapeutic and requiring vitamin K. INR decreased to 1.3. Coumadin resumed. Recommend repeat INR tomorrow. Pulmonary HTN, severe - continue home sildenafil Discharge Planning The patient is cleared for discharge Milli Amin MD Jun 16, 2017 12:32
== END 2017-06-16 16:44 | disposition home health service (06) | DRG 193 ==
LOC: NEPE 18:18 → NEDA 22:42 → NEDH 06-11 04:06 → N05B 06-11 11:45
PROVIDERS: ADMIT Family Medicine; ATTEND Family Medicine
DX: J18.9 Pneumonia, unspecified organism (principal); I50.23 Acute on chronic systolic (congestive) heart failure; J96.91 Respiratory failure, unspecified with hypoxia; N17.9 Acute kidney failure, unspecified; J44.1 Chronic obstructive pulmonary disease with (acute) exacerbation; J44.0 Chronic obstructive pulmonary disease with (acute) lower respiratory infection; I27.20 Pulmonary hypertension, unspecified; Z99.81 Dependence on supplemental oxygen; I48.91 Unspecified atrial fibrillation; I11.0 Hypertensive heart disease with heart failure; E87.6 Hypokalemia; I07.1 Rheumatic tricuspid insufficiency; M19.90 Unspecified osteoarthritis, unspecified site; F32.9 Major depressive disorder, single episode, unspecified; Z79.01 Long term (current) use of anticoagulants; Z86.718 Personal history of other venous thrombosis and embolism; Z87.891 Personal history of nicotine dependence; Z96.642 Presence of left artificial hip joint
CPT/HCPCS: 71046; 80048; 80053; 82550; 83605; 83735; 83880; 84484; 85025; 85610; 85730; 87804; 93005; 93306; 94640; 94664; 96365; 96375; J0456; J0696; J1956; J2920; J2930; J3430; J7050; Q0163

== ENCOUNTER 2018-04-02 14:30 | Inpatient (IN) ==
--- NOTE | 2018-04-02 15:13 | ED ---
HPI General Chief Complaint: Respiratory Symptoms Stated Complaint: Medical Time Seen by Provider: 04/02/18 15:00 History of Present Illness HPI Narrative: This is a 77-year-old female who arrives critically ill. She was short of breath. She has COPD and CHF. She told paramedics that she felt cold. Denies cough or chest pain. She is oxygen dependent on 3 L nasal cannula. She quit smoking a long time ago. Symptoms are severe. She arrives on a BiPAP device. Symptoms are being alleviated by the BiPAP. She is breathing easier on arrival. No exacerbating factors. Duration is 2 days. Related Data Home Medications Medication Instructions Recorded Confirmed albuterol sulfate [Ventolin HFA] 1 puff INHALATION Q4-6H PRN 04/02/18 04/02/18 budesonide-formoterol [Symbicort] 2 puff INHALATION BID 04/02/18 04/02/18 carvedilol [Coreg] 6.25 mg PO BID 04/02/18 04/02/18 furosemide [Lasix] 80 mg PO BID 04/02/18 04/02/18 potassium chloride 10 meq PO BID 04/02/18 04/02/18 simvastatin 20 mg PO QPM 04/02/18 04/02/18 warfarin [Coumadin] 4 mg PO QTUTHSASU 04/02/18 04/02/18 Allergies Allergy/AdvReac Type Severity Reaction Status Date / Time No Known Allergies Allergy Verified 04/02/18 15:07 Review of Systems ROS: all other systems reviewed are negative [facility] Medical History Medical History CHF (congestive heart failure) (Acute) COPD (chronic obstructive pulmonary disease) (Acute) History of hysterectomy (Acute) Surgical History Surgical History Hx of appendectomy (Acute) Family History Family History Other Hypertension Social History Social History Substance History: No History of Abuse Smoking Status: Former smoker How Often Do You Have a Drink Containing Alcohol: Never Recent Travel in [place] within the Last 8 Weeks: No Recent Out of Country Travel within the Last 8 Weeks: No Immunization History Tetanus Immunization: Unsure Exam Narrative Exam Narrative: GENERAL: Well-nourished, well-developed patient who is short of breath on a BiPAP . SKIN: Focused skin assessment reveals no rash and nodules. Skin is Warm and dry. HEAD: Atraumatic. Normocephalic. EYES: Pupils equal and round. No scleral icterus. No injection or drainage. ENT: No nasal bleeding or discharge. Mucous membranes pink and moist. NECK: Trachea midline. No JVD. CARDIOVASCULAR: Regular rate and rhythm. No murmur appreciated. RESPIRATORY: Some accessory muscle use. Diminished breath sounds throughout but I do not hear active wheezing or significant crackles. Breath sounds equal bilaterally. GASTROINTESTINAL: Abdomen soft, non-tender, nondistended. Hepatic and splenic margins not palpable. MUSCULOSKELETAL: No obvious deformities. No clubbing. No cyanosis. No edema. NEUROLOGICAL: Awake and alert. No obvious cranial nerve deficits. Motor grossly within normal limits. Normal speech. PSYCHIATRIC: Appropriate mood and affect; insight and judgment normal. Course Initial Documented Vital Signs Temperature 98.4 F 04/02/18 14:35 Pulse Rate 99 H 04/02/18 14:35 Respiratory Rate 32 H 04/02/18 14:35 Blood Pressure 119/57 L 04/02/18 14:35 Pulse Oximetry 100 04/02/18 14:35 Last Documented Vital Signs Temperature 98.4 F 04/02/18 14:58 Pulse Rate 100 H 04/02/18 18:31 Respiratory Rate 24 04/02/18 18:31 Blood Pressure 100/59 L 04/02/18 18:12 Pulse Oximetry 97 04/02/18 18:12 Sign Out Sign Out Data: Patient Sign Out occurred on 04/02/18 at 15:23. Patient's care was discussed, and care was transferred from Dread Lennon MD to Bernice Griffin MD. Sign Out Comment: Workup has been ordered in case checked out to the evening physician to assist with disposition. Last updated by Dread Lennon MD at 04/02/18 15:14 Post-Handoff Eval: I received care of patient in check out. At time of check out, labs and re- eval were pending. Labs were relatively unremarkable and CXR showed some edema, but did not really explain her previous dyspnea and hypoxia. CTA was then obtained and did not show PE. She was able to be weaned off Bipap onto 4 L NC and received another duoneb and solumedrol for possible COPD exacerbation. She has been admitted to Dr Walden, hospitalist investor relations manager for further management. Medical Decision Making MDM Narrative Medical decision making narrative: 77-year-old female presents shortness of breath. She arrives on BiPAP and I am going to leave her on that for a while. It is helping her. I have ordered a workup to include labs and EKG and chest x- ray to start. I am giving her another nebulizer treatment. She arrived literally 15 minutes before shift and and a case is checked out to the evening physician. Medical Screen Exam Complete: Yes Emergency Medical Condition: Yes Lab Data Result diagrams: 04/02/18 15:33 04/02/18 15:33 Lab Results 04/02/18 04/02/18 04/02/18 Range/Units 15:33 15:33 15:33 WBC 9.3 (4.0-11.0) th/mm3 RBC 3.85 L (4.00-5.30) mil/mm3 Hgb 12.0 (11.6-15.3) gm/dL Hct 35.2 (35.0-46.0) % MCV 91.2 (80.0-100.0) fL MCH 31.0 (27.0-34.0) pg MCHC 34.0 (32.0-36.0) % RDW 16.7 (11.6-17.2) % Plt Count 264 (150-450) th/mm3 MPV 7.3 (7.0-11.0) fL Prelim Diff (Auto) Slide review pending WBC Differential Manual diff final Seg Neuts % (Manual) 90 H (16-70) % Band Neuts % (Manual) 3 (0-6) % Lymphocytes % (Manual) 6 L (9-44) % Monocytes % (Manual) 1 (0-8) % Abs Neuts (Manual) 8.6 H (1.8-7.7) th/mm3 Differential Comment . Puncture Site Patient Temperature O2 Saturation (90-100) % ABG pH (7.380-7.420) ABG pCO2 (38-42) mmHg ABG pO2 (61-120) mmHg ABG HCO3 (22-26) mmol/L ABG O2 Content (12.0-20.0) Vol % ABG Base Excess (-2-2) mmol/L ABG Methemoglobin (0-2) % Hoang Test Hemoglobin (12.0-16.0) G/DL Carboxyhemoglobin (0-4) % O2 Delivery Device Vent Setting Inspired O2 % Critical Value Sodium 139 (136-145) meq/L Potassium 4.5 (3.5-5.1) meq/L Chloride 99 (98-107) meq/L Carbon Dioxide 32.5 H (21.0-32.0) meq/L Anion Gap 8 (5-15) meq/L BUN 17 (7-18) mg/dL Creatinine 1.06 H (0.50-1.00) mg/dL Estimated GFR 50 L (>89) mL/min Random Glucose 107 H (74-106) mg/dL Calcium 8.9 (8.5-10.1) mg/dL Total Bilirubin 0.7 (0.2-1.0) mg/dL AST 25 (15-37) U/L ALT 11 (10-53) U/L Alkaline Phosphatase 100 (45-117) U/L Total Creatine Kinase (26-192) U/L Troponin I (0.02-0.05) ng/mL B-Natriuretic Peptide 211 H (0-100) pg/mL Total Protein 7.2 (6.4-8.2) g/dL Albumin 2.7 L (3.4-5.0) g/dL 04/02/18 04/02/18 Range/Units 15:33 16:05 WBC (4.0-11.0) th/mm3 RBC (4.00-5.30) mil/mm3 Hgb (11.6-15.3) gm/dL Hct (35.0-46.0) % MCV (80.0-100.0) fL MCH (27.0-34.0) pg MCHC (32.0-36.0) % RDW (11.6-17.2) % Plt Count (150-450) th/mm3 MPV (7.0-11.0) fL Prelim Diff (Auto) WBC Differential Seg Neuts % (Manual) (16-70) % Band Neuts % (Manual) (0-6) % Lymphocytes % (Manual) (9-44) % Monocytes % (Manual) (0-8) % Abs Neuts (Manual) (1.8-7.7) th/mm3 Differential Comment Puncture Site Left radial Patient Temperature 98.6 O2 Saturation 98 (90-100) % ABG pH 7.50 H (7.380-7.420) ABG pCO2 40 (38-42) mmHg ABG pO2 185 H (61-120) mmHg ABG HCO3 31 H (22-26) mmol/L ABG O2 Content 16.5 (12.0-20.0) Vol % ABG Base Excess 7.6 H (-2-2) mmol/L ABG Methemoglobin 0.5 (0-2) % Hoang Test Present Hemoglobin 11.7 L (12.0-16.0) G/DL Carboxyhemoglobin 1.4 (0-4) % O2 Delivery Device Bipap Vent Setting Epap5/ipap12 Inspired O2 50 % Critical Value No Sodium (136-145) meq/L Potassium (3.5-5.1) meq/L Chloride (98-107) meq/L Carbon Dioxide (21.0-32.0) meq/L Anion Gap (5-15) meq/L BUN (7-18) mg/dL Creatinine (0.50-1.00) mg/dL Estimated GFR (>89) mL/min Random Glucose (74-106) mg/dL Calcium (8.5-10.1) mg/dL Total Bilirubin (0.2-1.0) mg/dL AST (15-37) U/L ALT (10-53) U/L Alkaline Phosphatase (45-117) U/L Total Creatine Kinase 49 (26-192) U/L Troponin I Less than 0.02 L (0.02-0.05) ng/mL B-Natriuretic Peptide (0-100) pg/mL Total Protein (6.4-8.2) g/dL Albumin (3.4-5.0) g/dL Imaging Data Radiologist's impression: Chest X-Ray 04/02/18 15:09 CONCLUSION: Mild congestive failure Chest CTA 04/02/18 16:00 CONCLUSION: 1. Negative for pulmonary embolus. Moderate emphysema. Mild fibrotic changes in the lungs. Discharge Plan Discharge Disposition Patient Disposition: 30 Still Patient Discharge Condition Condition: Stable Discharge Details Diagnosis: Acute exacerbation of chronic obstructive pulmonary disease (COPD) Physicians Team ED Provider: Bernice Griffin Primary Care Provider: Yonny Awad Attending Provider: Brian Walden Status ED Status: Admitted Patient
--- NOTE | 2018-04-02 16:00 | XR ---
EXAM DATE: 04/02/2018 3:52 PM EDT AGE/SEX: 77 years / Female INDICATIONS: Shortness of breath. CLINICAL DATA: This is the patient's initial encounter. Patient reports that signs and symptoms have been present for 1 day and indicates a pain score of 0/10. MEDICAL/SURGICAL HISTORY: Chronic obstructive pulmonary disease. Congestive heart failure. Non e. COMPARISON: [facility] [place], CHEST PA & LAT, 06/10/2017. . FINDINGS: Minimal parenchymal changes left base. Mild interstitial prominence with mild cardiomegaly. No pneumo thorax. No pleural effusion. Circular radiopacity overlying the sternoclavicular junction midline. CONCLUSION: Mild congestive failure Electronically signed by: Bj Fuentes MD 04/02/2018 3:59 PM EDT
[2018-04-02 16:08] LABS: Hematocrit 35.2 % (35.0-46.0); Mean Corpuscular Volume 91.2 fL (80.0-100.0); Mean Platelet Volume 7.3 fL (7.0-11.0); Platelet Count 264 th/mm3 (150-450); Red Blood Count 3.85 mil/mm3 (4.00-5.30); Red Cell Distribution Width 16.7 % (11.6-17.2); White Blood Count 9.3 th/mm3 (4.0-11.0)
[2018-04-02 16:14] LABS: ABG Base Excess 7.6 mmol/L (-2-2); ABG PCO2 40 mmHg (38-42); ABG PO2 185 mmHg (61-120)
[2018-04-02 16:43] LABS: Alkaline Phosphatase 100 U/L (45-117); Total Protein 7.2 g/dL (6.4-8.2)
[2018-04-02 16:47] LABS: Lymphocytes 6 % (9-44); Monocytes 1 % (0-8)
[2018-04-02 16:48] LABS: Alanine Aminotransferase 11 U/L (10-53); Albumin 2.7 g/dL (3.4-5.0); Anion Gap 8 meq/L (5-15); Aspartate Aminotransferase 25 U/L (15-37); Blood Urea Nitrogen 17 mg/dL (7-18); Calcium 8.9 mg/dL (8.5-10.1); Carbon Dioxide 32.5 meq/L (21.0-32.0); Chloride 99 meq/L (98-107); Creatine Kinase 49 U/L (26-192); Glomerular Filtration Rate 50 mL/min (>89); Glucose,Random 107 mg/dL (74-106); Potassium 4.5 meq/L (3.5-5.1); Sodium 139 meq/L (136-145)
--- NOTE | 2018-04-02 18:11 | CT ---
EXAM DATE: 04/02/2018 6:00 PM EDT AGE/SEX: 77 years / Female INDICATIONS: Shortness of breath. CLINICAL DATA: This is the patient's initial encounter. Patient reports that signs and symptoms have been present for 1 day and indicates a pain score of 0/10. MEDICAL/SURGICAL HISTORY: Chronic obstructive pulmonary disease. Congestive heart failure. Appende ctomy. Hysterectomy. RADIATION DOSE: 28.07 CTDI (mGy) COMPARISON: [facility], CT PULMONARY ANGIOGRAM, 03/28/2015. . TECHNIQUE: Volumetric scanning was performed using a multi-row detector CT scanner during bolus infu jhony of 72 ml Omnipaque 350 (iohexol) nonionic water-soluble contrast as a single exam dose. The hitesh a was post processed with a variety of visualization algorithms including full volume maximum intensi ty projection and sliding thin slab reformation. Using automated exposure control and adjustment of the mA and/or kV according to patient size, radiation dose was kept as low as reasonably achievable t o obtain optimal diagnostic quality images. DICOM format image data is available electronically for review and comparison. FINDINGS: No filling defects identified in the pulmonary arteries to suggest pulmonary embolic disease. There are fibrotic changes in the lungs. Moderate emphysema present. No hilar, mediastinal or axillary adenopathy is identified. Mild coronary calcifications. No acute findings in the upper abdomen. CONCLUSION: 1. Negative for pulmonary embolus. Moderate emphysema. Mild fibrotic changes in the lungs. Electronically signed by: Augustine Razo MD 04/02/2018 6:10 PM EDT
[2018-04-02] MEDS ORDERED: MethylPREDNISolone Sod Succinate Inj 125 MG/2 ML Vial IV.PUSH ONE (18:22)
[2018-04-02] MEDS ORDERED: Acetaminophen 325 MG Tablet PO PRN (18:49)
--- NOTE | 2018-04-02 19:03 | P.HP ---
History of Present Illness Primary Care Physician: Yonny Awad MD History of Present Illness: 77-year-old female with a history of COPD and atrial fibrillation presents to the ER after onset of shortness of breath and wheezing starting last night that became worse throughout today. She blames this on the weather change but also notes that she received a flu shot 3 days ago and since then has been having runny nose and mild upper respiratory symptoms. She denies any history of fever , denies a cough that is productive, denies any change in the color of her phlegm. She states that she has had multiple exacerbations, almost always related to weather changes. Her atrial fibrillation has been under good control and she takes carvedilol to assist with rate control as well as warfarin to reduce her clot risk. She denies any nausea vomiting or diarrhea. She denies any chest pain. Inpatient Certification: I certify that the inpatient services were ordered in accordance with Medicare regulations governing the order. This includes certification that hospital inpatient services are reasonable and necessary and in the case of services not specified as inpatient-only under 42 CFR 419.22(n), that they are appropriately provided as inpatient services in accordance to with the 2-midnight benchmark under 43 CFR 412.3(e) Estimated Total Length of Stay (Days): 3 Plans for Post Hospital Care: Home health Review of Systems All other systems reviewed negative except as stated in HPI PMFSH - History History Provided By: Patient - Medical History Medical History: Medical History (Last Updated 04/02/18 @ 14:42 by Yonny Bonilla) CHF (congestive heart failure) COPD (chronic obstructive pulmonary disease) History of hysterectomy - Surgical History Surgical History: Surgical History (Last Updated 04/02/18 @ 14:42 by Yonny Bonilla) Hx of appendectomy - Family History Family History: Family History (Last Updated 04/02/18 @ 18:57 by Brian Walden MD) Other Hypertension - Tobacco History Smoking Status: Former smoker - Alcohol History How Often Do You Have a Drink Containing Alcohol: Never - Substance Use History Substance History: No History of Abuse - Travel History Recent Travel in the [place] Within the Last 8 Weeks: No Recent Travel Out of the Country Within the Last 8 Weeks: No - Immunization History Tetanus Immunization: Unsure Medications and Allergies Active Medications: Active Medications Acetaminophen (Tylenol) 650 mg PO Q4H PRN PRN Reason: Temp > 100.4 Albuterol (Duoneb Neb (Prn)) 1 ampul NEB Q2HR NEB PRN PRN Reason: WHEEZING Albuterol (Duoneb Neb (Bethanie)) 1 ampul NEB Q4HR NEB [facility] Budesonide/Formoterol Fumarate (Symbicort 80/4.5 Mcg Inh) 2 puff INH BID [facility] Carvedilol (Coreg) 6.25 mg PO BID BETHANIE Furosemide (Lasix) 80 mg PO BID [facility] Methylprednisolone Sodium Succinate (Solumedrol Inj) 40 mg IV.PUSH Q8HR BETHANIE Ondansetron HCl (Zofran Inj) 4 mg IV.PUSH Q6H PRN PRN Reason: NAUSEA OR VOMITING Potassium Chloride (Klor-Con 10) 10 meq PO BID [facility] Sennosides (Senokot) 17.2 mg PO Q12H PRN PRN Reason: Moderate Constipation Warfarin Sodium [facility]in) [facility] Allergies Allergy/AdvReac Type Severity Reaction Status Date / Time No Known Allergies Allergy Verified 04/02/18 15:07 Home Medications Medication Instructions Recorded Confirmed Type albuterol sulfate [Ventolin HFA] 1 puff INHALATION Q4-6H PRN 04/02/18 04/02/18 History budesonide-formoterol [Symbicort] 2 puff INHALATION BID 04/02/18 04/02/18 History carvedilol [Coreg] 6.25 mg PO BID 04/02/18 04/02/18 History furosemide [Lasix] 80 mg PO BID 04/02/18 04/02/18 History potassium chloride 10 meq PO BID 04/02/18 04/02/18 History simvastatin 20 mg PO QPM 04/02/18 04/02/18 History warfarin [Coumadin] 4 mg PO QTUTHSASU 04/02/18 04/02/18 History Exam Vital signs: Vital Signs 04/02/18 14:35 04/02/18 14:58 04/02/18 15:56 Temperature 98.4 F 98.4 F Pulse Rate 105 H 106 H 106 H Respiratory Rate 24 29 H 29 H Blood Pressure 119/57 L 119/57 L 106/64 Pulse Oximetry 95 99 98 04/02/18 16:35 04/02/18 18:12 04/02/18 18:31 Temperature Pulse Rate 92 H 100 H Respiratory Rate 18 24 Blood Pressure 100/59 L Pulse Oximetry 95 97 Intake & Output 04/01/18 04/02/18 04/02/18 18:59 06:59 18:59 Weight 95.254 kg Narrative: GENERAL: AAOx3, mild distress, overweight, SKIN: Warm and dry, no rashes. HEAD: Atraumatic. Normocephalic. EYES: Pupils equal, round, reactive to light. No scleral icterus. No injection or drainage. ENT: No nasal bleeding or discharge. Moist mucous membranes. Nonerythematous oropharynx. NECK: Trachea midline. No JVD. Thyroid size within normal limits. CARDIOVASCULAR: Irregularly irregular, rate controlled. No murmur, no gallops, no rubs. RESPIRATORY: Atelectasis in left base otherwise mostly clear. Mild work of breathing.. No crackles, no wheezes. No accessory muscle use. GASTROINTESTINAL: Abdomen obese, non-tender, nondistended, normal active bowel sounds. Hepatic and splenic margins not palpable. MUSCULOSKELETAL: Extremities without clubbing or cyanosis. No obvious deformities. No edema. NEUROLOGICAL: Awake and alert. No obvious cranial nerve deficits. Motor grossly within normal limits. No focal deficits. Five out of 5 muscle strength in the arms and legs. Normal speech. Generalized weakness from deconditioning. PSYCHIATRIC: Appropriate mood and affect; insight and judgment normal. Results - Labs CBC & Chem 7: 04/02/18 15:33 04/02/18 15:33 Labs: Laboratory Results - last 24 hr 04/02/18 04/02/18 04/02/18 15:33 15:33 15:33 WBC 9.3 RBC 3.85 L Hgb 12.0 Hct 35.2 MCV 91.2 MCH 31.0 MCHC 34.0 RDW 16.7 Plt Count 264 MPV 7.3 Prelim Diff (Auto) Slide review pending WBC Differential Manual diff final Seg Neuts % (Manual) 90 H Band Neuts % (Manual) 3 Lymphocytes % (Manual) 6 L Monocytes % (Manual) 1 Abs Neuts (Manual) 8.6 H Differential Comment . Puncture Site Patient Temperature O2 Saturation ABG pH ABG pCO2 ABG pO2 ABG HCO3 ABG O2 Content ABG Base Excess ABG Methemoglobin Hoang Test Hemoglobin Carboxyhemoglobin O2 Delivery Device Vent Setting Inspired O2 Critical Value Sodium 139 Potassium 4.5 Chloride 99 Carbon Dioxide 32.5 H Anion Gap 8 BUN 17 Creatinine 1.06 H Estimated GFR 50 L Random Glucose 107 H Calcium 8.9 Total Bilirubin 0.7 AST 25 ALT 11 Alkaline Phosphatase 100 Total Creatine Kinase Troponin I B-Natriuretic Peptide 211 H Total Protein 7.2 Albumin 2.7 L 04/02/18 04/02/18 15:33 16:05 WBC RBC Hgb Hct MCV MCH MCHC RDW Plt Count MPV Prelim Diff (Auto) WBC Differential Seg Neuts % (Manual) Band Neuts % (Manual) Lymphocytes % (Manual) Monocytes % (Manual) Abs Neuts (Manual) Differential Comment Puncture Site Left radial Patient Temperature 98.6 O2 Saturation 98 ABG pH 7.50 H ABG pCO2 40 ABG pO2 185 H ABG HCO3 31 H ABG O2 Content 16.5 ABG Base Excess 7.6 H ABG Methemoglobin 0.5 Hoang Test Present Hemoglobin 11.7 L Carboxyhemoglobin 1.4 O2 Delivery Device Bipap Vent Setting Epap5/ipap12 Inspired O2 50 Critical Value No Sodium Potassium Chloride Carbon Dioxide Anion Gap BUN Creatinine Estimated GFR Random Glucose Calcium Total Bilirubin AST ALT Alkaline Phosphatase Total Creatine Kinase 49 Troponin I Less than 0.02 L B-Natriuretic Peptide Total Protein Albumin - Imaging Impressions Chest X-Ray 04/02/18 15:09 CONCLUSION: Mild congestive failure Chest CTA 04/02/18 16:00 CONCLUSION: 1. Negative for pulmonary embolus. Moderate emphysema. Mild fibrotic changes in the lungs. Caprini VTE Risk Assessment Caprini VTE Risk Assessment: Moderate/High Risk (score >= 2) Caprini Risk Assessment Model: Point Value = 1 Point Value = 2 Point Value = 3 Point Value = 5 Age 41-60 Minor surgery BMI > 25 kg/m2 Swollen legs Varicose veins or History of unexplained or recurrent spontaneous Oral contraceptives or hormone replacement Sepsis (< 1 month) Serious lung disease, including pneumonia (< 1 month) Abnormal pulmonary function Acute myocardial infarction Congestive heart failure (< 1 month) History of inflammatory bowel disease Medical patient at bed rest Age 61-74 Arthroscopic surgery Major open surgery (> 45 min) Laparoscopic surgery (> 45 min) Malignancy Confined to bed (> 72 hours) Immobilizing plaster cast Central venous access Age >= 75 History of VTE Family history of VTE Factor V Leiden Prothrombin [id number] Lupus anticoagulant Anticardiolipin antibodies Elevated serum homocysteine Heparin-induced thrombocytopenia Other congenital or acquired thrombophilia Stroke (< 1 month) Elective arthroplasty Hip, pelvis, or leg fracture Acute spinal cord injury (< 1 month) Prophylaxis Regimen: Total Risk Factor Score Risk Level Prophylaxis Regimen 0-1 Low Early ambulation 2 Moderate Order ONE of the following: *Sequential Compression Device (SCD) *Heparin 5000 units SQ BID 3-4 Higher Order ONE of the following medications: *Heparin 5000 units SQ TID *Enoxaparin/Lovenox 40 mg SQ daily (WT < 150 kg, CrCl > 30 mL/min) *Enoxaparin/Lovenox 30 mg SQ daily (WT < 150 kg, CrCl > 10-29 mL/min) *Enoxaparin/Lovenox 30 mg SQ BID (WT < 150 kg, CrCl > 30 mL/min) AND/OR *Sequential Compression Device (SCD) 5 or more Highest Order ONE of the following medications: *Heparin 5000 units SQ TID (Preferred with Epidurals) *Enoxaparin/Lovenox 40 mg SQ daily (WT < 150 kg, CrCl > 30 mL/min) *Enoxaparin/Lovenox 30 mg SQ daily (WT < 150 kg, CrCl > 10-29 mL/min) *Enoxaparin/Lovenox 30 mg SQ BID (WT < 150 kg, CrCl > 30 mL/min) AND *Sequential Compression Device (SCD) Assessment and Plan - Plan COPD exacerbation Patient responded well to standard therapy in the ER, she required BiPAP for the first few hours Recommend admitting to intermediate care in case she needs BiPAP overnight again We will continue with Solu-Medrol, duo nebs Patient denies any fevers or productive cough, her lungs are mostly clear (not typical congestion with COPD), no leukocytosis Follow clinically h/o atrial fibrillation Continue with telemetry continue with home dose carvedilol h/o CHF Continue home dose Lasix with potassium Generalized weakness Physical therapy evaluation for function Hypertension Continue home dose carvedilol Chronic pain Continue home dose narcotic DVT prophylaxis Warfarin home dose
[2018-04-02] MEDS: Carvedilol 6.25 MG Tablet PO SCH (22:13)
[2018-04-03] MEDS: Furosemide 80 MG Tablet PO SCH ×2 (00:29→09:05)
[2018-04-03] MEDS: MethylPREDNISolone Sod Succinate Inj 40 MG/ML Vial IV.PUSH SCH ×4 (00:29→22:05)
[2018-04-03] MEDS: Budesonide-Formoterol 80/4.5 MCG 6.9 GM Inhaler INH SCH ×3 (01:22→20:30)
[2018-04-03 02:22] LABS: Bacteria,Urine Rare /hpf; Bilirubin,Urine Negative (Negative); Clarity,Urine Cloudy (Clear); Color,Urine Yellow (Yellw/Straw); Glucose,Urine (UA) 500 or Greater mg/dL (Negative); Leukocyte Esterase,Urine Moderate (Negative); Mucus,Urine Few /lpf (Occasional); Nitrite,Urine Negative (Negative); Specific Gravity,Urine 1.038 (1.002-1.035); Squamous Epithelial Cell,Urine 4 /hpf (0-5)
[2018-04-03] MEDS: Carvedilol 6.25 MG Tablet PO SCH ×2 (09:06→20:29)
--- NOTE | 2018-04-03 15:09 | P.PNIM ---
Subjective Interval history: Patient still has some complaints of shortness of breath when she gets up and begins to ambulate. She denies any chest pain Physical Exam Vital signs: Vital Signs 04/02/18 15:56 04/02/18 16:35 04/02/18 18:12 Temperature Pulse Rate 106 H 92 H Respiratory Rate 29 H 18 Blood Pressure 106/64 100/59 L Pulse Oximetry 98 95 97 04/02/18 18:31 04/02/18 19:50 04/02/18 20:00 Temperature 98.8 F Pulse Rate 100 H 109 H 82 Respiratory Rate 24 24 Blood Pressure 100/59 L Pulse Oximetry 95 04/02/18 21:51 04/02/18 22:00 04/03/18 02:28 Temperature 98.2 F Pulse Rate 104 H 108 H 91 H Respiratory Rate 16 24 25 H Blood Pressure 104/58 L 107/63 Pulse Oximetry 97 96 99 04/03/18 04:00 04/03/18 06:12 04/03/18 08:00 Temperature 98.5 F Pulse Rate 64 58 L Respiratory Rate 25 H 20 Blood Pressure 105/60 Pulse Oximetry 98 04/03/18 08:57 04/03/18 09:02 04/03/18 11:48 Temperature 97.6 F Pulse Rate 79 58 L 73 Respiratory Rate 20 14 16 Blood Pressure 102/57 L Pulse Oximetry 99 99 04/03/18 12:12 Temperature 97.8 F Pulse Rate 72 Respiratory Rate 22 Blood Pressure 109/51 L Pulse Oximetry 97 Intake & Output 04/02/18 04/03/18 04/03/18 18:59 06:59 18:59 Intake Total 240 / 240 Output Total 500 / 500 Balance -260 / -260 Weight 95.254 kg 92.2 kg Intake: Oral 240 / 240 Output: Urine 500 / 500 Other: Date of Last Bowel Movement 04/03/18 Narrative: General patient says she is feels better than she did when she came in. HEENT extraocular movements are intact, clear oropharyngeal mucosa, no JVD Cardiovascular S1-S2 audible Respiratory wheezing auscultated bilaterally Abdomen soft, nontender, nondistended, normal bowel sounds Extremities no edema 2+ distal pulses in bilateral upper and lower extremities Neuro cranial nerves II through XII intact Results - Labs CBC & Chem 7: 04/02/18 15:33 04/02/18 15:33 Laboratory Results - last 24 hr 04/02/18 04/02/18 04/02/18 15:33 15:33 15:33 WBC 9.3 RBC 3.85 L Hgb 12.0 Hct 35.2 MCV 91.2 MCH 31.0 MCHC 34.0 RDW 16.7 Plt Count 264 MPV 7.3 Prelim Diff (Auto) Slide review pending WBC Differential Manual diff final Seg Neuts % (Manual) 90 H Band Neuts % (Manual) 3 Lymphocytes % (Manual) 6 L Monocytes % (Manual) 1 Abs Neuts (Manual) 8.6 H Differential Comment . Puncture Site Patient Temperature O2 Saturation ABG pH ABG pCO2 ABG pO2 ABG HCO3 ABG O2 Content ABG Base Excess ABG Methemoglobin Hoang Test Hemoglobin Carboxyhemoglobin O2 Delivery Device Vent Setting Inspired O2 Critical Value Sodium 139 Potassium 4.5 Chloride 99 Carbon Dioxide 32.5 H Anion Gap 8 BUN 17 Creatinine 1.06 H Estimated GFR 50 L Random Glucose 107 H Calcium 8.9 Total Bilirubin 0.7 AST 25 ALT 11 Alkaline Phosphatase 100 Total Creatine Kinase Troponin I B-Natriuretic Peptide 211 H Total Protein 7.2 Albumin 2.7 L Urine Color Urine Clarity Urine pH Ur Specific [place] Urine Protein Urine Glucose (UA) Urine Ketones Urine Occult Blood Urine Nitrate Urine Bilirubin Urine Urobilinogen Ur Leukocyte Esterase Urine RBC Urine WBC Urine WBC Clumps Ur Squamous Epith Cells Urine Bacteria Urine Mucus Micro UA Comment Ur Microscopic Review Urine Culture Comments 04/02/18 04/02/18 04/03/18 15:33 16:05 01:38 WBC RBC Hgb Hct MCV MCH MCHC RDW Plt Count MPV Prelim Diff (Auto) WBC Differential Seg Neuts % (Manual) Band Neuts % (Manual) Lymphocytes % (Manual) Monocytes % (Manual) Abs Neuts (Manual) Differential Comment Puncture Site Left radial Patient Temperature 98.6 O2 Saturation 98 ABG pH 7.50 H ABG pCO2 40 ABG pO2 185 H ABG HCO3 31 H ABG O2 Content 16.5 ABG Base Excess 7.6 H ABG Methemoglobin 0.5 Hoang Test Present Hemoglobin 11.7 L Carboxyhemoglobin 1.4 O2 Delivery Device Bipap Vent Setting Epap5/ipap12 Inspired O2 50 Critical Value No Sodium Potassium Chloride Carbon Dioxide Anion Gap BUN Creatinine Estimated GFR Random Glucose Calcium Total Bilirubin AST ALT Alkaline Phosphatase Total Creatine Kinase 49 Troponin I Less than 0.02 L B-Natriuretic Peptide Total Protein Albumin Urine Color Yellow Urine Clarity Cloudy H Urine pH 5.0 Ur Specific [place] 1.038 H Urine Protein 30 H Urine Glucose (UA) 500 or greater Urine Ketones Negative Urine Occult Blood Moderate H Urine Nitrate Negative Urine Bilirubin Negative Urine Urobilinogen Less than 2 Ur Leukocyte Esterase Moderate H Urine RBC 33 H Urine WBC 122 H Urine WBC Clumps Few H Ur Squamous Epith Cells 4 Urine Bacteria Rare H Urine Mucus Few H Micro UA Comment Culture indicated Ur Microscopic Review Not Reportable Urine Culture Comments Culture indicated Microbiology 04/03/18 01:38 Clean Catch Urine Urine Culture - Preliminary gram negative rods - Imaging Impressions Chest X-Ray 04/02/18 15:09 CONCLUSION: Mild congestive failure Chest CTA 04/02/18 16:00 CONCLUSION: 1. Negative for pulmonary embolus. Moderate emphysema. Mild fibrotic changes in the lungs. Assessment and Plan - Plan This patient is a 77-year-old female with a diagnosis of COPD on 3 L of supplemental oxygen, and atrial fibrillation on anticoagulation who presented to the emergency room with complaints of shortness of breath and wheezing that started last night. 1. Acute hypoxic respiratory failure secondary to COPD exacerbation 2. Questionable pulmonary hypertension The patient presented with shortness of breath and wheezing. She was found to be hypoxic requiring more supplemental oxygen than what she uses at baseline. Chest imaging does not show any evidence of pneumonia. Patient is currently on breathing treatments as well as IV steroids. Patient still has wheezing on physical examination. Continue IV steroids, continue supplemental oxygen, continue breathing treatments around the clock, continue IV steroids. If the patient's symptoms improve by tomorrow she can likely be discharged tomorrow. As per the patient she takes sildenafil. We are attempting to obtain a medication list from [facility] pharmacy. Once that the medication is I will adjust her medications. 2. Atrial fibrillation Heart rate under control. Continue beta-marisabel. Continue Coumadin 3. CHF Compensated, continue p.o. Lasix, continue beta-marisabel. DVT prophylaxis, patient is currently on Coumadin.
[2018-04-03 15:45] LABS: INR 1.8 Ratio; Prothrombin Time 18.7 sec (9.8-11.6)
[2018-04-03] MEDS ORDERED: Azithromycin 250 MG Tablet PO ONE (16:00)
[2018-04-04] MEDS: MethylPREDNISolone Sod Succinate Inj 40 MG/ML Vial IV.PUSH SCH ×3 (05:02→21:13)
[2018-04-04] MEDS: Furosemide 80 MG Tablet PO SCH ×2 (05:02→12:53)
[2018-04-04] MEDS: Carvedilol 6.25 MG Tablet PO SCH ×2 (09:11→21:11)
[2018-04-04] MEDS: Budesonide-Formoterol 80/4.5 MCG 6.9 GM Inhaler INH SCH ×2 (09:12→21:12)
[2018-04-04] MEDS: Azithromycin 250 MG Tablet PO SCH (09:12)
[2018-04-04 14:55] LABS: Calcium 9.3 mg/dL (8.5-10.1); Potassium 4.3 meq/L (3.5-5.1)
[2018-04-04 15:18] LABS: INR 1.7 Ratio; Prothrombin Time 17.4 sec (9.8-11.6)
--- NOTE | 2018-04-04 15:35 | P.PNIM ---
Subjective Interval history: Patient is sitting upright in a chair. She does not have any significant complaints today. She is requesting to go to a detention facility after discharge. Physical Exam Vital signs: Vital Signs 04/03/18 16:58 04/03/18 20:00 04/03/18 20:15 Temperature 98 F 97.5 F L Pulse Rate 75 86 75 Respiratory Rate 20 22 19 Blood Pressure 98/52 L 102/63 Pulse Oximetry 98 98 04/04/18 00:00 04/04/18 04:00 04/04/18 07:23 Temperature 97.7 F 97.8 F Pulse Rate 70 62 68 Respiratory Rate 22 22 Blood Pressure 104/53 L 117/74 Pulse Oximetry 93 L 93 L 97 04/04/18 07:26 04/04/18 07:51 04/04/18 08:47 Temperature 97.7 F Pulse Rate 77 79 Respiratory Rate 16 24 14 Blood Pressure 123/69 Pulse Oximetry 95 97 04/04/18 12:10 04/04/18 12:12 04/04/18 12:57 Temperature 97.8 F Pulse Rate 72 75 85 Respiratory Rate 14 22 Blood Pressure 98/49 L Pulse Oximetry 95 04/04/18 15:16 Temperature 98.2 F Pulse Rate 85 Respiratory Rate 20 Blood Pressure 120/70 Pulse Oximetry 94 L Intake & Output 04/03/18 04/04/18 04/04/18 19:59 06:59 18:59 Intake Total Output Total Balance Weight Intake: IV Rocephin Inj 1,000 MG In NS Inj 100 ML @ 200 mls/hr IV.SIG Q24H MARTHA Rx#:[id number] Oral Output: Urine Other: # Voids Date of Last Bowel Movement Narrative: General patient says she feels better today. She is requesting to go to a detention facility after discharge because she wants to get stronger. HEENT extraocular movements are intact, clear oropharyngeal mucosa, no JVD Cardiovascular S1-S2 audible Respiratory still has wheezing auscultated bilaterally Abdomen soft, nontender, nondistended, normal bowel sounds Extremities no edema 2+ distal pulses in bilateral upper and lower extremities Neuro no neurological deficits. Results - Labs CBC & Chem 7: 04/02/18 15:33 04/04/18 14:10 Laboratory Results - last 24 hr 04/04/18 04/04/18 14:10 14:10 PT 17.4 H INR 1.7 Sodium 137 Potassium 4.3 Chloride 99 Carbon Dioxide 31.0 Anion Gap 7 BUN 32 H Creatinine 1.29 H Estimated GFR 40 L Random Glucose 204 H Calcium 9.3 Magnesium 2.0 Microbiology 04/03/18 01:38 Clean Catch Urine Urine Culture - Final Escherichia coli Assessment and Plan - Plan This patient is a 77-year-old female with a diagnosis of COPD on 3 L of supplemental oxygen, and atrial fibrillation on anticoagulation who presented to the emergency room with complaints of shortness of breath and wheezing that started last night. 1. Acute hypoxic respiratory failure secondary to COPD exacerbation 2. Pulmonary hypertension Patient still has wheezing on auscultation. Patient is currently on her baseline supplemental oxygen. No pneumonia seen on chest imaging. Plan is to continue IV steroids, continue supplemental oxygen, continue breathing treatments [id number]. Patient on p.o. antibiotics. Patient sildenafil dose was adjusted today. She brought in her home medication and it was reviewed by me. 2. Atrial fibrillation Heart rate under control. Continue beta-marisabel. Continue Coumadin. Monitor INR. 3. CHF with preserved ejection fraction 4. AK I possibly secondary to dehydration. Compensated, continue beta-marisabel. Patient had a slight elevation in her serum creatinine today. I have held her Lasix for today. We will give light fluid hydration and reassess her kidney function tomorrow. 5. UTI Patient currently on Rocephin. We will continue for 1 more day. DVT prophylaxis, patient is currently on Coumadin.
[2018-04-04] MEDS: Sod Chloride 0.9% Inj 1,000 ML IV.CONT SCH (16:24)
[2018-04-04] MEDS: Docusate Sodium 100 MG Capsule PO SCH (21:11)
--- NOTE | 2018-04-05 00:42 | ECG ---
Date Performed: 04/02/2018 Time Performed: 14:50:59 PTAGE: 77 years EKG: ATRIAL FIBRILLATION WITH RAPID VENTRICULAR RESPONSE INDETERMINATE AXIS ANTEROSEPTAL MYOCARD IAL INFARCTION ABNORMAL ECG PREVIOUS TRACING : 06/13/2017 11.07 Since the previous tracing, no significant change noted DOCTOR: Sheldon Cuevas Interpretating Date/Time 04/05/2018 00:42:10
[2018-04-05] MEDS: Sod Chloride 0.9% Inj 1,000 ML IV.CONT SCH ×2 (02:37→23:19)
[2018-04-05] MEDS: MethylPREDNISolone Sod Succinate Inj 40 MG/ML Vial IV.PUSH SCH ×3 (05:40→21:37)
[2018-04-05 07:30] LABS: Calcium 8.8 mg/dL (8.5-10.1); Carbon Dioxide 30.8 meq/L (21.0-32.0); Magnesium 2.2 mg/dL (1.5-2.5); Potassium 4.3 meq/L (3.5-5.1)
[2018-04-05] MEDS: Azithromycin 250 MG Tablet PO SCH (08:23)
[2018-04-05] MEDS: Carvedilol 6.25 MG Tablet PO SCH ×2 (08:23→20:21)
[2018-04-05] MEDS: Docusate Sodium 100 MG Capsule PO SCH ×2 (08:23→20:21)
[2018-04-05] MEDS: Budesonide-Formoterol 80/4.5 MCG 6.9 GM Inhaler INH SCH ×2 (08:25→20:22)
--- NOTE | 2018-04-05 17:24 | P.PNIM ---
Subjective Interval history: Patient says she feels better today. She still has some shortness of breath when ambulate in. Physical Exam Vital signs: Vital Signs 04/04/18 20:00 04/04/18 20:42 04/05/18 00:00 Temperature 98.4 F 98.2 F Pulse Rate 87 89 82 Respiratory Rate 20 24 20 Blood Pressure 104/57 L 102/55 L Pulse Oximetry 96 95 97 04/05/18 03:34 04/05/18 03:36 04/05/18 07:00 Temperature 97.9 F Pulse Rate 66 63 59 L Respiratory Rate 20 Blood Pressure 110/59 L Pulse Oximetry 97 04/05/18 07:28 04/05/18 08:00 04/05/18 08:24 Temperature 97.6 F Pulse Rate 58 L 80 71 Respiratory Rate 18 20 Blood Pressure 106/55 L Pulse Oximetry 99 98 04/05/18 09:09 04/05/18 11:00 04/05/18 11:18 Temperature 98 F Pulse Rate 100 H 81 79 Respiratory Rate 18 Blood Pressure 126/69 Pulse Oximetry 96 04/05/18 11:48 04/05/18 15:00 04/05/18 15:04 Temperature 98 F Pulse Rate 86 84 87 Respiratory Rate 18 20 Blood Pressure 120/75 Pulse Oximetry 98 04/05/18 16:30 Temperature Pulse Rate 85 Respiratory Rate 18 Blood Pressure Pulse Oximetry Intake & Output 04/04/18 04/05/18 04/05/18 18:59 06:59 18:59 Intake Total 100 / 100 2250 / 2250 100 / 100 Output Total 500 / 500 Balance 100 / 100 1750 / 1750 100 / 100 Weight 103.7 kg Intake: IV 100 / 100 1000 / 1000 100 / 100 NS Inj 1,000 ML @ 84 mls/hr IV. 1000 / 1000 CONT .[id number] MARTHA Rx#:[id number] Rocephin Inj 1,000 MG In NS Inj 100 / 100 100 / 100 100 ML @ 200 mls/hr IV.SIG Q24H MARTHA Rx#:[id number] Oral 750 / 750 Other 500 / 500 Output: Urine 500 / 500 Other: Other Intake Source Saline Solution # Voids 6 3 Date of Last Bowel Movement 04/03/18 Narrative: General patient says she has some shortness of breath when ambulating. HEENT extraocular movements are intact, clear oropharyngeal mucosa, no JVD Cardiovascular S1-S2 audible Respiratory patient still has some wheezing on auscultation bilaterally. He has improved since yesterday. Abdomen soft, nontender, nondistended, normal bowel sounds Extremities no edema 2+ distal pulses in bilateral upper and lower extremities Neuro no neurological deficits. Results - Labs CBC & Chem 7: 04/02/18 15:33 04/05/18 05:53 Laboratory Results - last 24 hr 04/05/18 05:53 Sodium 140 Potassium 4.3 Chloride 102 Carbon Dioxide 30.8 Anion Gap 7 BUN 34 H Creatinine 1.04 H Estimated GFR 52 L Random Glucose 141 H Calcium 8.8 Magnesium 2.2 Assessment and Plan - Plan This patient is a 77-year-old female with a diagnosis of COPD on 3 L of supplemental oxygen, and atrial fibrillation on anticoagulation who presented to the emergency room with complaints of shortness of breath and wheezing that started last night. 1. Acute hypoxic respiratory failure secondary to COPD exacerbation 2. Pulmonary hypertension Patient still has wheezing on auscultation however significantly improved over the past couple of days. Patient is currently on her baseline supplemental oxygen. No pneumonia seen on chest imaging. Plan is to continue IV steroids, continue supplemental oxygen, continue breathing treatments as needed. Patient on p.o. antibiotics. The plan is for the patient to be discharged most likely tomorrow if her symptoms improve and her wheezing resolves. She would likely go to a assisted facility. Case discussed with case management today. Patient sildenafil dose was adjusted. 2. Atrial fibrillation Heart rate under control. Continue beta-marisabel. Continue Coumadin. Monitor INR. 3. CHF with preserved ejection fraction 4. RADHA resolved Compensated, continue beta-marisabel. Patient had a slight elevation in her serum creatinine yesterday. Lasix was held for yesterday. Serum creatinine is 1.0 today. She will be continued on her p.o. Lasix tomorrow. 5. UTI Patient currently on Rocephin. We will discontinue Rocephin tomorrow. DVT prophylaxis, patient is currently on Coumadin.
[2018-04-05] MEDS ORDERED: Furosemide 20 MG Tablet PO SCH (18:15)
[2018-04-06] MEDS: MethylPREDNISolone Sod Succinate Inj 40 MG/ML Vial IV.PUSH SCH (05:36)
[2018-04-06] MEDS: Budesonide-Formoterol 80/4.5 MCG 6.9 GM Inhaler INH SCH (09:01)
[2018-04-06] MEDS: Carvedilol 6.25 MG Tablet PO SCH (09:01)
[2018-04-06] MEDS: Azithromycin 250 MG Tablet PO SCH (09:01)
[2018-04-06] MEDS: Docusate Sodium 100 MG Capsule PO SCH (09:01)
[2018-04-06] MEDS ORDERED: predniSONE 20 MG Tablet PO ONE (11:04)
--- NOTE | 2018-04-06 11:25 | P.DS ---
Date of admission: 04/02/18 18:35 Primary care physician: Yonny Awad MD Brief History from admission: 77-year-old female with a history of COPD and atrial fibrillation presents to the ER after onset of shortness of breath and wheezing starting last night that became worse throughout today. DS: Summary Hospital Course: This patient is a 77-year-old obese female with a diagnosis of COPD on 3 L of supplemental oxygen at home. Patient also has diagnosis of atrial fibrillation and is on anticoagulation with Coumadin. She presented to our emergency department with worsening shortness of breath and said she appeared to be blue at home. 1. Acute hypoxic respiratory failure secondary to COPD exacerbation. 2. Pulmonary hypertension The patient presented with the symptoms mentioned above. In the emergency department the patient was found to be hypoxic requiring more supplemental oxygen and the patient uses at home. She was wheezing on physical examination and was subsequently admitted for a COPD exacerbation. The patient was started on antibiotics, IV steroids, breathing treatments around -the-clock. Chest imaging did not show any evidence of infiltrate. Initially there was a concern for PE however PE was ruled out with a CTA. After couple days of treatment the patient's symptoms improved. She is now currently at her baseline of supplemental oxygen. She was on physical therapy throughout the hospitalization as well. She will be [facility] facility today with a tapering dose of prednisone and she should continue azithromycin for another 3 days. She should continue sildenafil which she takes for pulmonary hypertension. The dose of her Symbicort was increased, continue albuterol as needed for shortness of breath. 3. UTI UA was positive for UTI. Urine culture grew E. coli. The patient completed treatment for urinary tract infection. 4. Atrial fibrillation Heart rate under control. Continue beta-marisabel. Continue Coumadin. I recommend the patient have her INR checked in the next couple of days. Her Coumadin can be adjusted as needed for goal INR between 2 and 3. 5. CHF 6. RADHA resolved Compensated, continue p.o. Lasix, continue beta-marisabel. The dose of the patient's Lasix was decreased from 80 mg twice daily to 60 mg twice daily given her slight elevation in creatinine when she first arrived. After initiation of light fluid hydration her serum creatinine normalized. 7. Depression Continue home medications. - Time Spent with Patient Total time spent providing and/or coordinating discharge services: Greater than 30 minutes Exam Vital signs: Vital Signs 04/05/18 11:18 04/05/18 11:48 04/05/18 15:00 Temperature 98 F Pulse Rate 79 86 84 Respiratory Rate 18 18 Blood Pressure 126/69 Pulse Oximetry 96 04/05/18 15:04 04/05/18 16:30 04/05/18 20:00 Temperature 98 F 98.4 F Pulse Rate 87 85 83 Respiratory Rate 20 18 18 Blood Pressure 120/75 129/72 Pulse Oximetry 98 97 04/05/18 20:11 04/06/18 00:00 04/06/18 04:00 Temperature 97.5 F L 97.3 F L Pulse Rate 79 76 68 Respiratory Rate 16 18 18 Blood Pressure 115/66 117/69 Pulse Oximetry 97 97 98 04/06/18 07:00 04/06/18 08:53 04/06/18 08:54 Temperature 97.4 F L Pulse Rate 57 L 86 Respiratory Rate 20 Blood Pressure 126/52 L Pulse Oximetry 95 98 Intake & Output 04/05/18 04/06/18 04/06/18 18:59 06:59 18:59 Intake Total 1060 / 1060 1460 / 1460 Output Total 300 / 300 450 / 450 Balance 760 / 760 1010 / 1010 Weight 109 kg Intake: IV 100 / 100 1000 / 1000 NS Inj 1,000 ML @ 84 mls/hr IV. 1000 / 1000 CONT .[id number] MARTHA Rx#:[id number] Rocephin Inj 1,000 MG In NS Inj 100 / 100 100 ML @ 200 mls/hr IV.SIG Q24H MARTHA Rx#:[id number] Oral 960 / 960 460 / 460 Output: Urine 300 / 300 450 / 450 Other: # Voids 3 Date of Last Bowel Movement 04/05/18 04/06/18 04/06/18 # Bowel Movements 1 2 Narrative: General patient in no acute distress HEENT extraocular movements are intact, clear oropharyngeal mucosa, no JVD, nasal cannula in place Cardiovascular S1-S2 audible, RRR, no murmurs rubs or gallops Respiratory clear to auscultation bilaterally Abdomen soft, nontender, nondistended, normal bowel sounds Extremities no edema 2+ distal pulses in bilateral upper and lower extremities Neuro cranial nerves II through XII intact Results Procedures completed during hospitalization: None - Impressions ITS Impressions Chest X-Ray 04/02/18 15:09 CONCLUSION: Mild congestive failure Chest CTA 04/02/18 16:00 CONCLUSION: 1. Negative for pulmonary embolus. Moderate emphysema. Mild fibrotic changes in the lungs. Discharge Plan - Discharge Disposition Patient Disposition: Discharge to SNF - Discharge Condition Condition: Stable - Discharge Order Discharge Orders: Discharge Order (Routine); Ordered 04/06/18 Ordered By: Kishor Tejeda - Physicians Team Primary Care Provider: Yonny Awad Attending Provider: Kishor Tejeda Other Providers: [facility],Agency ; [facility]Agency
== END 2018-04-06 13:15 ==
LOC: NEPE 14:30 → NEDA 18:35 → HCIS 04-03 00:05
PROVIDERS: ADMIT Hospitalist; ATTEND Hospitalist

== ENCOUNTER 2018-05-19 18:13 | Inpatient (IN) ==
--- NOTE | 2018-05-19 18:37 | ED ---
HPI General Chief Complaint: Altered Mental Status Stated Complaint: AMS Time Seen by Provider: 05/19/18 18:26 History of Present Illness HPI narrative: The patient was seen and examined in the presence of the nurse. This patient was brought in by paramedics when her son called them due to her altered mental status. Started around noon today. Duration 6 hours. Symptoms are moderately severe. Paramedics reported a temp of 100.4 axillary. Patient is oxygen dependent COPD. She denies feeling confused. She is not short of breath. She did not know she had a fever. She does complain of dysuria and pain over her bladder when she urinates. No alleviating factors. No exacerbating factors. Related Data Home Medications Medication Instructions Recorded Confirmed albuterol sulfate [Ventolin HFA] 1 puff INHALATION Q4-6H PRN 04/02/18 04/02/18 carvedilol [Coreg] 6.25 mg PO BID 04/02/18 04/02/18 potassium chloride 10 meq PO BID 04/02/18 04/02/18 simvastatin 20 mg PO QPM 04/02/18 04/02/18 warfarin [Coumadin] 4 mg PO QTUTHSASU 04/02/18 04/02/18 Viagra BID 04/03/18 magnesium oxide 400 mg PO BID 04/03/18 04/03/18 Cymbalta 60 mg PO DAILY 04/06/18 04/06/18 Previous Rx's Medication Instructions Recorded budesonide-formoterol [Symbicort] 2 puff INHALATION BID #1 inhaler 04/06/18 furosemide 60 mg PO BID@0600,1300 tab 04/06/18 Allergies Allergy/AdvReac Type Severity Reaction Status Date / Time No Known Allergies Allergy Verified 05/19/18 18:17 Review of Systems ROS: all other systems reviewed are negative [facility] Medical History Medical History HTN (hypertension) (Acute) CHF (congestive heart failure) (Acute) COPD (chronic obstructive pulmonary disease) (Acute) History of hysterectomy (Acute) Surgical History Surgical History Hx of appendectomy (Acute) Family History Family History Other Hypertension Social History Social History Substance History: No History of Abuse Second Hand Smoke Exposure: No Smoking Status: Former smoker How Often Do You Have a Drink Containing Alcohol: Never Recent Travel in [place] within the Last 8 Weeks: No Recent Out of Country Travel within the Last 8 Weeks: No Immunization History Tetanus Immunization: Unsure Exam Narrative Exam Narrative: GENERAL: Well-nourished, well-developed patient in no apparent distress. SKIN: Focused skin assessment reveals no rash and nodules. Skin is Warm and dry. HEAD: Atraumatic. Normocephalic. EYES: Pupils equal and round. No scleral icterus. No injection or drainage. ENT: No nasal bleeding or discharge. Mucous membranes pink and moist. NECK: Trachea midline. No JVD. No meningeal signs. Kernig's and Brudzinski's negative CARDIOVASCULAR: Irregularly irregular rhythm. No murmur appreciated. Heart rate 107 RESPIRATORY: No accessory muscle use. Clear to auscultation but breath sounds are diminished throughout. Breath sounds equal bilaterally. GASTROINTESTINAL: Abdomen soft, non-tender, nondistended. Hepatic and splenic margins not palpable. MUSCULOSKELETAL: No obvious deformities. No clubbing. No cyanosis. Mild symmetric lower extremity edema NEUROLOGICAL: Awake and alert but has some confusion. No obvious cranial nerve deficits. Motor grossly within normal limits. Normal speech. PSYCHIATRIC: Appropriate mood and affect; insight and judgment reduced . Course Initial Documented Vital Signs Pulse Rate 101 H 05/19/18 18:22 Respiratory Rate 27 H 05/19/18 18:22 Blood Pressure 126/70 05/19/18 18:22 Pulse Oximetry 96 05/19/18 18:22 Last Documented Vital Signs Temperature 103.2 F H 05/19/18 18:44 Pulse Rate 101 H 05/19/18 18:22 Respiratory Rate 27 H 05/19/18 18:22 Blood Pressure 126/70 05/19/18 18:22 Pulse Oximetry 97 05/19/18 18:42 Medical Decision Making [facility] Narrative Medical decision making narrative: 77-year-old she will COPD patient with reported fever and altered mental status for 6 hours. I ordered an extensive workup which will include blood and urine studies as well as cultures and imaging of chest and brain. Extensive workup is complete. I believe her fever and confusion I due to urinary infection, possible urosepsis. She is febrile with leukocytosis and catheterized urine is consistent with infection. Case reviewed in detail with the resident who will admit. I have given her IV Rocephin. Blood and urine will be cultured. She has an INR of 2.5 so I am not recommending lumbar puncture at this time. No meningeal signs on exam. Brain CT negative for acute problem. Medical Screen Exam Complete: Yes Emergency Medical Condition: Yes Lab Data Lab results narrative: She has leukocytosis and minor hyponatremia Result diagrams: 05/19/18 18:40 05/19/18 18:40 Lab Results 05/19/18 05/19/18 05/19/18 Range/Units 18:40 18:40 18:40 WBC 14.9 H (4.0-11.0) th/mm3 RBC 3.72 L (4.00-5.30) mil/mm3 Hgb 11.0 L (11.6-15.3) gm/dL Hct 33.7 L (35.0-46.0) % MCV 90.5 (80.0-100.0) fL MCH 29.5 (27.0-34.0) pg MCHC 32.6 (32.0-36.0) % RDW 18.3 H (11.6-17.2) % Plt Count 286 (150-450) th/mm3 MPV 7.8 (7.0-11.0) fL Neut % (Auto) 90.9 H (16.0-70.0) % Lymph % (Auto) 2.5 L (9.0-44.0) % [place] % (Auto) 6.3 (0.0-8.0) % Eos % (Auto) 0.1 (0.0-4.0) % Baso % (Auto) 0.2 (0.0-2.0) % Neut # (Auto) 13.6 H (1.8-7.7) th/mm3 Lymph # (Auto) 0.4 L (1.0-4.8) th/mm3 [place] # (Auto) 0.9 (0.0-0.9) th/mm3 Eos # (Auto) 0.0 (0.0-0.4) th/mm3 Baso # (Auto) 0.0 (0.0-0.2) th/mm3 WBC Differential . Differential Comment Auto diff final PT 25.6 H (9.8-11.6) sec INR 2.5 Ratio Sodium (136-145) meq/L Potassium (3.5-5.1) meq/L Chloride (98-107) meq/L Carbon Dioxide (21.0-32.0) meq/L Anion Gap (5-15) meq/L BUN (7-18) mg/dL Creatinine (0.50-1.00) mg/dL Estimated GFR (>89) mL/min Random Glucose (74-106) mg/dL Lactic Acid (0.4-2.0) mmol/L Calcium (8.5-10.1) mg/dL Total Bilirubin (0.2-1.0) mg/dL AST (15-37) U/L ALT (10-53) U/L Alkaline Phosphatase (45-117) U/L Total Protein (6.4-8.2) g/dL Albumin (3.4-5.0) g/dL TSH 0.828 (0.358-3.740) uIU/mL Urine Color (Yellw/Straw) Urine Clarity (Clear) Urine pH (5.0-8.5) Ur Specific [place] (1.002-1.035) Urine Protein (Neg-Trace) mg/dL Urine Glucose (UA) (Negative) mg/dL Urine Ketones (Negative) mg/dL Urine Occult Blood (Negative) Urine Nitrate (Negative) Urine Bilirubin (Negative) Urine Urobilinogen (Less than 2) mg/dL Ur Leukocyte Esterase (Negative) Urine RBC (0-3) /hpf Urine WBC (0-5) /hpf Urine WBC Clumps (None) Ur Squamous Epith Cells (0-5) /hpf Urine Bacteria (None) /hpf Hyaline Casts (0-3) /lpf Urine Mucus (Occasional) /lpf Micro UA Comment Ur Microscopic Review Urine Culture Comments Urine Opiates Screen (Neg) Ur Barbiturates Screen (Neg) Ur Amphetamines Screen (Neg) U Benzodiazepines Scrn (Neg) Urine Cocaine Screen (Neg) U Cannabinoids Screen (Neg) Serum Alcohol Less than 3 (0-5) mg/dL 05/19/18 05/19/18 05/19/18 Range/Units 18:40 18:40 18:40 WBC (4.0-11.0) th/mm3 RBC (4.00-5.30) mil/mm3 Hgb (11.6-15.3) gm/dL Hct (35.0-46.0) % MCV (80.0-100.0) fL MCH (27.0-34.0) pg MCHC (32.0-36.0) % RDW (11.6-17.2) % Plt Count (150-450) th/mm3 MPV (7.0-11.0) fL Neut % (Auto) (16.0-70.0) % Lymph % (Auto) (9.0-44.0) % [place] % (Auto) (0.0-8.0) % Eos % (Auto) (0.0-4.0) % Baso % (Auto) (0.0-2.0) % Neut # (Auto) (1.8-7.7) th/mm3 Lymph # (Auto) (1.0-4.8) th/mm3 [place] # (Auto) (0.0-0.9) th/mm3 Eos # (Auto) (0.0-0.4) th/mm3 Baso # (Auto) (0.0-0.2) th/mm3 WBC Differential Differential Comment PT (9.8-11.6) sec INR Ratio Sodium 133 L (136-145) meq/L Potassium 3.8 (3.5-5.1) meq/L Chloride 95 L (98-107) meq/L Carbon Dioxide 30.5 (21.0-32.0) meq/L Anion Gap 8 (5-15) meq/L BUN 21 H (7-18) mg/dL Creatinine 1.09 H (0.50-1.00) mg/dL Estimated GFR 49 L (>89) mL/min Random Glucose 108 H (74-106) mg/dL Lactic Acid 1.4 (0.4-2.0) mmol/L Calcium 9.3 (8.5-10.1) mg/dL Total Bilirubin 0.9 (0.2-1.0) mg/dL AST 19 (15-37) U/L ALT 15 (10-53) U/L Alkaline Phosphatase 126 H (45-117) U/L Total Protein 7.4 (6.4-8.2) g/dL Albumin 2.8 L (3.4-5.0) g/dL TSH (0.358-3.740) uIU/mL Urine Color [place]ista (Yellw/Straw) Urine Clarity Hazy H (Clear) Urine pH 6.0 (5.0-8.5) Ur Specific [place] 1.018 (1.002-1.035) Urine Protein 100 H (Neg-Trace) mg/dL Urine Glucose (UA) Negative (Negative) mg/dL Urine Ketones Trace H (Negative) mg/dL Urine Occult Blood Negative (Negative) Urine Nitrate Positive H (Negative) Urine Bilirubin Negative (Negative) Urine Urobilinogen 4.0 H (Less than 2) mg/dL Ur Leukocyte Esterase Moderate H (Negative) Urine RBC 11 H (0-3) /hpf Urine WBC 137 H (0-5) /hpf Urine WBC Clumps Few H (None) Ur Squamous Epith Cells 3 (0-5) /hpf Urine Bacteria Occasional H (None) /hpf Hyaline Casts 6 (0-3) /lpf Urine Mucus Few H (Occasional) /lpf Micro UA Comment Cath-culture ind Ur Microscopic Review Not Reportable Urine Culture Comments Cath-cult indicated Urine Opiates Screen (Neg) Ur Barbiturates Screen (Neg) Ur Amphetamines Screen (Neg) U Benzodiazepines Scrn (Neg) Urine Cocaine Screen (Neg) U Cannabinoids Screen (Neg) Serum Alcohol (0-5) mg/dL 05/19/ Range/Units 18:46 WBC (4.0-11.0) th/mm3 RBC (4.00-5.30) mil/mm3 Hgb (11.6-15.3) gm/dL Hct (35.0-46.0) % MCV (80.0-100.0) fL MCH (27.0-34.0) pg MCHC (32.0-36.0) % RDW (11.6-17.2) % Plt Count (150-450) th/mm3 MPV (7.0-11.0) fL Neut % (Auto) (16.0-70.0) % Lymph % (Auto) (9.0-44.0) % [place] % (Auto) (0.0-8.0) % Eos % (Auto) (0.0-4.0) % Baso % (Auto) (0.0-2.0) % Neut # (Auto) (1.8-7.7) th/mm3 Lymph # (Auto) (1.0-4.8) th/mm3 [place] # (Auto) (0.0-0.9) th/mm3 Eos # (Auto) (0.0-0.4) th/mm3 Baso # (Auto) (0.0-0.2) th/mm3 WBC Differential Differential Comment PT (9.8-11.6) sec INR Ratio Sodium (136-145) meq/L Potassium (3.5-5.1) meq/L Chloride (98-107) meq/L Carbon Dioxide (21.0-32.0) meq/L Anion Gap (5-15) meq/L BUN (7-18) mg/dL Creatinine (0.50-1.00) mg/dL Estimated GFR (>89) mL/min Random Glucose (74-106) mg/dL Lactic Acid (0.4-2.0) mmol/L Calcium (8.5-10.1) mg/dL Total Bilirubin (0.2-1.0) mg/dL AST (15-37) U/L ALT (10-53) U/L Alkaline Phosphatase (45-117) U/L Total Protein (6.4-8.2) g/dL Albumin (3.4-5.0) g/dL TSH (0.358-3.740) uIU/mL Urine Color (Yellw/Straw) Urine Clarity (Clear) Urine pH (5.0-8.5) Ur Specific [place] (1.002-1.035) Urine Protein (Neg-Trace) mg/dL Urine Glucose (UA) (Negative) mg/dL Urine Ketones (Negative) mg/dL Urine Occult Blood (Negative) Urine Nitrate (Negative) Urine Bilirubin (Negative) Urine Urobilinogen (Less than 2) mg/dL Ur Leukocyte Esterase (Negative) Urine RBC (0-3) /hpf Urine WBC (0-5) /hpf Urine WBC Clumps (None) Ur Squamous Epith Cells (0-5) /hpf Urine Bacteria (None) /hpf Hyaline Casts (0-3) /lpf Urine Mucus (Occasional) /lpf Micro UA Comment Ur Microscopic Review Urine Culture Comments Urine Opiates Screen Neg (Neg) Ur Barbiturates Screen Neg (Neg) Ur Amphetamines Screen Neg (Neg) U Benzodiazepines Scrn Neg (Neg) Urine Cocaine Screen Neg (Neg) U Cannabinoids Screen Neg (Neg) Serum Alcohol (0-5) mg/dL Imaging Data Attestation: I personally reviewed and interpreted this imaging study as follows : My impression: She has some 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 This was seen better on the prior CTA of the chest. This appears unchanged. Head CT 05/19/18 18:28 CONCLUSION: 1. No acute abnormality. 2. Age-related atrophy. 3. Suspected small vessel ischemic change in the white matter. . Discharge Plan Discharge Disposition Patient Disposition: ED Admit(ED Internal Use Only) Discharge Details Diagnosis: Delirium due to general medical condition, Sepsis Physicians Team ED Provider: Dread Lennon Primary Care Provider: Yonny Awad Rxs /Orders / Referrals /Forms Prescriptions: No Action carvedilol [Coreg] 6.25 mg Tablet 6.25 mg PO BID RF: 0 potassium chloride 10 mEq Tablet Extended Release 10 meq PO BID RF: 0 warfarin [Coumadin] 4 mg Tablet 4 mg PO QTUTHSASU RF: 0 simvastatin 20 mg Tablet 20 mg PO QPM RF: 0 albuterol sulfate [Ventolin HFA] 90 mcg/actuation Hfa Aerosol Inhaler 1 puff INHALATION Q4-6H PRN (Reason: Bronchospasm) RF: 0 magnesium oxide 400 mg magnesium Tablet 400 mg PO BID RF: 0 Viagra BID RF: 0 Cymbalta 60 mg capsule 60 mg PO DAILY RF: 0 furosemide 20 mg Tablet 60 mg PO BID@0600,1300 RF: 0 budesonide-formoterol [Symbicort] 160-4.5 mcg/actuation Hfa Aerosol Inhaler 2 puff INHALATION BID Qty: 1 RF: 0 Discharge Interventions Interventions: Vital Signs Last Done: 05/19/18 18:44 Status ED Status: With Doctor
[2018-05-19 18:56] LABS: Baso % (Auto) 0.2 % (0.0-2.0); Eos % (Auto) 0.1 % (0.0-4.0); Hematocrit 33.7 % (35.0-46.0); Lymph # (Auto) 0.4 th/mm3 (1.0-4.8); Lymph % (Auto) 2.5 % (9.0-44.0); Mean Corpuscular HGB Conc 32.6 % (32.0-36.0); Mean Corpuscular Hemoglobin 29.5 pg (27.0-34.0); Mean Corpuscular Volume 90.5 fL (80.0-100.0); Mean Platelet Volume 7.8 fL (7.0-11.0); Mono # (Auto) 0.9 th/mm3 (0.0-0.9); Mono % (Auto) 6.3 % (0.0-8.0); Neut # (Auto) 13.6 th/mm3 (1.8-7.7); Neut % (Auto) 90.9 % (16.0-70.0); Platelet Count 286 th/mm3 (150-450); Red Blood Count 3.72 mil/mm3 (4.00-5.30); Red Cell Distribution Width 18.3 % (11.6-17.2); White Blood Count 14.9 th/mm3 (4.0-11.0)
[2018-05-19] MEDS ORDERED: Ibuprofen 600 MG Tablet PO ONE (18:56)
[2018-05-19] MEDS ORDERED: Acetaminophen 500 MG Tablet PO ONE (18:56)
[2018-05-19 19:06] LABS: INR 2.5 Ratio; Prothrombin Time 25.6 sec (9.8-11.6)
--- NOTE | 2018-05-19 19:11 | XR ---
EXAM DATE: 05/19/2018 7:03 PM EST AGE/SEX: 77 years / Female INDICATIONS: Fever. CLINICAL DATA: This is the patient's initial encounter. Patient reports that signs and symptoms have been present for 1 day and indicates a pain score of Nonresponsive. MEDICAL/SURGICAL HISTORY: Cholelithasis. Congestive heart failure. Non-responsive. COMPARISON: [facility] [place], CHEST 1V SINGLE AP, 04/02/2018. [facility] [place], CTA PULMONARY W CONTRAST W 3D, 04/02/2018. . FINDINGS: The heart size is upper limits of normal. There are some very minimal faint density seen in the right upper lobe. There appears to be faint prominence in interstitium. This is unchanged. The remaining a spect lungs are grossly clear. Significant effusions are not seen. CONCLUSION: Interstitial disease seen throughout the most prominent of right upper lung. This was seen better on the prior CTA of the chest. This appears unchanged. Electronically signed by: Chilo Galeas MD Board Certified Radiologist 05/19/2018 7:09 PM EST
[2018-05-19 19:15] LABS: Bacteria,Urine Occasional /hpf; Bilirubin,Urine Negative (Negative); Clarity,Urine Hazy (Clear); Color,Urine Amber (Yellw/Straw); Glucose,Urine (UA) Negative (Negative); Hyaline Casts,Urine 6 /lpf (0-3); Leukocyte Esterase,Urine Moderate (Negative); Mucus,Urine Few /lpf (Occasional); Nitrite,Urine Positive (Negative); Specific Gravity,Urine 1.018 (1.002-1.035); Squamous Epithelial Cell,Urine 3 /hpf (0-5)
[2018-05-19 19:20] LABS: Albumin 2.8 g/dL (3.4-5.0); Anion Gap 8 meq/L (5-15); Aspartate Aminotransferase 19 U/L (15-37); Blood Urea Nitrogen 21 mg/dL (7-18); Calcium 9.3 mg/dL (8.5-10.1); Carbon Dioxide 30.5 meq/L (21.0-32.0); Chloride 95 meq/L (98-107); Glomerular Filtration Rate 49 mL/min (>89); Glucose,Random 108 mg/dL (74-106); Potassium 3.8 meq/L (3.5-5.1); Sodium 133 meq/L (136-145)
--- NOTE | 2018-05-19 19:21 | CT ---
EXAM DATE: 05/19/2018 7:12 PM EST AGE/SEX: 77 years / Female INDICATIONS: Altered mental status. CLINICAL DATA: This is the patient's initial encounter. Patient reports that signs and symptoms have been present for 1 day and indicates a pain score of 0/10. MEDICAL/SURGICAL HISTORY: Congestive heart failure. Chronic obstructive pulmonary disease. Appende ctomy. Hysterectomy. RADIATION DOSE: 33.77 CTDI (mGy) ; Patient motion COMPARISON: No prior exams available for comparison. TECHNIQUE: CT of the head without contrast. Using automated exposure control and adjustment of the mA and/or kV according to patient size, radiation dose was kept as low as reasonably achievable to ob tain optimal diagnostic quality images. DICOM format image data is available electronically for revi ew and comparison. FINDINGS: Cerebrum: The ventricles are normal for age. There is mild widening the cortical sulci. There is dec reased density in the periventricular white matter. No evidence of midline shift, mass lesion, hemorr goldie or acute infarction. No extraaxial fluid collections are seen. Posterior Fossa: The cerebellum and brainstem are intact. The 4th ventricle is midline. The cerebe llopontine angle is unremarkable. Extracranial: The visualized portion of the orbits is intact. Skull: The calvaria is intact. No evidence of skull fracture. CONCLUSION: 1. No acute abnormality. 2. Age-related atrophy. 3. Suspected small vessel ischemic change in the white matter. . Electronically signed by: Chilo Galeas MD Board Certified Radiologist 05/19/2018 7:19 PM EST
[2018-05-19 19:24] LABS: Alanine Aminotransferase 15 U/L (10-53); Alkaline Phosphatase 126 U/L (45-117); Total Protein 7.4 g/dL (6.4-8.2)
[2018-05-19 19:29] LABS: Amphetamine Screen,Urine Neg (Neg); Barbiturate Screen,Urine Neg (Neg); Cannabinoid Screen,Urine Neg (Neg); Cocaine Screen,Urine Neg (Neg)
[2018-05-19 19:30] LABS: Opiate Screen,Urine Neg (Neg)
[2018-05-19 19:30] LABS: Thyroid Stimulating Hormone 0.828 uIU/mL (0.358-3.740)
--- NOTE | 2018-05-19 21:03 | P.HPFP ---
History of Present Illness Primary Care Physician: Yonny Awad MD <Adalberto Martinez 05/20/18 11:15> Yonny Awad MD <Sam SandsBoris Nelly 05/19/18 21:03> History of Present Illness: Upon initial encounter with patient patient was unable to recount activities of today or as to why she was in the hospital. History garnered from EMR review as well as from documentation of ED physician with paramedics. This patient is a 77-year-old female with a history of hypertension, CHF, COPD on home oxygen and prior UTIs admitted to the medicine service after a 6-hour history of altered mental status. Per paramedics, her son called emergency services at approximately noon today after finding mother to be acutely mentally altered. Patient's son was briefly available by phone but wanted to speak with his mother and history could not be garnered. Of note: Patient did report pain with urination but could not elaborate further. PMhx: Per EMR COPD, Afib, CHF, hypertension, pulmonary hypertension Surgical Hx: Hysterectomy Meds: 3 L of home O2, albuterol sulfate 90 mcg 1 puff every 4 to every 6 as needed, carvedilol 6.25 mg p.o. twice daily, Cymbalta 60 mg p.o. daily, magnesium oxide 400 mg p.o. twice daily, potassium chloride, 10 mEq p.o. twice daily, simvastatin 20 mg every afternoon, sildenafil, warfarin 4 mg p.o. 4 times weekly, Symbicort twice daily, furosemide 60 mg twice daily Allergies: NKA Social Hx: Unknown, will lara from son Code: DNR <Sam SandsBoris Nelly 05/19/18 23:30> - Diagnosis (1) Sepsis due to urinary tract infection (2) Bacteremia due to Gram-negative bacteria (3) Altered mental status (4) COPD (chronic obstructive pulmonary disease) (5) CHF (congestive heart failure) (6) Atrial fibrillation (7) Hypertension (8) Pulmonary hypertension (9) Nutrition, metabolism, and development symptoms <Adalberto Martinez 05/20/18 11:15> (1) Sepsis due to urinary tract infection (2) Altered mental status (3) COPD (chronic obstructive pulmonary disease) (4) CHF (congestive heart failure) (5) Atrial fibrillation (6) Hypertension (7) Pulmonary hypertension (8) Nutrition, metabolism, and development symptoms <Boris Wilburn 05/19/18 22:41> Inpatient Certification: I certify that the inpatient services were ordered in accordance with Medicare regulations governing the order. This includes certification that hospital inpatient services are reasonable and necessary and in the case of services not specified as inpatient-only under 42 CFR 419.22(n), that they are appropriately provided as inpatient services in accordance to with the 2-midnight benchmark under 43 CFR 412.3(e) <Adalberto Martinez 05/20/18 11:15> Review of Systems Constitutional: Denies chills, Denies fever(s), Denies headache(s), Denies dizziness, Eyes: Denies change in vision, Denies double vision, Denies blurry vision Cardiovascular: Denies chest pain, Denies fast heart rate, Denies rapid, pounding, or irregular heartbeat Respiratory: Endorses chronic shortness of breath Gastrointestinal: Denies abdominal pain, Denies constipation, Denies loose stools, Denies nausea, Denies vomiting Genitourinary: Endorses pain with urination denies difficulty urinating, Denies urinary frequency, Denies blood in urine <Boris Wilburn 05/19/18 23:30> PMFSH - History History Provided By: Patient <Boris Wilburn Raúl 05/19/18 21:03> - Medical History Medical History: Medical History (Last Updated 05/19/18 @ 18:21 by Emmie Giron) HTN (hypertension) CHF (congestive heart failure) COPD (chronic obstructive pulmonary disease) History of hysterectomy <MichelleAdalberto 05/20/18 11:15> Medical History (Last Updated 05/19/18 @ 18:21 by Emmie Giron) HTN (hypertension) CHF (congestive heart failure) COPD (chronic obstructive pulmonary disease) History of hysterectomy <Boris Wilburn 05/19/18 21:03> - Surgical History Surgical History: Surgical History (Last Reviewed 05/19/18 @ 18:21 by Emmie Giron) Hx of appendectomy <MichelleAdalberto sierra 05/20/18 11:15> Surgical History (Last Reviewed 05/19/18 @ 18:21 by Emmie Giron) Hx of appendectomy <Boris Wilburn 05/19/18 21:03> - Family History Family History: Family History (Last Updated 04/02/18 @ 18:57 by Brian Walden MD) Other Hypertension <Adalberto Martinez 05/20/18 11:15> Family History (Last Updated 04/02/18 @ 18:57 by Brian Walden MD) Other Hypertension <Boris Wilburn 05/19/18 21:03> - Tobacco History Second Hand Smoke Exposure: No <Boris Wilburn 05/19/18 21:03> Tobacco Use In Past 30 Days: No <Boris Wilburn 05/19/18 21:03> Smoking Status: Former smoker <Boris Wilburn 05/19/18 21:03> - Alcohol History How Often Do You Have a Drink Containing Alcohol: Never <Boris Wilburn 21:03> - Substance Use History Substance History: No History of Abuse <Boris Wilburn 05/19/18 21:03> - Travel History Recent Travel in the [facility] [place] Within the Last 8 Weeks: No <Boris Wilburn 05/19 21:03> Recent Travel Out of the Country Within the Last 8 Weeks: No <Boris Wilburn 05/19/18 21:03> - Immunization History Tetanus Immunization: Unsure <Boris Wilburn 05/19/18 21:03> Medications and Allergies Allergies Allergy/AdvReac Type Severity Reaction Status Date / Time No Known Allergies Allergy Verified 05/19/18 18:17 <Adalberto Martinez 05/20/18 11:15> Home Medications Medication Instructions Recorded Confirmed Type albuterol sulfate [Ventolin HFA] 1 puff INHALATION Q4-6H PRN 04/02/18 05/19/18 History carvedilol [Coreg] 6.25 mg PO BID 04/02/18 05/19/18 History potassium chloride 10 meq PO BID 04/02/18 05/19/18 History simvastatin 20 mg PO QPM 04/02/18 05/19/18 History warfarin [Coumadin] See Label Instructions .ROUTE 04/02/18 05/19/18 History .COMPLEX Viagra 3 mg BID 04/03/18 05/19/18 History magnesium oxide 400 mg PO BID 04/03/18 05/19/18 History Cymbalta 60 mg PO DAILY 04/06/18 05/19/18 History diphenhydramine HCl [Benadryl] 50 mg PO Q4-6H PRN 05/19/18 05/19/18 History furosemide 80 mg PO BID@0600,1300 05/19/18 05/19/18 History oxycodone-acetaminophen [Percocet] 2 tab PO Q4-6H PRN 05/19/18 05/19/18 History <Adalberto Martinez - 05/20/18 11:15> Active Medications: Active Medications Al Hydroxide/Mg Hydroxide (Milk Of Magnesia Liq) 30 ml PO Q12H PRN PRN Reason: Mild Constipation Albuterol (Ventolin Hfa Inh) 2 puff INH Q4H PRN PRN Reason: SHORTNESS OF BREATH/WHEEZING Albuterol (Duoneb Neb ([facility])) 1 ampul NEB Q6HR NEB [facility] Last Admin: 05/20/18 09:24 Dose: Not Given Bisacodyl (Dulcolax Supp) 10 mg RECTAL DAILY PRN PRN Reason: SEVERE CONSITIPATION Carvedilol (Coreg) 6.25 mg PO BID [facility] Last Admin: 05/20/18 09:32 Dose: Not Given Duloxetine HCl (Cymbalta) 60 mg PO DAILY [facility] Last Admin: 05/20/18 09:32 Dose: 60 mg Enoxaparin Sodium (Lovenox Inj) 40 mg SQ Q24H [facility] Last Admin: 05/19/18 23:44 Dose: 40 mg Sodium Chloride (Ns Inj) 1,000 mls @ 150 mls/hr IV.CONT .Q6H40M [facility] Last Admin: 05/20/18 09:37 Dose: 70 mls/hr Ceftriaxone Sodium 1,000 mg/ (Sodium Chloride) 100 mls @ 200 mls/hr IV.SIG Q24H [facility] Last Infusion: 05/20/18 00:20 Dose: Infused Lactulose (Lactulose Liq) 30 ml PO DAILY PRN PRN Reason: SEVERE CONSITIPATION Ondansetron HCl (Zofran Inj) 4 mg IV.PUSH Q6H PRN PRN Reason: NAUSEA OR VOMITING Oxycodone/Acetaminophen (Percocet 5/325 Mg) 2 tab PO Q4H PRN PRN Reason: PAIN SCALE 1 TO 10 Last Admin: 05/20/18 10:18 Dose: 2 tab Potassium Chloride (Kcl) 10 meq PO BID [facility] Last Admin: 05/20/18 09:31 Dose: 10 meq Senna/Docusate Sodium (Alka-Colace) 1 tab PO BID [facility] Last Admin: 05/20/18 09:32 Dose: 1 tab Sennosides (Senokot) 17.2 mg PO Q12H PRN PRN Reason: Moderate Constipation Sildenafil Citrate (Revatio) 20 mg PO BID [facility] Last Admin: 05/20/18 09:36 Dose: 20 mg Sodium Chloride (Ns Flush) 2 ml IV.FLUSH BID [facility] Last Admin: 05/20/18 09:32 Dose: Not Given Sodium Chloride (Ns Flush) 2 ml IV.FLUSH PRN PRN PRN Reason: FLUSH AFTER USING IV ACCESS Sodium Chloride (Ns Flush) 2 ml IV.FLUSH BID [facility] Last Admin: 05/20/18 09:32 Dose: Not Given Sodium Chloride (Ns Flush) 2 ml IV.FLUSH PRN PRN PRN Reason: FLUSH AFTER USING IV ACCESS Warfarin Sodium (Coumadin) 4 mg PO [id number]@1600 [facility] <Adalberto Martinez - 05/20/18 11:15> Active Medications Sodium Chloride (Ns Flush) 2 ml IV.FLUSH PRN PRN PRN Reason: FLUSH AFTER USING IV ACCESS <Boris Wilburn - 05/19/18 21:03> Exam Vital signs: Vital Signs 05/19/18 18:22 05/19/18 18:42 05/19/18 18:44 Temperature 103.2 F H Pulse Rate 101 H Respiratory Rate 27 H Blood Pressure 126/70 Pulse Oximetry 96 97 05/19/18 20:00 05/19/18 21:00 05/19/18 22:38 Temperature 99.9 F H Pulse Rate 110 H 94 H Respiratory Rate 18 19 Blood Pressure 122/69 95/57 L Pulse Oximetry 97 97 97 05/19/18 23:03 05/20/18 00:00 05/20/18 00:55 Temperature 97.3 F L Pulse Rate 69 72 Respiratory Rate 20 Blood Pressure 83/45 L 87/52 L Pulse Oximetry 95 97 05/20/18 00:58 05/20/18 02:31 05/20/18 03:31 Temperature Pulse Rate 64 55 L Respiratory Rate 18 16 Blood Pressure 96/51 L Pulse Oximetry 97 05/20/18 04:00 05/20/18 08:00 05/20/18 09:25 Temperature 97.4 F L 97.4 F L Pulse Rate 67 73 Respiratory Rate 16 Blood Pressure 110/58 L 90/50 L Pulse Oximetry 97 94 L 93 L 05/20/18 10:17 Temperature Pulse Rate Respiratory Rate Blood Pressure 112/59 L Pulse Oximetry Intake & Output 05/19/18 05/20/18 05/20/18 18:59 06:59 18:59 Intake Total 100 / 100 1000 / 1000 Output Total 1000 / 1000 Balance -900 / -900 1000 / 1000 Weight 107.501 kg 110.7 kg Intake: IV 100 / 100 1000 / 1000 NS Inj 1,000 ML @ 150 mls/hr IV 1000 / 1000 .CONT .Q6H40M [facility] Rx#:[id number] Rocephin Inj 1,000 MG In NS Inj 100 / 100 100 ML @ 200 mls/hr IV.SIG Q24H [facility] Rx#:[id number] Output: Urine Amount (Catheter) 1000 / 1000 Indwelling Urethral Catheter 1000 / 1000 Other: Date of Last Bowel Movement 05/18/18 Weight On Admission 109.8 kg <Adalberto Martinez - 05/20/18 11:15> Vital Signs 05/19/18 18:22 05/19/18 18:42 05/19/18 18:44 Temperature 103.2 F H Pulse Rate 101 H Respiratory Rate 27 H Blood Pressure 126/70 Pulse Oximetry 96 97 Intake & Output 05/19/18 05/19/18 05/20/18 06:59 18:59 06:59 Weight 107.501 kg <Boris Wilburn - 05/19/18 21:03> Narrative: GENERAL: Pleasant, well-nourished, well-developed, elderly female. No acute distress. SKIN: Warm and dry. No rash. Several ecchymotic changes on right forearm likely from previous IV access. EYES: No scleral icterus. No injection or drainage. PERRLA. EOMI. HENT: Normocephalic. Atraumatic. MMM. OP Benign. NECK: Supple, trachea midline. No JVD or lymphadenopathy. CARDIOVASCULAR: Irregularly irregular rhythm without obvious murmurs, gallops, or rubs. RESPIRATORY: Breath sounds decreased in all lung magdaleno bilaterally without crackles, rhonchi, or wheezes. No accessory muscle use. GASTROINTESTINAL: Abdomen soft, obese, minor tenderness to deep palpation in suprapubic region, nondistended. BS WNL. MUSCULOSKELETAL: Trace 1+ pitting edema long term up anterior shins bilaterally. Strength grossly WNL. BACK: Nontender without obvious deformity. No CVA tenderness. NEURO/PSYCH: Afocal. Awake, alert, and oriented x3 but confused as to history, medications, events of today, and reason for being admitted to the hospital. Although alert and oriented to person place and time patient is acutely confused to situation. Could not recall past medical history or medications. <Boris Wilburn - 05/19/18 23:30> Results - Labs Result diagrams: 05/20/18 06:14 05/20/18 06:14 <Adalberto Martinez - 05/20/18 11:15> Abnormal lab results 05/19/18 05/19/18 05/19/18 Range/Units 18:40 18:40 18:40 WBC 14.9 H (4.0-11.0) th/mm3 RBC 3.72 L (4.00-5.30) mil/mm3 Hgb 11.0 L (11.6-15.3) gm/dL Hct 33.7 L (35.0-46.0) % RDW 18.3 H (11.6-17.2) % Neut % (Auto) 90.9 H (16.0-70.0) % Lymph % (Auto) 2.5 L (9.0-44.0) % Neut # (Auto) 13.6 H (1.8-7.7) th/mm3 Lymph # (Auto) 0.4 L (1.0-4.8) th/mm3 [place] # (Auto) (0.0-0.9) th/mm3 PT 25.6 H (9.8-11.6) sec Sodium 133 L (136-145) meq/L Potassium (3.5-5.1) meq/L Chloride 95 L (98-107) meq/L BUN 21 H (7-18) mg/dL Creatinine 1.09 H (0.50-1.00) mg/dL Estimated GFR 49 L (>89) mL/min Random Glucose 108 H (74-106) mg/dL Alkaline Phosphatase 126 H (45-117) U/L Albumin 2.8 L (3.4-5.0) g/dL Urine Clarity (Clear) Urine Protein (Neg-Trace) mg/dL Urine Ketones (Negative) mg/dL Urine Nitrate (Negative) Urine Urobilinogen (Less than 2) mg/dL Ur Leukocyte Esterase (Negative) Urine RBC (0-3) /hpf Urine WBC (0-5) /hpf Urine WBC Clumps (None) Urine Bacteria (None) /hpf Urine Mucus (Occasional) /lpf 05/19/18 05/20/18 05/20/18 Range/Units 18:40 06:14 06:14 WBC 15.9 H (4.0-11.0) th/mm3 RBC 3.38 L (4.00-5.30) mil/mm3 Hgb 9.9 L (11.6-15.3) gm/dL Hct 30.9 L (35.0-46.0) % RDW 18.8 H (11.6-17.2) % Neut % (Auto) 89.7 H (16.0-70.0) % Lymph % (Auto) 3.3 L (9.0-44.0) % Neut # (Auto) 14.3 H (1.8-7.7) th/mm3 Lymph # (Auto) 0.5 L (1.0-4.8) th/mm3 [place] # (Auto) 1.1 H (0.0-0.9) th/mm3 PT (9.8-11.6) sec Sodium (136-145) meq/L Potassium 3.4 L (3.5-5.1) meq/L Chloride (98-107) meq/L BUN 25 H (7-18) mg/dL Creatinine 1.18 H (0.50-1.00) mg/dL Estimated GFR 45 L (>89) mL/min Random Glucose 118 H (74-106) mg/dL Alkaline Phosphatase (45-117) U/L Albumin (3.4-5.0) g/dL Urine Clarity Hazy H (Clear) Urine Protein 100 H (Neg-Trace) mg/dL Urine Ketones Trace H (Negative) mg/dL Urine Nitrate Positive H (Negative) Urine Urobilinogen 4.0 H (Less than 2) mg/dL Ur Leukocyte Esterase Moderate H (Negative) Urine RBC 11 H (0-3) /hpf Urine WBC 137 H (0-5) /hpf Urine WBC Clumps Few H (None) Urine Bacteria Occasional H (None) /hpf Urine Mucus Few H (Occasional) /lpf Short CBC 05/19/18 05/20/18 Range/Units 18:40 06:14 WBC 14.9 H 15.9 H (4.0-11.0) th/mm3 Hgb 11.0 L 9.9 L (11.6-15.3) gm/dL Hct 33.7 L 30.9 L (35.0-46.0) % Plt Count 286 206 (150-450) th/mm3 BMP 05/19/18 05/20/18 18:40 06:14 Sodium 133 L 136 Potassium 3.8 3.4 L Chloride 95 L 99 Carbon Dioxide 30.5 28.2 BUN 21 H 25 H Creatinine 1.09 H 1.18 H Calcium 9.3 8.5 D Liver Function 05/19/18 05/19/18 Range/Units 18:40 18:40 Total Bilirubin 0.9 Cancelled (0.2-1.0) mg/dL AST 19 (15-37) U/L ALT 15 (10-53) U/L Alkaline Phosphatase 126 H (45-117) U/L Albumin 2.8 L (3.4-5.0) g/dL Urine 05/19/18 Range/Units 18:40 Urine Color Trista (Yellw/Straw) Urine Clarity Hazy H (Clear) Urine pH 6.0 (5.0-8.5) Ur Specific [place] 1.018 (1.002-1.035) Urine Protein 100 H (Neg-Trace) mg/dL Urine Glucose (UA) Negative (Negative) mg/dL <Adalberto Martinez - 05/20/18 11:15> Abnormal lab results 05/19/18 05/19/18 05/19/18 Range/Units 18:40 18:40 18:40 WBC 14.9 H (4.0-11.0) th/mm3 RBC 3.72 L (4.00-5.30) mil/mm3 Hgb 11.0 L (11.6-15.3) gm/dL Hct 33.7 L (35.0-46.0) % RDW 18.3 H (11.6-17.2) % Neut % (Auto) 90.9 H (16.0-70.0) % Lymph % (Auto) 2.5 L (9.0-44.0) % Neut # (Auto) 13.6 H (1.8-7.7) th/mm3 Lymph # (Auto) 0.4 L (1.0-4.8) th/mm3 PT 25.6 H (9.8-11.6) sec Sodium 133 L (136-145) meq/L Chloride 95 L (98-107) meq/L BUN 21 H (7-18) mg/dL Creatinine 1.09 H (0.50-1.00) mg/dL Estimated GFR 49 L (>89) mL/min Random Glucose 108 H (74-106) mg/dL Alkaline Phosphatase 126 H (45-117) U/L Albumin 2.8 L (3.4-5.0) g/dL Urine Clarity (Clear) Urine Protein (Neg-Trace) mg/dL Urine Ketones (Negative) mg/dL Urine Nitrate (Negative) Urine Urobilinogen (Less than 2) mg/dL Ur Leukocyte Esterase (Negative) Urine RBC (0-3) /hpf Urine WBC (0-5) /hpf Urine WBC Clumps (None) Urine Bacteria (None) /hpf Urine Mucus (Occasional) /lpf 05/19/18 Range/Units 18:40 WBC (4.0-11.0) th/mm3 RBC (4.00-5.30) mil/mm3 Hgb (11.6-15.3) gm/dL Hct (35.0-46.0) % RDW (11.6-17.2) % Neut % (Auto) (16.0-70.0) % Lymph % (Auto) (9.0-44.0) % Neut # (Auto) (1.8-7.7) th/mm3 Lymph # (Auto) (1.0-4.8) th/mm3 PT (9.8-11.6) sec Sodium (136-145) meq/L Chloride (98-107) meq/L BUN (7-18) mg/dL Creatinine (0.50-1.00) mg/dL Estimated GFR (>89) mL/min Random Glucose (74-106) mg/dL Alkaline Phosphatase (45-117) U/L Albumin (3.4-5.0) g/dL Urine Clarity Hazy H (Clear) Urine Protein 100 H (Neg-Trace) mg/dL Urine Ketones Trace H (Negative) mg/dL Urine Nitrate Positive H (Negative) Urine Urobilinogen 4.0 H (Less than 2) mg/dL Ur Leukocyte Esterase Moderate H (Negative) Urine RBC 11 H (0-3) /hpf Urine WBC 137 H (0-5) /hpf Urine WBC Clumps Few H (None) Urine Bacteria Occasional H (None) /hpf Urine Mucus Few H (Occasional) /lpf Short CBC 05/19/18 Range/Units 18:40 WBC 14.9 H (4.0-11.0) th/mm3 Hgb 11.0 L (11.6-15.3) gm/dL Hct 33.7 L (35.0-46.0) % Plt Count 286 (150-450) th/mm3 BMP 05/19/18 18:40 Sodium 133 L Potassium 3.8 Chloride 95 L Carbon Dioxide 30.5 BUN 21 H Creatinine 1.09 H Calcium 9.3 Liver Function 05/19/18 Range/Units 18:40 Total Bilirubin 0.9 (0.2-1.0) mg/dL AST 19 (15-37) U/L ALT 15 (10-53) U/L Alkaline Phosphatase 126 H (45-117) U/L Albumin 2.8 L (3.4-5.0) g/dL Urine 05/19/18 Range/Units 18:40 Urine Color Trista (Yellw/Straw) Urine Clarity Hazy H (Clear) Urine pH 6.0 (5.0-8.5) Ur Specific [place] 1.018 (1.002-1.035) Urine Protein 100 H (Neg-Trace) mg/dL Urine Glucose (UA) Negative (Negative) mg/dL <Boris Wilburn O - 05/19/18 21:03> - Imaging Impressions Chest X-Ray 05/19/18 18:28 CONCLUSION: Interstitial disease seen throughout the most prominent of right upper lung. This was seen better on the prior CTA of the chest. This appears unchanged. Head CT 05/19/18 18:28 CONCLUSION: 1. No acute abnormality. 2. Age-related atrophy. 3. Suspected small vessel ischemic change in the white matter. . <Adalberto Martinez - 05/20/18 11:15> Impressions Chest X-Ray 05/19/18 18:28 CONCLUSION: Interstitial disease seen throughout the most prominent of right upper lung. This was seen better on the prior CTA of the chest. This appears unchanged. Head CT 05/19/18 18:28 CONCLUSION: 1. No acute abnormality. 2. Age-related atrophy. 3. Suspected small vessel ischemic change in the white matter. . <Boris Wilburn 05/19/18 21:03> Caprini VTE Risk Assessment Caprini VTE Risk Assessment: Moderate/High Risk (score >= 2) <Boris Wilburn 05/19/18 23:30> Caprini Risk Assessment Model: Point Value = 1 Point Value = 2 Point Value = 3 Point Value = 5 Age 41-60 Minor surgery BMI > 25 kg/m2 Swollen legs Varicose veins or History of unexplained or recurrent spontaneous Oral contraceptives or hormone replacement Sepsis (< 1 month) Serious lung disease, including pneumonia (< 1 month) Abnormal pulmonary function Acute myocardial infarction Congestive heart failure (< 1 month) History of inflammatory bowel disease Medical patient at bed rest Age 61-74 Arthroscopic surgery Major open surgery (> 45 min) Laparoscopic surgery (> 45 min) Malignancy Confined to bed (> 72 hours) Immobilizing plaster cast Central venous access Age >= 75 History of VTE Family history of VTE Factor V Leiden Prothrombin [id number] Lupus anticoagulant Anticardiolipin antibodies Elevated serum homocysteine Heparin-induced thrombocytopenia Other congenital or acquired thrombophilia Stroke (< 1 month) Elective arthroplasty Hip, pelvis, or leg fracture Acute spinal cord injury (< 1 month) <Adalberto Martinez 05/20/18 11:15> Point Value = 1 Point Value = 2 Point Value = 3 Point Value = 5 Age 41-60 Minor surgery BMI > 25 kg/m2 Swollen legs Varicose veins or History of unexplained or recurrent spontaneous Oral contraceptives or hormone replacement Sepsis (< 1 month) Serious lung disease, including pneumonia (< 1 month) Abnormal pulmonary function Acute myocardial infarction Congestive heart failure (< 1 month) History of inflammatory bowel disease Medical patient at bed rest Age 61-74 Arthroscopic surgery Major open surgery (> 45 min) Laparoscopic surgery (> 45 min) Malignancy Confined to bed (> 72 hours) Immobilizing plaster cast Central venous access Age >= 75 History of VTE Family history of VTE Factor V Leiden Prothrombin [id number] Lupus anticoagulant Anticardiolipin antibodies Elevated serum homocysteine Heparin-induced thrombocytopenia Other congenital or acquired thrombophilia Stroke (< 1 month) Elective arthroplasty Hip, pelvis, or leg fracture Acute spinal cord injury (< 1 month) <Boris Wilburn - 05/19/18 21:03> Prophylaxis Regimen: Total Risk Factor Score Risk Level Prophylaxis Regimen 0-1 Low Early ambulation 2 Moderate Order ONE of the following: *Sequential Compression Device (SCD) *Heparin 5000 units SQ BID 3-4 Higher Order ONE of the following medications: *Heparin 5000 units SQ TID *Enoxaparin/Lovenox 40 mg SQ daily (WT < 150 kg, CrCl > 30 mL/min) *Enoxaparin/Lovenox 30 mg SQ daily (WT < 150 kg, CrCl > 10-29 mL/min) *Enoxaparin/Lovenox 30 mg SQ BID (WT < 150 kg, CrCl > 30 mL/min) AND/OR *Sequential Compression Device (SCD) 5 or more Highest Order ONE of the following medications: *Heparin 5000 units SQ TID (Preferred with Epidurals) *Enoxaparin/Lovenox 40 mg SQ daily (WT < 150 kg, CrCl > 30 mL/min) *Enoxaparin/Lovenox 30 mg SQ daily (WT < 150 kg, CrCl > 10-29 mL/min) *Enoxaparin/Lovenox 30 mg SQ BID (WT < 150 kg, CrCl > 30 mL/min) AND *Sequential Compression Device (SCD) <Adalberto Martinez - 05/20/18 11:15> Total Risk Factor Score Risk Level Prophylaxis Regimen 0-1 Low Early ambulation 2 Moderate Order ONE of the following: *Sequential Compression Device (SCD) *Heparin 5000 units SQ BID 3-4 Higher Order ONE of the following medications: *Heparin 5000 units SQ TID *Enoxaparin/Lovenox 40 mg SQ daily (WT < 150 kg, CrCl > 30 mL/min) *Enoxaparin/Lovenox 30 mg SQ daily (WT < 150 kg, CrCl > 10-29 mL/min) *Enoxaparin/Lovenox 30 mg SQ BID (WT < 150 kg, CrCl > 30 mL/min) AND/OR *Sequential Compression Device (SCD) 5 or more Highest Order ONE of the following medications: *Heparin 5000 units SQ TID (Preferred with Epidurals) *Enoxaparin/Lovenox 40 mg SQ daily (WT < 150 kg, CrCl > 30 mL/min) *Enoxaparin/Lovenox 30 mg SQ daily (WT < 150 kg, CrCl > 10-29 mL/min) *Enoxaparin/Lovenox 30 mg SQ BID (WT < 150 kg, CrCl > 30 mL/min) AND *Sequential Compression Device (SCD) <Boris Wilburn - 05/19/18 21:03> Assessment and Plan - Assessment (1) Sepsis due to urinary tract infection Code(s): A41.9 - Sepsis, unspecified organism; N39.0 - Urinary tract infection, site not specified Status: Acute (2) Bacteremia due to Gram-negative bacteria Code(s): R78.81 - Bacteremia Status: Acute (3) Altered mental status Code(s): R41.82 - Altered mental status, unspecified Status: Acute (4) COPD (chronic obstructive pulmonary disease) Code(s): J44.9 - Chronic obstructive pulmonary disease, unspecified Status: Acute (5) CHF (congestive heart failure) Code(s): I50.9 - Heart failure, unspecified Status: Acute (6) Atrial fibrillation Code(s): I48.91 - Unspecified atrial fibrillation Status: Acute (7) Hypertension Code(s): I10 - Essential (primary) hypertension Status: Acute (8) Pulmonary hypertension Code(s): I27.20 - Pulmonary hypertension, unspecified Status: Acute (9) Nutrition, metabolism, and development symptoms Code(s): R63.8 - Other symptoms and signs concerning food and fluid intake Status: Acute <Adalberto Martinez - 05/20/18 11:15> (1) Sepsis due to urinary tract infection Code(s): A41.9 - Sepsis, unspecified organism; N39.0 - Urinary tract infection, site not specified Status: Acute Plan: This patient is a 77-year-old female with prior history of UTIs admitted for altered mental status in the setting of severe sepsis and urinary tract infection. This patient presents with a 6-hour history of altered mental status in the setting of increased white blood cell count of 14.9 as well as febrile at 103.2 meeting severe sepsis criteria on admission. Patient urinalysis positive for nitrites as well as moderate leukocyte esterase and high white blood cell and hyaline casts indicating urosepsis. Patient previously treated on April 02, 2018 for UTI, culture at the time grew E. coli and patient was treated successfully with ceftriaxone. During interview patient did mention that she suffers from UTIs often. -UA positive for nitrates and leukocyte esterase -Febrile at 103.2 on admission -Lactic acid 1.4 -Leukocytosis of 14.9 with 90% neutrophils -Unchanged chest x-ray from previous admission -Q sofa score 2 indicating high risk -Follow-up with urine culture -Follow-up with blood culture -Begin 1 g ceftriaxone daily pending cultures (2) Altered mental status Code(s): R41.82 - Altered mental status, unspecified Status: Acute Plan: Please see plan above for urosepsis (3) COPD (chronic obstructive pulmonary disease) Code(s): J44.9 - Chronic obstructive pulmonary disease, unspecified Status: Acute Plan: Patient has history of COPD currently on 3 L home oxygen. COPD Gold cardiac cannot be calculated for this patient as her FEV1 is currently unknown. Patient not in acute exacerbation. -Supplemental oxygen to maintain oxygen saturation between 88-92% -Duo nebs every 6 -Ventolin 2 puffs every 4 as needed -Steroids and antibiotics not indicated at this time (4) CHF (congestive heart failure) Code(s): I50.9 - Heart failure, unspecified Status: Acute Plan: History of CHF and no acute exacerbation. -Echocardiogram from June 13, 2017 shows an ejection fraction of 65-70% -Lasix 40 mg p.o. daily -Increase to twice daily if patient begins to experience shortness of breath (5) Atrial fibrillation Code(s): I48.91 - Unspecified atrial fibrillation Status: Acute Plan: Patient has history of atrial fibrillation anticoagulated on warfarin, found to have an irregularly irregular heartbeat on admission. Atrial fibrillation confirmed by EKG. Currently rate controlled at a heart rate of 100 bpm. -Continue home carvedilol 6.25 mg p.o. twice daily -INR at therapeutic range 2.5 -Continue warfarin 4 milligrams tablet Thursday, Thursday, , Thursday (6) Hypertension Code(s): I10 - Essential (primary) hypertension Status: Acute Plan: Patient has a history of hypertension normotensive on admission. -Continue home carvedilol 6.25 mg twice daily -Furosemide 40 mg daily (7) Pulmonary hypertension Code(s): I27.20 - Pulmonary hypertension, unspecified Status: Acute Plan: History of pulmonary hypertension currently on sildenafil -Continue home sildenafil (8) Nutrition, metabolism, and development symptoms Code(s): R63.8 - Other symptoms and signs concerning food and fluid intake Status: Acute Plan: Fluids: Half maintenance fluids due to history of CHF, normal saline at 70 mL/h Electrolytes: Replete as needed Nutrition: Low-salt cardiac diet DVT prophylaxis: Lovenox 40 mg subcu daily <Boris Wilburn - 05/19/18 22:41> - Attending Attestation Patient case discussed with resident physicians I have independently examined the patient I have read the above note and agree with the assessment and plan as discussed with me I was involved in all medical decision making for this patient Adalberto Martinez MD <Adalberto Martinez - 05/20/18 11:15>
[2018-05-19] MEDS ORDERED: Bisacodyl 10 MG Supp RECTAL PRN (21:16)
[2018-05-19] MEDS ORDERED: Acetaminophen 325 MG Tablet PO PRN (21:16)
[2018-05-19] MEDS: Sod Chloride 0.9% Inj 1,000 ML IV.CONT SCH (23:38)
[2018-05-19] MEDS: Enoxaparin Inj 40 MG/0.4 ML Syringe SQ SCH (23:44)
[2018-05-20] MEDS: Acetaminophen 325 MG Tablet PO PRN ×2 (00:19→07:54)
[2018-05-20 07:09] LABS: Baso % (Auto) 0.1 % (0.0-2.0); Hematocrit 30.9 % (35.0-46.0); Hemoglobin 9.9 gm/dL (11.6-15.3); Lymph # (Auto) 0.5 th/mm3 (1.0-4.8); Lymph % (Auto) 3.3 % (9.0-44.0); Mean Corpuscular HGB Conc 32.1 % (32.0-36.0); Mean Corpuscular Hemoglobin 29.4 pg (27.0-34.0); Mean Corpuscular Volume 91.5 fL (80.0-100.0); Mean Platelet Volume 7.9 fL (7.0-11.0); Mono # (Auto) 1.1 th/mm3 (0.0-0.9); Mono % (Auto) 6.9 % (0.0-8.0); Neut # (Auto) 14.3 th/mm3 (1.8-7.7); Neut % (Auto) 89.7 % (16.0-70.0); Platelet Count 206 th/mm3 (150-450); Red Blood Count 3.38 mil/mm3 (4.00-5.30); Red Cell Distribution Width 18.8 % (11.6-17.2); White Blood Count 15.9 th/mm3 (4.0-11.0)
[2018-05-20 07:48] LABS: Calcium 8.5 mg/dL (8.5-10.1); Carbon Dioxide 28.2 meq/L (21.0-32.0); Potassium 3.4 meq/L (3.5-5.1)
[2018-05-20] MEDS ORDERED: Furosemide 40 MG Tablet PO SCH (09:00)
--- NOTE | 2018-05-20 09:17 | P.PNFP ---
Subjective Interval history: Patient seen with residents during morning medical rounds. Patient is much more alert, currently alert and oriented x3 and understands that she was confused prior to arrival. She continues to have some lower abdominal discomfort as well as some dysuria that remains unchanged. Her biggest complaint is back pain and right leg pain that is chronic in nature, she does take pain medication at home that helps relieve this pain but it was held on admission due to her altered mental status. She denies shortness of breath, she denies chest pain, she denies palpitations, she denies fevers or chills, she denies nausea or vomiting. Feels that the source of her urinary tract infection is from urinating into her adult diaper at night as she has stopped getting out of bed to urinate overnight <Adalberto Martinez - 05/20/18 11:15> feels good back pain, killing me. chronic back pain. knee pain, chronic. pain meds contyrol pain. tylenol didnt help. will restart home pain med. breath ok dysuria AOx3 remembers being confused. lives at home with son has been peeing into a diaper at night garvey in, dark bedside commode at home garvey out vinh <Jovon Kellogg - 05/20/18 09:21> Results - Labs Result diagrams: 05/20/18 06:14 05/20/18 06:14 <Adalberto Martinez - 05/20/18 11:15> Abnormal lab results 05/19/18 05/19/18 05/19/18 Range/Units 18:40 18:40 18:40 WBC 14.9 H (4.0-11.0) th/mm3 RBC 3.72 L (4.00-5.30) mil/mm3 Hgb 11.0 L (11.6-15.3) gm/dL Hct 33.7 L (35.0-46.0) % RDW 18.3 H (11.6-17.2) % Neut % (Auto) 90.9 H (16.0-70.0) % Lymph % (Auto) 2.5 L (9.0-44.0) % Neut # (Auto) 13.6 H (1.8-7.7) th/mm3 Lymph # (Auto) 0.4 L (1.0-4.8) th/mm3 Rains # (Auto) (0.0-0.9) th/mm3 PT 25.6 H (9.8-11.6) sec Sodium 133 L (136-145) meq/L Potassium (3.5-5.1) meq/L Chloride 95 L (98-107) meq/L BUN 21 H (7-18) mg/dL Creatinine 1.09 H (0.50-1.00) mg/dL Estimated GFR 49 L (>89) mL/min Random Glucose 108 H (74-106) mg/dL Alkaline Phosphatase 126 H (45-117) U/L Albumin 2.8 L (3.4-5.0) g/dL Urine Clarity (Clear) Urine Protein (Neg-Trace) mg/dL Urine Ketones (Negative) mg/dL Urine Nitrate (Negative) Urine Urobilinogen (Less than 2) mg/dL Ur Leukocyte Esterase (Negative) Urine RBC (0-3) /hpf Urine WBC (0-5) /hpf Urine WBC Clumps (None) Urine Bacteria (None) /hpf Urine Mucus (Occasional) /lpf 05/19/18 05/20/18 05/20/18 Range/Units 18:40 06:14 06:14 WBC 15.9 H (4.0-11.0) th/mm3 RBC 3.38 L (4.00-5.30) mil/mm3 Hgb 9.9 L (11.6-15.3) gm/dL Hct 30.9 L (35.0-46.0) % RDW 18.8 H (11.6-17.2) % Neut % (Auto) 89.7 H (16.0-70.0) % Lymph % (Auto) 3.3 L (9.0-44.0) % Neut # (Auto) 14.3 H (1.8-7.7) th/mm3 Lymph # (Auto) 0.5 L (1.0-4.8) th/mm3 Rains # (Auto) 1.1 H (0.0-0.9) th/mm3 PT (9.8-11.6) sec Sodium (136-145) meq/L Potassium 3.4 L (3.5-5.1) meq/L Chloride (98-107) meq/L BUN 25 H (7-18) mg/dL Creatinine 1.18 H (0.50-1.00) mg/dL Estimated GFR 45 L (>89) mL/min Random Glucose 118 H (74-106) mg/dL Alkaline Phosphatase (45-117) U/L Albumin (3.4-5.0) g/dL Urine Clarity Hazy H (Clear) Urine Protein 100 H (Neg-Trace) mg/dL Urine Ketones Trace H (Negative) mg/dL Urine Nitrate Positive H (Negative) Urine Urobilinogen 4.0 H (Less than 2) mg/dL Ur Leukocyte Esterase Moderate H (Negative) Urine RBC 11 H (0-3) /hpf Urine WBC 137 H (0-5) /hpf Urine WBC Clumps Few H (None) Urine Bacteria Occasional H (None) /hpf Urine Mucus Few H (Occasional) /lpf Short CBC 05/19/18 05/20/18 Range/Units 18:40 06:14 WBC 14.9 H 15.9 H (4.0-11.0) th/mm3 Hgb 11.0 L 9.9 L (11.6-15.3) gm/dL Hct 33.7 L 30.9 L (35.0-46.0) % Plt Count 286 206 (150-450) th/mm3 BMP 05/19/18 05/20/18 18:40 06:14 Sodium 133 L 136 Potassium 3.8 3.4 L Chloride 95 L 99 Carbon Dioxide 30.5 28.2 BUN 21 H 25 H Creatinine 1.09 H 1.18 H Calcium 9.3 8.5 D Liver Function 05/19/18 05/19/18 Range/Units 18:40 18:40 Total Bilirubin 0.9 Cancelled (0.2-1.0) mg/dL AST 19 (15-37) U/L ALT 15 (10-53) U/L Alkaline Phosphatase 126 H (45-117) U/L Albumin 2.8 L (3.4-5.0) g/dL Urine 05/19/18 Range/Units 18:40 Urine Color Trista (Yellw/Straw) Urine Clarity Hazy H (Clear) Urine pH 6.0 (5.0-8.5) Ur Specific [place] 1.018 (1.002-1.035) Urine Protein 100 H (Neg-Trace) mg/dL Urine Glucose (UA) Negative (Negative) mg/dL <Adalberto Martinez - 05/20/18 11:15> Abnormal lab results 05/19/18 05/19/18 05/19/18 Range/Units 18:40 18:40 18:40 WBC 14.9 H (4.0-11.0) th/mm3 RBC 3.72 L (4.00-5.30) mil/mm3 Hgb 11.0 L (11.6-15.3) gm/dL Hct 33.7 L (35.0-46.0) % RDW 18.3 H (11.6-17.2) % Neut % (Auto) 90.9 H (16.0-70.0) % Lymph % (Auto) 2.5 L (9.0-44.0) % Neut # (Auto) 13.6 H (1.8-7.7) th/mm3 Lymph # (Auto) 0.4 L (1.0-4.8) th/mm3 Rains # (Auto) (0.0-0.9) th/mm3 PT 25.6 H (9.8-11.6) sec Sodium 133 L (136-145) meq/L Potassium (3.5-5.1) meq/L Chloride 95 L (98-107) meq/L BUN 21 H (7-18) mg/dL Creatinine 1.09 H (0.50-1.00) mg/dL Estimated GFR 49 L (>89) mL/min Random Glucose 108 H (74-106) mg/dL Alkaline Phosphatase 126 H (45-117) U/L Albumin 2.8 L (3.4-5.0) g/dL Urine Clarity (Clear) Urine Protein (Neg-Trace) mg/dL Urine Ketones (Negative) mg/dL Urine Nitrate (Negative) Urine Urobilinogen (Less than 2) mg/dL Ur Leukocyte Esterase (Negative) Urine RBC (0-3) /hpf Urine WBC (0-5) /hpf Urine WBC Clumps (None) Urine Bacteria (None) /hpf Urine Mucus (Occasional) /lpf 05/19/18 05/20/18 05/20/18 Range/Units 18:40 06:14 06:14 WBC 15.9 H (4.0-11.0) th/mm3 RBC 3.38 L (4.00-5.30) mil/mm3 Hgb 9.9 L (11.6-15.3) gm/dL Hct 30.9 L (35.0-46.0) % RDW 18.8 H (11.6-17.2) % Neut % (Auto) 89.7 H (16.0-70.0) % Lymph % (Auto) 3.3 L (9.0-44.0) % Neut # (Auto) 14.3 H (1.8-7.7) th/mm3 Lymph # (Auto) 0.5 L (1.0-4.8) th/mm3 Rains # (Auto) 1.1 H (0.0-0.9) th/mm3 PT (9.8-11.6) sec Sodium (136-145) meq/L Potassium 3.4 L (3.5-5.1) meq/L Chloride (98-107) meq/L BUN 25 H (7-18) mg/dL Creatinine 1.18 H (0.50-1.00) mg/dL Estimated GFR 45 L (>89) mL/min Random Glucose 118 H (74-106) mg/dL Alkaline Phosphatase (45-117) U/L Albumin (3.4-5.0) g/dL Urine Clarity Hazy H (Clear) Urine Protein 100 H (Neg-Trace) mg/dL Urine Ketones Trace H (Negative) mg/dL Urine Nitrate Positive H (Negative) Urine Urobilinogen 4.0 H (Less than 2) mg/dL Ur Leukocyte Esterase Moderate H (Negative) Urine RBC 11 H (0-3) /hpf Urine WBC 137 H (0-5) /hpf Urine WBC Clumps Few H (None) Urine Bacteria Occasional H (None) /hpf Urine Mucus Few H (Occasional) /lpf Short CBC 05/19/18 05/20/18 Range/Units 18:40 06:14 WBC 14.9 H 15.9 H (4.0-11.0) th/mm3 Hgb 11.0 L 9.9 L (11.6-15.3) gm/dL Hct 33.7 L 30.9 L (35.0-46.0) % Plt Count 286 206 (150-450) th/mm3 BMP 05/19/18 05/20/18 18:40 06:14 Sodium 133 L 136 Potassium 3.8 3.4 L Chloride 95 L 99 Carbon Dioxide 30.5 28.2 BUN 21 H 25 H Creatinine 1.09 H 1.18 H Calcium 9.3 8.5 D Liver Function 05/19/18 05/19/18 Range/Units 18:40 18:40 Total Bilirubin 0.9 Cancelled (0.2-1.0) mg/dL AST 19 (15-37) U/L ALT 15 (10-53) U/L Alkaline Phosphatase 126 H (45-117) U/L Albumin 2.8 L (3.4-5.0) g/dL Urine 05/19/18 Range/Units 18:40 Urine Color Trista (Yellw/Straw) Urine Clarity Hazy H (Clear) Urine pH 6.0 (5.0-8.5) Ur Specific [place] 1.018 (1.002-1.035) Urine Protein 100 H (Neg-Trace) mg/dL Urine Glucose (UA) Negative (Negative) mg/dL <Jovon Kellogg - 05/20/18 09:17> - Imaging Impressions Chest X-Ray 05/19/18 18:28 CONCLUSION: Interstitial disease seen throughout the most prominent of right upper lung. This was seen better on the prior CTA of the chest. This appears unchanged. Head CT 05/19/18 18:28 CONCLUSION: 1. No acute abnormality. 2. Age-related atrophy. 3. Suspected small vessel ischemic change in the white matter. . <Adalberto Martinez - 05/20/18 11:15> Impressions Chest X-Ray 05/19/18 18:28 CONCLUSION: Interstitial disease seen throughout the most prominent of right upper lung. This was seen better on the prior CTA of the chest. This appears unchanged. Head CT 05/19/18 18:28 CONCLUSION: 1. No acute abnormality. 2. Age-related atrophy. 3. Suspected small vessel ischemic change in the white matter. . <Jovon Kellogg - 05/20/18 09:17> Physical Exam Vital signs: Vital Signs 05/19/18 18:22 05/19/18 18:42 05/19/18 18:44 Temperature 103.2 F H Pulse Rate 101 H Respiratory Rate 27 H Blood Pressure 126/70 Pulse Oximetry 96 97 1219/18 20:00 05/19/18 21:00 05/19/18 22:38 Temperature 99.9 F H Pulse Rate 110 H 94 H Respiratory Rate 18 19 Blood Pressure 122/69 95/57 L Pulse Oximetry 97 97 97 05/19/18 23:03 05/20/18 00:00 05/20/18 00:55 Temperature 97.3 F L Pulse Rate 69 72 Respiratory Rate 20 Blood Pressure 83/45 L 87/52 L Pulse Oximetry 95 97 05/20/18 00:58 05/20/18 02:31 05/20/18 03:31 Temperature Pulse Rate 64 55 L Respiratory Rate 18 16 Blood Pressure 96/51 L Pulse Oximetry 97 05/20/18 04:00 05/20/18 08:00 05/20/18 09:25 Temperature 97.4 F L 97.4 F L Pulse Rate 67 73 Respiratory Rate 16 Blood Pressure 110/58 L 90/50 L Pulse Oximetry 97 94 L 93 L 05/20/18 10:17 Temperature Pulse Rate Respiratory Rate Blood Pressure 112/59 L Pulse Oximetry Intake & Output 05/19/18 05/20/18 05/20/18 18:59 06:59 18:59 Intake Total 100 / 100 1000 / 1000 Output Total 1000 / 1000 Balance -900 / -900 1000 / 1000 Weight 107.501 kg 110.7 kg Intake: IV 100 / 100 1000 / 1000 NS Inj 1,000 ML @ 150 mls/hr IV 1000 / 1000 .CONT .[id number] [facility] Rx#:[id number] Rocephin Inj 1,000 MG In NS Inj 100 / 100 100 ML @ 200 mls/hr IV.SIG Q24H [facility] Rx#:[id number] Output: Urine Amount (Catheter) 1000 / 1000 Indwelling Urethral Catheter 1000 / 1000 Other: Date of Last Bowel Movement 05/18/18 Weight On Admission 109.8 kg <Adalberto Martinez - 05/20/18 11:15> Vital Signs 05/19/18 18:22 05/19/18 18:42 05/19/18 18:44 Temperature 103.2 F H Pulse Rate 101 H Respiratory Rate 27 H Blood Pressure 126/70 Pulse Oximetry 96 97 05/19/18 20:00 05/19/18 21:00 05/19/18 22:38 Temperature 99.9 F H Pulse Rate 110 H 94 H Respiratory Rate 18 19 Blood Pressure 122/69 95/57 L Pulse Oximetry 97 97 97 05/19/18 23:03 05/20/18 00:00 05/20/18 00:55 Temperature 97.3 F L Pulse Rate 69 72 Respiratory Rate 20 Blood Pressure 83/45 L 87/52 L Pulse Oximetry 95 97 05/20/18 00:58 05/20/18 02:31 05/20/18 03:31 Temperature Pulse Rate 64 55 L Respiratory Rate 18 16 Blood Pressure 96/51 L Pulse Oximetry 97 05/20/18 04:00 Temperature 97.4 F L Pulse Rate 67 Respiratory Rate 16 Blood Pressure 110/58 L Pulse Oximetry 97 Intake & Output 05/19/18 05/20/18 05/20/18 18:59 06:59 18:59 Intake Total 100 / 100 Output Total 1000 / 1000 Balance -900 / -900 Weight 107.501 kg 110.7 kg Intake: IV 100 / 100 Rocephin Inj 1,000 MG In NS Inj 100 / 100 100 ML @ 200 mls/hr IV.SIG Q24H [facility] Rx#:[id number] Output: Urine Amount (Catheter) 1000 / 1000 Indwelling Urethral Catheter 1000 / 1000 Other: Date of Last Bowel Movement 05/18/18 Weight On Admission 109.8 kg <Jovon Kellogg 05/20/18 09:17> Narrative: General: Elderly female, lying in bed in no obvious distress Skin: Warm and dry and intact, no obvious lesions Cardiovascular: Irregularly irregular but normal rate, no obvious murmurs Pulmonary: Clear to auscultation bilaterally without obvious wheezing or rhonchi Extremities: Trace edema around the ankles, no obvious cyanosis or clubbing Psych: Awake, alert, oriented x3 and she is appropriate with examiner's <Adalberto Martinez 05/20/18 11:15> - Urinary Catheter Management Indwelling Urethral Catheter Cath placed during this visit: no <Adalberto Martinez 05/20/18 11:15> yes <Jovon Kellogg 05/20/18 09:21> Reason for continuing: Hourly intake/output <Jovon Kellogg 05/20/18 09 :17> Insertion date: 05/19/18 <Jovon Kellogg 05/20/18 09:17> Insertion time: 18:43 <Josefina [id number] - 05/20/18 09:17> Assessment and Plan - Assessment (1) Sepsis due to urinary tract infection Code(s): A41.9 - Sepsis, unspecified organism; N39.0 - Urinary tract infection, site not specified Status: Acute Plan: Altered mental status and sepsis on arrival found to be due to a urinary tract infection IV antibiotics: Rocephin 1 g IV every 24 hours, day #2 Urine culture ordered and pending Blood cultures growing gram-negative rods, continue to follow for susceptibilities Blood pressures have been running relatively low, we will provide a fluid bolus of 500 mL x1 and reevaluate Hold home blood pressure medications Leukocytosis remains with a WBC of 15.9 this morning Lactic acid 1.4> 0.8 today (2) Bacteremia due to Gram-negative bacteria Code(s): R78.81 - Bacteremia Status: Acute Plan: Blood cultures from 05/19/18 growing gram-negative rods likely from urinary source -Follow blood cultures for species and susceptibilities Repeat blood cultures once on IV antibiotics for 48 hours -If repeat blood cultures remain positive, consider echocardiogram and infectious disease consult Continue IV antibiotics with Rocephin (3) Altered mental status Code(s): R41.82 - Altered mental status, unspecified Status: Acute Plan: Secondary to acute infection, see treatment for sepsis (4) COPD (chronic obstructive pulmonary disease) Code(s): J44.9 - Chronic obstructive pulmonary disease, unspecified Status: Acute Plan: Supplemental oxygen to keep saturations 92% Duo nebs ordered every 6 hours Ventolin 2 puffs every 4 hours as needed (5) CHF (congestive heart failure) Code(s): I50.9 - Heart failure, unspecified Status: Acute Plan: Gently hydrate with IV fluids as patient is septic with low blood pressures -Hold home Lasix and carvedilol Patient receiving gentle fluid bolus of 500 mL today due to low blood pressures (6) Atrial fibrillation Code(s): I48.91 - Unspecified atrial fibrillation Status: Acute Plan: INR therapeutic at 2.5 Continue warfarin 4 mg Thursday, Thursday, , Thursday -Currently holding beta-marisabel due to hypotension and sepsis (7) Hypertension Code(s): I10 - Essential (primary) hypertension Status: Acute Plan: Holding home hypertension medications due to hypotension from sepsis (8) Pulmonary hypertension Code(s): I27.20 - Pulmonary hypertension, unspecified Status: Acute (9) Nutrition, metabolism, and development symptoms Code(s): R63.8 - Other symptoms and signs concerning food and fluid intake Status: Acute Plan: Fluid: Maintenance fluids with intermittent bolus treatment for blood pressure control Electrolytes: Replete as needed Nutrition: Low-salt, cardiac diet DVT prophylaxis: Patient on Coumadin and anticoagulated, Lovenox 40 mg subcu daily <Adalberto Martinez - 05/20/18 11:15> (1) Sepsis due to urinary tract infection Code(s): A41.9 - Sepsis, unspecified organism; N39.0 - Urinary tract infection, site not specified Status: Acute Plan: This patient is a 77-year-old female with prior history of UTIs admitted for altered mental status in the setting of severe sepsis and urinary tract infection. This patient presents with a 6-hour history of altered mental status in the setting of increased white blood cell count of 14.9 as well as febrile at 103.2 meeting severe sepsis criteria on admission. Patient urinalysis positive for nitrites as well as moderate leukocyte esterase and high white blood cell and hyaline casts indicating urosepsis. Patient previously treated on April 02, 2018 for UTI, culture at the time grew E. coli and patient was treated successfully with ceftriaxone. During interview patient did mention that she suffers from UTIs often. -UA positive for nitrates and leukocyte esterase -Febrile at 103.2 on admission -Lactic acid 1.4 -Leukocytosis of 14.9 with 90% neutrophils -Unchanged chest x-ray from previous admission -Q sofa score 2 indicating high risk -Follow-up with urine culture -Follow-up with blood culture -Begin 1 g ceftriaxone daily pending cultures (2) Altered mental status Code(s): R41.82 - Altered mental status, unspecified Status: Acute Plan: Please see plan above for urosepsis (3) COPD (chronic obstructive pulmonary disease) Code(s): J44.9 - Chronic obstructive pulmonary disease, unspecified Status: Acute Plan: Patient has history of COPD currently on 3 L home oxygen. COPD Gold cardiac cannot be calculated for this patient as her FEV1 is currently unknown. Patient not in acute exacerbation. -Supplemental oxygen to maintain oxygen saturation between 88-92% -Duo nebs every 6 -Ventolin 2 puffs every 4 as needed -Steroids and antibiotics not indicated at this time (4) CHF (congestive heart failure) Code(s): I50.9 - Heart failure, unspecified Status: Acute Plan: History of CHF and no acute exacerbation. -Echocardiogram from June 13, 2017 shows an ejection fraction of 65-70% -Lasix 40 mg p.o. daily -Increase to twice daily if patient begins to experience shortness of breath (5) Atrial fibrillation Code(s): I48.91 - Unspecified atrial fibrillation Status: Acute Plan: Patient has history of atrial fibrillation anticoagulated on warfarin, found to have an irregularly irregular heartbeat on admission. Atrial fibrillation confirmed by EKG. Currently rate controlled at a heart rate of 100 bpm. -Continue home carvedilol 6.25 mg p.o. twice daily -INR at therapeutic range 2.5 -Continue warfarin 4 milligrams tablet Thursday, Thursday, , Thursday (6) Hypertension Code(s): I10 - Essential (primary) hypertension Status: Acute Plan: Patient has a history of hypertension normotensive on admission. -Continue home carvedilol 6.25 mg twice daily -Furosemide 40 mg daily (7) Pulmonary hypertension Code(s): I27.20 - Pulmonary hypertension, unspecified Status: Acute Plan: History of pulmonary hypertension currently on sildenafil -Continue home sildenafil (8) Nutrition, metabolism, and development symptoms Code(s): R63.8 - Other symptoms and signs concerning food and fluid intake Status: Acute Plan: Fluids: Half maintenance fluids due to history of CHF, normal saline at 70 mL/h Electrolytes: Replete as needed Nutrition: Low-salt cardiac diet DVT prophylaxis: Lovenox 40 mg subcu daily <Jovon Kellogg - 05/20/18 09:17>
[2018-05-20] MEDS: Potassium Chloride 10 MEQ ER Capsule PO SCH ×2 (09:31→23:25)
[2018-05-20] MEDS: Senna/Docusate Sodium 8.6/50 MG Tablet PO SCH ×2 (09:32→21:50)
[2018-05-20] MEDS: Carvedilol 6.25 MG Tablet PO SCH ×2 (09:32→21:50)
[2018-05-20] MEDS: Duloxetine 60 MG DR Capsule PO SCH (09:32)
[2018-05-20] MEDS: Sod Chloride 0.9% Inj 1,000 ML IV.CONT SCH ×4 (09:37→19:12)
[2018-05-20] MEDS ORDERED: Sodium Chlor 0.9% Inj 500 ML IV.SIG SCH ×2 (10:00→15:00)
--- NOTE | 2018-05-20 15:50 | ECG ---
Date Performed: 05/19/2018 Time Performed: 18:35:09 PTAGE: 77 years EKG: ATRIAL FIBRILLATION WITH RAPID VENTRICULAR RESPONSE INDETERMINATE AXIS INCOMPLETE RIGHT BUN DLE BRANCH BLOCK SEPTAL MYOCARDIAL INFARCTION ABNORMAL ECG Compared to PREVIOUS TRACING , ventricular response to atrial fibrillation is somewhat slower, otherw ise no significant change. PREVIOUS TRACIN04/02/2018 14.50 DOCTOR: Omero Eisenberg Interpretating Date/Time 05/20/2018 15:48:17
[2018-05-20] MEDS ORDERED: Acetaminophen 325 MG Tablet PO PRN (16:22)
[2018-05-20] MEDS: Enoxaparin Inj 40 MG/0.4 ML Syringe SQ SCH (21:51)
[2018-05-21] MEDS: Sod Chloride 0.9% Inj 1,000 ML IV.CONT SCH ×6 (00:19→22:36)
[2018-05-21 06:52] LABS: Baso % (Auto) 0.2 % (0.0-2.0); Eos % (Auto) 0.1 % (0.0-4.0); Hematocrit 31.3 % (35.0-46.0); Hemoglobin 10.3 gm/dL (11.6-15.3); Lymph # (Auto) 0.3 th/mm3 (1.0-4.8); Lymph % (Auto) 2.1 % (9.0-44.0); Mean Corpuscular Hemoglobin 29.9 pg (27.0-34.0); Mean Corpuscular Volume 90.8 fL (80.0-100.0); Mean Platelet Volume 8.2 fL (7.0-11.0); Mono # (Auto) 1.1 th/mm3 (0.0-0.9); Mono % (Auto) 6.7 % (0.0-8.0); Neut % (Auto) 90.9 % (16.0-70.0); Platelet Count 218 th/mm3 (150-450); Red Blood Count 3.44 mil/mm3 (4.00-5.30); White Blood Count 16.5 th/mm3 (4.0-11.0)
[2018-05-21 06:53] LABS: Albumin 2.3 g/dL (3.4-5.0); Anion Gap 10 meq/L (5-15); Aspartate Aminotransferase 29 U/L (15-37); Blood Urea Nitrogen 23 mg/dL (7-18); Calcium 8.3 mg/dL (8.5-10.1); Chloride 101 meq/L (98-107); Glomerular Filtration Rate 41 mL/min (>89); Glucose,Random 156 mg/dL (74-106); Potassium 3.5 meq/L (3.5-5.1); Sodium 133 meq/L (136-145)
[2018-05-21 06:55] LABS: Alanine Aminotransferase 15 U/L (10-53)
[2018-05-21 06:58] LABS: Alkaline Phosphatase 129 U/L (45-117); Total Protein 6.5 g/dL (6.4-8.2)
[2018-05-21] MEDS: Duloxetine 60 MG DR Capsule PO SCH (09:50)
[2018-05-21] MEDS: Senna/Docusate Sodium 8.6/50 MG Tablet PO SCH ×2 (09:50→22:35)
[2018-05-21] MEDS: Potassium Chloride 10 MEQ ER Capsule PO SCH ×2 (09:50→22:34)
[2018-05-21] MEDS: Carvedilol 6.25 MG Tablet PO SCH ×2 (09:50→22:35)
[2018-05-21] MEDS ORDERED: Ibuprofen 600 MG Tablet PO PRN (10:30)
--- NOTE | 2018-05-21 10:52 | P.PNFP ---
Subjective Interval history: On 3 L NC at home but requiring 4-5 L NC O2 to maintain sats. WBC increased from yesterday. Patient states she is feeling better but has a headache this morning and that Tylenol is not working. Afebrile overnight. On Roc Day 3 Ambulation limited by SOB <Ros Marsh N - 05/21/18 10:52> Results - Labs Result diagrams: 05/21/18 05:46 05/21/18 05:46 <Adalberto Martinez - 05/21/18 13:50> Abnormal lab results 05/21/18 05/21/18 Range/Units 05:46 05:46 WBC 16.5 H (4.0-11.0) th/mm3 RBC 3.44 L (4.00-5.30) mil/mm3 Hgb 10.3 L (11.6-15.3) gm/dL Hct 31.3 L (35.0-46.0) % RDW 19.0 H (11.6-17.2) % Neut % (Auto) 90.9 H (16.0-70.0) % Lymph % (Auto) 2.1 L (9.0-44.0) % Neut # (Auto) 15.0 H (1.8-7.7) th/mm3 Lymph # (Auto) 0.3 L (1.0-4.8) th/mm3 [place] # (Auto) 1.1 H (0.0-0.9) th/mm3 Sodium 133 L (136-145) meq/L BUN 23 H (7-18) mg/dL Creatinine 1.28 H (0.50-1.00) mg/dL Estimated GFR 41 L (>89) mL/min Random Glucose 156 H (74-106) mg/dL Calcium 8.3 L (8.5-10.1) mg/dL Alkaline Phosphatase 129 H (45-117) U/L Albumin 2.3 L (3.4-5.0) g/dL Short CBC 05/21/18 Range/Units 05:46 WBC 16.5 H (4.0-11.0) th/mm3 Hgb 10.3 L (11.6-15.3) gm/dL Hct 31.3 L (35.0-46.0) % Plt Count 218 (150-450) th/mm3 [facility] 05/21/18 05:46 Sodium 133 L Potassium 3.5 Chloride 101 Carbon Dioxide 22.0 BUN 23 H Creatinine 1.28 H Calcium 8.3 L Liver Function 05/21/18 Range/Units 05:46 Total Bilirubin 0.5 (0.2-1.0) mg/dL AST 29 (15-37) U/L ALT 15 (10-53) U/L Alkaline Phosphatase 129 H (45-117) U/L Albumin 2.3 L (3.4-5.0) g/dL <Adalberto Martinez - 05/21/18 13:50> Abnormal lab results 05/19/18 05/21/18 05/21/18 Range/Units 18:40 05:46 05:46 WBC 16.5 H (4.0-11.0) th/mm3 RBC 3.44 L (4.00-5.30) mil/mm3 Hgb 10.3 L (11.6-15.3) gm/dL Hct 31.3 L (35.0-46.0) % RDW 19.0 H (11.6-17.2) % Neut % (Auto) 90.9 H (16.0-70.0) % Lymph % (Auto) 2.1 L (9.0-44.0) % Neut # (Auto) 15.0 H (1.8-7.7) th/mm3 Lymph # (Auto) 0.3 L (1.0-4.8) th/mm3 [place] # (Auto) 1.1 H (0.0-0.9) th/mm3 Sodium 133 L (136-145) meq/L BUN 23 H (7-18) mg/dL Creatinine 1.28 H (0.50-1.00) mg/dL Estimated GFR 41 L (>89) mL/min Random Glucose 156 H (74-106) mg/dL Calcium 8.3 L (8.5-10.1) mg/dL Alkaline Phosphatase 129 H (45-117) U/L Albumin 2.3 L (3.4-5.0) g/dL Urine Clarity Hazy H (Clear) Urine Protein 100 H (Neg-Trace) mg/dL Urine Ketones Trace H (Negative) mg/dL Urine Nitrate Positive H (Negative) Urine Urobilinogen 4.0 H (Less than 2) mg/dL Ur Leukocyte Esterase Moderate H (Negative) Urine RBC 11 H (0-3) /hpf Urine WBC 137 H (0-5) /hpf Urine WBC Clumps Few H (None) Urine Bacteria Occasional H (None) /hpf Urine Mucus Few H (Occasional) /lpf Short CBC 05/21/18 Range/Units 05:46 WBC 16.5 H (4.0-11.0) th/mm3 Hgb 10.3 L (11.6-15.3) gm/dL Hct 31.3 L (35.0-46.0) % Plt Count 218 (150-450) th/mm3 BMP 05/21/18 05:46 Sodium 133 L Potassium 3.5 Chloride 101 Carbon Dioxide 22.0 BUN 23 H Creatinine 1.28 H Calcium 8.3 L Liver Function 05/21/18 Range/Units 05:46 Total Bilirubin 0.5 (0.2-1.0) mg/dL AST 29 (15-37) U/L ALT 15 (10-53) U/L Alkaline Phosphatase 129 H (45-117) U/L Albumin 2.3 L (3.4-5.0) g/dL Urine 05/19/18 Range/Units 18:40 Urine Color Trista (Yellw/Straw) Urine Clarity Hazy H (Clear) Urine pH 6.0 (5.0-8.5) Ur Specific [place] 1.018 (1.002-1.035) Urine Protein 100 H (Neg-Trace) mg/dL Urine Glucose (UA) Negative (Negative) mg/dL <Abid R2,Ros N - 05/21/18 10:52> Physical Exam Vital signs: Vital Signs 05/20/18 14:50 05/20/18 16:00 05/20/18 16:20 Temperature 98 F Pulse Rate 119 H 102 H Respiratory Rate 18 20 Blood Pressure 108/56 L 127/61 Pulse Oximetry 95 05/20/18 20:00 05/20/18 21:10 05/20/18 21:46 Temperature 97.8 F Pulse Rate 92 H 90 Respiratory Rate 19 19 19 Blood Pressure 112/51 L Pulse Oximetry 96 92 L 05/21/18 00:00 05/21/18 01:14 05/21/18 04:00 Temperature 97.8 F 97.8 F Pulse Rate 87 98 H Respiratory Rate 18 19 20 Blood Pressure 95/60 L 108/65 Pulse Oximetry 95 95 05/21/18 07:55 05/21/18 08:00 05/21/18 09:29 Temperature 96.5 F L Pulse Rate 88 128 H Respiratory Rate 14 20 Blood Pressure 102/64 Pulse Oximetry 93 L 93 L 92 L 05/21/18 12:10 Temperature 98.1 F Pulse Rate 88 Respiratory Rate 18 Blood Pressure 106/55 L Pulse Oximetry 93 L Intake & Output 05/20/18 05/21/18 05/21/18 18:59 06:59 18:59 Intake Total 3000 / 3000 1100 / 1100 1000 / 1000 Output Total 225 / 225 Balance 2775 / 2775 1100 / 1100 1000 / 1000 Weight 119.2 kg Intake: IV 3000 / 3000 1100 / 1100 1000 / 1000 NS Inj 1,000 ML @ 150 mls/hr IV 2000 / 2000 1000 / 1000 1000 / 1000 .CONT .Q6H40M [facility] Rx#:[id number] NS Inj 500 ML @ 1000 mls/hr IV. 1000 / 1000 SIG BOLUS [facility] Rx#:[id number] Rocephin Inj 1,000 MG In NS Inj 100 / 100 100 ML @ 200 mls/hr IV.SIG Q24H [facility] Rx#:[id number] Output: Urine 225 / 225 Other: # Voids 1 2 Date of Last Bowel Movement 05/20/18 05/20/18 # Bowel Movements 1 <Adalberto Martinez - 05/21/18 13:50> Vital Signs 05/20/18 12:00 05/20/18 14:50 05/20/18 16:00 Temperature 97.5 F L 98 F Pulse Rate 91 H 119 H Respiratory Rate 18 18 Blood Pressure 90/50 L 108/56 L 127/61 Pulse Oximetry 92 L 95 05/20/18 16:20 05/20/18 20:00 05/20/18 21:10 Temperature 97.8 F Pulse Rate 102 H 92 H 90 Respiratory Rate 20 19 19 Blood Pressure 112/51 L Pulse Oximetry 96 92 L 05/20/18 21:46 05/21/18 00:00 05/21/18 01:14 Temperature 97.8 F Pulse Rate 87 Respiratory Rate 19 18 19 Blood Pressure 95/60 L Pulse Oximetry 95 05/21/18 04:00 05/21/18 07:55 05/21/18 08:00 Temperature 97.8 F 96.5 F L Pulse Rate 98 H 88 128 H Respiratory Rate 20 14 20 Blood Pressure 108/65 102/64 Pulse Oximetry 95 93 L 93 L 05/21/18 09:29 Temperature Pulse Rate Respiratory Rate Blood Pressure Pulse Oximetry 92 L Intake & Output 05/20/18 05/21/18 05/21/18 18:59 06:59 18:59 Intake Total 3000 / 3000 1100 / 1100 1000 / 1000 Output Total 225 / 225 Balance 2775 / 2775 1100 / 1100 1000 / 1000 Weight 119.2 kg Intake: IV 3000 / 3000 1100 / 1100 1000 / 1000 NS Inj 1,000 ML @ 150 mls/hr IV 2000 / 2000 1000 / 1000 1000 / 1000 .CONT .Q6H40M [facility] Rx#:[id number] NS Inj 500 ML @ 1000 mls/hr IV. 1000 / 1000 SIG BOLUS [facility] Rx#:[id number] Rocephin Inj 1,000 MG In NS Inj 100 / 100 100 ML @ 200 mls/hr IV.SIG Q24H [facility] Rx#:[id number] Output: Urine 225 / 225 Other: # Voids 1 2 Date of Last Bowel Movement 05/20/18 05/20/18 # Bowel Movements 1 <AbiRos Vicente N - 05/21/18 10:52> Narrative: General: Elderly female, lying in bed in no obvious distress Skin: Warm and dry and intact, no obvious lesions Cardiovascular: Irregularly irregular but normal rate, no obvious murmurs Pulmonary: Clear to auscultation bilaterally without obvious wheezing or rhonchi Abd: no tenderness or distension, no CVA tenderness MSK: ROM limited by obesity Extremities: Trace edema around the ankles, no obvious cyanosis or clubbing Psych: Awake, alert; no focal deficits <AbiRos Vicente N - 05/21/18 10:52> - Urinary Catheter Management Indwelling Urethral Catheter Cath placed during this visit: no <Adalberto Martinez - 05/21/18 13:50> yes <AbiRos Vicente N - 05/21/18 10:52> Reason for continuing: Hourly intake/output <Abid Ros Lynch N - 05/21/18 10:52 > Insertion date: 05/19/18 <Abid Ros Lynch N - 05/21/18 10:52> Insertion time: 18:43 <Abid R2,Ros N - 05/21/18 10:52> Assessment and Plan - Assessment (1) Dyspnea Code(s): R06.00 - Dyspnea, unspecified Status: Acute (2) Sepsis due to urinary tract infection Code(s): A41.9 - Sepsis, unspecified organism; N39.0 - Urinary tract infection, site not specified Status: Acute (3) Bacteremia due to Gram-negative bacteria Code(s): R78.81 - Bacteremia Status: Acute (4) CHF (congestive heart failure) Code(s): I50.9 - Heart failure, unspecified Status: Acute (5) COPD (chronic obstructive pulmonary disease) Code(s): J44.9 - Chronic obstructive pulmonary disease, unspecified Status: Acute (6) Atrial fibrillation Code(s): I48.91 - Unspecified atrial fibrillation Status: Acute (7) Hypertension Code(s): I10 - Essential (primary) hypertension Status: Acute (8) Pulmonary hypertension Code(s): I27.20 - Pulmonary hypertension, unspecified Status: Acute (9) Chronic pain Code(s): G89.29 - Other chronic pain Status: Acute (10) Nutrition, metabolism, and development symptoms Code(s): R63.8 - Other symptoms and signs concerning food and fluid intake Status: Acute (11) Altered mental status Code(s): R41.82 - Altered mental status, unspecified Status: Resolved <Adalberto Martinez - 05/21/18 13:50> (1) Dyspnea Code(s): R06.00 - Dyspnea, unspecified Status: Acute Plan: May be 2/2 to fluid overload BP low, may be 2/2 to pain medication and concurrent infection; BP meds have been held because of this Decrease pain medication to 1 tab q6H (home dose is 2 tabs Q4 hrs) Give lasix once BP returns to baseline Order CXR IS Avoid fluids at this point (2) Sepsis due to urinary tract infection Code(s): A41.9 - Sepsis, unspecified organism; N39.0 - Urinary tract infection, site not specified Status: Acute Plan: Improved mental status WBC count increasing from yesterday Requiring more O2 than baseline IV antibiotics: Rocephin 1 g IV every 24 hours, day #3 Urine culture growing Gram - rods Blood cultures growing E.coli, continue to follow for susceptibilities Repeat blood cx today to assess for con't bacteremia (3) Bacteremia due to Gram-negative bacteria Code(s): R78.81 - Bacteremia Status: Acute Plan: see above (4) CHF (congestive heart failure) Code(s): I50.9 - Heart failure, unspecified Status: Acute Plan: see above On home carvedilol and lasix (5) COPD (chronic obstructive pulmonary disease) Code(s): J44.9 - Chronic obstructive pulmonary disease, unspecified Status: Acute Plan: Supplemental oxygen to keep saturations 92% Duo nebs ordered every 6 hours Ventolin 2 puffs every 4 hours as needed IS (6) Atrial fibrillation Code(s): I48.91 - Unspecified atrial fibrillation Status: Acute Plan: INR therapeutic at 2.5 Continue warfarin 4 mg Thursday, Thursday, , Thursday -Currently holding beta-marisabel due to low BP (7) Hypertension Code(s): I10 - Essential (primary) hypertension Status: Acute Plan: Holding home hypertension medications due to low BP (8) Pulmonary hypertension Code(s): I27.20 - Pulmonary hypertension, unspecified Status: Acute Plan: History of pulmonary hypertension currently on sildenafil -Continue home sildenafil (9) Chronic pain Code(s): G89.29 - Other chronic pain Status: Acute Plan: Home med: Percocet 5/325 1 tabs q4H for back pain Reduced for inpatient stay PT ordered and working w/patient (10) Nutrition, metabolism, and development symptoms Code(s): R63.8 - Other symptoms and signs concerning food and fluid intake Status: Acute Plan: Fluid: none Electrolytes: Replete as needed Nutrition: Low-salt, cardiac diet DVT prophylaxis: Patient on Coumadin and anticoagulated, Lovenox 40 mg subcu daily (11) Altered mental status Code(s): R41.82 - Altered mental status, unspecified Status: Resolved Plan: Resolved <Ros Marsh 05/21/18 10:27> - Assessment and Plan Discharge Planning: aFter 2nd blood cx results are negative and clinical improvement (decreased O2 requirements to baseline) <Ros Marsh 05/21/18 10:52> - Attending Attestation Patient case discussed with resident physicians I have independently examined the patient I have read the above note and agree with the assessment and plan as discussed with me I was involved in all medical decision making for this patient Adalberto Martinez MD <Adalberto Martinez - 05/21/18 13:50>
--- NOTE | 2018-05-21 13:57 | XR ---
EXAM DATE: 05/21/2018 1:54 PM EST AGE/SEX: 77 years / Female INDICATIONS: . Short of breath. CLINICAL DATA: This is the patient's subsequent encounter. Patient reports that signs and symptoms h ave been present for 3 days and indicates a pain score of 0/10. MEDICAL/SURGICAL HISTORY: Congestive heart failure. Chronic obstructive pulmonary disease. Ramona endectomy. Hysterectomy. COMPARISON: [facility], CHEST 1V SINGLE AP, 05/19/2018. . FINDINGS: Coarse interstitial and alveolar changes are seen in both lungs worse in the right upper lobe. The he art is enlarged. There is no alveolar consolidation or pleural effusion. The portion of the bony skel eton visualized is unremarkable. CONCLUSION: Coarse interstitial changes as above. Considerations include atypical congestive failure as well as a n inflammatory process. Electronically signed by: Bj Fuentes MD Board Certified Radiologist 05/21/2018 1:55 PM EST
[2018-05-21] MEDS: diphenhydrAMINE HCl 12.5 MG/5 ML Elixir UDC PO SCH (22:34)
[2018-05-21] MEDS: Enoxaparin Inj 40 MG/0.4 ML Syringe SQ SCH (22:34)
[2018-05-22] MEDS: Sod Chloride 0.9% Inj 1,000 ML IV.CONT SCH (07:27)
[2018-05-22 07:54] LABS: Calcium 8.6 mg/dL (8.5-10.1); Potassium 3.8 meq/L (3.5-5.1)
[2018-05-22] MEDS ORDERED: Vancomycin Consult Pharmacy OTHER PRN (08:44)
--- NOTE | 2018-05-22 08:46 | P.PNFP ---
Subjective Interval history: Patient was seen at bedside this morning. Patient reports difficulty breathing overnight. Patient currently on 4 L of oxygen nasal cannula. Patient reports reports feeling wheezy since yesterday afternoon. She is also concerned about her pain medication she has not gotten it. It was explained to her that her pain medication is currently contraindicated due to her shortness of breath as well as blood pressure. The plan was discussed with her to be get her new antibiotics to which she agreed. Patient reported understanding, thanked us for our care, and had no further questions. <Boris Wilburn - 05/22/18 11:09> Results - Labs Result diagrams: 05/22/18 08:37 05/22/18 06:55 <Adalberto Martinez - 05/22/18 17:49> Abnormal lab results 05/22/18 05/22/18 05/22/18 Range/Units 06:55 08:37 08:37 RBC 3.38 L (4.00-5.30) mil/mm3 Hgb 10.3 L (11.6-15.3) gm/dL Hct 30.5 L (35.0-46.0) % RDW 18.4 H (11.6-17.2) % Neut % (Auto) 83.1 H (16.0-70.0) % Lymph % (Auto) 4.2 L (9.0-44.0) % [place] % (Auto) 12.1 H (0.0-8.0) % Neut # (Auto) 7.9 H (1.8-7.7) th/mm3 Lymph # (Auto) 0.4 L (1.0-4.8) th/mm3 [place] # (Auto) 1.1 H (0.0-0.9) th/mm3 PT 23.5 H (9.8-11.6) sec Sodium 135 L (136-145) meq/L BUN 19 H (7-18) mg/dL Estimated GFR 61 L (>89) mL/min Random Glucose 123 H (74-106) mg/dL Short CBC 05/22/18 Range/Units 08:37 WBC 9.5 (4.0-11.0) th/mm3 Hgb 10.3 L (11.6-15.3) gm/dL Hct 30.5 L (35.0-46.0) % Plt Count 220 (150-450) th/mm3 [facility] 05/22/18 06:55 Sodium 135 L Potassium 3.8 Chloride 102 Carbon Dioxide 23.0 BUN 19 H Creatinine 0.90 Calcium 8.6 <Adalberto Martinez - 05/22/18 17:49> Abnormal lab results 05/22/18 Range/Units 06:55 Sodium 135 L (136-145) meq/L BUN 19 H (7-18) mg/dL Estimated GFR 61 L (>89) mL/min Random Glucose 123 H (74-106) mg/dL [facility] 05/22/18 06:55 Sodium 135 L Potassium 3.8 Chloride 102 Carbon Dioxide 23.0 BUN 19 H Creatinine 0.90 Calcium 8.6 <Boris Wilburn 05/22/18 08:46> - Imaging Impressions Chest X-Ray 05/21/18 00:00 CONCLUSION: Coarse interstitial changes as above. Considerations include atypical congestive failure as well as an inflammatory process. <Boris Wilburn 05/22/18 08:46> Physical Exam Vital signs: Vital Signs 05/21/18 20:00 05/21/18 20:46 05/21/18 23:00 Temperature 98.7 F Pulse Rate 96 H 96 H Respiratory Rate 18 20 Blood Pressure 115/83 Pulse Oximetry 95 92 L 05/22/18 00:00 05/22/18 04:00 05/22/18 04:13 Temperature 99.7 F H 98.0 F Pulse Rate 99 H 92 H 101 H Respiratory Rate 26 H 22 21 Blood Pressure 167/92 H 114/76 Pulse Oximetry 93 L 95 05/22/18 08:00 05/22/18 08:37 05/22/18 10:05 Temperature 97.9 F Pulse Rate 85 89 Respiratory Rate 18 18 Blood Pressure 109/64 Pulse Oximetry 99 95 05/22/18 16:23 05/22/18 16:24 Temperature Pulse Rate 86 Respiratory Rate 18 Blood Pressure Pulse Oximetry 98 Intake & Output 05/21/18 05/22/18 05/22/18 18:59 06:59 18:59 Intake Total 1999 50 / 50 Balance 1999 50 / 50 Weight 120.2 kg Intake: IV 1999 50 / 50 NS Inj 1,000 ML @ 150 mls/hr IV 1999 .CONT .Q6H40M [facility] Rx#:[id number] Zosyn 3.375 GM Premix 3.375 gm 50 / 50 In 50 ml @ 100 mls/hr IV.SIG Q6H [facility] Rx#:[id number] Other: # Voids 3 # Incontinent Voids 1 Date of Last Bowel Movement 05/21/18 <Adalberto Martinez - 05/22/18 17:49> Vital Signs 05/21/18 09:29 05/21/18 12:10 05/21/18 15:56 Temperature 98.1 F Pulse Rate 88 87 Respiratory Rate 18 18 Blood Pressure 106/55 L Pulse Oximetry 92 L 93 L 93 L 05/21/18 16:26 05/21/18 20:00 05/21/18 20:46 Temperature 98.2 F 98.7 F Pulse Rate 84 96 H 96 H Respiratory Rate 18 18 20 Blood Pressure 108/60 115/83 Pulse Oximetry 95 93 L 05/22/18 00:00 05/22/18 04:00 05/22/18 04:13 Temperature 99.7 F H 98.0 F Pulse Rate 99 H 92 H 101 H Respiratory Rate 26 H 22 21 Blood Pressure 167/92 H 114/76 Pulse Oximetry 93 L 95 05/22/18 08:37 Temperature Pulse Rate Respiratory Rate Blood Pressure Pulse Oximetry 95 Intake & Output 05/21/18 05/22/18 05/22/18 18:59 06:59 18:59 Intake Total 1999 Balance 1999 Weight 120.2 kg Intake: IV 1999 NS Inj 1,000 ML @ 150 mls/hr IV 1999 .CONT .Q6H40M [facility] Rx#:[id number] Other: # Voids 3 # Incontinent Voids 1 <Boris Wilburn O - 05/22/18 08:46> Narrative: General: Elderly female, lying in bed in no obvious distress. On 4 L nasal cannula. Skin: Warm and dry and intact, no obvious lesions Cardiovascular: Irregularly irregular but normal rate, no obvious murmurs Pulmonary: Bilateral wheezes in all lung lung magdaleno, more prominent in lower lung bases. No crackles or rhonchi appreciated on auscultation. No accessory muscle use. Abd: no tenderness or distension Extremities: 2+ pitting edema in both lower extremities extending up to just below the knees. Skin overlying anterior gillespie appears more tense than previously examined. Psych: Awake, alert and oriented; no focal deficits <Boris Wilburn 05/22/18 11:09> - Urinary Catheter Management Indwelling Urethral Catheter Cath placed during this visit: no <Adalberto Martinez 05/22/18 17:49> yes <Boris Wilburn 05/22/18 11:09> Reason for continuing: Hourly intake/output <Boris Wilburn 05/22/18 08:46 > Insertion date: 05/19/18 <Boris Wilburn 05/22/18 08:46> Insertion time: 18:43 <Boris Wilburn 05/22/18 08:46> Assessment and Plan - Assessment (1) Sepsis due to urinary tract infection Code(s): A41.9 - Sepsis, unspecified organism; N39.0 - Urinary tract infection, site not specified Status: Acute (2) Bacteremia due to Gram-negative bacteria Code(s): R78.81 - Bacteremia Status: Acute (3) Acute exacerbation of chronic obstructive pulmonary disease (COPD) Code(s): J44.1 - Chronic obstructive pulmonary disease with (acute) exacerbation Status: Acute (4) CHF (congestive heart failure) Code(s): I50.9 - Heart failure, unspecified Status: Acute (5) Atrial fibrillation Code(s): I48.91 - Unspecified atrial fibrillation Status: Acute (6) Hypertension Code(s): I10 - Essential (primary) hypertension Status: Acute (7) Pulmonary hypertension Code(s): I27.20 - Pulmonary hypertension, unspecified Status: Acute (8) Chronic pain Code(s): G89.29 - Other chronic pain Status: Acute (9) Altered mental status Code(s): R41.82 - Altered mental status, unspecified Status: Resolved (10) Nutrition, metabolism, and development symptoms Code(s): R63.8 - Other symptoms and signs concerning food and fluid intake Status: Acute <Adalberto Martinez 05/22/18 17:49> (1) Sepsis due to urinary tract infection Code(s): A41.9 - Sepsis, unspecified organism; N39.0 - Urinary tract infection, site not specified Status: Acute Plan: Improved mental status WBC count improving Requiring more O2 than baseline IV antibiotics: Rocephin 1 g IV every 24 hours, day #4 Urine culture growing E. Coli Blood cultures growing E.coli Repeat blood cx no growth after 1 day (2) Bacteremia due to Gram-negative bacteria Code(s): R78.81 - Bacteremia Status: Acute Plan: see above (3) Acute exacerbation of chronic obstructive pulmonary disease (COPD) Code(s): J44.1 - Chronic obstructive pulmonary disease with (acute) exacerbation Status: Acute Plan: Patient suffers from COPD on 3L home oxygen. Currently requiring 4 L inpatient. Patient reports experiencing wheezing starting the evening of . She denies any productive sputum. -CXR on 05/21 revealed coarse interstitial changes. Possible atypical congestive failure or possible inflammatory process. -Add vancomycin 05/22 -Add Zosyn 05/22 -Add prednisone 40 mg daily 05/22 -Supplemental oxygen to keep saturations 92% -Duo nebs ordered every 6 hours -Ventolin 2 puffs every 4 hours as needed (4) CHF (congestive heart failure) Code(s): I50.9 - Heart failure, unspecified Status: Acute Plan: Patient currently requiring more oxygen and patient that at home. -New pitting edema in lower extremities bilaterally. -CXR on 05/21 revealed coarse interstitial changes. Possible atypical congestive failure vs inflammatory process. -Hold pain medication to 1 tab q6H (home dose is 2 tabs Q4 hrs) -Lasix 40 mg -Continue supplemental oxygen as noted in plan for COPD exacerbation -Discontinue IV fluids -Continue home carvedilol (5) Atrial fibrillation Code(s): I48.91 - Unspecified atrial fibrillation Status: Acute Plan: INR therapeutic at 2.3 Continue warfarin 4 mg Thursday, Thursday, , Thursday -Currently holding beta-marisabel due to low BP (6) Hypertension Code(s): I10 - Essential (primary) hypertension Status: Acute Plan: Currently normotensive -Hold Coreg if patient becomes hypotensive -Continue to hold pain medication (7) Pulmonary hypertension Code(s): I27.20 - Pulmonary hypertension, unspecified Status: Acute Plan: History of pulmonary hypertension currently on sildenafil -Continue home sildenafil (8) Chronic pain Code(s): G89.29 - Other chronic pain Status: Acute Plan: Home med: Percocet 5/325 1 tabs q4H for back pain Continue to hold if hypotensive Reduced for inpatient stay PT ordered and working w/patient (9) Altered mental status Code(s): R41.82 - Altered mental status, unspecified Status: Resolved Plan: Resolved (10) Nutrition, metabolism, and development symptoms Code(s): R63.8 - Other symptoms and signs concerning food and fluid intake Status: Acute Plan: Fluid: none Electrolytes: Replete as needed Nutrition: Low-salt, cardiac diet DVT prophylaxis: Patient on Coumadin and anticoagulated, Lovenox 40 mg subcu daily <Boris Wilburn - 05/22/18 10:55> - Attending Attestation Pt. examined with medical reimbursement specialist during medical rounds this morning I have read the above note and agree with the assessment/plan as discussed with me I was involved in all medical decision making for this patient Adalberto Martinez MD <Adalberto Martinez - 05/22/18 17:49>
[2018-05-22] MEDS ORDERED: Vancomycin Inj 1,000 MG in Sodium Chlor 0.9% Inj 250 ML IV.SIG SCH (09:00)
[2018-05-22 09:05] LABS: INR 2.3 Ratio; Prothrombin Time 23.5 sec (9.8-11.6)
[2018-05-22 09:08] LABS: Baso % (Auto) 0.4 % (0.0-2.0); Eos % (Auto) 0.2 % (0.0-4.0); Hematocrit 30.5 % (35.0-46.0); Hemoglobin 10.3 gm/dL (11.6-15.3); Lymph # (Auto) 0.4 th/mm3 (1.0-4.8); Lymph % (Auto) 4.2 % (9.0-44.0); Mean Corpuscular HGB Conc 33.8 % (32.0-36.0); Mean Corpuscular Hemoglobin 30.5 pg (27.0-34.0); Mean Corpuscular Volume 90.2 fL (80.0-100.0); Mean Platelet Volume 7.9 fL (7.0-11.0); Mono # (Auto) 1.1 th/mm3 (0.0-0.9); Mono % (Auto) 12.1 % (0.0-8.0); Neut # (Auto) 7.9 th/mm3 (1.8-7.7); Neut % (Auto) 83.1 % (16.0-70.0); Platelet Count 220 th/mm3 (150-450); Red Blood Count 3.38 mil/mm3 (4.00-5.30); Red Cell Distribution Width 18.4 % (11.6-17.2); White Blood Count 9.5 th/mm3 (4.0-11.0)
[2018-05-22] MEDS: diphenhydrAMINE HCl 12.5 MG/5 ML Elixir UDC PO SCH (09:39)
[2018-05-22] MEDS: predniSONE 20 MG Tablet PO SCH (09:39)
[2018-05-22] MEDS: Carvedilol 6.25 MG Tablet PO SCH ×2 (09:39→22:04)
[2018-05-22] MEDS: Piperacil/Tazo 3.375 GM Premix 3.375 GM/50 ML PIGGYBACK IV.SIG SCH ×3 (09:40→22:03)
[2018-05-22] MEDS: Potassium Chloride 10 MEQ ER Capsule PO SCH ×2 (09:40→22:04)
[2018-05-22] MEDS: Duloxetine 60 MG DR Capsule PO SCH (09:40)
[2018-05-22] MEDS: Senna/Docusate Sodium 8.6/50 MG Tablet PO SCH ×2 (09:40→22:04)
[2018-05-22] MEDS: Vancomycin Inj 1,250 MG in Sodium Chlor 0.9% Inj 250 ML IV.SIG SCH (11:00)
[2018-05-22] MEDS: Menthol 5.8 MG Lozenge BUCCAL PRN (22:04)
[2018-05-22] MEDS: Enoxaparin Inj 40 MG/0.4 ML Syringe SQ SCH (22:04)
[2018-05-23] MEDS: Vancomycin Inj 1,250 MG in Sodium Chlor 0.9% Inj 250 ML IV.SIG SCH (00:18)
[2018-05-23] MEDS: Piperacil/Tazo 3.375 GM Premix 3.375 GM/50 ML PIGGYBACK IV.SIG SCH ×4 (02:03→21:48)
--- NOTE | 2018-05-23 08:27 | P.PNFP ---
Subjective Interval history: Patient was seen at bedside this morning. Patient reports to be breathing more easily than she was yesterday. Patient reports cough that continues to be nonproductive. She also reports that she does feel little wheezy. Patient continues to report burning upon urination. She denies any chest pain or GI symptoms. Plan to continue antibiotic treatment for UTI as well as for COPD exacerbation was discussed. Patient agrees, reports understanding, has no further questions. <Sam SandsBoris Nelly - 05/23/18 10:51> Results - Labs Result diagrams: 05/23/18 10:27 05/23/18 10:27 <Adalberto Martinez - 05/23/18 22:17> Abnormal lab results 05/23/18 05/23/18 05/23/18 Range/Units 10:27 10:27 10:27 RBC 3.44 L (4.00-5.30) mil/mm3 Hgb 10.3 L (11.6-15.3) gm/dL Hct 31.3 L (35.0-46.0) % RDW 18.6 H (11.6-17.2) % Neut % (Auto) 87.8 H (16.0-70.0) % Lymph % (Auto) 5.7 L (9.0-44.0) % Lymph # (Auto) 0.4 L (1.0-4.8) th/mm3 PT (9.8-11.6) sec BUN 22 H (7-18) mg/dL Estimated GFR 57 L (>89) mL/min Random Glucose 168 H (74-106) mg/dL Calcium 8.4 L (8.5-10.1) mg/dL Procalcitonin 0.40 H (0.00-0.08) ng/mL Vancomycin Trough (5.0-10.0) mcg/mL 05/23/18 05/23/18 Range/Units 10:27 10:27 RBC (4.00-5.30) mil/mm3 Hgb (11.6-15.3) gm/dL Hct (35.0-46.0) % RDW (11.6-17.2) % Neut % (Auto) (16.0-70.0) % Lymph % (Auto) (9.0-44.0) % Lymph # (Auto) (1.0-4.8) th/mm3 PT 24.7 H (9.8-11.6) sec BUN (7-18) mg/dL Estimated GFR (>89) mL/min Random Glucose (74-106) mg/dL Calcium (8.5-10.1) mg/dL Procalcitonin (0.00-0.08) ng/mL Vancomycin Trough 20.0 H (5.0-10.0) mcg/mL Short CBC 05/23/18 Range/Units 10:27 WBC 7.5 (4.0-11.0) th/mm3 Hgb 10.3 L (11.6-15.3) gm/dL Hct 31.3 L (35.0-46.0) % Plt Count 219 (150-450) th/mm3 BMP 05/23/18 10:27 Sodium 138 Potassium 3.8 Chloride 105 Carbon Dioxide 25.7 BUN 22 H Creatinine 0.95 Calcium 8.4 L <Adalberto Martinez - 05/23/18 22:17> Abnormal lab results 05/22/18 05/22/18 Range/Units 08:37 08:37 RBC 3.38 L (4.00-5.30) mil/mm3 Hgb 10.3 L (11.6-15.3) gm/dL Hct 30.5 L (35.0-46.0) % RDW 18.4 H (11.6-17.2) % Neut % (Auto) 83.1 H (16.0-70.0) % Lymph % (Auto) 4.2 L (9.0-44.0) % [place] % (Auto) 12.1 H (0.0-8.0) % Neut # (Auto) 7.9 H (1.8-7.7) th/mm3 Lymph # (Auto) 0.4 L (1.0-4.8) th/mm3 [place] # (Auto) 1.1 H (0.0-0.9) th/mm3 PT 23.5 H (9.8-11.6) sec Short CBC 05/22/18 Range/Units 08:37 WBC 9.5 (4.0-11.0) th/mm3 Hgb 10.3 L (11.6-15.3) gm/dL Hct 30.5 L (35.0-46.0) % Plt Count 220 (150-450) th/mm3 <Boris Wilburn O - 05/23/18 08:27> Physical Exam Vital signs: Vital Signs 05/23/18 00:00 05/23/18 02:47 05/23/18 04:00 Temperature 97.5 F L 97.1 F L Pulse Rate 73 64 Respiratory Rate 20 18 20 Blood Pressure 120/68 112/66 Pulse Oximetry 96 97 05/23/18 04:15 05/23/18 08:00 05/23/18 08:35 Temperature 98.4 F Pulse Rate 59 L 63 63 Respiratory Rate 21 20 18 Blood Pressure 137/62 Pulse Oximetry 94 L 96 05/23/18 12:00 05/23/18 16:00 05/23/18 16:32 Temperature 97.8 F 97.3 F L Pulse Rate 66 79 70 Respiratory Rate 20 20 18 Blood Pressure 100/54 L 109/61 Pulse Oximetry 96 97 05/23/18 20:00 05/23/18 21:58 Temperature 97.5 F L Pulse Rate 84 88 Respiratory Rate 18 15 Blood Pressure 110/64 Pulse Oximetry 96 96 Intake & Output 05/23/18 05/23/18 05/24/18 06:59 18:59 06:59 Intake Total 725.0 / 725.0 50 / 50 50 / 50 Output Total 500 / 500 500 / 500 Balance 225.0 / 225.0 -450 / -450 50 / 50 Weight 123.4 kg Intake: IV 725.0 / 725.0 50 / 50 50 / 50 Zosyn 3.375 GM Premix 3.375 gm 100 / 100 50 / 50 50 / 50 In 50 ml @ 100 mls/hr IV.SIG Q6H MARTHA Rx#:[id number] Vancomycin Inj 1,250 MG In NS 525.0 / 525.0 Inj 250 ML @ 250 mls/hr IV.SIG Q12H MARTHA Rx#:[id number] Rocephin Inj 1,000 MG In NS Inj 100 / 100 100 ML @ 200 mls/hr IV.SIG Q24H MARTHA Rx#:[id number] Output: Urine 500 / 500 500 / 500 Other: # Voids 3 # Incontinent Voids 1 Date of Last Bowel Movement 05/23/18 05/23/18 # Bowel Movements 1 1 <Adalberto Martinez - 05/23/18 22:17> Vital Signs 05/22/18 08:37 05/22/18 10:05 05/22/18 12:00 Temperature 98.0 F Pulse Rate 89 84 Respiratory Rate 18 20 Blood Pressure 108/68 Pulse Oximetry 95 95 05/22/18 16:00 05/22/18 16:23 05/22/18 16:24 Temperature 97.3 F L Pulse Rate 86 86 Respiratory Rate 20 18 Blood Pressure 118/66 Pulse Oximetry 94 L 98 05/22/18 19:50 05/22/18 20:00 05/23/18 00:00 Temperature 97.8 F 97.5 F L Pulse Rate 90 92 H 73 Respiratory Rate 16 20 20 Blood Pressure 113/70 120/68 Pulse Oximetry 93 L 96 05/23/18 02:47 05/23/18 04:00 05/23/18 04:15 Temperature 97.1 F L Pulse Rate 64 59 L Respiratory Rate 18 20 21 Blood Pressure 112/66 Pulse Oximetry 97 Intake & Output 05/22/18 05/23/18 05/23/18 18:59 06:59 18:59 Intake Total 1450 / 1450 725.0 / 725.0 Output Total 500 / 500 Balance 1450 / 1450 225.0 / 225.0 Weight 123.4 kg Intake: IV 1450 / 1450 725.0 / 725.0 NS Inj 1,000 ML @ 150 mls/hr IV 1000 / 1000 .CONT .Q6H40M MARTHA Rx#:[id number] Zosyn 3.375 GM Premix 3.375 gm 100 / 100 100 / 100 In 50 ml @ 100 mls/hr IV.SIG Q6H MARTHA Rx#:[id number] Vancomycin Inj 1,000 MG In NS 250 / 250 Inj 250 ML @ 250 mls/hr IV.SIG TID MARTHA Rx#:[id number] Vancomycin Inj 1,250 MG In NS 525.0 / 525.0 Inj 250 ML @ 250 mls/hr IV.SIG Q12H MARTHA Rx#:[id number] Rocephin Inj 1,000 MG In NS Inj 100 / 100 100 / 100 100 ML @ 200 mls/hr IV.SIG Q24H MARTHA Rx#:[id number] Output: Urine 500 / 500 Other: Date of Last Bowel Movement 05/21/18 05/23/18 # Bowel Movements 1 <Boris Wilburn - 05/23/18 08:27> Narrative: General: Elderly female, lying in bed in no obvious distress. On 3L nasal cannula. Skin: Warm and dry and intact, patient has multiple healing ecchymosis on anterior shins and forearms bilaterally which she reports is from her Coumadin use. Cardiovascular: Regular rate and rhythm, no obvious murmurs Pulmonary: Bilateral wheezes in all lung lung magdaleno, more prominent in lower lung bases. No crackles or rhonchi appreciated on auscultation. No accessory muscle use. Abd: no tenderness or distension Extremities: 2+ pitting edema in both lower extremities extending up to just below the knees, improved from yesterday. Skin overlying anterior gillespie appears less tense than previously examined. Psych: Awake, alert and oriented; no focal deficits <Boris Wilburn - 05/23/18 08:32> - Urinary Catheter Management Indwelling Urethral Catheter Cath placed during this visit: no <Adalberto Martinez - 05/23/18 22:17> yes <Boris Wilburn - 05/23/18 17:56> Reason for continuing: Hourly intake/output <Boris Wilburn - 05/23/18 08:27 > Insertion date: 05/19/18 <Boris Wilburn - 05/23/18 08:27> Insertion time: 18:43 <Boris Wilburn - 05/23/18 08:27> Assessment and Plan - Assessment (1) Sepsis due to urinary tract infection Code(s): A41.9 - Sepsis, unspecified organism; N39.0 - Urinary tract infection, site not specified Status: Acute (2) Bacteremia due to Gram-negative bacteria Code(s): R78.81 - Bacteremia Status: Acute (3) Acute exacerbation of chronic obstructive pulmonary disease (COPD) Code(s): J44.1 - Chronic obstructive pulmonary disease with (acute) exacerbation Status: Acute (4) CHF (congestive heart failure) Code(s): I50.9 - Heart failure, unspecified Status: Acute (5) Atrial fibrillation Code(s): I48.91 - Unspecified atrial fibrillation Status: Acute (6) Hypertension Code(s): I10 - Essential (primary) hypertension Status: Acute (7) Pulmonary hypertension Code(s): I27.20 - Pulmonary hypertension, unspecified Status: Acute (8) Chronic pain Code(s): G89.29 - Other chronic pain Status: Acute (9) Altered mental status Code(s): R41.82 - Altered mental status, unspecified Status: Resolved (10) Nutrition, metabolism, and development symptoms Code(s): R63.8 - Other symptoms and signs concerning food and fluid intake Status: Acute <Adalberto Martinez - 05/23/18 22:17> (1) Sepsis due to urinary tract infection Code(s): A41.9 - Sepsis, unspecified organism; N39.0 - Urinary tract infection, site not specified Status: Acute Plan: Improved mental status -WBC count improving -Back to home O2 requirement at 3 L -Urine culture growing E. Coli -Blood cultures 05/21 growing E.coli -Repeat blood cx 05/21 no growth after 2 days IV antibiotics: Continue Zosyn day 2 Transition to oral Bactrim (2) Bacteremia due to Gram-negative bacteria Code(s): R78.81 - Bacteremia Status: Acute Plan: see above (3) Acute exacerbation of chronic obstructive pulmonary disease (COPD) Code(s): J44.1 - Chronic obstructive pulmonary disease with (acute) exacerbation Status: Acute Plan: Patient suffers from COPD on 3L home oxygen. Currently back to baseline requiring 3 L inpatient. Patient reports improved breathing. She denies any productive sputum. -CXR on 05/21 revealed coarse interstitial changes. Possible atypical congestive failure or possible inflammatory process. -Continue vancomycin 05/22 -Continue Zosyn 05/22 -Continue prednisone 40 mg daily 05/22 -Supplemental oxygen to keep saturations 92% -Duo nebs ordered every 6 hours -Ventolin 2 puffs every 4 hours as needed -Continue pulmonary Acapella (4) CHF (congestive heart failure) Code(s): I50.9 - Heart failure, unspecified Status: Acute Plan: Patient currently breathing well and satting appropriately at home dose of oxygen 3 L nasal cannula. -Decreased pitting edema in lower extremities bilaterally from 05/22. -CXR on 05/21 revealed coarse interstitial changes. Possible atypical congestive failure vs inflammatory process. -Hold pain medication to 1 tab q6H (home dose is 2 tabs Q4 hrs) -Lasix 40 mg -Continue supplemental oxygen as noted in plan for COPD exacerbation -Continue home carvedilol (5) Atrial fibrillation Code(s): I48.91 - Unspecified atrial fibrillation Status: Acute Plan: INR therapeutic at 2.3 Continue warfarin 4 mg Thursday, Thursday, , Thursday -Currently holding beta-marisabel due to low BP (6) Hypertension Code(s): I10 - Essential (primary) hypertension Status: Acute Plan: Currently normotensive -Hold Coreg if patient becomes hypotensive -Continue to hold pain medication (7) Pulmonary hypertension Code(s): I27.20 - Pulmonary hypertension, unspecified Status: Acute Plan: History of pulmonary hypertension currently on sildenafil -Continue home sildenafil (8) Chronic pain Code(s): G89.29 - Other chronic pain Status: Acute Plan: Home med: Percocet 5/325 1 tabs q4H for back pain Continue to hold if hypotensive Reduced for inpatient stay PT ordered and working w/patient (9) Altered mental status Code(s): R41.82 - Altered mental status, unspecified Status: Resolved Plan: Resolved (10) Nutrition, metabolism, and development symptoms Code(s): R63.8 - Other symptoms and signs concerning food and fluid intake Status: Acute Plan: Fluid: none Electrolytes: Replete as needed Nutrition: Low-salt, cardiac diet DVT prophylaxis: Patient on Coumadin and anticoagulated, Lovenox 40 mg subcu daily <Boris Wilburn - 05/23/18 17:55> - Attending Attestation Pt. examined independently of resident physicians during rounds today I have read the above note and agree with the assessment/plan as discussed with me I was involved in all medical decision making for this patient Adalberto Martinez MD <Adalberto Martinez - 05/23/18 22:17>
[2018-05-23] MEDS ORDERED: Furosemide 40 MG Tablet PO ONE (08:31)
[2018-05-23] MEDS: Senna/Docusate Sodium 8.6/50 MG Tablet PO SCH ×2 (08:52→21:48)
[2018-05-23] MEDS: Duloxetine 60 MG DR Capsule PO SCH (08:52)
[2018-05-23] MEDS: predniSONE 20 MG Tablet PO SCH (08:52)
[2018-05-23] MEDS: Potassium Chloride 10 MEQ ER Capsule PO SCH ×2 (08:52→21:47)
[2018-05-23] MEDS: Carvedilol 6.25 MG Tablet PO SCH ×2 (08:52→21:47)
[2018-05-23] MEDS ORDERED: Pharmacy Ordered Lab Info OTHER ONE (10:45)
[2018-05-23 11:24] LABS: Baso % (Auto) 0.2 % (0.0-2.0); Eos % (Auto) 0.1 % (0.0-4.0); Hematocrit 31.3 % (35.0-46.0); Hemoglobin 10.3 gm/dL (11.6-15.3); Lymph # (Auto) 0.4 th/mm3 (1.0-4.8); Lymph % (Auto) 5.7 % (9.0-44.0); Mean Corpuscular HGB Conc 32.8 % (32.0-36.0); Mean Corpuscular Hemoglobin 29.8 pg (27.0-34.0); Mean Corpuscular Volume 90.9 fL (80.0-100.0); Mean Platelet Volume 7.9 fL (7.0-11.0); Mono # (Auto) 0.5 th/mm3 (0.0-0.9); Mono % (Auto) 6.2 % (0.0-8.0); Neut # (Auto) 6.6 th/mm3 (1.8-7.7); Neut % (Auto) 87.8 % (16.0-70.0); Platelet Count 219 th/mm3 (150-450); Red Blood Count 3.44 mil/mm3 (4.00-5.30); Red Cell Distribution Width 18.6 % (11.6-17.2); White Blood Count 7.5 th/mm3 (4.0-11.0)
[2018-05-23 11:31] LABS: INR 2.4 Ratio; Prothrombin Time 24.7 sec (9.8-11.6)
[2018-05-23 11:57] LABS: Calcium 8.4 mg/dL (8.5-10.1); Carbon Dioxide 25.7 meq/L (21.0-32.0); Potassium 3.8 meq/L (3.5-5.1)
[2018-05-23] MEDS: Menthol 5.8 MG Lozenge BUCCAL PRN ×2 (17:35→21:48)
[2018-05-23] MEDS: Enoxaparin Inj 40 MG/0.4 ML Syringe SQ SCH (21:48)
[2018-05-24] MEDS: Vancomycin Inj 1,750 MG in Sodium Chlor 0.9% Inj 500 ML IV.SIG SCH ×2 (00:11→23:14)
[2018-05-24] MEDS: Piperacil/Tazo 3.375 GM Premix 3.375 GM/50 ML PIGGYBACK IV.SIG SCH ×4 (02:48→20:49)
[2018-05-24] MEDS: Duloxetine 60 MG DR Capsule PO SCH (09:07)
[2018-05-24] MEDS: predniSONE 20 MG Tablet PO SCH (09:07)
[2018-05-24] MEDS: Potassium Chloride 10 MEQ ER Capsule PO SCH ×2 (09:07→20:47)
[2018-05-24] MEDS: Carvedilol 6.25 MG Tablet PO SCH ×2 (09:07→20:47)
[2018-05-24] MEDS: Senna/Docusate Sodium 8.6/50 MG Tablet PO SCH ×2 (09:08→20:49)
[2018-05-24 09:55] LABS: Baso % (Auto) 0.1 % (0.0-2.0); Eos % (Auto) 0.1 % (0.0-4.0); Hematocrit 32.7 % (35.0-46.0); Hemoglobin 10.8 gm/dL (11.6-15.3); Lymph # (Auto) 0.9 th/mm3 (1.0-4.8); Lymph % (Auto) 7.7 % (9.0-44.0); Mean Corpuscular HGB Conc 32.8 % (32.0-36.0); Mean Corpuscular Hemoglobin 29.7 pg (27.0-34.0); Mean Corpuscular Volume 90.5 fL (80.0-100.0); Mean Platelet Volume 7.6 fL (7.0-11.0); Mono # (Auto) 1.2 th/mm3 (0.0-0.9); Mono % (Auto) 9.7 % (0.0-8.0); Neut # (Auto) 10.1 th/mm3 (1.8-7.7); Neut % (Auto) 82.4 % (16.0-70.0); Platelet Count 305 th/mm3 (150-450); Red Blood Count 3.62 mil/mm3 (4.00-5.30); Red Cell Distribution Width 18.8 % (11.6-17.2); White Blood Count 12.3 th/mm3 (4.0-11.0)
[2018-05-24 10:30] LABS: Calcium 8.9 mg/dL (8.5-10.1); Carbon Dioxide 24.7 meq/L (21.0-32.0); Potassium 3.8 meq/L (3.5-5.1)
--- NOTE | 2018-05-24 15:40 | P.PNFP ---
Subjective Interval history: Patient reports watery, smelly diarrhea. She complains of lower extremity edema and some shortness of breath. She denies any fever, chills, chest pain. Discussed plan of care with patient including C. difficile testing, IV diuretics , breathing treatments, continue antibiotics. Patient expressed understanding. <Jovon Kellogg - 05/24/18 15:39> Results - Labs Result diagrams: 05/25/18 07:41 05/25/18 07:41 <Adalberto Martinez - 05/25/18 13:49> Abnormal lab results 05/25/18 05/25/18 05/25/18 Range/Units 07:41 07:41 07:41 RBC 3.61 L (4.00-5.30) mil/mm3 Hgb 10.5 L (11.6-15.3) gm/dL Hct 32.6 L (35.0-46.0) % RDW 18.8 H (11.6-17.2) % Neut % (Auto) 81.4 H (16.0-70.0) % Lymph # (Auto) 0.8 L (1.0-4.8) th/mm3 PT 48.7 H D (9.8-11.6) sec BUN 27 H (7-18) mg/dL Creatinine 1.29 H (0.50-1.00) mg/dL Estimated GFR 40 L (>89) mL/min Random Glucose 125 H (74-106) mg/dL Short CBC 05/25/18 Range/Units 07:41 WBC 8.0 (4.0-11.0) th/mm3 Hgb 10.5 L (11.6-15.3) gm/dL Hct 32.6 L (35.0-46.0) % Plt Count 280 (150-450) th/mm3 BMP 05/25/18 07:41 Sodium 140 Potassium 4.0 Chloride 104 Carbon Dioxide 25.3 BUN 27 H Creatinine 1.29 H Calcium 8.7 <Adalberto Martinez - 05/25/18 13:49> Abnormal lab results 05/23/18 05/24/18 05/24/18 Range/Units 10:27 09:25 09:25 WBC 12.3 H D (4.0-11.0) th/mm3 RBC 3.62 L (4.00-5.30) mil/mm3 Hgb 10.8 L (11.6-15.3) gm/dL Hct 32.7 L (35.0-46.0) % RDW 18.8 H (11.6-17.2) % Neut % (Auto) 82.4 H (16.0-70.0) % Lymph % (Auto) 7.7 L (9.0-44.0) % [place] % (Auto) 9.7 H (0.0-8.0) % Neut # (Auto) 10.1 H (1.8-7.7) th/mm3 Lymph # (Auto) 0.9 L (1.0-4.8) th/mm3 [place] # (Auto) 1.2 H (0.0-0.9) th/mm3 BUN 26 H (7-18) mg/dL Creatinine 1.07 H (0.50-1.00) mg/dL Estimated GFR 50 L (>89) mL/min Random Glucose 109 H (74-106) mg/dL Procalcitonin 0.40 H (0.00-0.08) ng/mL Short CBC 05/24/18 Range/Units 09:25 WBC 12.3 H D (4.0-11.0) th/mm3 Hgb 10.8 L (11.6-15.3) gm/dL Hct 32.7 L (35.0-46.0) % Plt Count 305 D (150-450) th/mm3 BMP 05/24/18 09:25 Sodium 138 Potassium 3.8 Chloride 105 Carbon Dioxide 24.7 BUN 26 H Creatinine 1.07 H Calcium 8.9 <Josefina R3,Warner - 05/24/18 15:39> Physical Exam Vital signs: Vital Signs 05/24/18 15:00 05/24/18 15:56 05/24/18 16:00 Temperature 97.8 F Pulse Rate 69 69 82 Respiratory Rate 14 20 Blood Pressure 158/64 H Pulse Oximetry 93 L 05/24/18 18:06 05/24/18 21:07 05/24/18 21:19 Temperature 97.7 F Pulse Rate 79 79 Respiratory Rate 14 18 24 Blood Pressure 133/74 Pulse Oximetry 94 L 98 05/25/18 00:33 05/25/18 04:30 05/25/18 04:49 Temperature 97.5 F L 97.3 F L Pulse Rate 79 70 80 Respiratory Rate 18 18 Blood Pressure 146/78 H 146/71 H Pulse Oximetry 96 97 05/25/18 07:00 05/25/18 07:52 05/25/18 08:00 Temperature 97.4 F L Pulse Rate 80 84 Respiratory Rate 14 18 Blood Pressure 178/102 H Pulse Oximetry 94 L 97 05/25/18 11:00 05/25/18 11:33 Temperature 97.7 F Pulse Rate 76 68 Respiratory Rate 14 18 Blood Pressure 114/70 Pulse Oximetry 96 Intake & Output 05/24/18 05/25/18 05/25/18 18:59 06:59 18:59 Intake Total 1350 / 1350 617.5 / 617.5 240 / 240 Output Total 1300 / 1300 1000 / 1000 200 / 200 Balance 50 / 50 -382.5 / -382.5 40 / 40 Intake: IV 100 / 100 617.5 / 617.5 Zosyn 3.375 GM Premix 3.375 gm 100 / 100 100 / 100 In 50 ml @ 100 mls/hr IV.SIG Q6H MARTHA Rx#:[id number] Vancomycin Inj 1,750 MG In NS 517.5 / 517.5 Inj 500 ML @ 250 mls/hr IV.SIG Q24H MARTHA Rx#:[id number] Oral 1250 / 1250 240 / 240 Output: Urine 1300 / 1300 1000 / 1000 200 / 200 Other: # Incontinent Voids 2 Date of Last Bowel Movement 05/24/18 05/25/18 05/25/18 # Bowel Movements 1 5 <Adalberto Martinez - 05/25/18 13:49> Vital Signs 05/23/18 16:00 05/23/18 16:32 05/23/18 20:00 Temperature 97.3 F L 97.5 F L Pulse Rate 79 70 84 Respiratory Rate 20 18 18 Blood Pressure 109/61 110/64 Pulse Oximetry 97 96 05/23/18 21:58 05/24/18 00:00 05/24/18 03:10 Temperature 98.0 F Pulse Rate 88 83 Respiratory Rate 15 16 18 Blood Pressure 128/67 Pulse Oximetry 96 95 05/24/18 04:00 Temperature 97.6 F Pulse Rate 84 Respiratory Rate 20 Blood Pressure 130/84 Pulse Oximetry 96 Intake & Output 05/23/18 05/24/18 05/24/18 18:59 06:59 18:59 Intake Total 50 / 50 667.5 / 667.5 50 / 50 Output Total 500 / 500 Balance -450 / -450 667.5 / 667.5 50 / 50 Weight 123.1 kg Intake: IV 50 / 50 667.5 / 667.5 50 / 50 Zosyn 3.375 GM Premix 3.375 gm 50 / 50 150 / 150 50 / 50 In 50 ml @ 100 mls/hr IV.SIG Q6H MARTHA Rx#:[id number] Vancomycin Inj 1,750 MG In NS 517.5 / 517.5 Inj 500 ML @ 250 mls/hr IV.SIG Q24H MARTHA Rx#:[id number] Output: Urine 500 / 500 Other: # Voids 3 1 # Incontinent Voids 1 Date of Last Bowel Movement 05/23/18 05/24/18 # Bowel Movements 1 1 <Jovon Kellogg - 05/24/18 15:39> Narrative: General: Elderly female, sitting in chair in no obvious distress. Skin: Warm and dry and intact, patient has multiple healing ecchymosis on anterior shins and forearms bilaterally. Cardiovascular: Regular rate and rhythm, no obvious murmurs Pulmonary: Bilateral wheezes in all lung lung magdaleno, more prominent in lower lung bases. No crackles or rhonchi appreciated on auscultation. No accessory muscle use. Abd: no tenderness or distension Extremities: 2+ pitting edema in both lower extremities extending up to just below the knees. Psych: Awake, alert and oriented; no focal deficits <Jovon Kellogg - 05/24/18 15:39> - Urinary Catheter Management Indwelling Urethral Catheter Cath placed during this visit: no <Adalberto Martinez 05/25/18 13:49> yes <Jovon Kellogg - 05/24/18 15:39> Reason for continuing: Hourly intake/output <Jovon Kellogg - 05/24/18 15 :39> Insertion date: 05/19/18 <Jovon Kellogg - 05/24/18 15:39> Insertion time: 18:43 <Jovon Kellogg - 05/24/18 15:39> Assessment and Plan - Assessment (1) Sepsis due to urinary tract infection Code(s): A41.9 - Sepsis, unspecified organism; N39.0 - Urinary tract infection, site not specified Status: Acute Plan: -Leukocytosis was improving, but then increased from 7.5 on 05/23 to 12.3 today , 05/24 -Back to home O2 requirement at 3 L -Urine culture from 05/19 growing E. Coli -Blood cultures from 05/19 growing E.coli -Repeat blood cx from 05/21 shows no growth to date IV antibiotics: Received Ceftriazone (05/19 - 05/22) Continue Zosyn (05/22 - present) Continue Vanco (05/22 - ) Will likely transition to oral Bactrim, Keflex, or amoxicillin (2) Bacteremia due to Gram-negative bacteria Code(s): R78.81 - Bacteremia Status: Acute Plan: see above -Plan to treat for a total of 14 days (3) Acute exacerbation of chronic obstructive pulmonary disease (COPD) Code(s): J44.1 - Chronic obstructive pulmonary disease with (acute) exacerbation Status: Acute Plan: Patient suffers from COPD on 3 L/m home oxygen. Currently back to baseline requiring 3 L/m inpatient. -CXR on 05/21 revealed coarse interstitial changes. Possible atypical congestive failure or possible inflammatory process. -Continue vancomycin 05/22 - present -Continue Zosyn 05/22 - present -Continue prednisone 40 mg daily 05/22 - present -Supplemental oxygen as needed -Duo nebs ordered every 4 hours -Ventolin 2 puffs every 4 hours as needed -Continue pulmonary Acapella (4) Diarrhea Code(s): R19.7 - Diarrhea, unspecified Status: Acute Plan: -C. diff testing (5) CHF (congestive heart failure) Code(s): I50.9 - Heart failure, unspecified Status: Acute Plan: Patient currently c/o worse SOB, but appears to be comfortably breathing well and satting appropriately at home dose of oxygen 3 L nasal cannula. -CXR on 05/21 revealed coarse interstitial changes. Possible atypical congestive failure vs inflammatory process. -Decrease pain medication to 1 tab q6H (home dose is 2 tabs Q4 hrs) -Lasix 40 mg IV bid -Continue supplemental oxygen as noted in plan for COPD exacerbation -Continue home carvedilol (6) Atrial fibrillation Code(s): I48.91 - Unspecified atrial fibrillation Status: Acute Plan: INR therapeutic at 2.3 Continue warfarin 4 mg Thursday, Thursday, , Thursday -Currently holding beta-marisabel due to low BP (7) Hypertension Code(s): I10 - Essential (primary) hypertension Status: Acute Plan: Currently normotensive -Hold Coreg if patient becomes hypotensive -Continue to hold pain medication (8) Pulmonary hypertension Code(s): I27.20 - Pulmonary hypertension, unspecified Status: Acute Plan: History of pulmonary hypertension currently on sildenafil -Continue home sildenafil (9) Chronic pain Code(s): G89.29 - Other chronic pain Status: Acute Plan: Home med: Percocet 5/325 2 tabs q4H for back pain Continue to hold if hypotensive Reduced for inpatient stay PT ordered and working w/patient (10) Nutrition, metabolism, and development symptoms Code(s): R63.8 - Other symptoms and signs concerning food and fluid intake Status: Acute Plan: Fluid: none, patient is currently fluid overloaded Electrolytes: Replete as needed Nutrition: Low-salt, cardiac diet DVT prophylaxis: Patient on Coumadin and anticoagulated, Lovenox 40 mg subcu daily <Josefina VelaWarner - 05/24/18 15:09> (1) Pyelonephritis Code(s): N12 - Tubulo-interstitial nephritis, not specified as acute or chronic Status: Acute (2) Bacteremia due to Gram-negative bacteria Code(s): R78.81 - Bacteremia Status: Resolved (3) Acute exacerbation of chronic obstructive pulmonary disease (COPD) Code(s): J44.1 - Chronic obstructive pulmonary disease with (acute) exacerbation Status: Acute (4) Diarrhea Code(s): R19.7 - Diarrhea, unspecified Status: Acute (5) CHF (congestive heart failure) Code(s): I50.9 - Heart failure, unspecified Status: Acute (6) Atrial fibrillation Code(s): I48.91 - Unspecified atrial fibrillation Status: Acute (7) Hypertension Code(s): I10 - Essential (primary) hypertension Status: Acute (8) Pulmonary hypertension Code(s): I27.20 - Pulmonary hypertension, unspecified Status: Acute (9) Chronic pain Code(s): G89.29 - Other chronic pain Status: Acute (10) Nutrition, metabolism, and development symptoms Code(s): R63.8 - Other symptoms and signs concerning food and fluid intake Status: Acute (11) Sepsis due to urinary tract infection Code(s): A41.9 - Sepsis, unspecified organism; N39.0 - Urinary tract infection, site not specified Status: Resolved <Adalberto Martinez - 05/25/18 13:49> - Assessment and Plan This patient is a 77-year-old female with prior history of UTIs admitted for altered mental status in the setting of severe sepsis and urinary tract infection. Admitted patient for IV antibiotics. <Jovon Kellogg - 05/24/18 15:39> Discussed Condition With: Dr. Martinez <Jovon Kellogg - 05/24/18 15:39> - Attending Attestation Pt. examined independently during medical rounds on the morning of 05/24/2018 I have read the above resident note and agree with the assessment/plan as discussed with me I was involved in all medical decision making for this patient Adalberto Martinez MD <Adalberto Martinez - 05/25/18 13:49>
[2018-05-24] MEDS: Furosemide 20 MG Tablet PO SCH (18:06)
[2018-05-24] MEDS: Menthol 5.8 MG Lozenge BUCCAL PRN ×2 (20:46→23:13)
[2018-05-24] MEDS: Loperamide 2 MG Capsule PO PRN (20:47)
[2018-05-24] MEDS: Enoxaparin Inj 40 MG/0.4 ML Syringe SQ SCH (23:06)
[2018-05-25] MEDS: Piperacil/Tazo 3.375 GM Premix 3.375 GM/50 ML PIGGYBACK IV.SIG SCH (03:46)
[2018-05-25 08:16] LABS: Baso % (Auto) 0.2 % (0.0-2.0); Hematocrit 32.6 % (35.0-46.0); Hemoglobin 10.5 gm/dL (11.6-15.3); Lymph # (Auto) 0.8 th/mm3 (1.0-4.8); Lymph % (Auto) 10.4 % (9.0-44.0); Mean Corpuscular HGB Conc 32.2 % (32.0-36.0); Mean Corpuscular Hemoglobin 29.1 pg (27.0-34.0); Mean Corpuscular Volume 90.5 fL (80.0-100.0); Mean Platelet Volume 7.6 fL (7.0-11.0); Mono # (Auto) 0.6 th/mm3 (0.0-0.9); Neut # (Auto) 6.5 th/mm3 (1.8-7.7); Neut % (Auto) 81.4 % (16.0-70.0); Platelet Count 280 th/mm3 (150-450); Red Blood Count 3.61 mil/mm3 (4.00-5.30); Red Cell Distribution Width 18.8 % (11.6-17.2)
[2018-05-25 08:19] LABS: INR 4.9 Ratio; Prothrombin Time 48.7 sec (9.8-11.6)
[2018-05-25 08:29] LABS: Calcium 8.7 mg/dL (8.5-10.1); Carbon Dioxide 25.3 meq/L (21.0-32.0)
[2018-05-25] MEDS ORDERED: Warfarin Consult Pharmacy OTHER PRN (09:03)
--- NOTE | 2018-05-25 09:07 | P.PNFP ---
Subjective Interval history: Satting 97% on 3 L overnight. Blood pressures 146/78-178/102. Last blood pressure medication was yesterday at 8 PM. Has been taking less than usual home dose of Lasix. States that she has more swelling in her legs this morning. Otherwise breathing is improved. Continues to endorse diarrhea. Imodium helped lighten it yesterday. <Ros Marsh N - 05/25/18 09:07> Results - Labs Result diagrams: 05/25/18 07:41 05/25/18 07:41 <Adalberto Martinez - 05/25/18 14:46> Abnormal lab results 05/25/18 05/25/18 05/25/18 Range/Units 07:41 07:41 07:41 RBC 3.61 L (4.00-5.30) mil/mm3 Hgb 10.5 L (11.6-15.3) gm/dL Hct 32.6 L (35.0-46.0) % RDW 18.8 H (11.6-17.2) % Neut % (Auto) 81.4 H (16.0-70.0) % Lymph # (Auto) 0.8 L (1.0-4.8) th/mm3 PT 48.7 H D (9.8-11.6) sec BUN 27 H (7-18) mg/dL Creatinine 1.29 H (0.50-1.00) mg/dL Estimated GFR 40 L (>89) mL/min Random Glucose 125 H (74-106) mg/dL Short CBC 05/25/18 Range/Units 07:41 WBC 8.0 (4.0-11.0) th/mm3 Hgb 10.5 L (11.6-15.3) gm/dL Hct 32.6 L (35.0-46.0) % Plt Count 280 (150-450) th/mm3 BMP 05/25/18 07:41 Sodium 140 Potassium 4.0 Chloride 104 Carbon Dioxide 25.3 BUN 27 H Creatinine 1.29 H Calcium 8.7 <Adalberto Martinez - 05/25/18 14:46> Abnormal lab results 05/24/18 05/24/18 05/25/18 Range/Units 09:25 09:25 07:41 WBC 12.3 H D (4.0-11.0) th/mm3 RBC 3.62 L 3.61 L (4.00-5.30) mil/mm3 Hgb 10.8 L 10.5 L (11.6-15.3) gm/dL Hct 32.7 L 32.6 L (35.0-46.0) % RDW 18.8 H 18.8 H (11.6-17.2) % Neut % (Auto) 82.4 H 81.4 H (16.0-70.0) % Lymph % (Auto) 7.7 L (9.0-44.0) % [place] % (Auto) 9.7 H (0.0-8.0) % Neut # (Auto) 10.1 H (1.8-7.7) th/mm3 Lymph # (Auto) 0.9 L 0.8 L (1.0-4.8) th/mm3 [place] # (Auto) 1.2 H (0.0-0.9) th/mm3 PT (9.8-11.6) sec BUN 26 H (7-18) mg/dL Creatinine 1.07 H (0.50-1.00) mg/dL Estimated GFR 50 L (>89) mL/min Random Glucose 109 H (74-106) mg/dL 05/25/18 05/25/18 Range/Units 07:41 07:41 WBC (4.0-11.0) th/mm3 RBC (4.00-5.30) mil/mm3 Hgb (11.6-15.3) gm/dL Hct (35.0-46.0) % RDW (11.6-17.2) % Neut % (Auto) (16.0-70.0) % Lymph % (Auto) (9.0-44.0) % [place] % (Auto) (0.0-8.0) % Neut # (Auto) (1.8-7.7) th/mm3 Lymph # (Auto) (1.0-4.8) th/mm3 [place] # (Auto) (0.0-0.9) th/mm3 PT 48.7 H D (9.8-11.6) sec BUN 27 H (7-18) mg/dL Creatinine 1.29 H (0.50-1.00) mg/dL Estimated GFR 40 L (>89) mL/min Random Glucose 125 H (74-106) mg/dL Short CBC 05/24/18 05/25/18 Range/Units 09:25 07:41 WBC 12.3 H D 8.0 (4.0-11.0) th/mm3 Hgb 10.8 L 10.5 L (11.6-15.3) gm/dL Hct 32.7 L 32.6 L (35.0-46.0) % Plt Count 305 D 280 (150-450) th/mm3 BMP 05/24/18 05/25/18 09:25 07:41 Sodium 138 140 Potassium 3.8 4.0 Chloride 105 104 Carbon Dioxide 24.7 25.3 BUN 26 H 27 H Creatinine 1.07 H 1.29 H Calcium 8.9 8.7 <Abid R2,Ros N - 05/25/18 09:07> Physical Exam Vital signs: Vital Signs 05/24/18 15:00 05/24/18 15:56 05/24/18 16:00 Temperature 97.8 F Pulse Rate 69 69 82 Respiratory Rate 14 20 Blood Pressure 158/64 H Pulse Oximetry 93 L 05/24/18 18:06 05/24/18 21:07 05/24/18 21:19 Temperature 97.7 F Pulse Rate 79 79 Respiratory Rate 14 18 24 Blood Pressure 133/74 Pulse Oximetry 94 L 98 05/25/18 00:33 05/25/18 04:30 05/25/18 04:49 Temperature 97.5 F L 97.3 F L Pulse Rate 79 70 80 Respiratory Rate 18 18 Blood Pressure 146/78 H 146/71 H Pulse Oximetry 96 97 05/25/18 07:00 05/25/18 07:52 05/25/18 08:00 Temperature 97.4 F L Pulse Rate 80 84 Respiratory Rate 14 18 Blood Pressure 178/102 H Pulse Oximetry 94 L 97 05/25/18 11:00 05/25/18 11:33 Temperature 97.7 F Pulse Rate 76 68 Respiratory Rate 14 18 Blood Pressure 114/70 Pulse Oximetry 96 Intake & Output 05/24/18 05/25/18 05/25/18 18:59 06:59 18:59 Intake Total 1350 / 1350 617.5 / 617.5 240 / 240 Output Total 1300 / 1300 1000 / 1000 200 / 200 Balance 50 / 50 -382.5 / -382.5 40 / 40 Intake: IV 100 / 100 617.5 / 617.5 Zosyn 3.375 GM Premix 3.375 gm 100 / 100 100 / 100 In 50 ml @ 100 mls/hr IV.SIG Q6H MARTHA Rx#:[id number] Vancomycin Inj 1,750 MG In NS 517.5 / 517.5 Inj 500 ML @ 250 mls/hr IV.SIG Q24H MARTHA Rx#:[id number] Oral 1250 / 1250 240 / 240 Output: Urine 1300 / 1300 1000 / 1000 200 / 200 Other: # Incontinent Voids 2 Date of Last Bowel Movement 05/24/18 05/25/18 05/25/18 # Bowel Movements 1 5 <Adalberto Martinez - 05/25/18 14:46> Vital Signs 05/24/18 12:00 05/24/18 15:00 05/24/18 15:56 Temperature 97.3 F L Pulse Rate 85 69 69 Respiratory Rate 20 14 Blood Pressure 126/63 Pulse Oximetry 97 05/24/18 16:00 05/24/18 18:06 05/24/18 21:07 Temperature 97.8 F 97.7 F Pulse Rate 82 79 Respiratory Rate 20 14 18 Blood Pressure 158/64 H 133/74 Pulse Oximetry 93 L 94 L 05/24/18 21:19 05/25/18 00:33 05/25/18 04:30 Temperature 97.5 F L Pulse Rate 79 79 70 Respiratory Rate 24 18 Blood Pressure 146/78 H Pulse Oximetry 98 96 05/25/18 04:49 05/25/18 07:52 Temperature 97.3 F L 97.4 F L Pulse Rate 80 84 Respiratory Rate 18 18 Blood Pressure 146/71 H 178/102 H Pulse Oximetry 97 94 L Intake & Output 05/24/18 05/25/18 05/25/18 18:59 06:59 18:59 Intake Total 1350 / 1350 617.5 / 617.5 Output Total 1300 / 1300 1000 / 1000 Balance 50 / 50 -382.5 / -382.5 Intake: IV 100 / 100 617.5 / 617.5 Zosyn 3.375 GM Premix 3.375 gm 100 / 100 100 / 100 In 50 ml @ 100 mls/hr IV.SIG Q6H MARTHA Rx#:[id number] Vancomycin Inj 1,750 MG In NS 517.5 / 517.5 Inj 500 ML @ 250 mls/hr IV.SIG Q24H MARTHA Rx#:[id number] Oral 1250 / 1250 Output: Urine 1300 / 1300 1000 / 1000 Other: # Incontinent Voids 2 Date of Last Bowel Movement 05/24/18 05/25/18 # Bowel Movements 1 <Abialex Ros Lynch N - 05/25/18 09:07> Narrative: General: Elderly female, sitting in chair in no obvious distress. On 3 L nasal cannula oxygen Skin: Warm and dry and intact, patient has multiple healing ecchymosis on anterior shins and forearms bilaterally. Cardiovascular: Regular rate and rhythm, no obvious murmurs Pulmonary: Clear bilaterally except for occasional rhonchi in the lower lobes, good air flow. Abd: no tenderness or distension Extremities: Moderate pitting edema in both lower extremities extending up to just below the knees. Psych: Awake, alert and oriented; no focal deficits <Frankie Ros Lynch - 05/25/18 10:49> - Urinary Catheter Management Indwelling Urethral Catheter Cath placed during this visit: no <Adalberto Martinez - 05/25/18 14:46> yes <Skylaralex Ros Lynch Madeline - 05/25/18 12:51> Reason for continuing: Hourly intake/output <Abid Ros Lynch N - 05/25/18 09:07 > Insertion date: 05/19/18 <Abid Ros Lynch 05/25/18 09:07> Insertion time: 18:43 <Abid Ros Lynch [facility] 05/25/18 09:07> Assessment and Plan - Assessment (1) Pyelonephritis Code(s): N12 - Tubulo-interstitial nephritis, not specified as acute or chronic Status: Acute (2) Bacteremia due to Gram-negative bacteria Code(s): R78.81 - Bacteremia Status: Resolved (3) Acute exacerbation of chronic obstructive pulmonary disease (COPD) Code(s): J44.1 - Chronic obstructive pulmonary disease with (acute) exacerbation Status: Acute (4) Diarrhea Code(s): R19.7 - Diarrhea, unspecified Status: Acute (5) CHF (congestive heart failure) Code(s): I50.9 - Heart failure, unspecified Status: Acute (6) Atrial fibrillation Code(s): I48.91 - Unspecified atrial fibrillation Status: Acute (7) Hypertension Code(s): I10 - Essential (primary) hypertension Status: Acute (8) Pulmonary hypertension Code(s): I27.20 - Pulmonary hypertension, unspecified Status: Acute (9) Chronic pain Code(s): G89.29 - Other chronic pain Status: Acute (10) Nutrition, metabolism, and development symptoms Code(s): R63.8 - Other symptoms and signs concerning food and fluid intake Status: Acute (11) Sepsis due to urinary tract infection Code(s): A41.9 - Sepsis, unspecified organism; N39.0 - Urinary tract infection, site not specified Status: Resolved <Adalberto Martinez - 05/25/18 14:46> (1) Pyelonephritis Code(s): N12 - Tubulo-interstitial nephritis, not specified as acute or chronic Status: Acute Plan: On admission, septic and w/pyuria and leukocytosis Urine culture from 05/19 grew E. Coli Blood cultures from 05/19 growing E.coli Repeat blood cx from 05/21 shows no growth to date IV antibiotics: Ceftriaxone (05/19 - 05/22) Continue Zosyn (05/22 - 05/24) Continue Vanco (05/22 - 05/24) PO Keflex on d/c (2) Bacteremia due to Gram-negative bacteria Code(s): R78.81 - Bacteremia Status: Resolved Plan: see above -Plan to treat for a total of at least 10 days (3) Acute exacerbation of chronic obstructive pulmonary disease (COPD) Code(s): J44.1 - Chronic obstructive pulmonary disease with (acute) exacerbation Status: Acute Plan: Patient suffers from COPD on 3 L/m home oxygen. Currently back to baseline requiring 3 L/m inpatient. DC Abx Con't course of prednisone (Day #4 today) -Supplemental oxygen as needed -Duo nebs ordered every 4 hours -Ventolin 2 puffs every 4 hours as needed -Continue pulmonary Acapella (4) Diarrhea Code(s): R19.7 - Diarrhea, unspecified Status: Acute Plan: negative for c.diff Likely 22/ to abx (5) CHF (congestive heart failure) Code(s): I50.9 - Heart failure, unspecified Status: Acute Plan: Con't home meds Give another dose of IV Lasix 40 mg x1 (6) Atrial fibrillation Code(s): I48.91 - Unspecified atrial fibrillation Status: Acute Plan: INR supratherapeutic, pharm consulted Continue warfarin 4 mg Thursday, Thursday, , Thursday (7) Hypertension Code(s): I10 - Essential (primary) hypertension Status: Acute Plan: Con't home meds, return lasix to home dose (8) Pulmonary hypertension Code(s): I27.20 - Pulmonary hypertension, unspecified Status: Acute Plan: History of pulmonary hypertension currently on sildenafil -Continue home sildenafil (9) Chronic pain Code(s): G89.29 - Other chronic pain Status: Acute Plan: Home med: Percocet 5/325 2 tabs q4H for back pain Reduced for inpatient stay PT ordered and working w/patient (10) Nutrition, metabolism, and development symptoms Code(s): R63.8 - Other symptoms and signs concerning food and fluid intake Status: Acute Plan: Fluid: none Electrolytes: Replete as needed Nutrition: Low-salt, cardiac diet DVT prophylaxis: Patient on Coumadin and anticoagulated, Lovenox 40 mg subcu daily (11) Sepsis due to urinary tract infection Code(s): A41.9 - Sepsis, unspecified organism; N39.0 - Urinary tract infection, site not specified Status: Resolved Plan: Resolved <Ros Marsh N - 05/25/18 12:50> - Assessment and Plan This patient is a 77-year-old female with prior history of UTIs admitted for altered mental status in the setting of severe sepsis and urinary tract infection. <Ros Marsh - 05/25/18 09:07> Discharge Planning: Dc today w/PO abx, needs PCP f/u in 1-2 wks <Ros Marsh - 05/25/18 09:07> - Attending Attestation Patient examined independently of resident physicians on 05/25/18 I personally reviewed daily updates with the patient and answered all questions I have read the above note by the resident physicians and agree with the assessment/plan as discussed with me I was involved in all medical decision making for this patient Adalberto Martinez MD <Adalberto Martinez 05/25/18 14:46>
[2018-05-25] MEDS: Loperamide 2 MG Capsule PO PRN ×2 (09:22→14:11)
[2018-05-25] MEDS: Furosemide 20 MG Tablet PO SCH (09:23)
[2018-05-25] MEDS: Potassium Chloride 10 MEQ ER Capsule PO SCH (09:23)
[2018-05-25] MEDS: Carvedilol 6.25 MG Tablet PO SCH (09:24)
[2018-05-25] MEDS: Senna/Docusate Sodium 8.6/50 MG Tablet PO SCH (09:24)
[2018-05-25] MEDS: predniSONE 20 MG Tablet PO SCH (09:25)
[2018-05-25] MEDS: Duloxetine 60 MG DR Capsule PO SCH (10:39)
--- NOTE | 2018-05-25 10:47 | P.DS ---
Date of admission: 05/19/18 21:21 Primary care physician: Yonny Awad MD Brief History from admission: Upon initial encounter with patient patient was unable to recount activities of today or as to why she was in the hospital. History garnered from EMR review as well as from documentation of ED physician with paramedics. This patient is a 77-year-old female with a history of hypertension, CHF, COPD on home oxygen and prior UTIs admitted to the medicine service after a 6-hour history of altered mental status. Per paramedics, her son called emergency services at approximately noon today after finding mother to be acutely mentally altered. Patient's son was briefly available by phone but wanted to speak with his mother and history could not be garnered. Of note: Patient did report pain with urination but could not elaborate further. PMhx: Per EMR COPD, Afib, CHF, hypertension, pulmonary hypertension Surgical Hx: Hysterectomy Meds: 3 L of home O2, albuterol sulfate 90 mcg 1 puff every 4 to every 6 as needed, carvedilol 6.25 mg p.o. twice daily, Cymbalta 60 mg p.o. daily, magnesium oxide 400 mg p.o. twice daily, potassium chloride, 10 mEq p.o. twice daily, simvastatin 20 mg every afternoon, sildenafil, warfarin 4 mg p.o. 4 times weekly, Symbicort twice daily, furosemide 60 mg twice daily Allergies: NKA Social Hx: Unknown, will lara from son Code: DNR DS: Diagnosis - Discharge Diagnosis (1) Pyelonephritis Status: Acute (2) Bacteremia due to Gram-negative bacteria Status: Resolved (3) Acute exacerbation of chronic obstructive pulmonary disease (COPD) Status: Acute (4) Diarrhea Status: Acute (5) CHF (congestive heart failure) Status: Acute (6) Atrial fibrillation Status: Acute (7) Hypertension Status: Acute (8) Pulmonary hypertension Status: Acute (9) Chronic pain Status: Acute (10) Nutrition, metabolism, and development symptoms Status: Acute (11) Sepsis due to urinary tract infection Status: Resolved DS: Medications - Discharge Medications Prescriptions: cephalexin 500 mg PO Q6HR #28 cap prednisone 40 mg PO DAILY #1 tab DS: Summary Hospital Course: This patient is a 77-year-old female with prior history of UTIs admitted for altered mental status in the setting of severe sepsis and pyelonephritis. This patient presents with a 6-hour history of altered mental status in the setting of increased white blood cell count of 14.9 as well as febrile at 103.2 meeting severe sepsis criteria on admission. Patient urinalysis positive for nitrites as well as moderate leukocyte esterase and high white blood cell and hyaline casts indicating urosepsis. Patient previously treated on April 02, 2018 for UTI, culture at the time grew E. coli and patient was treated successfully with ceftriaxone. During interview patient did mention that she suffers from UTIs often. -UA positive for nitrates and leukocyte esterase -Febrile at 103.2 on admission -Lactic acid 1.4 -Leukocytosis of 14.9 with 90% neutrophils, downtrended during inpatient stay -Unchanged chest x-ray from previous admission -Urine culture grew E.coli, blood cx grew E. coli -On ceftriaxone for 4 days. Zosyn and Vanc was received for 3 days for potential HCAP in COPD exacerbation that occurred 05/22 when patient required more O2 to breathe. Prednisone was added 05/22 and duonebs, albuterol were given. This improved and subsequently resolved. -Vanc and Zosyn were discontinued. -Plan for discharge on Keflex for total course of 10 days. -IV Lasix given to assist with diuresis. Home Furosemide was continued. -Warfarin was administered on the days it was due and INR was monitored. Found to be supratherapeutic on day of discharge. Pharm was consulted and warfarin held. Outpatient INR ordered for further monitoring and in anticipation of rise w/continued abx treatment. Will need to be further managed outpatient. -Loperamide and probiotics were given for diarrhea; thought to be likely due to antibiotics, C.diff negative - Complete course of prednisone for 5 days for COPD exacerbation. Advise PCP follow-up in 1 week - Time Spent with Patient Total time spent providing and/or coordinating discharge services: Greater than 30 minutes - Quality: VTE Deep Vein Thrombosis/Pulmonary Embolism Present on Admission: No Exam Vital signs: Vital Signs 05/24/18 12:00 05/24/18 15:00 05/24/18 15:56 Temperature 97.3 F L Pulse Rate 85 69 69 Respiratory Rate 20 14 Blood Pressure 126/63 Pulse Oximetry 97 05/24/18 16:00 05/24/18 18:06 05/24/18 21:07 Temperature 97.8 F 97.7 F Pulse Rate 82 79 Respiratory Rate 20 14 18 Blood Pressure 158/64 H 133/74 Pulse Oximetry 93 L 94 L 05/24/18 21:19 05/25/18 00:33 05/25/18 04:30 Temperature 97.5 F L Pulse Rate 79 79 70 Respiratory Rate 24 18 Blood Pressure 146/78 H Pulse Oximetry 98 96 05/25/18 04:49 05/25/18 07:00 05/25/18 07:52 Temperature 97.3 F L 97.4 F L Pulse Rate 80 80 84 Respiratory Rate 18 14 18 Blood Pressure 146/71 H 178/102 H Pulse Oximetry 97 94 L 05/25/18 08:00 Temperature Pulse Rate Respiratory Rate Blood Pressure Pulse Oximetry 97 Intake & Output 05/24/18 05/25/18 05/25/18 18:59 06:59 18:59 Intake Total 1350 / 1350 617.5 / 617.5 Output Total 1300 / 1300 1000 / 1000 Balance 50 / 50 -382.5 / -382.5 Intake: IV 100 / 100 617.5 / 617.5 Zosyn 3.375 GM Premix 3.375 gm 100 / 100 100 / 100 In 50 ml @ 100 mls/hr IV.SIG Q6H MARTHA Rx#:[id number] Vancomycin Inj 1,750 MG In NS 517.5 / 517.5 Inj 500 ML @ 250 mls/hr IV.SIG Q24H MARTHA Rx#:[id number] Oral 1250 / 1250 Output: Urine 1300 / 1300 1000 / 1000 Other: # Incontinent Voids 2 Date of Last Bowel Movement 05/24/18 05/25/18 # Bowel Movements 1 Narrative: General: Elderly female, sitting in chair in no obvious distress. On 3 L nasal cannula oxygen Skin: Warm and dry and intact, patient has multiple healing ecchymosis on anterior shins and forearms bilaterally. Cardiovascular: Regular rate and rhythm, no obvious murmurs Pulmonary: Clear bilaterally except for occasional rhonchi in the lower lobes, good air flow. Abd: no tenderness or distension Extremities: Moderate pitting edema in both lower extremities extending up to just below the knees. Psych: Awake, alert and oriented; no focal deficits Results Procedures completed during hospitalization: N/A Labs on day of discharge: Labs from last 24 hours 05/25/18 05/25/18 05/25/18 07:41 07:41 07:41 WBC 8.0 RBC 3.61 L Hgb 10.5 L Hct 32.6 L MCV 90.5 MCH 29.1 MCHC 32.2 RDW 18.8 H Plt Count 280 MPV 7.6 Prelim Diff (Auto) Slide review pending Neut % (Auto) 81.4 H Lymph % (Auto) 10.4 [place] % (Auto) 8.0 Eos % (Auto) 0.0 Baso % (Auto) 0.2 Neut # (Auto) 6.5 Lymph # (Auto) 0.8 L [place] # (Auto) 0.6 Eos # (Auto) 0.0 Baso # (Auto) 0.0 WBC Differential . Diff Scan Auto diff confirmed Differential Comment . PT 48.7 H D INR 4.9 Sodium 140 Potassium 4.0 Chloride 104 Carbon Dioxide 25.3 Anion Gap 11 BUN 27 H Creatinine 1.29 H Estimated GFR 40 L Random Glucose 125 H Calcium 8.7 Stl C.difficile DNA Amp St C. diff Tox Epid 027 05/24/18 15:00 WBC RBC Hgb Hct MCV MCH MCHC RDW Plt Count MPV Prelim Diff (Auto) Neut % (Auto) Lymph % (Auto) [place] % (Auto) Eos % (Auto) Baso % (Auto) Neut # (Auto) Lymph # (Auto) [place] # (Auto) Eos # (Auto) Baso # (Auto) WBC Differential Diff Scan Differential Comment PT INR Sodium Potassium Chloride Carbon Dioxide Anion Gap BUN Creatinine Estimated GFR Random Glucose Calcium Stl C.difficile DNA Amp Negative St C. diff Tox Epid 027 Negative Preliminary micro results at discharge 05/21/18 10:50 Aerobic Blood Culture - Preliminary Blood - Peripheral No growth in 3 days Anaerobic Blood Culture - Preliminary No growth in 3 days 05/21/18 10:50 Aerobic Blood Culture - Preliminary Blood - Peripheral No growth in 3 days Anaerobic Blood Culture - Preliminary No growth in 3 days - Impressions ITS Impressions Head CT 05/19/18 18:28 CONCLUSION: 1. No acute abnormality. 2. Age-related atrophy. 3. Suspected small vessel ischemic change in the white matter. . Chest X-Ray 05/21/18 00:00 CONCLUSION: Coarse interstitial changes as above. Considerations include atypical congestive failure as well as an inflammatory process. Discharge Plan - Discharge Disposition Patient Disposition: 01 Discharge Home - Discharge Condition Condition: Stable - Discharge Order Discharge Orders: Discharge Order (Routine); Ordered 05/25/18 Ordered By: Boris Sands ED Use Only Admit Order (Routine); Ordered 05/19/18 Ordered By: Dread Lennon - Discharge Details Anticipated Discharge Date: 05/25/18 Discharge Comment: Please assist patient in finding pharmacy to fill prescriptions as it is [place]. Also notify patient that she will need a outpatient follow-up INR within 24 hours of discharge. - Physicians Team Primary Care Provider: Yonny Awad Attending Provider: Adalberto Martinez Other Providers: [facility],Agency
[2018-05-25] MEDS ORDERED: Furosemide 20 MG Tablet PO ONE (12:50)
--- NOTE | 2018-05-25 15:18 | P.DCO ---
- Home Health Nursing Order: Signs/symptoms of disease process, Oxygen administration education, Nursing assessment with vital signs - Case Management Consult Case Management Consult-Home Health: Yes - Certification I have seen patient Virgie Delvalle on 05/25/18. My clinical findings support the need for the requested home health care services because: Limited mobility due to disease progression, Patient has SOB, Deconditioned with increased weakness, Limited ability to care for self I certify that my clinical findings support that this patient is homebound because: Impaired cognitive ability/safety
[2018-05-26] MEDS ORDERED: Pharmacy Ordered Lab Info OTHER ONE (22:45)
== END 2018-05-25 14:57 | disposition home or self-care (01) ==
LOC: NEPE 18:13 → NEDA 21:21 → N05 22:43
PROVIDERS: ADMIT Family Medicine; ATTEND Family Medicine